=== PATIENT | female | born 1955 | race Native Hawaiian/Other Pacific Islander ===

== ENCOUNTER 2017-05-25 11:39 | Inpatient (IN) | payer MEDICARE, OTHER ==
[2017-05-25 11:40] VITALS: BMI 22.1
--- NOTE | 2017-05-25 12:25 | C.PDOC ---
History Of Present Illness 61 yr old female brought in by , presents to the ER with complaints of generalized weakness. states, patient has been living in the [facility] for the last 1.5 years and just came back 2 days ago. States the patient seemed to have general weakness, unable to walk, has been incontinence and confused at times. states he is unsure for how long the patient has has these symptoms. Patient reports weakness in the left leg for the past 1 week but seemed to be worse for the past 2 days. Otherwise, denies fever, chest pain, SOB, nausea, vomiting, abdominal pain, diarrhea, headache or dizziness. Time Seen by Provider: 05/25/17 12:02 Chief Complaint (Nursing): Weakness/Neurological Deficit History Per: Patient History/Exam Limitations: no limitations Onset/Duration Of Symptoms: Unknown Past Medical History Reviewed: Historical Data, Nursing Documentation, Vital Signs Vital Signs: Last Vital Signs Temp 98.2 F 05/26/17 16:00 Pulse 75 05/26/17 16:00 Resp 20 05/26/17 16:00 BP 156/77 H 05/26/17 16:00 Pulse Ox 98 05/26/17 19:18 - Medical History PMH: Asthma, COPD, Gall Bladder Disease, HTN Surgical History: Coronary Stent (2012) - [facility] Procedures CORONAR ARTERIOGR-2 CATH (09/16/13) INJECT ANTICOAGULANT (09/28/13) INSERTION OF ONE VASCULAR STENT (09/28/13) INSRT OF DRUG-ELUTING CORON ARTERY STENTS(S) (09/28/13) LEFT HEART CARDIAC CATH (09/16/13) LT HEART ANGIOCARDIOGRAM (09/16/13) PERCUTANEOUS TRANSLUMINAL CORONARY ANGIOPLASTY [PTCA] (09/28/13) PROCEDURE ON SINGLE VESSEL (09/28/13) THORACENTESIS (07/23/15) Family History: States: Unknown Family Hx - Social History Hx Alcohol Use: No Hx Substance Use: No - Immunization History Hx Tetanus Toxoid Vaccination: No Hx Influenza Vaccination: No Hx Pneumococcal Vaccination: No Review Of Systems Except As Marked, All Systems Reviewed And Found Negative. Constitutional: Positive for: Weakness, Other ((+) Confused at times). Negative for: Fever Cardiovascular: Negative for: Chest Pain Respiratory: Negative for: Shortness of Breath Gastrointestinal: Negative for: Nausea, Vomiting, Abdominal Pain, Diarrhea Genitourinary: Positive for: Incontinence Musculoskeletal: Positive for: Other ((+) Left leg weakness.) Neurological: Negative for: Headache, Dizziness Physical Exam - Physical Exam Appears: Non-toxic, No Acute Distress Skin: Warm, Dry Head: Atraumatic, Normacephalic Chest: Symmetrical, No Tenderness Cardiovascular: Rhythm Regular, No Murmur Respiratory: Normal Breath Sounds, No Rales, No Wheezing Extremity: Normal ROM, No Swelling Neurological/Psych: Oriented x3, Normal Speech, Normal Motor ED Course And Treatment - Laboratory Results Result Diagrams: 05/25/17 13:40 05/25/17 13:40 ECG: Interpreted By Me, Viewed By Me ECG Rhythm: Sinus Rhythm ECG Interpretation: Normal Interpretation Of ECG: Normal axis. Normal intervals. Rate From EC (BPM) O2 Sat by Pulse Oximetry: 98 (RA ) Pulse Ox Interpretation: Normal - Other Rad CXR X-Ray: Viewed By Me, Read By Radiologist Interpretation: HISTORY: weak. COMPARISON: 07/24/2015. FINDINGS: LUNGS: There is improving right lower lobe pneumonia. The left lung is clear. PLEURA : Small right pleural effusion. No significant left pleural effusion identified , no pneumothorax apparent. CARDIOVASCULAR: Normal. OSSEOUS STRUCTURES: No significant abnormalities. VISUALIZED UPPER ABDOMEN: Normal. OTHER FINDINGS: None. IMPRESSION: Improving right lower lobe pneumonia. Small right pleural effusion. - CT Scan/US CT - Head Other Rad Studies (CT/US): Read By Radiologist, Radiology Report Reviewed CT/US Interpretation: PROCEDURE: CT HEAD WITHOUT CONTRAST. HISTORY: weak. COMPARISON: None available. TECHNIQUE: Axial computed tomography images were obtained through the head/brain without intravenous contrast. Radiation dose: Total exam DLP = 892.91 mGy-cm. This CT exam was performed using one or more of the following dose reduction techniques: Automated exposure control, adjustment of the mA and/or kV according to patient size, and/or use of iterative reconstruction technique. FINDINGS: HEMORRHAGE: No intracranial hemorrhage. BRAIN: No mass effect or edema. Minimal atrophy. Mild periventricular white matter lucency consistent with age-related microvascular ischemic change. Small old bilateral thalamic lacunar infarcts. Old small bilateral basal ganglia lacunar infarcts. Small old right pontine lacunar infarct. No evidence of acute infarct. VENTRICLES: Unremarkable. No hydrocephalus. CALVARIUM: Unremarkable. PARANASAL SINUSES: Minimal chronic ethmoid sinusitis. MASTOID AIR CELLS: Unremarkable as visualized. No inflammatory changes. OTHER FINDINGS: None. IMPRESSION: No intracranial mass , hemorrhage or evidence of acute infarct. Old bilateral thalamic and basal ganglia lacunar infarcts. Old right pontine lacune. NIHSS Stroke Scale - Date/Time Evaluation Performed Date Performed: 05/25/17 Time Performed: 12:35 - How Severe is the Stoke Level of Consciousness: 0=Alert LOC to Questions: 0=Both comments correct LOC to commands: 0=Obeys both correctly Best Gaze: 0=Normal Visual: 0=No visual loss Facial: 0=Normal Motor Arm - Left: 0=No drift Motor Arm - Right: 0=No drift Motor Leg - Left: 1=Drift before 5 sec (3 seconds) Motor Leg - Right: 0=No drift Limb Ataxia: 0=Absent Sensory: 0=Normal Best Language: 0=No aphasia Dysarthia: 0=Normal articulation Extinction & Inattention (Neglect): 0=Normal, no object Score: 1 Severity Of Stroke: 1-4= Minor Stroke rTPA Inclusion/Exclusion - Refusal of Treatment Patient Refused Treatment: No - Inclusion Criteria for Altepase Patient is 18 years or Older: Yes The Clinical Diagnosis of Ischemic Stroke That is Causing a Potentially Disabling Neurological Deficit: No Time of Onset is Well Established to be Less Than 270 Minute Before Treatment Would Begin: No Risk/Benefit Discussed With Patient/Family Member Present: No Medical Decision Making Medical Decision Making: PLAN: * CT - Head * CXR * EKG * VBG * Troponin * CBC * CMP * Urinalysis * Sodium Chloride IV Disposition - Disposition Disposition: HOSPITALIZED Disposition Time: 15:16 Condition: STABLE - Clinical Impression Clinical Impression: UTI (urinary tract infection), Generalized weakness - Scribe Statement The provider has reviewed the documentation as recorded by the Trungibe Silvana Oquendo Provider Attestation: All medical record entries made by the Dajuan were at my direction and personally dictated by me. I have reviewed the chart and agree that the record accurately reflects my personal performance of the history, physical exam, medical decision making, and the department course for this patient. I have also personally directed, reviewed, and agree with the discharge instructions and disposition.
[2017-05-25] MEDS ORDERED: Sodium Chloride 0.9% 1,000 ML IV ONE (12:40)
[2017-05-25] MEDS ORDERED: Sodium Chloride 0.9% 1,000 ML ONE ×2 (13:04→15:26)
[2017-05-25 13:10] LABS: VENOUS BLOOD GAS BASE EXCESS 3.5 mmol/L (0.0-2.0); VENOUS BLOOD GAS PCO2 47 mmHg (40-60); VENOUS BLOOD GAS PO2 26 mm/Hg (30-55)
--- NOTE | 2017-05-25 13:31 | CT ---
PROCEDURE: CT HEAD WITHOUT CONTRAST. HISTORY: weak COMPARISON: None available. TECHNIQUE: Axial computed tomography images were obtained through the head/brain without intravenous contrast. Radiation dose: Total exam DLP = 892.91 mGy-cm. This CT exam was performed using one or more of the following dose reduction techniques: Automated exposure control, adjustment of the mA and/or kV according to patient size, and/or use of iterative reconstruction technique. FINDINGS: HEMORRHAGE: No intracranial hemorrhage. BRAIN: No mass effect or edema. Minimal atrophy. Mild periventricular white matter lucency consistent with age-related microvascular ischemic change. Small old bilateral thalamic lacunar infarcts. Old small bilateral basal ganglia lacunar infarcts. Small old right pontine lacunar infarct. No evidence of acute infarct. VENTRICLES: Unremarkable. No hydrocephalus. CALVARIUM: Unremarkable. PARANASAL SINUSES: Minimal chronic ethmoid sinusitis. MASTOID AIR CELLS: Unremarkable as visualized. No inflammatory changes. OTHER FINDINGS: None. IMPRESSION: No intracranial mass, hemorrhage or evidence of acute infarct. Old bilateral thalamic and basal ganglia lacunar infarcts. Old right pontine lacune.
--- NOTE | 2017-05-25 13:51 | RAD ---
HISTORY: weak COMPARISON: 07/24/2015 FINDINGS: LUNGS: There is improving right lower lobe pneumonia. The left lung is clear. PLEURA: Small right pleural effusion. No significant left pleural effusion identified, no pneumothorax apparent. CARDIOVASCULAR: Normal. OSSEOUS STRUCTURES: No significant abnormalities. VISUALIZED UPPER ABDOMEN: Normal. OTHER FINDINGS: None. IMPRESSION: Improving right lower lobe pneumonia. Small right pleural effusion.
[2017-05-25 13:55] LABS: BASO # 0.1 K/uL (0.0-0.2); BASO % 0.8 % (0.0-2.0); EOS # 0.2 K/uL (0.0-0.7); EOS % 2.7 % (0.0-4.0); LYMPH # 1.5 K/uL (1.0-4.3); MEAN CELL VOLUME 85.5 fL (81.0-99.0); MEAN CORPUSCULAR HEMOGLOBIN 28.9 pg (27.0-31.0); MEAN CORPUSCULAR HGB CONC 33.8 g/dL (33.0-37.0); MEAN PLATELET VOLUME 7.8 fL (7.2-11.7); MONO # 0.5 K/uL (0.0-0.8); MONO % 5.9 % (0.0-10.0); NEUT # 6.5 K/uL (1.8-7.0); NEUT % 73.6 % (50.0-75.0); RBC 4.85 Mil/uL (3.80-5.20); RED CELL DISTRIBUTION WIDTH 14.9 % (11.5-14.5); WHITE BLOOD COUNT 8.8 K/uL (4.8-10.8)
[2017-05-25 14:03] LABS: ALBUMIN 2.8 g/dL (3.5-5.0)
[2017-05-25 14:05] LABS: GFR AFRICAN-AMERICAN 50; GFR NON-AFRICAN AMERICAN 42
[2017-05-25 14:06] LABS: ALB/GLOB RATIO 0.8 (1.0-2.1); ALT/SGPT 20 U/L (9-52); AST/SGOT 18 U/L (14-36); BLOOD UREA NITROGEN 15 mg/dL (7-17); CALCIUM 8.6 mg/dl (8.6-10.4)
[2017-05-25 15:09] LABS: SQUAMOUS EPITHIAL 1 /hpf (0-5); URINE BACTERIA FEW (<OCC); URINE BILIRUBIN NEGATIVE (NEGATIVE); URINE BLOOD 1+ (NEGATIVE); URINE CLARITY Hazy (Clear); URINE COLOR Yellow (YELLOW); URINE GLUCOSE (UA) 3+ mg/dL (Normal); URINE LEUKOCYTE ESTERASE 3+ Leu/uL (Negative); URINE NITRATE NEGATIVE (NEGATIVE); URINE PROTEIN 3+ mg/dL (NEGATIVE); URINE UROBILINOGEN NORMAL mg/dL (0.2-1.0); WBC CLUMPS FEW /hpf
[2017-05-25] MEDS ORDERED: cefTRIAXone IV 1 gm in Dextros 50 ML IVPB ONE (15:26)
[2017-05-25] MEDS: Sodium Chloride 0.9% 1,000 ML IV SCH (15:30)
[2017-05-25] MEDS ORDERED: (Novolin R) Insulin Human Regular 100 units/ml vial ONE (16:35)
[2017-05-25] MEDS: (Novolog) Insulin Aspart, Recombinant 100 u/ml 10 ml vial SC SCH ×2 (16:35→22:54)
[2017-05-25] MEDS ORDERED: Potassium Chloride 20 mEq ER Tab PO SCH (18:45)
[2017-05-25] MEDS ORDERED: Potassium Chloride 20 mEq ER Tab PO ONE ×2 (18:45→18:55)
[2017-05-26] MEDS: Sodium Chloride 0.9% 1,000 ML IV SCH ×2 (01:54→13:17)
[2017-05-26] MEDS: (Novolog) Insulin Aspart, Recombinant 100 u/ml 10 ml vial SC SCH ×4 (08:43→23:28)
[2017-05-26] MEDS ORDERED: Insulin Detemir 100 units/ml Vial (Levemir) SC SCH (10:00)
[2017-05-26] MEDS ORDERED: Potassium Chloride 20 mEq ER Tab PO SCH (10:00)
--- NOTE | 2017-05-26 11:38 | CP.PCM.HP ---
History of Present Illness - History of Present Illness History of Present Illness: CC: Weakness HPI : 61 year old female brought by in ER c/o weakness, unsteady gait and confusion. Recently arrived from the [facility]. Stayed in the [facility] for 1 year. Unable to obtain additional history. Confuse. Moves all extremities. Present on Admission - Present on Admission Any Indicators Present on Admission: Yes History of DVT/PE: No History of Uncontrolled Diabetes: Yes Urinary Catheter: No Decubitus Ulcer Present: No Review of Systems - Review of Systems Systems not reviewed;Unavailable: Altered Mental Status - Constitutional Constitutional: Weakness - EENT Ears: Dizziness Past Patient History - Past Medical History & Family History Past Medical History?: Yes - Past Social History Smoking Status: Never Smoked - CARDIAC Hx Cardiac Disorders: Yes Hx Hypertension: Yes - PULMONARY Hx Respiratory Disorders: Yes Hx Asthma: Yes Hx Chronic Obstructive Pulmonary Disease (COPD): Yes - NEUROLOGICAL Hx Neurological Disorder: No Hx Paralysis: No - HEENT Hx HEENT Problems: No - RENAL Hx Chronic Kidney Disease: No - ENDOCRINE/METABOLIC Hx Endocrine Disorders: Yes Hx Diabetes Mellitus Type 2: Yes - HEMATOLOGICAL/ONCOLOGICAL Hx Blood Disorders: No Hx Blood Transfusions: No Hx Blood Transfusion Reaction: No - INTEGUMENTARY Hx Dermatological Problems: No - MUSCULOSKELETAL/RHEUMATOLOGICAL Hx Musculoskeletal Disorders: Yes Hx Falls: No Hx Unsteady Gait: Yes - GASTROINTESTINAL Hx Gastrointestinal Disorders: Yes Hx Gall Bladder Disease: Yes - GENITOURINARY/GYNECOLOGICAL Hx Genitourinary Disorders: No - PSYCHIATRIC Hx Psychophysiologic Disorder: No Hx Substance Use: No - SURGICAL HISTORY Hx Surgeries: Yes Hx Coronary Stent: Yes (2012) - ANESTHESIA Hx Anesthesia: Yes Hx Anesthesia Reactions: No Hx Malignant Hyperthermia: No Has any member of the family had a problem w/ anesthesia?: No Meds Allergies/Adverse Reactions: Allergies Allergy/AdvReac Type Severity Reaction Status Date / Time iodine Allergy Verified 05/25/17 12:27 Latex, Natural Rubber Allergy Verified 05/25/17 12:27 pentazocine [From Talwin] Allergy Verified 05/25/17 12:27 Physical Exam - Constitutional Appears: Chronically Ill - Head Exam Head Exam: NORMAL INSPECTION - Eye Exam Eye Exam: Normal appearance - ENT Exam ENT Exam: Normal Exam - Neck Exam Neck exam: Positive for: Normal Inspection - Respiratory Exam Respiratory Exam: NORMAL BREATHING PATTERN - Cardiovascular Exam Cardiovascular Exam: REGULAR RHYTHM - GI/Abdominal Exam GI & Abdominal Exam: Soft. absent: Tenderness - Rectal Exam Rectal Exam: Deferred - Extremities Exam Extremities exam: Negative for: pedal edema - Neurological Exam Neurological exam: Altered Results - Vital Signs Recent Vital Signs: Last Vital Signs Temp 98.1 F 05/26/17 07:41 Pulse 68 05/26/17 07:41 Resp 20 05/26/17 07:41 BP 167/79 H 05/26/17 07:41 Pulse Ox 100 05/26/17 07:41 - Labs Result Diagrams: 05/25/17 13:40 05/25/17 13:40 Labs: Laboratory Results - last 24 hr 05/25/17 05/25/17 05/26/17 16:31 22:49 08:36 POC Glucose (mg/dL) 224 H 162 H 234 H Assessment & Plan (1) Confusion state Status: Acute (2) Uncontrolled diabetes mellitus Status: Acute (3) Weakness Status: Acute (4) CAD (coronary artery disease) Status: Chronic (5) Old cerebrovascular accident without late effect Status: Chronic - Assessment and Plan (Free Text) Assessment: PLans: Continue medications. Neurology consult. - Date & Time Date: 05/26/17 Time: 11:46
--- NOTE | 2017-05-26 13:05 | CP.PCM.CON ---
History of Present Illness - History of Present Illness History of Present Illness: Consult wriite Rec: MRI brain Ammonia level HIV testing urine c/c Consider IV antibiotucs Physical therapy Past Patient History - Past Medical History & Family History Past Medical History?: Yes - Past Social History Smoking Status: Never Smoked - CARDIAC Hx Cardiac Disorders: Yes Hx Hypertension: Yes - PULMONARY Hx Respiratory Disorders: Yes Hx Asthma: Yes Hx Chronic Obstructive Pulmonary Disease (COPD): Yes - NEUROLOGICAL Hx Neurological Disorder: No Hx Paralysis: No - HEENT Hx HEENT Problems: No - RENAL Hx Chronic Kidney Disease: No - ENDOCRINE/METABOLIC Hx Endocrine Disorders: Yes Hx Diabetes Mellitus Type 2: Yes - HEMATOLOGICAL/ONCOLOGICAL Hx Blood Disorders: No Hx Blood Transfusions: No Hx Blood Transfusion Reaction: No - INTEGUMENTARY Hx Dermatological Problems: No - MUSCULOSKELETAL/RHEUMATOLOGICAL Hx Musculoskeletal Disorders: Yes Hx Falls: No Hx Unsteady Gait: Yes - GASTROINTESTINAL Hx Gastrointestinal Disorders: Yes Hx Gall Bladder Disease: Yes - GENITOURINARY/GYNECOLOGICAL Hx Genitourinary Disorders: No - PSYCHIATRIC Hx Psychophysiologic Disorder: No Hx Substance Use: No - SURGICAL HISTORY Hx Surgeries: Yes Hx Coronary Stent: Yes (2012) - ANESTHESIA Hx Anesthesia: Yes Hx Anesthesia Reactions: No Hx Malignant Hyperthermia: No Has any member of the family had a problem w/ anesthesia?: No Meds Allergies/Adverse Reactions: Allergies Allergy/AdvReac Type Severity Reaction Status Date / Time iodine Allergy Verified 05/25/17 12:27 Latex, Natural Rubber Allergy Verified 05/25/17 12:27 pentazocine [From Talwin] Allergy Verified 05/25/17 12:27 - Medications Medications: Current Medications Heparin Sodium (Porcine) (Heparin) 5,000 units SC Q8 [facility] Sodium Chloride (Sodium Chloride 0.9%) 1,000 mls @ 100 mls/hr IV .Q10H [facility] Last Admin: 05/26/17 01:54 Dose: 100 mls/hr Insulin Aspart (Novolog) 0 unit SC ACHS [facility] PRN Reason: Protocol Last Admin: 05/26/17 08:43 Dose: 4 unit Insulin Detemir (Levemir) 16 unit SC DAILY [facility] Stop: 05/31/17 23:59 Last Admin: 05/26/17 10:50 Dose: 16 unit Losartan Potassium (Cozaar) 50 mg PO DAILY [facility] Last Admin: 05/26/17 10:50 Dose: 50 mg Results - Vital Signs Recent Vital Signs: Last Vital Signs Temp 98.1 F 05/26/17 07:41 Pulse 68 05/26/17 07:41 Resp 20 05/26/17 07:41 BP 167/79 H 05/26/17 07:41 Pulse Ox 100 05/26/17 07:41 - Labs Result Diagrams: 05/25/17 13:40 05/25/17 13:40 Labs: Laboratory Results - last 24 hr 05/25/17 05/25/17 05/26/17 16:31 22:49 08:36 POC Glucose (mg/dL) 224 H 162 H 234 H 05/26/17 12:54 POC Glucose (mg/dL) 275 H
[2017-05-27] MEDS: (Novolog) Insulin Aspart, Recombinant 100 u/ml 10 ml vial SC SCH ×4 (08:17→22:13)
--- NOTE | 2017-05-27 08:55 | CP.PCM.PN ---
Subjective - Date & Time of Evaluation Date of Evaluation: 05/27/17 Time of Evaluation: 08:15 - Subjective Subjective: Patient confuse; (+) weakness on left leg and seems got worse at the plane States unable to go to bathroom c/o weak on left leg NO CP, no SOB, no edema, no cough, no dysuria Objective - Vital Signs/Intake and Output Vital Signs (last 24 hours): Temp Pulse Resp BP Pulse Ox 97 F L 87 20 126/89 98 05/27/17 00:03 05/27/17 00:03 05/27/17 00:03 05/27/17 00:03 05/27/17 00:03 Intake and Output: 05/27/17 05/27/17 06:59 18:59 Intake Total 660 Balance 660 - Medications Medications: Current Medications Heparin Sodium (Porcine) (Heparin) 5,000 units SC Q8 [facility] Last Admin: 05/27/17 05:38 Dose: 5,000 units Ceftriaxone Sodium 1 gm/ (Sodium Chloride) 100 mls @ 100 mls/hr IVPB DAILY [facility] Last Admin: 05/26/17 17:45 Dose: 100 mls/hr Insulin Aspart (Novolog) 0 unit SC ACHS [facility] PRN Reason: Protocol Last Admin: 05/27/17 08:17 Dose: Not Given Insulin Aspart (Novolog Mix 70/30 (70/30 Units/Ml)) 14 units SC BIDAC [facility] Losartan Potassium (Cozaar) 50 mg PO DAILY [facility] Last Admin: 05/26/17 10:50 Dose: 50 mg Potassium Chloride (K-Dur 20 Meq Er Tab) 20 meq PO BID [facility] Stop: 05/28/17 23:59 - Labs Labs: APTT 34 SECONDS (21-34) 05/26/17 14:00 - Constitutional Appears: No Acute Distress - Eye Exam Eye Exam: Normal appearance - ENT Exam ENT Exam: Mucous Membranes Moist - Neck Exam Neck Exam: Full ROM. absent: Lymphadenopathy, Normal Inspection - Respiratory Exam Respiratory Exam: Decreased Breath Sounds. absent: Rales, Rhonchi, Wheezes - Cardiovascular Exam Cardiovascular Exam: REGULAR RHYTHM, +S1, +S2. absent: Gallop, JVD, Murmur - GI/Abdominal Exam GI & Abdominal Exam: Soft. absent: Tenderness, Mass - Extremities Exam Extremities Exam: Full ROM, Normal Capillary Refill. absent: Calf Tenderness, Joint Swelling, Pedal Edema Assessment and Plan - Assessment and Plan (Free Text) Assessment: UTI; Left leg weakness ? s/o CVA HTN, NIDDM, Hyperlipidemia Cont IV antibiotic/ await ID of infection Neuro work up on going For Phy therapy
[2017-05-27] MEDS: Potassium Chloride 20 mEq ER Tab PO SCH ×2 (09:39→18:15)
[2017-05-27] MEDS: (Novolog Mix 70/30) Insulin Aspart/Insulin Aspar 100 units/ml SC SCH ×2 (09:40→18:17)
[2017-05-27] MEDS ORDERED: Insulin Detemir 100 units/ml Vial (Levemir) SC SCH (10:00)
--- NOTE | 2017-05-27 15:50 | MRI ---
PROCEDURE: MRI BRAIN WITHOUT CONTRAST HISTORY: altered mental status COMPARISON: Comparison made with CT scan of the brain dated 05/25/2017. TECHNIQUE: Multiplanar, multisequence MR images of the brain were obtained without intravenous contrast enhancement. FINDINGS: HEMORRHAGE: No acute parenchymal, subarachnoid nor extra-axial hemorrhage. No evidence of hemosiderin deposition seen on gradient echo weighted sequence. DWI: There are a few very tiny focal areas of restricted diffusion seen in the right posterior villeda radiata, right posterior temporal parietal watershed zone and right frontal periventricular white matter consistent with tiny acute/ subacute infarcts. BRAIN PARENCHYMA: Mild chronic periventricular white matter ischemic changes. In addition, there are multiple chronic appearing lacunar type infarcts scattered about deep and subcortical white matter as well as both basal nuclei and brainstem. No obvious parenchymal nor extra-axial mass or collection seen on noncontrast study. There is enlargement of the ventricles slightly more so than sulci consistent with a central volume loss VENTRICLES: No evidence of obstructive hydrocephalus. CRANIUM: No acute calvarial abnormalities. ORBITS: Orbits and contents grossly unremarkable. PARANASAL SINUSES/MASTOIDS: Clear the visualized paranasal sinuses are well-developed. Minor mucosal thickening seen within several right-sided ethmoid air cells. VASCULAR SYSTEM: Skull base flow voids intact. OTHER FINDINGS: None. IMPRESSION: There are a few tiny acute infarcts scattered about the right cerebral hemisphere which have been detailed above. Note that these findings were discussed with 3 tower Nurse Alfred at approximately 3:40 p.m. with written down and read back verification. White matter and basal nuclei ischemic changes. Ischemic changes No acute intracranial hemorrhage. Moderate central volume loss.
--- NOTE | 2017-05-27 16:17 | PCM.RRTMUL ---
<ThomasDeandra L. - Last Filed: 05/27/17 16:30> QUALITY SYSTEMS MANAGER Nurses Assessment - Situation QUALITY SYSTEMS MANAGER Responder Arrival Time:: 15:45 Location:: 3T Room Number:: 368B QUALITY SYSTEMS MANAGER Reason for Call: Possible Stroke QUALITY SYSTEMS MANAGER Called By: RN - IV IV Inserted during QUALITY SYSTEMS MANAGER?: No - Respiratory Oxygen Delivery Method:: Nasal Cannula CPR started during QUALITY SYSTEMS MANAGER?: No - Vital Signs Blood Pressure:: 159/81 Pulse Rate:: 85 Respiratory Rate:: 20 Temperature:: 98 F - [place] Coma Scale Coma Scale Eye Opening:: Spontaneous Coma Scale Motor:: Obeys Commands Movement Coma Scale Verbal:: Oriented Coma Scale Total:: 15 - A) Initial Vital Signs: Blood Pressure: 152/76 Pulse Rate: 77 Respiratory Rate: 20 Temperature: 98 F O2 Sat by Pulse Oximetry: 98 - B) Neurological Status (Select all that apply): Responsive, Lethargic Plan - A. End of QUALITY SYSTEMS MANAGER Vital Signs: Blood Pressure: 159/81 Pulse Rate: 85 O2 Sat by Pulse Oximetry: 100 - B. Assessment of Findings&Treatment Plan Rapid Response called on patient at 1545 for acute ischemic stroke seen on Brain MRI. Patient returned to room from MRI and radiologist contacted RN with acute results. RN called code stroke on patient. Patient responsive and alert but states that she feels tired. Patient's medical history reviewed- pt has history of CVA in 2014 which resulted in L sided weakness. Patient was initially admitted on 05/25/17 for worsening weakness and confusion and treated for UTI. Neurologist Dr Queta Patel was consulted due to worsening left sided weakness on 05/26. CT head done on 05/25/17 was reviewed which showed no acute findings. Dr Patel ordered MRI brain today to further evaluated symptoms. Full neuro exam was performed (documented in NIHSS note). Dr. Patel was called at 16: 40 results were discussed and he recommends no TPA intervention as patient has been having weakness for several days. Patient to be started on aspiring and crestor and monitored on tele. NIHSS Stroke Scale - Date/Time Evaluation Performed Date Performed: 05/27/17 Time Performed: 16:10 - How Severe is the Stoke Level of Consciousness: 1=Drowsy LOC to Questions: 0=Both comments correct LOC to commands: 0=Obeys both correctly Best Gaze: 0=Normal Visual: 0=No visual loss Facial: 1=Minor asymmetry Motor Arm - Left: 0=No drift Motor Arm - Right: 0=No drift Motor Leg - Left: 0=No drift Motor Leg - Right: 0=No drift Limb Ataxia: 0=Absent Sensory: 0=Normal Best Language: 0=No aphasia Dysarthia: 0=Normal articulation Extinction & Inattention (Neglect): 0=Normal, no object Score: 2 Severity Of Stroke: 1-4= Minor Stroke rTPA Inclusion/Exclusion - Refusal of Treatment Patient Refused Treatment: No - Inclusion Criteria for Altepase Patient is 18 years or Older: Yes The Clinical Diagnosis of Ischemic Stroke That is Causing a Potentially Disabling Neurological Deficit: Yes Time of Onset is Well Established to be Less Than 270 Minute Before Treatment Would Begin: No Risk/Benefit Discussed With Patient/Family Member Present: No - Exclusion Criteria for Altepase Uncontrolled Hypertension at Time of Treatment (Systolic BP above 185 or Diastolic BP above 110 mmHg): No <Marychuy Loera V - Last Filed: 06/04/17 23:19> rTPA Inclusion/Exclusion - Inclusion Criteria for Altepase Time of Onset is Well Established to be Less Than 270 Minute Before Treatment Would Begin: No - Exclusion Criteria for Altepase Less Than 3 Months Had a Recent: Stroke (patient admitted [facility] 05/25/17 for weakness; prior CVA 2 years; unclear time of onset; QUALITY SYSTEMS MANAGER called on 05/27/17) Active Internal Bleeding: No Known Bleeding Diathesis Including but Not Limited to: Platelets Below 100,000/ mm,PTT Above 40 sec After Heparin Use, Current Use of Oral Anitcoagulant With INR Greater Than 1.7 or PT Greater Than 15 secs: No Evidence of an Intracranial Hemorrhage: No Evidence of Major Acute Infarct With Signs Greater Than 1/3 MCA Territory: No Suspicion of Subarachnoid Hemorrhage on Pretreatment Evaluation Even if CT Head Negative For Hemorrhage: No Attending/Attestation - Attestation I have personally seen and examined this patient.: Yes I have fully participated in the care of the patient.: Yes I have reviewed all pertinent clinical information, including history, physical exam and plan: Yes Notes (Text): Responded to QUALITY SYSTEMS MANAGER; nurse reports radiologist recommended QUALITY SYSTEMS MANAGER, for MRI finding noting acute stroke. Patient admitted since 05/25/17 for weakness. ICU Nurse, Gretta providing translation for patient whose primary language is in [place]. Neurology informed (Dr Patel) already on the case. Patient not a candidate for TPA given out of time range since onset of symptoms. Code stroke cancelled. Patient transferred to 6th floor to be monitored on telemetry. Patient ordered for lipid panel, a1c, for stroke measures.
[2017-05-27] MEDS ORDERED: Bisacodyl 5mg EC Tab PO ONE (18:57)
[2017-05-28 06:35] LABS: BASO # 0.1 K/uL (0.0-0.2); BASO % 1.1 % (0.0-2.0); EOS # 0.3 K/uL (0.0-0.7); HEMOGLOBIN 13.1 g/dL (11.0-16.0); LYMPH # 2.3 K/uL (1.0-4.3); LYMPH % 26.2 % (20.0-40.0); MEAN CELL VOLUME 85.1 fL (81.0-99.0); MEAN CORPUSCULAR HEMOGLOBIN 28.2 pg (27.0-31.0); MEAN CORPUSCULAR HGB CONC 33.1 g/dL (33.0-37.0); MEAN PLATELET VOLUME 7.5 fL (7.2-11.7); MONO # 0.5 K/uL (0.0-0.8); MONO % 5.9 % (0.0-10.0); NEUT # 5.5 K/uL (1.8-7.0); NEUT % 63.8 % (50.0-75.0); NRBC % 0.1 % (0.0-2.0); RBC 4.65 Mil/uL (3.80-5.20); RED CELL DISTRIBUTION WIDTH 14.7 % (11.5-14.5); WHITE BLOOD COUNT 8.7 K/uL (4.8-10.8)
[2017-05-28 07:16] LABS: ALBUMIN 2.4 g/dL (3.5-5.0)
[2017-05-28 07:20] LABS: CALCIUM 8.1 mg/dl (8.6-10.4); MAGNESIUM 1.9 mg/dL (1.6-2.3)
[2017-05-28 07:43] LABS: ALB/GLOB RATIO 0.8 (1.0-2.1)
[2017-05-28] MEDS: (Novolog) Insulin Aspart, Recombinant 100 u/ml 10 ml vial SC SCH ×4 (08:17→22:10)
[2017-05-28] MEDS: (Novolog Mix 70/30) Insulin Aspart/Insulin Aspar 100 units/ml SC SCH ×2 (08:29→17:20)
--- NOTE | 2017-05-28 08:54 | CP.PCM.PN ---
Subjective - Date & Time of Evaluation Date of Evaluation: 05/28/17 Time of Evaluation: 08:25 - Subjective Subjective: Pt eyes more blurry; No CP, no SOB, no edema Urine C/S R to Ampicillin but (+) Ceftriaxone Objective - Vital Signs/Intake and Output Vital Signs (last 24 hours): Temp Pulse Resp BP Pulse Ox 98.3 F 79 20 170/91 H 97 05/28/17 08:23 05/28/17 08:23 05/28/17 08:23 05/28/17 08:23 05/28/17 08:23 Intake and Output: 05/28/17 05/28/17 06:59 18:59 Intake Total 125 Balance 125 - Medications Medications: Current Medications Amlodipine Besylate (Norvasc) 5 mg PO DAILY [facility] Last Admin: 05/27/17 09:39 Dose: 5 mg Clopidogrel Bisulfate (Plavix) 75 mg PO DAILY [facility] Last Admin: 05/27/17 09:39 Dose: 75 mg Heparin Sodium (Porcine) (Heparin) 5,000 units SC Q8 [facility] Last Admin: 05/28/17 06:03 Dose: 5,000 units Ceftriaxone Sodium 1 gm/ (Sodium Chloride) 100 mls @ 100 mls/hr IVPB DAILY [facility] Last Admin: 05/27/17 09:41 Dose: 100 mls/hr Insulin Aspart (Novolog) 0 unit SC ACHS [facility] PRN Reason: Protocol Last Admin: 05/28/17 08:17 Dose: Not Given Insulin Aspart (Novolog Mix 70/30 (70/30 Units/Ml)) 14 units SC BIDAC [facility] Last Admin: 05/28/17 08:29 Dose: 14 units Losartan Potassium (Cozaar) 100 mg PO DAILY [facility] Potassium Chloride (K-Dur 20 Meq Er Tab) 20 meq PO BID [facility] Stop: 05/28/17 23:59 Last Admin: 05/27/17 18:15 Dose: 20 meq Rosuvastatin Calcium (Crestor) 40 mg PO HS [facility] Last Admin: 05/27/17 22:33 Dose: 40 mg - Labs Labs: 05/28/17 06:14 05/28/17 06:14 APTT 34 SECONDS (21-34) 05/26/17 14:00 - Constitutional Appears: No Acute Distress - Eye Exam Eye Exam: Normal appearance - ENT Exam ENT Exam: Mucous Membranes Moist - Respiratory Exam Respiratory Exam: Clear to Ausculation Bilateral. absent: Rales, Rhonchi, Wheezes - Cardiovascular Exam Cardiovascular Exam: +S1, +S2. absent: Gallop, REGULAR RHYTHM, JVD, Murmur - GI/Abdominal Exam GI & Abdominal Exam: Soft. absent: Tenderness, Mass - Extremities Exam Extremities Exam: Calf Tenderness, Normal Capillary Refill. absent: Full ROM, Joint Swelling, Pedal Edema Assessment and Plan - Assessment and Plan (Free Text) Assessment: Recent CVA w/ left leg weakness; NIDDM HTN Inc Losartan; On Plavix On Crestor ID & ophtha eval^
[2017-05-28] MEDS: Potassium Chloride 20 mEq ER Tab PO SCH ×2 (09:26→17:19)
--- NOTE | 2017-05-28 15:24 | CP.PCM.CON ---
History of Present Illness - History of Present Illness History of Present Illness: 61 yo F admitted with altered mental status and UTI complaining of blurry vision OS>OD. Pt extremely poor historian on exam. Endorses previous eye surgery ?retinal detachment in past but unable to state when or level of vision previous to admission. Past Patient History - Past Medical History & Family History Past Medical History?: Yes - Past Social History Smoking Status: Never Smoked - CARDIAC Hx Cardiac Disorders: Yes Hx Hypertension: Yes - PULMONARY Hx Respiratory Disorders: Yes Hx Asthma: Yes Hx Chronic Obstructive Pulmonary Disease (COPD): Yes - NEUROLOGICAL Hx Neurological Disorder: No Hx Paralysis: No - HEENT Hx HEENT Problems: No - RENAL Hx Chronic Kidney Disease: No - ENDOCRINE/METABOLIC Hx Endocrine Disorders: Yes Hx Diabetes Mellitus Type 2: Yes - HEMATOLOGICAL/ONCOLOGICAL Hx Blood Disorders: No Hx Blood Transfusions: No Hx Blood Transfusion Reaction: No - INTEGUMENTARY Hx Dermatological Problems: No - MUSCULOSKELETAL/RHEUMATOLOGICAL Hx Musculoskeletal Disorders: Yes Hx Falls: No Hx Unsteady Gait: Yes - GASTROINTESTINAL Hx Gastrointestinal Disorders: Yes Hx Gall Bladder Disease: Yes - GENITOURINARY/GYNECOLOGICAL Hx Genitourinary Disorders: No - PSYCHIATRIC Hx Psychophysiologic Disorder: No Hx Substance Use: No - SURGICAL HISTORY Hx Surgeries: Yes Hx Coronary Stent: Yes (2012) - ANESTHESIA Hx Anesthesia: Yes Hx Anesthesia Reactions: No Hx Malignant Hyperthermia: No Has any member of the family had a problem w/ anesthesia?: No Meds Allergies/Adverse Reactions: Allergies Allergy/AdvReac Type Severity Reaction Status Date / Time iodine Allergy Verified 05/25/17 12:27 Latex, Natural Rubber Allergy Verified 05/25/17 12:27 pentazocine [From Talwin] Allergy Verified 05/25/17 12:27 - Medications Medications: Current Medications Amlodipine Besylate (Norvasc) 5 mg PO DAILY [facility] Last Admin: 05/28/17 09:26 Dose: 5 mg Clopidogrel Bisulfate (Plavix) 75 mg PO DAILY [facility] Last Admin: 05/28/17 09:26 Dose: 75 mg Heparin Sodium (Porcine) (Heparin) 5,000 units SC Q8 [facility] Last Admin: 05/28/17 14:17 Dose: 5,000 units Ceftriaxone Sodium 1 gm/ (Sodium Chloride) 100 mls @ 100 mls/hr IVPB DAILY [facility] Last Admin: 05/28/17 09:27 Dose: 100 mls/hr Insulin Aspart (Novolog) 0 unit SC ACHS [facility] PRN Reason: Protocol Last Admin: 05/28/17 12:30 Dose: 4 unit Insulin Aspart (Novolog Mix 70/30 (70/30 Units/Ml)) 14 units SC BIDAC [facility] Last Admin: 05/28/17 08:29 Dose: 14 units Losartan Potassium (Cozaar) 100 mg PO DAILY [facility] Last Admin: 05/28/17 09:26 Dose: 100 mg Potassium Chloride (K-Dur 20 Meq Er Tab) 20 meq PO BID [facility] Stop: 05/28/17 23:59 Last Admin: 05/28/17 09:26 Dose: 20 meq Rosuvastatin Calcium (Crestor) 40 mg PO HS [facility] Last Admin: 05/27/17 22:33 Dose: 40 mg Physical Exam - Eye Exam Eye Exam: EOMI Pupil Exam: PERRL Additional comments: Va unreliable OU, able to fix and follow OU No APD OU Soft to palpation OU Cornea clear OU anterior chamber deep and formed OU 2+ nuclear sclerotic cataracts OU Poor dilation OU Non-proliferative diabetic retinopathy OU Nerves pink and sharp OU OS with chronic vitreoretinal traction overlying macula/disc Results - Vital Signs Recent Vital Signs: Last Vital Signs Temp 98.3 F 05/28/17 13:09 Pulse 89 05/28/17 13:09 Resp 18 05/28/17 13:09 BP 137/80 05/28/17 13:09 Pulse Ox 97 05/28/17 13:09 - Labs Result Diagrams: 05/28/17 06:14 05/28/17 06:14 Labs: Laboratory Results - last 24 hr 05/27/17 05/27/17 05/27/17 16:39 21:43 22:23 WBC RBC Hgb Hct MCV MCH MCHC RDW Plt Count MPV Neut % (Auto) Lymph % (Auto) [place] % (Auto) Eos % (Auto) Baso % (Auto) Neut # Lymph # [place] # Eos # Baso # Sodium Potassium Chloride Carbon Dioxide Anion Gap BUN Creatinine Est GFR ( Amer) Est GFR (Non-Af Amer) POC Glucose (mg/dL) 274 H 71 106 Random Glucose Hemoglobin A1c Calcium Phosphorus Magnesium Total Bilirubin AST ALT Alkaline Phosphatase Total Protein Albumin Globulin Albumin/Globulin Ratio Triglycerides Cholesterol LDL Cholesterol Direct HDL Cholesterol 05/28/17 05/28/17 05/28/17 06:09 06:14 06:14 WBC 8.7 RBC 4.65 Hgb 13.1 Hct 39.6 MCV 85.1 MCH 28.2 MCHC 33.1 RDW 14.7 H Plt Count 446 H MPV 7.5 Neut % (Auto) 63.8 Lymph % (Auto) 26.2 [place] % (Auto) 5.9 Eos % (Auto) 3.0 Baso % (Auto) 1.1 Neut # 5.5 Lymph # 2.3 Titus # 0.5 Eos # 0.3 Baso # 0.1 Sodium 131 L Potassium 3.4 L Chloride 105 Carbon Dioxide 25 Anion Gap 4 L BUN 14 Creatinine 1.2 Est GFR ( Amer) 55 Est GFR (Non-Af Amer) 46 POC Glucose (mg/dL) 102 Random Glucose 107 H Hemoglobin A1c Calcium 8.1 L Phosphorus 3.7 Magnesium 1.9 Total Bilirubin 0.3 AST 16 ALT 19 Alkaline Phosphatase 51 Total Protein 5.6 L Albumin 2.4 L Globulin 3.2 Albumin/Globulin Ratio 0.8 L Triglycerides 274 H Cholesterol 199 LDL Cholesterol Direct 104 HDL Cholesterol 38 05/28/17 05/28/17 06:14 11:35 WBC RBC Hgb Hct MCV MCH MCHC RDW Plt Count MPV Neut % (Auto) Lymph % (Auto) [place] % (Auto) Eos % (Auto) Baso % (Auto) Neut # Lymph # [place] # Eos # Baso # Sodium Potassium Chloride Carbon Dioxide Anion Gap BUN Creatinine Est GFR ( Amer) Est GFR (Non-Af Amer) POC Glucose (mg/dL) 231 H Random Glucose Hemoglobin A1c 7.9 H Calcium Phosphorus Magnesium Total Bilirubin AST ALT Alkaline Phosphatase Total Protein Albumin Globulin Albumin/Globulin Ratio Triglycerides Cholesterol LDL Cholesterol Direct HDL Cholesterol Assessment & Plan (1) 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 No indication for acute surgical management. Arrange for outpatient follow-up/management when medically stable with Dr. Aminah Khanna, [facility] (2) Diabetic retinopathy associated with controlled type 2 diabetes mellitus Status: Chronic Comment: Management as above (3) Cataracts, bilateral Status: Chronic Comment: Not visually significant, monitor as outpatient
--- NOTE | 2017-05-28 18:19 | CP.PCM.CON ---
History of Present Illness - History of Present Illness History of Present Illness: 61 yr old female brought in by , presents to the ER with complaints of generalized weakness. states, patient has been living in the [facility] for the last 1.5 years and just came back 2 days ago. States the patient seemed to have general weakness, unable to walk, has been incontinence and confused at times. states he is unsure for how long the patient has has these symptoms. Patient reports weakness in the left leg for the past 1 week but seemed to be worse for the past 2 days. MRI + for small acute infarcts Urine C/S + E Coli Blood c/s pendng May need COLTON + RLL Infiltrates - Medical History PMH: Asthma, COPD, Gall Bladder Disease, HTN Surgical History: Coronary Stent (2012) - [facility] Procedures CORONAR ARTERIOGR-2 CATH (09/16/13) INJECT ANTICOAGULANT (09/28/13) INSERTION OF ONE VASCULAR STENT (09/28/13) INSRT OF DRUG-ELUTING CORON ARTERY STENTS(S) (09/28/13) LEFT HEART CARDIAC CATH (09/16/13) LT HEART ANGIOCARDIOGRAM (09/16/13) PERCUTANEOUS TRANSLUMINAL CORONARY ANGIOPLASTY [PTCA] (09/28/13) PROCEDURE ON SINGLE VESSEL (09/28/13) THORACENTESIS (07/23/15) Review of Systems - Review of Systems Systems not reviewed;Unavailable: Altered Mental Status - Constitutional Constitutional: As Per HPI - EENT Eyes: absent: As Per HPI, Blind Spots, Blurred Vision, Change in Vision, Decreased Night Vision, Diplopia, Discharge, Dry Eye, Exophthalmos, Floaters, Irritation, Itchy Eyes, Loss of Peripheral Vision, Pain, Photophobia, Requires Corrective Lenses, Sees Flashes, Spots in Vision, Tunnel Vision, Other Visual Disturbances, Loss of Vision, Other Ears: absent: As Per HPI, Decreased Hearing, Ear Discharge, Ear Pain, Tinnitus, Abnormal Hearing, Disequilibrium, Dizziness, Other Nose/Mouth/Throat: absent: As Per HPI, Epistaxis, Nasal Congestion, Nasal Discharge, Nasal Obstruction, Nasal Trauma, Nose Pain, Post Nasal Drip, Sinus Pain, Sinus Pressure, Bleeding Gums, Change in Voice, Dental Pain, Dry Mouth, Dysphagia, Halitosis, Hoarsness, Lip Swelling, Mouth Lesions, Mouth Pain, Odynophagia, Sore Throat, Throat Swelling, Tongue Swelling, Facial Pain, Neck Pain, Neck Mass, Other - Breasts Breasts: absent: As Per HPI, Change in Shape, Mass, Pain, Nipple Discharge, Nipple Inversion, Skin Changes, Swelling, Other - Cardiovascular Cardiovascular: absent: As Per HPI, Acrocyanosis, Chest Pain, Chest Pain at Rest , Chest Pain with Activity, Claudication, Diaphoresis, Dyspnea, Dyspnea on Exertion, Edema, Irregular Heart Rhythm, Pain Radiating to Arm/Neck/Jaw, Leg Edema, Leg Ulcers, Lightheadedness, Orthopnea, Palpitations, Paroxysmal Nocturnal Dyspnea, Pedal Edema, Radiating Pain, Rapid Heart Rate, Slow Heart Rate, Syncope, Other - Respiratory Respiratory: absent: As Per HPI, Cough, Dyspnea, Hemoptysis, Dyspnea on Exertion , Wheezing, Snoring, Stridor, Pain on Inspiration, Chest Congestion, Excessive Mucous Production, Change in Mucous Color, Pain with Coughing, Other - Gastrointestinal Gastrointestinal: absent: As Per HPI, Abdominal Pain, Belching, Bloating, Change in Bowel Habits, Change in Stool Character, Coffee Ground Emesis, Constipation, Cramping, Diarrhea, Dyspepsia, Dysphagia, Early Satiety, Excessive Flatus, Fecal Incontinence, Heartburn, Hematemesis, Hematochezia, Loose Stools, Melena, Nausea, Odynophagia, Temesmus, Vomiting, Other - Genitourinary Genitourinary: absent: As Per HPI, Change in Urinary Stream, Difficulty Urinating, Dysuria, Flank Pain, Hematuria, Pyuria, Nocturia, Urinary Incontinence, Urinary Frequency, Urinary Hesitance, Urinary Urgency, Voiding Freq/Small Amts, Freq UTI, Hx Renal/Bladder Calculi, Hx /Renal Surgery, Bladder Distension, Other - Reproductive: Female Reproductive:Female: absent: As Per HPI, Amenorrhea, Amenorrhea/ Control, Currently Menstual, Cycle <21 Days, Cycle >35 Days, Cycle Variable, Menses 1-7 Days, Menses >/= 8 Days, Menses Variable, Cycle > 4 Weeks Between, No Menses for 6 Months, Heavy Menses, Light Menses, Normal Menses, Spotting Between Cycles , S/P Hysterectomy, Menopausal, Post Menopausal, Premenarche, Abnormal Vaginal Bleeding, Dysmenorrhea, Dyspareunia, Genital Lesions, Genital Pruritis, Pelvic Pain, Prolapse Symptoms, Sexual Dysfunction, Vaginal Discharge, Vaginal Dryness , Vaginal Odor, Vaginal Pruritis, Other - Menstruation Menstruation: absent: As Per HPI, Amenorrhea, Amenorrhea/ Control, Currently Menstual, Cycle <21 Days, Cycle >35 Days, Cycle Variable, Menses 1-7 Days, Menses >/= 8 Days, Menses Variable, Cycle > 4 Weeks Between, No Menses for 6 Months, Heavy Menses, Light Menses, Normal Menses, Spotting Between Cycles , S/P Hysterectomy, Menopausal, Post Menopausal, Premenarche, Abnormal Vaginal Bleeding, Dysmenorrhea, Other - Musculoskeletal Musculoskeletal: absent: As Per HPI, Abnormal Gait, Arthralgias, Atrophy, Back Pain, Deformity, Joint Swelling, Limited Range of Motion, Loss of Height, Muscle Cramps, Muscle Weakness, Myalgias, Neck Pain, Numbness, Radiating Pain into Limb, Stiffness, Tingling, Other - Integumentary Integumentary: absent: As Per HPI, Acne, Alopecia, Bleeding Lesions, Change in Hair, Change in Nails, Change in Pigmentation, Changing Lesions, Dry Skin, Erythema, Furuncle, Hirsutism, Lesions, New Lesions, Non-Healing Lesions, Photosensitivity, Pruritus, Rash, Skin Pain, Skin Ulcer, Sores, Striae, Swelling , Unusual Bruising, Wounds, Jaundice, Other - Neurological Neurological: As Per HPI - Psychiatric Psychiatric: absent: As Per HPI, Abnormal Sleep Pattern, Anhedonia, Anxiety, Auditory Hallucinations, Behavioral Changes, Change in Appetite, Change in Libido, Confusion, Depression, Difficulty Concentrating, Hallucinations, Homicidal Ideation, Hopelessness, Irritability, Memory Loss, Mood Swings, Panic Attacks, Paranoia, Suicidal Ideation, Visual Hallucinations, Tactile Hallucinations, Other - Endocrine Endocrine: absent: As Per HPI, Change in Body Appearance, Change in Libido, Cold Intolorance, Deepening of Voice, Excessive Sweating, Fatigue, Flushing, Heat Intolorance, Increase in Ring/Shoe/Hat Size, Palpitations, Polydipsia, Polyphagia, Polyuria, Other - Hematologic/Lymphatic Hematologic: absent: As Per HPI, Easy Bleeding, Easy Bruising, Lymphadenopathy, Other Past Patient History - Past Medical History & Family History Past Medical History?: Yes - Past Social History Smoking Status: Never Smoked - CARDIAC Hx Cardiac Disorders: Yes Hx Hypertension: Yes - PULMONARY Hx Respiratory Disorders: Yes Hx Asthma: Yes Hx Chronic Obstructive Pulmonary Disease (COPD): Yes - NEUROLOGICAL Hx Neurological Disorder: No Hx Paralysis: No - HEENT Hx HEENT Problems: No - RENAL Hx Chronic Kidney Disease: No - ENDOCRINE/METABOLIC Hx Endocrine Disorders: Yes Hx Diabetes Mellitus Type 2: Yes - HEMATOLOGICAL/ONCOLOGICAL Hx Blood Disorders: No Hx Blood Transfusions: No Hx Blood Transfusion Reaction: No - INTEGUMENTARY Hx Dermatological Problems: No - MUSCULOSKELETAL/RHEUMATOLOGICAL Hx Musculoskeletal Disorders: Yes Hx Falls: No Hx Unsteady Gait: Yes - GASTROINTESTINAL Hx Gastrointestinal Disorders: Yes Hx Gall Bladder Disease: Yes - GENITOURINARY/GYNECOLOGICAL Hx Genitourinary Disorders: No - PSYCHIATRIC Hx Psychophysiologic Disorder: No Hx Substance Use: No - SURGICAL HISTORY Hx Surgeries: Yes Hx Coronary Stent: Yes (2012) - ANESTHESIA Hx Anesthesia: Yes Hx Anesthesia Reactions: No Hx Malignant Hyperthermia: No Has any member of the family had a problem w/ anesthesia?: No Meds Allergies/Adverse Reactions: Allergies Allergy/AdvReac Type Severity Reaction Status Date / Time iodine Allergy Verified 05/25/17 12:27 Latex, Natural Rubber Allergy Verified 05/25/17 12:27 pentazocine [From Talwin] Allergy Verified 05/25/17 12:27 - Medications Medications: Current Medications Amlodipine Besylate (Norvasc) 5 mg PO DAILY [facility] Last Admin: 05/28/17 09:26 Dose: 5 mg Clopidogrel Bisulfate (Plavix) 75 mg PO DAILY [facility] Last Admin: 05/28/17 09:26 Dose: 75 mg Heparin Sodium (Porcine) (Heparin) 5,000 units SC Q8 [facility] Last Admin: 05/28/17 14:17 Dose: 5,000 units Ceftriaxone Sodium 1 gm/ (Sodium Chloride) 100 mls @ 100 mls/hr IVPB DAILY [facility] Last Admin: 05/28/17 09:27 Dose: 100 mls/hr Insulin Aspart (Novolog) 0 unit SC ACHS [facility] PRN Reason: Protocol Last Admin: 05/28/17 17:21 Dose: 6 unit Insulin Aspart (Novolog Mix 70/30 (70/30 Units/Ml)) 14 units SC BIDAC [facility] Last Admin: 05/28/17 17:20 Dose: 14 units Losartan Potassium (Cozaar) 100 mg PO DAILY [facility] Last Admin: 05/28/17 09:26 Dose: 100 mg Potassium Chloride (K-Dur 20 Meq Er Tab) 20 meq PO BID [facility] Stop: 05/28/17 23:59 Last Admin: 05/28/17 17:19 Dose: 20 meq Rosuvastatin Calcium (Crestor) 40 mg PO HS [facility] Last Admin: 05/27/17 22:33 Dose: 40 mg Physical Exam - Constitutional Appears: Confused, Chronically Ill - Head Exam Head Exam: ATRAUMATIC, NORMAL INSPECTION, NORMOCEPHALIC - Eye Exam Eye Exam: EOMI, PERRL. absent: Scleral icterus - ENT Exam ENT Exam: Mucous Membranes Dry, Normal External Ear Exam - Neck Exam Neck exam: Negative for: Lymphadenopathy, Thyromegaly - Respiratory Exam Respiratory Exam: Decreased Breath Sounds, Clear to Auscultation Bilateral - Cardiovascular Exam Cardiovascular Exam: REGULAR RHYTHM, +S1, +S2 - GI/Abdominal Exam GI & Abdominal Exam: Diminished Bowel Sounds, Soft. absent: Tenderness - Rectal Exam Rectal Exam: Deferred - Exam Exam: NORMAL INSPECTION - Extremities Exam Extremities exam: Negative for: calf tenderness, pedal edema - Back Exam Back exam: absent: CVA tenderness (L), CVA tenderness (R) - Neurological Exam Neurological exam: Alert, Altered, CN II-XII Intact - Psychiatric Exam Psychiatric exam: Depressed - Skin Skin Exam: Dry Results - Vital Signs Recent Vital Signs: Last Vital Signs Temp 98.2 F 05/28/17 15:09 Pulse 74 05/28/17 15:09 Resp 20 05/28/17 15:09 BP 133/75 05/28/17 15:09 Pulse Ox 97 05/28/17 15:09 - Labs Result Diagrams: 05/28/17 06:14 05/28/17 06:14 Labs: Laboratory Results - last 24 hr 05/27/17 05/27/17 05/28/17 21:43 22:23 06:09 WBC RBC Hgb Hct MCV MCH MCHC RDW Plt Count MPV Neut % (Auto) Lymph % (Auto) [place] % (Auto) Eos % (Auto) Baso % (Auto) Neut # Lymph # [place] # Eos # Baso # Sodium Potassium Chloride Carbon Dioxide Anion Gap BUN Creatinine Est GFR ( Amer) Est GFR (Non-Af Amer) POC Glucose (mg/dL) 71 106 102 Random Glucose Hemoglobin A1c Calcium Phosphorus Magnesium Total Bilirubin AST ALT Alkaline Phosphatase Total Protein Albumin Globulin Albumin/Globulin Ratio Triglycerides Cholesterol LDL Cholesterol Direct HDL Cholesterol 05/28/17 05/28/17 05/28/17 06:14 06:14 06:14 WBC 8.7 RBC 4.65 Hgb 13.1 Hct 39.6 MCV 85.1 MCH 28.2 MCHC 33.1 RDW 14.7 H Plt Count 446 H MPV 7.5 Neut % (Auto) 63.8 Lymph % (Auto) 26.2 [place] % (Auto) 5.9 Eos % (Auto) 3.0 Baso % (Auto) 1.1 Neut # 5.5 Lymph # 2.3 [place] # 0.5 Eos # 0.3 Baso # 0.1 Sodium 131 L Potassium 3.4 L Chloride 105 Carbon Dioxide 25 Anion Gap 4 L BUN 14 Creatinine 1.2 Est GFR ( Amer) 55 Est GFR (Non-Af Amer) 46 POC Glucose (mg/dL) Random Glucose 107 H Hemoglobin A1c 7.9 H Calcium 8.1 L Phosphorus 3.7 Magnesium 1.9 Total Bilirubin 0.3 AST 16 ALT 19 Alkaline Phosphatase 51 Total Protein 5.6 L Albumin 2.4 L Globulin 3.2 Albumin/Globulin Ratio 0.8 L Triglycerides 274 H Cholesterol 199 LDL Cholesterol Direct 104 HDL Cholesterol 38 05/28/17 05/28/17 11:35 16:38 WBC RBC Hgb Hct MCV MCH MCHC RDW Plt Count MPV Neut % (Auto) Lymph % (Auto) [place] % (Auto) Eos % (Auto) Baso % (Auto) Neut # Lymph # [place] # Eos # Baso # Sodium Potassium Chloride Carbon Dioxide Anion Gap BUN Creatinine Est GFR ( Amer) Est GFR (Non-Af Amer) POC Glucose (mg/dL) 231 H 287 H Random Glucose Hemoglobin A1c Calcium Phosphorus Magnesium Total Bilirubin AST ALT Alkaline Phosphatase Total Protein Albumin Globulin Albumin/Globulin Ratio Triglycerides Cholesterol LDL Cholesterol Direct HDL Cholesterol Assessment & Plan (1) Confusion state Status: Acute (2) Generalized weakness Status: Acute (3) UTI (urinary tract infection) Status: Acute (4) Uncontrolled diabetes mellitus Status: Acute (5) Weakness Status: Acute (6) CAD (coronary artery disease) Status: Chronic (7) Cataracts, bilateral Status: Chronic (8) Diabetic retinopathy associated with controlled type 2 diabetes mellitus Status: Chronic (9) Old cerebrovascular accident without late effect Status: Chronic (10) 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
[2017-05-28] MEDS: cefTRIAXone 2 GM IN NS 2 GM/100 ML BAG IVPB SCH (22:01)
[2017-05-29] MEDS ORDERED: (Novolog Mix 70/30) Insulin Aspart/Insulin Aspar 100 units/ml SC SCH (08:18)
--- NOTE | 2017-05-29 08:36 | CP.PCM.PN ---
Subjective - Date & Time of Evaluation Date of Evaluation: 05/29/17 Time of Evaluation: 08:20 - Subjective Subjective: Pt had hypoglycemia at 50 last night; No CP, no SOB Poor recall of what happen mbut states she did not get food?? Objective - Vital Signs/Intake and Output Vital Signs (last 24 hours): Temp Pulse Resp BP Pulse Ox 98 F 90 18 159/81 H 96 05/29/17 07:20 05/29/17 07:20 05/29/17 07:20 05/29/17 07:20 05/29/17 07:20 Intake and Output: 05/29/17 05/29/17 06:59 18:59 Intake Total 340 Balance 340 - Medications Medications: Current Medications Amlodipine Besylate (Norvasc) 5 mg PO DAILY [facility] Last Admin: 05/28/17 09:26 Dose: 5 mg Clopidogrel Bisulfate (Plavix) 75 mg PO DAILY [facility] Last Admin: 05/28/17 09:26 Dose: 75 mg Diphenhydramine HCl (Benadryl) 25 mg PO HS [facility] Heparin Sodium (Porcine) (Heparin) 5,000 units SC Q8 [facility] Last Admin: 05/29/17 05:40 Dose: 5,000 units Ceftriaxone Sodium (Rocephin 2 Gm Ivpb) 2 gm in 100 mls @ 100 mls/hr IVPB Q24H [facility] Last Admin: 05/28/17 22:01 Dose: 100 mls/hr Insulin Aspart (Novolog) 0 unit SC ACHS [facility] PRN Reason: Protocol Last Admin: 05/28/17 22:10 Dose: Not Given Insulin Aspart (Novolog Mix 70/30 (70/30 Units/Ml)) 8 units SC BIDAC [facility] Losartan Potassium (Cozaar) 100 mg PO DAILY [facility] Last Admin: 05/28/17 09:26 Dose: 100 mg Rosuvastatin Calcium (Crestor) 40 mg PO HS [facility] Last Admin: 05/28/17 22:02 Dose: 40 mg - Labs Labs: 05/28/17 06:14 05/28/17 06:14 APTT 34 SECONDS (21-34) 05/26/17 14:00 - Constitutional Appears: No Acute Distress - Eye Exam Eye Exam: Normal appearance - ENT Exam ENT Exam: Mucous Membranes Moist - Neck Exam Neck Exam: Full ROM. absent: Normal Inspection - Respiratory Exam Respiratory Exam: Clear to Ausculation Bilateral. absent: Rales, Rhonchi, NORMAL BREATHING PATTERN - Cardiovascular Exam Cardiovascular Exam: REGULAR RHYTHM, +S1, +S2. absent: Gallop, JVD, Murmur - GI/Abdominal Exam GI & Abdominal Exam: Soft. absent: Tenderness, Mass - Extremities Exam Extremities Exam: Full ROM, Normal Capillary Refill. absent: Calf Tenderness, Joint Swelling Assessment and Plan - Assessment and Plan (Free Text) Assessment: Acute CVA; Hypoglycemia HTN, UTI, NIDDM; Blurred vision Cont meds For rehab Decrease Insulin
[2017-05-29] MEDS: (Novolog) Insulin Aspart, Recombinant 100 u/ml 10 ml vial SC SCH ×4 (09:01→22:11)
[2017-05-29] MEDS: (Novolog Mix 70/30) Insulin Aspart/Insulin Aspar 100 units/ml SC SCH ×2 (09:02→18:01)
--- NOTE | 2017-05-29 15:28 | CP.PCM.PN ---
Subjective - Date & Time of Evaluation Date of Evaluation: 05/29/17 Time of Evaluation: 08:00 - Subjective Subjective: weak lethargic confused poor historian blood sugar low eating poorly IV antibiotics in progress may need LP Objective - Vital Signs/Intake and Output Vital Signs (last 24 hours): Temp Pulse Resp BP Pulse Ox 97.9 F 97 H 18 147/74 99 05/29/17 13:49 05/29/17 13:49 05/29/17 13:49 05/29/17 13:49 05/29/17 13:49 Intake and Output: 05/29/17 05/29/17 06:59 18:59 Intake Total 340 Balance 340 - Medications Medications: Current Medications Amlodipine Besylate (Norvasc) 5 mg PO DAILY [facility] Last Admin: 05/29/17 10:44 Dose: 5 mg Clopidogrel Bisulfate (Plavix) 75 mg PO DAILY [facility] Last Admin: 05/29/17 10:44 Dose: 75 mg Diphenhydramine HCl (Benadryl) 25 mg PO [facility] Ceftriaxone Sodium (Rocephin 2 Gm Ivpb) 2 gm in 100 mls @ 100 mls/hr IVPB Q24H [facility] Last Admin: 05/28/17 22:01 Dose: 100 mls/hr Insulin Aspart (Novolog) 0 unit SC ACHS [facility] PRN Reason: Protocol Last Admin: 05/29/17 13:38 Dose: Not Given Insulin Aspart (Novolog Mix 70/30 (70/30 Units/Ml)) 8 units SC BIDAC [facility] Last Admin: 05/29/17 09:02 Dose: 8 units Losartan Potassium (Cozaar) 100 mg PO DAILY [facility] Last Admin: 05/29/17 10:44 Dose: 100 mg Rosuvastatin Calcium (Crestor) 40 mg PO HS [facility] Last Admin: 05/28/17 22:02 Dose: 40 mg - Labs Labs: 05/28/17 06:14 05/28/17 06:14 APTT 34 SECONDS (21-34) 05/26/17 14:00 - Constitutional Appears: Non-toxic, Confused, Cachectic, Chronically Ill - Head Exam Head Exam: NORMOCEPHALIC - Eye Exam Eye Exam: PERRL. absent: Scleral icterus - ENT Exam ENT Exam: Mucous Membranes Dry - Neck Exam Neck Exam: absent: Lymphadenopathy - Respiratory Exam Respiratory Exam: Decreased Breath Sounds - Cardiovascular Exam Cardiovascular Exam: REGULAR RHYTHM - GI/Abdominal Exam GI & Abdominal Exam: Distended, Soft - Exam Exam: NORMAL INSPECTION - Extremities Exam Extremities Exam: absent: Pedal Edema - Back Exam Back Exam: absent: CVA tenderness (L), CVA tenderness (R) - Neurological Exam Neurological Exam: Altered - Psychiatric Exam Psychiatric exam: Depressed - Skin Skin Exam: Dry Assessment and Plan (1) Confusion state Status: Acute (2) Generalized weakness Status: Acute (3) UTI (urinary tract infection) Status: Acute (4) Uncontrolled diabetes mellitus Status: Acute (5) Weakness Status: Acute (6) CAD (coronary artery disease) Status: Chronic (7) Cataracts, bilateral Status: Chronic (8) Diabetic retinopathy associated with controlled type 2 diabetes mellitus Status: Chronic (9) Old cerebrovascular accident without late effect Status: Chronic (10) 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
--- NOTE | 2017-05-29 16:10 | CARD ---
APPROVED REPORT EXAM: Two-dimensional and M-mode echocardiogram with Doppler and color Doppler. Other Information Quality : GoodRhythm : NSR INDICATION CVA/TIA Pleural Effusion CAD Surgery/Intervention STENT RISK FACTORS Diabetes M-Mode DIMENSIONS Left Atrium (MM)2.37 (2.5-4.0cm)IVSd1.25 (0.7-1.1cm) Aortic Root2.97 (2.2-3.7cm)LVDd4.50 (4.0-5.6cm) Aortic Cusp Exc.1.74 (1.5-2.0cm)PWd1.20 (0.7-1.1cm) FS (%) 43 %LVDs2.55 (2.0-3.8cm) LVEF (%)75 (>50%) Mitral Valve MV E Iqbrumxv66.8cm/sMV A Mzpstrmm59.0cm/sE/A ratio0.7 TDI E/Lateral E'0.0E/Medial E'0.0 LEFT VENTRICLE The left ventricle is normal size. There is moderate concentric left ventricular hypertrophy. The left ventricular function is normal. The left ventricular ejection fraction is within the normal range. There is normal LV segmental wall motion. Transmitral Doppler flow pattern is Grade I-abnormal relaxation pattern. RIGHT VENTRICLE The right ventricle is normal size. There is normal right ventricular wall thickness. The right ventricular systolic function is normal. ATRIA The left atrium size is normal. The right atrium size is normal. AORTIC VALVE The aortic valve is not well visualized. No aortic regurgitation is present. MITRAL VALVE The mitral valve is mildly thickened. There is no mitral valve stenosis. TRICUSPID VALVE The tricuspid valve is normal in structure. There is no tricuspid valve regurgitation noted. GREAT VESSELS The aortic root is normal in size. The IVC is normal in size and collapses >50% with inspiration. PERICARDIAL EFFUSION There is a trace loculated anterior pericardial effusion. <Conclusion> The left ventricle is normal size. There is moderate concentric left ventricular hypertrophy. The left ventricular function is normal. The left ventricular ejection fraction is within the normal range. There is normal LV segmental wall motion. Transmitral Doppler flow pattern is Grade I-abnormal relaxation pattern.
[2017-05-29 20:01] LABS: RAPID PLASMA REAGIN NONREACTIVE (NONREACTIVE)
[2017-05-29] MEDS: cefTRIAXone 2 GM IN NS 2 GM/100 ML BAG IVPB SCH (20:27)
--- NOTE | 2017-05-30 07:46 | CP.PCM.PN ---
Subjective - Date & Time of Evaluation Date of Evaluation: 05/30/17 Time of Evaluation: 07:35 - Subjective Subjective: Patient no complain exc cold room. No CP, no SOB, no edema; (+) constipated x 6 days as per pt Objective - Vital Signs/Intake and Output Vital Signs (last 24 hours): Temp Pulse Resp BP Pulse Ox 97.9 F 80 18 162/83 H 99 05/30/17 06:00 05/30/17 06:00 05/30/17 06:00 05/30/17 06:00 05/30/17 06:00 Intake and Output: 05/30/17 05/30/17 06:59 18:59 Intake Total 420 Balance 420 - Medications Medications: Current Medications Amlodipine Besylate (Norvasc) 5 mg PO DAILY [facility] Last Admin: 05/29/17 10:44 Dose: 5 mg Clopidogrel Bisulfate (Plavix) 75 mg PO DAILY [facility] Last Admin: 05/29/17 10:44 Dose: 75 mg Diphenhydramine HCl (Benadryl) 25 mg PO HS [facility] Last Admin: 05/29/17 22:11 Dose: 25 mg Ceftriaxone Sodium (Rocephin 2 Gm Ivpb) 2 gm in 100 mls @ 100 mls/hr IVPB Q24H [facility] Last Admin: 05/29/17 20:27 Dose: 100 mls/hr Insulin Aspart (Novolog) 0 unit SC ACHS [facility] PRN Reason: Protocol Last Admin: 05/29/17 22:11 Dose: Not Given Insulin Aspart (Novolog Mix 70/30 (70/30 Units/Ml)) 8 units SC BIDAC [facility] Last Admin: 05/29/17 18:01 Dose: 8 units Losartan Potassium (Cozaar) 100 mg PO DAILY [facility] Last Admin: 05/29/17 10:44 Dose: 100 mg Rosuvastatin Calcium (Crestor) 40 mg PO HS [facility] Last Admin: 05/29/17 22:11 Dose: 40 mg - Labs Labs: 05/28/17 06:14 05/28/17 06:14 APTT 34 SECONDS (21-34) 05/26/17 14:00 - Constitutional Appears: No Acute Distress - Eye Exam Eye Exam: Normal appearance - ENT Exam ENT Exam: Mucous Membranes Moist - Neck Exam Neck Exam: Full ROM. absent: Lymphadenopathy, Thyromegaly - Respiratory Exam Respiratory Exam: Clear to Ausculation Bilateral. absent: Decreased Breath Sounds, Rales, Rhonchi, Wheezes - Cardiovascular Exam Cardiovascular Exam: REGULAR RHYTHM, +S1, +S2, Murmur. absent: Gallop, JVD - GI/Abdominal Exam GI & Abdominal Exam: Soft. absent: Tenderness, Mass - Extremities Exam Extremities Exam: Full ROM, Normal Capillary Refill. absent: Calf Tenderness, Joint Swelling, Pedal Edema Assessment and Plan - Assessment and Plan (Free Text) Plan: Recent CVA w/ Gait disorder HTN, NIDDM, hypokalemia Endocrine eval Add coreg w/ BP meds cont meds/ for subsacute
[2017-05-30] MEDS: (Novolog) Insulin Aspart, Recombinant 100 u/ml 10 ml vial SC SCH ×4 (08:26→22:19)
[2017-05-30] MEDS: POLYETHYLENE GLYCOL 3350 17 GM/Dose PACKET PO SCH (10:31)
[2017-05-30 10:46] LABS: ANTI SREPTOLYSIN O NEGATIVE (NEGATIVE)
--- NOTE | 2017-05-30 19:24 | CARD ---
APPROVED REPORT EKG Measurement Heart [id number] <Conclusion> Normal sinus rhythm Incomplete right bundle branch block Borderline ECG
[2017-05-30] MEDS: cefTRIAXone 2 GM IN NS 2 GM/100 ML BAG IVPB SCH (20:51)
[2017-05-31] MEDS ORDERED: Bisacodyl 5mg EC Tab PO ONE (01:08)
[2017-05-31 08:30] LABS: ALBUMIN 2.9 g/dL (3.5-5.0)
[2017-05-31 08:34] LABS: ALB/GLOB RATIO 0.9 (1.0-2.1)
[2017-05-31 08:35] LABS: CALCIUM 8.7 mg/dl (8.6-10.4)
[2017-05-31] MEDS: (Novolog) Insulin Aspart, Recombinant 100 u/ml 10 ml vial SC SCH ×4 (09:01→22:27)
--- NOTE | 2017-05-31 09:56 | CP.PCM.PN ---
Subjective - Date & Time of Evaluation Date of Evaluation: 05/31/17 Time of Evaluation: 09:54 - Subjective Subjective: Nurse called that patient retaining urine. Patient has not been able to urinate since yesterday. Bladder scan showed over 1000ml or urine. Straight cath stat ordered. Objective - Vital Signs/Intake and Output Vital Signs (last 24 hours): Temp Pulse Resp BP Pulse Ox 98.2 F 94 H 20 159/73 H 96 05/31/17 08:53 05/31/17 08:53 05/31/17 08:53 05/31/17 08:53 05/31/17 08:53 - Medications Medications: Current Medications Amlodipine Besylate (Norvasc) 5 mg PO DAILY [facility] Last Admin: 05/30/17 10:11 Dose: 5 mg Carvedilol (Coreg) 12.5 mg PO BID [facility] Last Admin: 05/30/17 18:20 Dose: 12.5 mg Clopidogrel Bisulfate (Plavix) 75 mg PO DAILY [facility] Last Admin: 05/30/17 10:11 Dose: 75 mg Diphenhydramine HCl (Benadryl) 25 mg PO HS [facility] Last Admin: 05/30/17 21:50 Dose: 25 mg Glimepiride (Amaryl) 4 mg PO ACBD [facility] Last Admin: 05/31/17 09:01 Dose: Not Given Heparin Sodium (Porcine) (Heparin) 5,000 units SC Q8 [facility] Last Admin: 05/31/17 06:17 Dose: 5,000 units Ceftriaxone Sodium (Rocephin 2 Gm Ivpb) 2 gm in 100 mls @ 100 mls/hr IVPB Q24H [facility] Last Admin: 05/30/17 20:51 Dose: 100 mls/hr Insulin Aspart (Novolog) 0 unit SC ACHS [facility] PRN Reason: Protocol Last Admin: 05/31/17 09:01 Dose: Not Given Losartan Potassium (Cozaar) 100 mg PO DAILY [facility] Last Admin: 05/30/17 10:11 Dose: 100 mg Polyethylene Glycol (Miralax) 17 gm PO DAILY [facility] Last Admin: 05/30/17 10:31 Dose: 17 gm Rosuvastatin Calcium (Crestor) 40 mg PO HS [facility] Last Admin: 05/30/17 21:50 Dose: 40 mg - Labs Labs: 05/28/17 06:14 05/31/17 07:56 APTT 34 SECONDS (21-34) 05/26/17 14:00
[2017-05-31] MEDS: POLYETHYLENE GLYCOL 3350 17 GM/Dose PACKET PO SCH (13:48)
--- NOTE | 2017-05-31 16:07 | CP.PCM.PN ---
Subjective - Date & Time of Evaluation Date of Evaluation: 05/31/17 Time of Evaluation: 09:00 - Subjective Subjective: lethargic] linares placed due to residual- likely neurogenic Objective - Vital Signs/Intake and Output Vital Signs (last 24 hours): Temp Pulse Resp BP Pulse Ox 98.2 F 94 H 20 159/73 H 96 05/31/17 08:53 05/31/17 08:53 05/31/17 08:53 05/31/17 08:53 05/31/17 08:53 - Medications Medications: Current Medications Amlodipine Besylate (Norvasc) 5 mg PO DAILY [facility] Last Admin: 05/31/17 13:48 Dose: Not Given Carvedilol (Coreg) 12.5 mg PO BID [facility] Last Admin: 05/31/17 13:48 Dose: Not Given Clopidogrel Bisulfate (Plavix) 75 mg PO DAILY [facility] Last Admin: 05/31/17 13:48 Dose: Not Given Diphenhydramine HCl (Benadryl) 25 mg PO HS [facility] Last Admin: 05/30/17 21:50 Dose: 25 mg Glimepiride (Amaryl) 4 mg PO ACBD [facility] Last Admin: 05/31/17 09:01 Dose: Not Given Heparin Sodium (Porcine) (Heparin) 5,000 units SC Q8 [facility] Last Admin: 05/31/17 14:33 Dose: Not Given Ceftriaxone Sodium (Rocephin 2 Gm Ivpb) 2 gm in 100 mls @ 100 mls/hr IVPB Q24H [facility] Last Admin: 05/30/17 20:51 Dose: 100 mls/hr Dextrose/Sodium Chloride (Dextrose 5%/0.45% Ns 1000 Ml) 1,000 mls @ 100 mls/hr IV .Q10H [facility] Insulin Aspart (Novolog) 0 unit SC ACHS [facility] PRN Reason: Protocol Last Admin: 05/31/17 13:48 Dose: Not Given Losartan Potassium (Cozaar) 100 mg PO DAILY [facility] Last Admin: 05/31/17 13:48 Dose: Not Given Polyethylene Glycol (Miralax) 17 gm PO DAILY [facility] Last Admin: 05/31/17 13:48 Dose: Not Given Rosuvastatin Calcium (Crestor) 40 mg PO HS [facility] Last Admin: 05/30/17 21:50 Dose: 40 mg - Labs Labs: 05/28/17 06:14 05/31/17 07:56 APTT 34 SECONDS (21-34) 05/26/17 14:00 - Constitutional Appears: Non-toxic, Cachectic, Chronically Ill - Head Exam Head Exam: NORMOCEPHALIC - Eye Exam Eye Exam: PERRL. absent: Scleral icterus - ENT Exam ENT Exam: Mucous Membranes Dry, Normal External Ear Exam - Respiratory Exam Respiratory Exam: Decreased Breath Sounds, Clear to Ausculation Bilateral - Cardiovascular Exam Cardiovascular Exam: REGULAR RHYTHM - GI/Abdominal Exam GI & Abdominal Exam: Distended, Soft - Rectal Exam Rectal Exam: Deferred - Exam Exam: NORMAL INSPECTION - Extremities Exam Extremities Exam: absent: Pedal Edema - Back Exam Back Exam: absent: CVA tenderness (L), CVA tenderness (R) - Neurological Exam Neurological Exam: Alert, Awake, Oriented x3 Assessment and Plan (1) Confusion state Status: Acute (2) Generalized weakness Status: Acute (3) UTI (urinary tract infection) Status: Acute (4) Uncontrolled diabetes mellitus Status: Acute (5) Weakness Status: Acute (6) CAD (coronary artery disease) Status: Chronic (7) Cataracts, bilateral Status: Chronic (8) Diabetic retinopathy associated with controlled type 2 diabetes mellitus Status: Chronic (9) Old cerebrovascular accident without late effect Status: Chronic (10) 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
[2017-05-31] MEDS: Dextrose 5%/0.45% NS 1,000 ML IV SCH (16:35)
--- NOTE | 2017-05-31 17:13 | RAD ---
Abdomen single frontal view History: Abdominal pain. Comparison: None available. Findings: Surgical clips in the right upper abdomen. Severe fecal retention in the colon. Relative paucity of small bowel gas. Degenerative changes in the spine. Rounded nodular densities the lung bases may represent nipple shadows. Patchy consolidative changes at the right base. Impression: Nonspecific bowel gas pattern with severe fecal retention in the colon. Relative paucity of small bowel gas.
[2017-05-31] MEDS: cefTRIAXone 2 GM IN NS 2 GM/100 ML BAG IVPB SCH (20:24)
[2017-05-31 23:09] LABS: SQUAMOUS EPITHIAL < 1 /hpf (0-5); URINE BACTERIA RARE (<OCC); URINE BILIRUBIN NEGATIVE (NEGATIVE); URINE BLOOD NEGATIVE (NEGATIVE); URINE CLARITY Hazy (Clear); URINE COLOR Yellow (YELLOW); URINE GLUCOSE (UA) 3+ mg/dL (Normal); URINE LEUKOCYTE ESTERASE TRACE Leu/uL (Negative); URINE NITRATE NEGATIVE (NEGATIVE); URINE PROTEIN 3+ mg/dL (NEGATIVE); URINE UROBILINOGEN NORMAL mg/dL (0.2-1.0)
[2017-06-01] MEDS: Dextrose 5%/0.45% NS 1,000 ML IV SCH ×3 (01:30→22:37)
[2017-06-01 06:34] LABS: HEMOGLOBIN 12.8 g/dL (11.0-16.0)
[2017-06-01 07:14] LABS: ALBUMIN 2.5 g/dL (3.5-5.0)
[2017-06-01 07:17] LABS: ALB/GLOB RATIO 0.8 (1.0-2.1); AST/SGOT 34 U/L (14-36); BLOOD UREA NITROGEN 19 mg/dL (7-17); GFR AFRICAN-AMERICAN > 60; GFR NON-AFRICAN AMERICAN 50
[2017-06-01 07:18] LABS: ALT/SGPT 22 U/L (9-52)
[2017-06-01 07:43] LABS: BASO # 0.1 K/uL (0.0-0.2); BASO % 0.5 % (0.0-2.0); EOS # 0.3 K/uL (0.0-0.7); EOS % 2.5 % (0.0-4.0); LYMPH # 2.4 K/uL (1.0-4.3); LYMPH % 17.5 % (20.0-40.0); MEAN CELL VOLUME 85.2 fL (81.0-99.0); MEAN CORPUSCULAR HEMOGLOBIN 27.9 pg (27.0-31.0); MEAN CORPUSCULAR HGB CONC 32.7 g/dL (33.0-37.0); MEAN PLATELET VOLUME 7.6 fL (7.2-11.7); MONO # 0.6 K/uL (0.0-0.8); MONO % 4.3 % (0.0-10.0); NEUT # 10.2 K/uL (1.8-7.0); NEUT % 75.2 % (50.0-75.0); NRBC % 0.1 % (0.0-2.0); RBC 4.6 Mil/uL (3.80-5.20); RED CELL DISTRIBUTION WIDTH 14.6 % (11.5-14.5)
[2017-06-01 07:51] LABS: WHITE BLOOD COUNT 13.6 K/uL (4.8-10.8)
--- NOTE | 2017-06-01 08:31 | CP.PCM.PN ---
Subjective - Date & Time of Evaluation Date of Evaluation: 05/30/17 Time of Evaluation: 08:10 - Subjective Subjective: Patient had urinary retention and constipated. States did not have any bowel movement with Enema. (+) abd pain, nauseous but no vomiting No CP, no SOB, no edema Objective - Vital Signs/Intake and Output Vital Signs (last 24 hours): Temp Pulse Resp BP Pulse Ox 98.8 F 82 18 164/84 H 97 06/01/17 05:00 06/01/17 05:00 06/01/17 05:00 06/01/17 05:00 06/01/17 05:00 Intake and Output: 06/01/17 06/01/17 06:59 18:59 Intake Total 920 Output Total 500 Balance -500 920 - Medications Medications: Current Medications Amlodipine Besylate (Norvasc) 5 mg PO DAILY [facility] Last Admin: 05/31/17 13:48 Dose: Not Given Carvedilol (Coreg) 12.5 mg PO BID [facility] Last Admin: 05/31/17 17:40 Dose: 12.5 mg Clopidogrel Bisulfate (Plavix) 75 mg PO DAILY [facility] Last Admin: 05/31/17 13:48 Dose: Not Given Diphenhydramine HCl (Benadryl) 25 mg PO HS [facility] Last Admin: 05/31/17 21:38 Dose: 25 mg Glimepiride (Amaryl) 2 mg PO ACBD [facility] Heparin Sodium (Porcine) (Heparin) 5,000 units SC Q8 [facility] Last Admin: 06/01/17 05:42 Dose: 5,000 units Ceftriaxone Sodium (Rocephin 2 Gm Ivpb) 2 gm in 100 mls @ 100 mls/hr IVPB Q24H [facility] Last Admin: 05/31/17 20:24 Dose: 100 mls/hr Dextrose/Sodium Chloride (Dextrose 5%/0.45% Ns 1000 Ml) 1,000 mls @ 100 mls/hr IV .Q10H [facility] Last Admin: 06/01/17 05:44 Dose: 100 mls/hr Insulin Aspart (Novolog) 0 unit SC ACHS [facility] PRN Reason: Protocol Last Admin: 05/31/17 22:27 Dose: Not Given Losartan Potassium (Cozaar) 100 mg PO DAILY [facility] Last Admin: 05/31/17 13:48 Dose: Not Given Polyethylene Glycol (Miralax) 17 gm PO DAILY [facility] Last Admin: 05/31/17 13:48 Dose: Not Given Rosuvastatin Calcium (Crestor) 40 mg PO HS [facility] Last Admin: 05/31/17 21:38 Dose: 40 mg - Labs Labs: 06/01/17 06:14 06/01/17 06:14 APTT 34 SECONDS (21-34) 05/26/17 14:00 - Constitutional Appears: No Acute Distress - Eye Exam Eye Exam: Normal appearance - ENT Exam ENT Exam: Mucous Membranes Moist - Neck Exam Neck Exam: Full ROM - Respiratory Exam Respiratory Exam: Clear to Ausculation Bilateral. absent: Rhonchi, Wheezes - Cardiovascular Exam Cardiovascular Exam: REGULAR RHYTHM, +S1, +S2, Murmur. absent: Gallop - GI/Abdominal Exam GI & Abdominal Exam: Soft. absent: Normal Bowel Sounds - Extremities Exam Extremities Exam: Normal Capillary Refill. absent: Calf Tenderness, Full ROM, Joint Swelling, Pedal Edema Assessment and Plan - Assessment and Plan (Free Text) Assessment: Constipation despite Enema, Miralax; Urinary retention recent CVA; NIDDM, UTI Cont supportive care Cont meds Will get GI & eval
[2017-06-01] MEDS: POLYETHYLENE GLYCOL 3350 17 GM/Dose PACKET PO SCH (10:31)
--- NOTE | 2017-06-01 12:35 | CP.PCM.CON ---
History of Present Illness - History of Present Illness History of Present Illness: PLEASE SEE DICTATED REPORT THANK YOU YS Past Patient History - Past Medical History & Family History Past Medical History?: Yes - Past Social History Smoking Status: Never Smoked - CARDIAC Hx Hypertension: Yes - PULMONARY Hx Chronic Obstructive Pulmonary Disease (COPD): Yes - NEUROLOGICAL Hx Neurological Disorder: No Hx Paralysis: No - HEENT Hx HEENT Problems: No - RENAL Hx Chronic Kidney Disease: No - ENDOCRINE/METABOLIC Hx Endocrine Disorders: Yes Hx Diabetes Mellitus Type 2: Yes - HEMATOLOGICAL/ONCOLOGICAL Hx Blood Disorders: No Hx Blood Transfusions: No Hx Blood Transfusion Reaction: No - INTEGUMENTARY Hx Dermatological Problems: No - MUSCULOSKELETAL/RHEUMATOLOGICAL Hx Musculoskeletal Disorders: Yes Hx Falls: No Hx Unsteady Gait: Yes - GASTROINTESTINAL Hx Gastrointestinal Disorders: Yes Hx Gall Bladder Disease: Yes - GENITOURINARY/GYNECOLOGICAL Hx Genitourinary Disorders: No - PSYCHIATRIC Hx Psychophysiologic Disorder: No Hx Substance Use: No - SURGICAL HISTORY Hx Surgeries: Yes Hx Coronary Stent: Yes (2012) - ANESTHESIA Hx Anesthesia: Yes Hx Anesthesia Reactions: No Hx Malignant Hyperthermia: No Has any member of the family had a problem w/ anesthesia?: No Meds Allergies/Adverse Reactions: Allergies Allergy/AdvReac Type Severity Reaction Status Date / Time iodine Allergy Verified 05/25/17 12:27 Latex, Natural Rubber Allergy Verified 05/25/17 12:27 pentazocine [From [place]] Allergy Verified 05/25/17 12:27 - Medications Medications: Current Medications Amlodipine Besylate (Norvasc) 5 mg PO DAILY [facility] Last Admin: 06/01/17 10:31 Dose: 5 mg Carvedilol (Coreg) 12.5 mg PO BID [facility] Last Admin: 06/01/17 10:31 Dose: 12.5 mg Clopidogrel Bisulfate (Plavix) 75 mg PO DAILY [facility] Last Admin: 06/01/17 10:31 Dose: 75 mg Glimepiride (Amaryl) 2 mg PO ACBD [facility] Last Admin: 06/01/17 08:45 Dose: 2 mg Heparin Sodium (Porcine) (Heparin) 5,000 units SC Q8 [facility] Last Admin: 06/01/17 05:42 Dose: 5,000 units Ceftriaxone Sodium (Rocephin 2 Gm Ivpb) 2 gm in 100 mls @ 100 mls/hr IVPB Q24H [facility] Last Admin: 05/31/17 20:24 Dose: 100 mls/hr Dextrose/Sodium Chloride (Dextrose 5%/0.45% Ns 1000 Ml) 1,000 mls @ 100 mls/hr IV .Q10H [facility] Last Admin: 06/01/17 05:44 Dose: 100 mls/hr Insulin Aspart (Novolog) 0 unit SC ACHS [facility] PRN Reason: Protocol Last Admin: 05/31/17 22:27 Dose: Not Given Losartan Potassium (Cozaar) 100 mg PO DAILY [facility] Last Admin: 06/01/17 10:31 Dose: 100 mg Polyethylene Glycol (Miralax) 17 gm PO DAILY [facility] Last Admin: 06/01/17 10:31 Dose: 17 gm Rosuvastatin Calcium (Crestor) 40 mg PO HS [facility] Last Admin: 05/31/17 21:38 Dose: 40 mg Results - Vital Signs Recent Vital Signs: Last Vital Signs Temp 98.1 F 06/01/17 08:44 Pulse 82 06/01/17 11:26 Resp 18 06/01/17 08:44 BP 171/81 H 06/01/17 10:31 Pulse Ox 97 06/01/17 11:26 - Labs Result Diagrams: 06/01/17 06:14 06/01/17 06:14 Labs: Laboratory Results - last 24 hr 05/31/17 05/31/17 05/31/17 17:17 21:55 23:02 WBC RBC Hgb Hct MCV MCH MCHC RDW Plt Count MPV Neut % (Auto) Lymph % (Auto) [place] % (Auto) Eos % (Auto) Baso % (Auto) Neut # Lymph # [place] # Eos # Baso # Sodium Potassium Chloride Carbon Dioxide Anion Gap BUN Creatinine Est GFR ( Amer) Est GFR (Non-Af Amer) POC Glucose (mg/dL) 188 H 263 H Random Glucose Calcium Total Bilirubin AST ALT Alkaline Phosphatase Total Protein Albumin Globulin Albumin/Globulin Ratio Urine Color Yellow Urine Clarity Hazy Urine pH 6.0 Ur Specific [place] 1.022 Urine Protein 3+ H Urine Glucose (UA) 3+ H Urine Ketones Negative Urine Blood Negative Urine Nitrate Negative Urine Bilirubin Negative Urine Urobilinogen Normal Ur Leukocyte Esterase Trace Urine WBC (Auto) 63 H Urine RBC (Auto) 8 H Ur Squamous Epith Cells < 1 Urine Bacteria Rare Hyaline Casts 6-10 H 06/01/17 06/01/17 06/01/17 06:14 06:14 06:35 WBC 13.6 H D RBC 4.60 Hgb 12.8 Hct 39.2 MCV 85.2 MCH 27.9 MCHC 32.7 L RDW 14.6 H Plt Count 506 H MPV 7.6 Neut % (Auto) 75.2 H Lymph % (Auto) 17.5 L [place] % (Auto) 4.3 Eos % (Auto) 2.5 Baso % (Auto) 0.5 Neut # 10.2 H Lymph # 2.4 [place] # 0.6 Eos # 0.3 Baso # 0.1 Sodium 132 Potassium 3.7 Chloride 100 Carbon Dioxide 27 Anion Gap 8 L BUN 19 H Creatinine 1.1 Est GFR ( Amer) > 60 Est GFR (Non-Af Amer) 50 POC Glucose (mg/dL) 215 H Random Glucose 250 H Calcium 8.0 L Total Bilirubin 0.3 AST 34 ALT 22 Alkaline Phosphatase 53 Total Protein 5.6 L Albumin 2.5 L Globulin 3.1 Albumin/Globulin Ratio 0.8 L Urine Color Urine Clarity Urine pH Ur Specific [place] Urine Protein Urine Glucose (UA) Urine Ketones Urine Blood Urine Nitrate Urine Bilirubin Urine Urobilinogen Ur Leukocyte Esterase Urine WBC (Auto) Urine RBC (Auto) Ur Squamous Epith Cells Urine Bacteria Hyaline Casts 06/01/17 11:11 WBC RBC Hgb Hct MCV MCH MCHC RDW Plt Count MPV Neut % (Auto) Lymph % (Auto) [place] % (Auto) Eos % (Auto) Baso % (Auto) Neut # Lymph # [place] # Eos # Baso # Sodium Potassium Chloride Carbon Dioxide Anion Gap BUN Creatinine Est GFR ( Amer) Est GFR (Non-Af Amer) POC Glucose (mg/dL) 257 H Random Glucose Calcium Total Bilirubin AST ALT Alkaline Phosphatase Total Protein Albumin Globulin Albumin/Globulin Ratio Urine Color Urine Clarity Urine pH Ur Specific [place] Urine Protein Urine Glucose (UA) Urine Ketones Urine Blood Urine Nitrate Urine Bilirubin Urine Urobilinogen Ur Leukocyte Esterase Urine WBC (Auto) Urine RBC (Auto) Ur Squamous Epith Cells Urine Bacteria Hyaline Casts Assessment & Plan - Assessment and Plan (Free Text) Assessment: IMP: URINARY RETENTION WEAKNESS CAD OBSTIPATION CAD DIABETES - Date & Time Date: 06/01/17 Time: 12:05
[2017-06-01] MEDS: (Novolog) Insulin Aspart, Recombinant 100 u/ml 10 ml vial SC SCH ×4 (12:53→21:21)
--- NOTE | 2017-06-01 14:49 | CP.PCM.CON ---
History of Present Illness - History of Present Illness History of Present Illness: CC: Constipation HPI: 61 year old woman, admitted with weakness and CVA, developed fecal impaction and urinary retention. Xray shows severe colonic fecal retention. Abdominal discomfort present. Chronic constipation. Miralax ordered 2 days ago. RN says she had 2 BMs since last night. Review of Systems - Constitutional Constitutional: absent: Chills, Fever - EENT Eyes: absent: Change in Vision Ears: absent: Ear Discharge Nose/Mouth/Throat: absent: Epistaxis - Cardiovascular Cardiovascular: absent: Chest Pain - Respiratory Respiratory: absent: Dyspnea - Gastrointestinal Gastrointestinal: Constipation. absent: Abdominal Pain - Genitourinary Genitourinary: Difficulty Urinating - Musculoskeletal Musculoskeletal: Abnormal Gait - Integumentary Integumentary: absent: Unusual Bruising - Neurological Neurological: Abnormal Gait, Memory Loss, Weakness - Psychiatric Psychiatric: absent: Irritability - Hematologic/Lymphatic Hematologic: absent: Easy Bleeding Past Patient History - Past Medical History & Family History Past Medical History?: Yes - Past Social History Smoking Status: Never Smoked - CARDIAC Hx Hypertension: Yes - PULMONARY Hx Chronic Obstructive Pulmonary Disease (COPD): Yes - NEUROLOGICAL Hx Neurological Disorder: No Hx Paralysis: No - HEENT Hx HEENT Problems: No - RENAL Hx Chronic Kidney Disease: No - ENDOCRINE/METABOLIC Hx Endocrine Disorders: Yes Hx Diabetes Mellitus Type 2: Yes - HEMATOLOGICAL/ONCOLOGICAL Hx Blood Disorders: No Hx Blood Transfusions: No Hx Blood Transfusion Reaction: No - INTEGUMENTARY Hx Dermatological Problems: No - MUSCULOSKELETAL/RHEUMATOLOGICAL Hx Musculoskeletal Disorders: Yes Hx Falls: No Hx Unsteady Gait: Yes - GASTROINTESTINAL Hx Gastrointestinal Disorders: Yes Hx Gall Bladder Disease: Yes - GENITOURINARY/GYNECOLOGICAL Hx Genitourinary Disorders: No - PSYCHIATRIC Hx Psychophysiologic Disorder: No Hx Substance Use: No - SURGICAL HISTORY Hx Surgeries: Yes Hx Coronary Stent: Yes (2012) - ANESTHESIA Hx Anesthesia: Yes Hx Anesthesia Reactions: No Hx Malignant Hyperthermia: No Has any member of the family had a problem w/ anesthesia?: No Meds Allergies/Adverse Reactions: Allergies Allergy/AdvReac Type Severity Reaction Status Date / Time iodine Allergy Verified 05/25/17 12:27 Latex, Natural Rubber Allergy Verified 05/25/17 12:27 pentazocine [From [facility]win] Allergy Verified 05/25/17 12:27 - Medications Medications: Current Medications Amlodipine Besylate (Norvasc) 5 mg PO DAILY [facility] Last Admin: 06/01/17 10:31 Dose: 5 mg Bisacodyl (Dulcolax) 10 mg AL ONCE ONE Stop: 06/01/17 14:47 Carvedilol (Coreg) 12.5 mg PO BID [facility] Last Admin: 06/01/17 10:31 Dose: 12.5 mg Clopidogrel Bisulfate (Plavix) 75 mg PO DAILY [facility] Last Admin: 06/01/17 10:31 Dose: 75 mg Glimepiride (Amaryl) 2 mg PO ACBD [facility] Last Admin: 06/01/17 08:45 Dose: 2 mg Heparin Sodium (Porcine) (Heparin) 5,000 units SC Q8 [facility] Last Admin: 06/01/17 14:31 Dose: 5,000 units Ceftriaxone Sodium (Rocephin 2 Gm Ivpb) 2 gm in 100 mls @ 100 mls/hr IVPB Q24H [facility] Last Admin: 05/31/17 20:24 Dose: 100 mls/hr Dextrose/Sodium Chloride (Dextrose 5%/0.45% Ns 1000 Ml) 1,000 mls @ 100 mls/hr IV .Q10H [facility] Last Admin: 06/01/17 05:44 Dose: 100 mls/hr Insulin Aspart (Novolog) 0 unit SC ACHS [facility] PRN Reason: Protocol Last Admin: 06/01/17 12:53 Dose: 2 unit Losartan Potassium (Cozaar) 100 mg PO DAILY [facility] Last Admin: 06/01/17 10:31 Dose: 100 mg Polyethylene Glycol (Miralax) 17 gm PO DAILY [facility] Last Admin: 06/01/17 10:31 Dose: 17 gm Rosuvastatin Calcium (Crestor) 40 mg PO HS [facility] Last Admin: 05/31/17 21:38 Dose: 40 mg Physical Exam - Constitutional Appears: Chronically Ill - Head Exam Head Exam: NORMOCEPHALIC - Eye Exam Eye Exam: absent: Scleral icterus - ENT Exam ENT Exam: Normal Exam - Neck Exam Neck exam: Positive for: Normal Inspection - Respiratory Exam Respiratory Exam: Clear to Auscultation Bilateral - Cardiovascular Exam Cardiovascular Exam: REGULAR RHYTHM - GI/Abdominal Exam GI & Abdominal Exam: Soft. absent: Distended, Guarding, Mass, Tenderness - Rectal Exam Additional comments: BOBBY Roland escorted. Large amount of stool manually disempacted at bedside. - Exam Exam: NORMAL INSPECTION - Extremities Exam Extremities exam: Positive for: normal inspection - Back Exam Back exam: NORMAL INSPECTION - Neurological Exam Neurological exam: Alert, Oriented x3 - Psychiatric Exam Psychiatric exam: Normal Mood - Skin Skin Exam: Normal Color Results - Vital Signs Recent Vital Signs: Last Vital Signs Temp 98.1 F 06/01/17 08:44 Pulse 82 06/01/17 11:26 Resp 18 06/01/17 08:44 BP 171/81 H 06/01/17 10:31 Pulse Ox 97 06/01/17 11:26 - Labs Result Diagrams: 06/01/17 06:14 06/01/17 06:14 Labs: Laboratory Results - last 24 hr 05/29/17 05/31/17 05/31/17 16:58 17:17 21:55 WBC RBC Hgb Hct MCV MCH MCHC RDW Plt Count MPV Neut % (Auto) Lymph % (Auto) [place] % (Auto) Eos % (Auto) Baso % (Auto) Neut # Lymph # [place] # Eos # Baso # Sodium Potassium Chloride Carbon Dioxide Anion Gap BUN Creatinine Est GFR ( Amer) Est GFR (Non-Af Amer) POC Glucose (mg/dL) 188 H 263 H Random Glucose Calcium Total Bilirubin AST ALT Alkaline Phosphatase Total Protein Albumin Globulin Albumin/Globulin Ratio Urine Color Urine Clarity Urine pH Ur Specific Lindsey Urine Protein Urine Glucose (UA) Urine Ketones Urine Blood Urine Nitrate Urine Bilirubin Urine Urobilinogen Ur Leukocyte Esterase Urine WBC (Auto) Urine RBC (Auto) Ur Squamous Epith Cells Urine Bacteria Hyaline Casts BLANK 6 Profile Negative 05/31/17 06/01/17 06/01/17 23:02 06:14 06:14 WBC 13.6 H D RBC 4.60 Hgb 12.8 Hct 39.2 MCV 85.2 MCH 27.9 MCHC 32.7 L RDW 14.6 H Plt Count 506 H MPV 7.6 Neut % (Auto) 75.2 H Lymph % (Auto) 17.5 L [place] % (Auto) 4.3 Eos % (Auto) 2.5 Baso % (Auto) 0.5 Neut # 10.2 H Lymph # 2.4 [place] # 0.6 Eos # 0.3 Baso # 0.1 Sodium 132 Potassium 3.7 Chloride 100 Carbon Dioxide 27 Anion Gap 8 L BUN 19 H Creatinine 1.1 Est GFR ( Amer) > 60 Est GFR (Non-Af Amer) 50 POC Glucose (mg/dL) Random Glucose 250 H Calcium 8.0 L Total Bilirubin 0.3 AST 34 ALT 22 Alkaline Phosphatase 53 Total Protein 5.6 L Albumin 2.5 L Globulin 3.1 Albumin/Globulin Ratio 0.8 L Urine Color Yellow Urine Clarity Hazy Urine pH 6.0 Ur Specific Lindsey 1.022 Urine Protein 3+ H Urine Glucose (UA) 3+ H Urine Ketones Negative Urine Blood Negative Urine Nitrate Negative Urine Bilirubin Negative Urine Urobilinogen Normal Ur Leukocyte Esterase Trace Urine WBC (Auto) 63 H Urine RBC (Auto) 8 H Ur Squamous Epith Cells < 1 Urine Bacteria Rare Hyaline Casts 6-10 H BLANK 6 Profile 06/01/17 06/01/17 06:35 11:11 WBC RBC Hgb Hct MCV MCH MCHC RDW Plt Count MPV Neut % (Auto) Lymph % (Auto) [place] % (Auto) Eos % (Auto) Baso % (Auto) Neut # Lymph # [place] # Eos # Baso # Sodium Potassium Chloride Carbon Dioxide Anion Gap BUN Creatinine Est GFR ( Amer) Est GFR (Non-Af Amer) POC Glucose (mg/dL) 215 H 257 H Random Glucose Calcium Total Bilirubin AST ALT Alkaline Phosphatase Total Protein Albumin Globulin Albumin/Globulin Ratio Urine Color Urine Clarity Urine pH Ur Specific Lindsey Urine Protein Urine Glucose (UA) Urine Ketones Urine Blood Urine Nitrate Urine Bilirubin Urine Urobilinogen Ur Leukocyte Esterase Urine WBC (Auto) Urine RBC (Auto) Ur Squamous Epith Cells Urine Bacteria Hyaline Casts BLANK 6 Profile Assessment & Plan (1) Constipation by delayed colonic transit Assessment and Plan: Fecal impaction. Manually disempacted at bedside. Continue laxative regimen Status: Acute (2) Generalized weakness Assessment and Plan: CVA Followed by Neurology Status: Acute - Date & Time Date: 06/01/17 Time: 14:53
[2017-06-01] MEDS: cefTRIAXone 2 GM IN NS 2 GM/100 ML BAG IVPB SCH (19:25)
[2017-06-02] MEDS: Dextrose 5%/0.45% NS 1,000 ML IV SCH (00:39)
--- NOTE | 2017-06-02 08:19 | CP.PCM.PN ---
Subjective - Date & Time of Evaluation Date of Evaluation: 06/02/17 Time of Evaluation: 08:12 - Subjective Subjective: Pt states abd pain; still constipated - denied by staff. No CP, no ?SOB, no edema, no cough Objective - Vital Signs/Intake and Output Vital Signs (last 24 hours): Temp Pulse Resp BP Pulse Ox 98.2 F 85 20 155/81 H 98 06/02/17 04:00 06/02/17 04:00 06/02/17 04:00 06/02/17 04:00 06/02/17 04:00 Intake and Output: 06/02/17 06/02/17 06:59 18:59 Intake Total 920 Output Total 450 Balance 470 - Medications Medications: Current Medications Acetaminophen (Tylenol 325mg Tab) 650 mg PO Q4 PRN PRN Reason: Pain Last Admin: 06/01/17 21:14 Dose: 650 mg Amlodipine Besylate (Norvasc) 5 mg PO DAILY [facility] Last Admin: 06/01/17 10:31 Dose: 5 mg Carvedilol (Coreg) 12.5 mg PO BID [facility] Last Admin: 06/01/17 17:15 Dose: 12.5 mg Clopidogrel Bisulfate (Plavix) 75 mg PO DAILY [facility] Last Admin: 06/01/17 10:31 Dose: 75 mg Glimepiride (Amaryl) 2 mg PO ACBD [facility] Last Admin: 06/01/17 17:15 Dose: 2 mg Heparin Sodium (Porcine) (Heparin) 5,000 units SC Q8 [facility] Last Admin: 06/02/17 05:37 Dose: 5,000 units Ceftriaxone Sodium (Rocephin 2 Gm Ivpb) 2 gm in 100 mls @ 100 mls/hr IVPB Q24H [facility] Last Admin: 06/01/17 19:25 Dose: 100 mls/hr Insulin Aspart (Novolog) 0 unit SC ACHS [facility] PRN Reason: Protocol Last Admin: 06/01/17 21:21 Dose: Not Given Losartan Potassium (Cozaar) 100 mg PO DAILY [facility] Last Admin: 06/01/17 10:31 Dose: 100 mg Polyethylene Glycol (Miralax) 17 gm PO DAILY [facility] Last Admin: 06/01/17 10:31 Dose: 17 gm Rosuvastatin Calcium (Crestor) 40 mg PO HS [facility] Last Admin: 06/01/17 21:14 Dose: 40 mg - Labs Labs: 06/01/17 06:14 06/01/17 06:14 APTT 34 SECONDS (21-34) 05/26/17 14:00 - Constitutional Appears: No Acute Distress - Eye Exam Eye Exam: Normal appearance - ENT Exam ENT Exam: Mucous Membranes Moist - Neck Exam Neck Exam: Full ROM. absent: Lymphadenopathy - Respiratory Exam Respiratory Exam: Decreased Breath Sounds. absent: Rales, Rhonchi, Wheezes - Cardiovascular Exam Cardiovascular Exam: REGULAR RHYTHM, +S1, +S2, Murmur. absent: Gallop, JVD - GI/Abdominal Exam GI & Abdominal Exam: Soft. absent: Tenderness, Normal Bowel Sounds - Extremities Exam Extremities Exam: Calf Tenderness. absent: Full ROM, Joint Swelling, Pedal Edema Assessment and Plan - Assessment and Plan (Free Text) Assessment: Recent CVA; Urinary retension; UTI Unsteady Gait; NIDDM Cont meds/ Plan of subacute
[2017-06-02] MEDS: POLYETHYLENE GLYCOL 3350 17 GM/Dose PACKET PO SCH (10:37)
--- NOTE | 2017-06-02 11:40 | VASCLAB ---
PROCEDURE: HISTORY: Acute CVA COMPARISON: None available. TECHNIQUE: Grayscale and duplex Doppler evaluation of the cervical carotid and vertebral arteries were performed. The common carotid, carotid bifurcations and cervical Internal Carotid Artery (ICA) and proximal External Carotid Artery (ECA) were evaluated. The vertebral arteries were evaluated for gross patency and flow direction. Report prepared by Dave Parmar, BS, RVT FINDINGS: RIGHT CAROTID ARTERIES: 1. Common Carotid Artery: No significant focal plaque formation of the right common carotid artery. Maximum Peak Systolic velocity: 71 cm/sec: End-diastolic velocity 7 cm/sec. 2. Carotid Bifurcation: Calcific plaque formation. Maximum Peak Systolic velocity: 64 cm/sec: End-diastolic velocity 9 cm/sec. 3. Internal Carotid Artery: Minimal plaque formation of the right proximal ICA which does not result in hemodynamically significant stenosis. Plaque description: 3.1. Proximal Segment: Peak systolic velocity 104 cm/sec: End-diastolic velocity 13 cm/sec - % stenosis 0-15% 3.2. Middle Segment: Peak systolic velocity 66 cm/sec: End-diastolic velocity 14 cm/sec - % stenosis 0-15% 3.3. Distal Segment: Peak systolic velocity 68 cm/sec: End-diastolic velocity 11 cm/sec - % stenosis 0-15% 4. External Carotid Artery: No significant focal plaque formation. Peak systolic velocity 173 cm/sec 5. ICA/CCA Ratio: 1.5 LEFT CAROTID ARTERIES: 1. Common Carotid Artery: No significant focal plaque formation of the left common carotid artery. Maximum Peak Systolic velocity: 76 cm/sec: End-diastolic velocity 0 cm/sec. 2. Carotid Bifurcation: plaque formation. Maximum Peak Systolic velocity: 56 cm/sec: End-diastolic velocity 8 cm/sec. 3. Internal Carotid Artery: Plaque description: 3.1. Proximal Segment: Peak systolic velocity 72 cm/sec: End-diastolic velocity 12 cm/sec - % stenosis 0-15% 3.2. Middle Segment: Peak systolic velocity 114 cm/sec: End-diastolic velocity 20 cm/sec - % stenosis 0-15% 3.3. Distal Segment: Peak systolic velocity 103 cm/sec: End-diastolic velocity 17 cm/sec - % stenosis 0-15% 4. External Carotid Artery: No significant focal plaque formation. Peak systolic velocity 114 cm/sec 5. ICA/CCA Ratio: 113 VERTEBRAL ARTERIES: 1. Right Vertebral Artery: The right vertebral artery flow direction is antegrade. 2. Left Vertebral Artery: The left vertebral artery flow direction is antegrade. OTHER FINDINGS: 1. Right Brachial Blood pressure: 136 mmHg. 2. Left Brachial Blood pressure: 132 mmHg. IMPRESSION: RIGHT: Duplex scan does not suggest hemodynamically significant stenosis of the right extracranial carotid arteries. LEFT: Duplex scan does not suggest hemodynamically significant stenosis of the left extracranial carotid arteries.
[2017-06-02] MEDS: (Novolog) Insulin Aspart, Recombinant 100 u/ml 10 ml vial SC SCH ×4 (11:57→22:02)
[2017-06-02 14:29] LABS: C-PEPTIDE 4.82 ng/mL (0.80-3.85)
--- NOTE | 2017-06-02 17:49 | CP.PCM.PN ---
Subjective - Date & Time of Evaluation Date of Evaluation: 06/02/17 Time of Evaluation: 17:46 - Subjective Subjective: F/U constipation. Pt reports less abdom pain. Less abdom distention. Multiple BMs since yesterday. Removed linares- has urinaty retention. Discussed with BOBBY Larry. Denies RB, melena, fever, chills ,SZ, RB, melena, QU[place]ILLA, cough Objective - Vital Signs/Intake and Output Vital Signs (last 24 hours): Temp Pulse Resp BP Pulse Ox 97.9 F 77 18 133/72 99 06/02/17 15:11 06/02/17 16:00 06/02/17 15:11 06/02/17 15:11 06/02/17 15:11 Intake and Output: 06/02/17 06/02/17 06:59 18:59 Intake Total 920 Output Total 450 Balance 470 - Medications Medications: Current Medications Acetaminophen (Tylenol 325mg Tab) 650 mg PO Q4 PRN PRN Reason: Pain Last Admin: 06/01/17 21:14 Dose: 650 mg Amlodipine Besylate (Norvasc) 5 mg PO DAILY [facility] Last Admin: 06/02/17 09:51 Dose: 5 mg Carvedilol (Coreg) 12.5 mg PO BID [facility] Last Admin: 06/02/17 09:50 Dose: 12.5 mg Clopidogrel Bisulfate (Plavix) 75 mg PO DAILY [facility] Last Admin: 06/02/17 09:50 Dose: 75 mg Glimepiride (Amaryl) 4 mg PO ACBD [facility] Ceftriaxone Sodium (Rocephin 2 Gm Ivpb) 2 gm in 100 mls @ 100 mls/hr IVPB Q24H [facility] Last Admin: 06/01/17 19:25 Dose: 100 mls/hr Insulin Aspart (Novolog) 0 unit SC ACHS [facility] PRN Reason: Protocol Last Admin: 06/02/17 17:11 Dose: Not Given Losartan Potassium (Cozaar) 100 mg PO DAILY [facility] Last Admin: 06/02/17 09:51 Dose: 100 mg Polyethylene Glycol (Miralax) 17 gm PO DAILY [facility] Last Admin: 06/02/17 10:37 Dose: Not Given Rosuvastatin Calcium (Crestor) 40 mg PO HS [facility] Last Admin: 06/01/17 21:14 Dose: 40 mg - Labs Labs: 06/01/17 06:14 06/01/17 06:14 APTT 34 SECONDS (21-34) 05/26/17 14:00 - Constitutional Appears: Well - Respiratory Exam Respiratory Exam: Clear to Ausculation Bilateral - Cardiovascular Exam Cardiovascular Exam: RRR - GI/Abdominal Exam GI & Abdominal Exam: Soft, Normal Bowel Sounds. absent: Guarding, Rigid, Tenderness, Mass, Rebound - Extremities Exam Extremities Exam: absent: Pedal Edema - Neurological Exam Neurological Exam: Alert, Awake, Oriented x3 Assessment and Plan (1) Abdominal pain Assessment & Plan: Due to constipation. Pain is better. Status: Acute (2) Urinary retention Status: Acute (3) Constipation Assessment & Plan: Dis-empacted. Meds: Miralax. colace. Consider criss, amitiza. Status: Acute (4) Uncontrolled diabetes mellitus Status: Acute (5) CAD (coronary artery disease) Status: Chronic (6) Leucocytosis Status: Acute
[2017-06-02] MEDS: cefTRIAXone 2 GM IN NS 2 GM/100 ML BAG IVPB SCH (19:03)
[2017-06-03 06:42] LABS: ALBUMIN 2.5 g/dL (3.5-5.0)
[2017-06-03 06:45] LABS: GFR AFRICAN-AMERICAN > 60; GFR NON-AFRICAN AMERICAN 50
[2017-06-03 06:46] LABS: ALB/GLOB RATIO 0.8 (1.0-2.1); ALT/SGPT 30 U/L (9-52); AST/SGOT 23 U/L (14-36); BLOOD UREA NITROGEN 13 mg/dL (7-17); CALCIUM 8.1 mg/dl (8.6-10.4)
--- NOTE | 2017-06-03 09:13 | CP.PCM.PN ---
Subjective - Date & Time of Evaluation Date of Evaluation: 06/03/17 Time of Evaluation: 09:00 - Subjective Subjective: Pt complain exc constipated/ lower abd pain. Bladder is again distended w/ >500 ml on bladder scan despite 4 bowel movement yesterday No CP, no SON, no edema, no cough Objective - Vital Signs/Intake and Output Vital Signs (last 24 hours): Temp Pulse Resp BP Pulse Ox 98 F 80 20 136/77 96 06/03/17 08:27 06/03/17 08:27 06/03/17 08:27 06/03/17 08:27 06/03/17 08:27 Intake and Output: 06/03/17 06/03/17 06:59 18:59 Intake Total 120 Output Total 300 Balance -180 - Medications Medications: Current Medications Acetaminophen (Tylenol 325mg Tab) 650 mg PO Q4 PRN PRN Reason: Pain Last Admin: 06/01/17 21:14 Dose: 650 mg Amlodipine Besylate (Norvasc) 5 mg PO DAILY [facility] Last Admin: 06/02/17 09:51 Dose: 5 mg Carvedilol (Coreg) 12.5 mg PO BID [facility] Last Admin: 06/02/17 17:49 Dose: 12.5 mg Clopidogrel Bisulfate (Plavix) 75 mg PO DAILY [facility] Last Admin: 06/02/17 09:50 Dose: 75 mg Docusate Sodium (Colace) 100 mg PO BID [facility] Last Admin: 06/02/17 18:07 Dose: 100 mg Glimepiride (Amaryl) 4 mg PO ACBD [facility] Last Admin: 06/03/17 08:50 Dose: 4 mg Ceftriaxone Sodium (Rocephin 2 Gm Ivpb) 2 gm in 100 mls @ 100 mls/hr IVPB Q24H [facility] Last Admin: 06/02/17 19:03 Dose: 100 mls/hr Insulin Aspart (Novolog) 0 unit SC ACHS [facility] PRN Reason: Protocol Last Admin: 06/02/17 22:02 Dose: Not Given Losartan Potassium (Cozaar) 100 mg PO DAILY [facility] Last Admin: 06/02/17 09:51 Dose: 100 mg Polyethylene Glycol (Miralax) 17 gm PO DAILY [facility] Last Admin: 06/02/17 10:37 Dose: Not Given Rosuvastatin Calcium (Crestor) 40 mg PO HS [facility] Last Admin: 06/02/17 21:33 Dose: 40 mg - Labs Labs: 06/01/17 06:14 06/03/17 06:06 APTT 34 SECONDS (21-34) 05/26/17 14:00 - Constitutional Appears: No Acute Distress - Eye Exam Eye Exam: Normal appearance - ENT Exam ENT Exam: Mucous Membranes Moist - Neck Exam Neck Exam: absent: Lymphadenopathy, Thyromegaly - Respiratory Exam Respiratory Exam: Clear to Ausculation Bilateral. absent: Chest Wall Tenderness , Rales, Rhonchi, Wheezes - GI/Abdominal Exam GI & Abdominal Exam: Soft. absent: Tenderness, Mass - Extremities Exam Extremities Exam: Calf Tenderness, Normal Capillary Refill. absent: Full ROM, Pedal Edema Assessment and Plan - Assessment and Plan (Free Text) Assessment: HTN, NIDDM, recent small CVA/ Unsteady gait Neurogenic bladder; Constipation For cath again; Cont meds ? inc Miralax and Neurology f/uo
[2017-06-03] MEDS: POLYETHYLENE GLYCOL 3350 17 GM/Dose PACKET PO SCH (10:09)
[2017-06-03] MEDS: (Novolog) Insulin Aspart, Recombinant 100 u/ml 10 ml vial SC SCH ×3 (11:58→22:32)
[2017-06-03 15:03] LABS: ANCA SCREEN NEGATIVE (NEGATIVE)
--- NOTE | 2017-06-03 15:05 | CP.PCM.PN ---
Subjective - Date & Time of Evaluation Date of Evaluation: 06/03/17 Time of Evaluation: 15:02 - Subjective Subjective: CC: Follow up constipation Had BMs yesterday, not today. Issues with retention, being worked up. No Miralax given today Notes lower abdominal discomfort. Examined with RN present Objective - Vital Signs/Intake and Output Vital Signs (last 24 hours): Temp Pulse Resp BP Pulse Ox 98 F 80 20 140/75 96 06/03/17 08:27 06/03/17 08:27 06/03/17 08:27 06/03/17 10:03 06/03/17 08:27 Intake and Output: 06/03/17 06/03/17 06:59 18:59 Intake Total 120 Output Total 300 Balance -180 - Medications Medications: Current Medications Acetaminophen (Tylenol 325mg Tab) 650 mg PO Q4 PRN PRN Reason: Pain Last Admin: 06/01/17 21:14 Dose: 650 mg Amlodipine Besylate (Norvasc) 5 mg PO DAILY [facility] Last Admin: 06/03/17 10:04 Dose: 5 mg Carvedilol (Coreg) 12.5 mg PO BID [facility] Last Admin: 06/03/17 10:03 Dose: 12.5 mg Clopidogrel Bisulfate (Plavix) 75 mg PO DAILY [facility] Last Admin: 06/03/17 10:03 Dose: 75 mg Docusate Sodium (Colace) 100 mg PO BID [facility] Last Admin: 06/03/17 10:04 Dose: 100 mg Glimepiride (Amaryl) 4 mg PO ACBD [facility] Last Admin: 06/03/17 08:50 Dose: 4 mg Ceftriaxone Sodium (Rocephin 2 Gm Ivpb) 2 gm in 100 mls @ 100 mls/hr IVPB Q24H [facility] Last Admin: 06/02/17 19:03 Dose: 100 mls/hr Insulin Aspart (Novolog) 0 unit SC ACHS [facility] PRN Reason: Protocol Last Admin: 06/03/17 11:58 Dose: Not Given Losartan Potassium (Cozaar) 100 mg PO DAILY [facility] Last Admin: 06/03/17 10:04 Dose: 100 mg Polyethylene Glycol (Miralax) 17 gm PO DAILY [facility] Last Admin: 06/03/17 10:09 Dose: Not Given Rosuvastatin Calcium (Crestor) 40 mg PO HS [facility] Last Admin: 06/02/17 21:33 Dose: 40 mg - Labs Labs: 06/01/17 06:14 06/03/17 06:06 APTT 34 SECONDS (21-34) 05/26/17 14:00 - Constitutional Appears: Chronically Ill - Respiratory Exam Respiratory Exam: NORMAL BREATHING PATTERN - Cardiovascular Exam Cardiovascular Exam: REGULAR RHYTHM - GI/Abdominal Exam GI & Abdominal Exam: Soft. absent: Distended, Tenderness, Mass Assessment and Plan (1) Constipation by delayed colonic transit Assessment & Plan: Clinically improved Continue Miralax and Colace Status: Acute (2) Generalized weakness Status: Acute
--- NOTE | 2017-06-03 15:28 | CP.PCM.PN ---
Subjective - Date & Time of Evaluation Date of Evaluation: 06/03/17 Time of Evaluation: 09:00 - Subjective Subjective: weak, lethargic nad iv rx reordered Objective - Vital Signs/Intake and Output Vital Signs (last 24 hours): Temp Pulse Resp BP Pulse Ox 98 F 80 20 140/75 96 06/03/17 08:27 06/03/17 08:27 06/03/17 08:27 06/03/17 10:03 06/03/17 08:27 Intake and Output: 06/03/17 06/03/17 06:59 18:59 Intake Total 120 Output Total 300 Balance -180 - Medications Medications: Current Medications Acetaminophen (Tylenol 325mg Tab) 650 mg PO Q4 PRN PRN Reason: Pain Last Admin: 06/01/17 21:14 Dose: 650 mg Amlodipine Besylate (Norvasc) 5 mg PO DAILY [facility] Last Admin: 06/03/17 10:04 Dose: 5 mg Carvedilol (Coreg) 12.5 mg PO BID [facility] Last Admin: 06/03/17 10:03 Dose: 12.5 mg Clopidogrel Bisulfate (Plavix) 75 mg PO DAILY [facility] Last Admin: 06/03/17 10:03 Dose: 75 mg Docusate Sodium (Colace) 100 mg PO BID [facility] Last Admin: 06/03/17 10:04 Dose: 100 mg Glimepiride (Amaryl) 4 mg PO ACBD [facility] Last Admin: 06/03/17 08:50 Dose: 4 mg Ceftriaxone Sodium (Rocephin 2 Gm Ivpb) 2 gm in 100 mls @ 100 mls/hr IVPB Q24H [facility] Last Admin: 06/02/17 19:03 Dose: 100 mls/hr Insulin Aspart (Novolog) 0 unit SC ACHS [facility] PRN Reason: Protocol Last Admin: 06/03/17 11:58 Dose: Not Given Losartan Potassium (Cozaar) 100 mg PO DAILY [facility] Last Admin: 06/03/17 10:04 Dose: 100 mg Polyethylene Glycol (Miralax) 17 gm PO DAILY [facility] Last Admin: 06/03/17 10:09 Dose: Not Given Rosuvastatin Calcium (Crestor) 40 mg PO HS [facility] Last Admin: 06/02/17 21:33 Dose: 40 mg - Labs Labs: 06/01/17 06:14 06/03/17 06:06 APTT 34 SECONDS (21-34) 05/26/17 14:00 - Constitutional Appears: Non-toxic, Chronically Ill - Head Exam Head Exam: NORMOCEPHALIC - Eye Exam Eye Exam: PERRL. absent: Scleral icterus - ENT Exam ENT Exam: Mucous Membranes Dry - Neck Exam Neck Exam: absent: Lymphadenopathy - Respiratory Exam Respiratory Exam: Decreased Breath Sounds - Cardiovascular Exam Cardiovascular Exam: REGULAR RHYTHM - GI/Abdominal Exam GI & Abdominal Exam: Distended, Soft. absent: Tenderness - Rectal Exam Rectal Exam: Deferred - Exam Exam: NORMAL INSPECTION - Extremities Exam Extremities Exam: absent: Pedal Edema Assessment and Plan (1) Confusion state Status: Acute (2) Generalized weakness Status: Acute (3) UTI (urinary tract infection) Status: Acute (4) Uncontrolled diabetes mellitus Status: Acute (5) Weakness Status: Acute (6) CAD (coronary artery disease) Status: Chronic (7) Cataracts, bilateral Status: Chronic (8) Diabetic retinopathy associated with controlled type 2 diabetes mellitus Status: Chronic (9) Old cerebrovascular accident without late effect Status: Chronic (10) 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
[2017-06-03] MEDS ORDERED: Iohexol 240 200 ML IJ ONE (16:46)
--- NOTE | 2017-06-03 18:01 | PCM.URO ---
Urology Progress Note - General General: Tolerating Diet (feels weak) - Subjective Abdominal Pain: No Flank Pain: No Nausea: No Vomiting: No Voiding Well: No (pt is uncertain re her voiding sx) Dysuria: No (catheter has been removed ) Hematuria: No Dsypnea: No Chest Pain: No Fever & Chills: No Other: had bm - Objective Lab Results Last 24 Hours: Laboratory Results - last 24 hr 05/29/17 06/02/17 06/03/17 16:58 21:11 06:06 Sodium 134 Potassium 3.1 L Chloride 102 Carbon Dioxide 25 Anion Gap 10 BUN 13 Creatinine 1.1 Est GFR ( Amer) > 60 Est GFR (Non-Af Amer) 50 POC Glucose (mg/dL) 186 H Random Glucose 123 H Calcium 8.1 L Total Bilirubin 0.4 AST 23 ALT 30 Alkaline Phosphatase 69 Total Protein 5.6 L Albumin 2.5 L Globulin 3.1 Albumin/Globulin Ratio 0.8 L ANCA Screen Negative c-ANCA Titer TNP Proteinase 3 (PR3) <1.0 p-ANCA Titer TNP Atypical p-ANCA Titer TNP Myeloperoxidase Ab <1.0 06/03/17 06/03/17 06:08 11:07 Sodium Potassium Chloride Carbon Dioxide Anion Gap BUN Creatinine Est GFR ( Amer) Est GFR (Non-Af Amer) POC Glucose (mg/dL) 122 H 159 H Random Glucose Calcium Total Bilirubin AST ALT Alkaline Phosphatase Total Protein Albumin Globulin Albumin/Globulin Ratio ANCA Screen c-ANCA Titer Proteinase 3 (PR3) p-ANCA Titer Atypical p-ANCA Titer Myeloperoxidase Ab Intake & Output: Intake & Output 06/02/17 06/03/17 06/03/17 18:59 06:59 18:59 Intake Total 120 Output Total 300 Balance -180 Intake: Oral 120 Output: Urine 300 Urine, Voided 300 Other: # Bowel Movements 1 Vital Signs: Vital Signs - 24 hr 06/02/17 06/02/17 06/03/17 23:10 23:30 03:18 Temperature 98.6 F Pulse Rate 73 75 76 Respiratory 20 Rate Blood Pressure 156/77 H O2 Sat by Pulse 96 Oximetry 06/03/17 06/03/17 06/03/17 04:21 08:27 10:03 Temperature 98.2 F 98 F Pulse Rate 74 80 Respiratory 20 20 Rate Blood Pressure 154/72 H 136/77 140/75 O2 Sat by Pulse 96 Oximetry 06/03/17 16:00 Temperature 98.2 F Pulse Rate 70 Respiratory 20 Rate Blood Pressure 136/61 O2 Sat by Pulse Oximetry - Physical Exam Abdominal Exam: Soft, Non-Tender, Non-Distended Bowel Sounds: Normal Back: No CVA Tenderness - Plan Intake & Output: Yes See Orders: Yes Additional Information: for cystometrogram, cystogram - Date & Time of Note Date: 06/03/17 Time: 04:30
--- NOTE | 2017-06-03 18:03 | PCM.SURG1 ---
Surgeon's Initial Post Op Note - Surgeon's Notes Surgeon: ciera arce Corporate Representative: none Type of Anesthesia: None Pre-Operative Diagnosis: urinary retention Operative Findings: improved bladder emptying. resolved urinary retention. residual = 200cc. good detrusor contraction on cmg Post-Operative Diagnosis: same Operation Performed: cystometrogram, cystogram Specimen/Specimens Removed: none Estimated Blood Loss: EBL {In ML}: 0 Blood Products Given: N/A Drains Used: No Drains Post-Op Condition: Good Date of Surgery/Procedure: 06/03/17 Time of Surgery/Procedure: 05:30
[2017-06-03] MEDS: cefTRIAXone 2 GM IN NS 2 GM/100 ML BAG IVPB SCH (20:38)
[2017-06-03] MEDS ORDERED: Potassium Chloride 20 mEq/15 ml LIQ UD PO ONE (21:59)
--- NOTE | 2017-06-04 07:25 | PCM.URO ---
Urology Progress Note - Objective Lab Results Last 24 Hours: Laboratory Results - last 24 hr 05/29/17 06/03/17 06/03/17 16:58 11:07 17:34 POC Glucose (mg/dL) 159 H 159 H ANCA Screen Negative c-ANCA Titer TNP Proteinase 3 (PR3) <1.0 p-ANCA Titer TNP Atypical p-ANCA Titer TNP Myeloperoxidase Ab <1.0 06/03/17 06/04/17 21:46 06:02 POC Glucose (mg/dL) 206 H 200 H ANCA Screen c-ANCA Titer Proteinase 3 (PR3) p-ANCA Titer Atypical p-ANCA Titer Myeloperoxidase Ab Intake & Output: Intake & Output 06/03/17 06/04/17 06/04/17 18:59 06:59 18:59 Intake Total 120 Output Total 300 Balance -180 Intake: Oral 120 Output: Urine 300 Urine, Voided 300 Other: # Bowel Movements 1 Vital Signs: Vital Signs - 24 hr 06/03/17 06/03/17 06/03/17 08:27 10:03 16:00 Temperature 98 F 98.2 F Pulse Rate 80 70 Respiratory 20 20 Rate Blood Pressure 136/77 140/75 136/61 O2 Sat by Pulse 96 Oximetry 06/03/17 06/03/17 06/04/17 23:15 23:30 03:30 Temperature 97.9 F Pulse Rate 75 75 74 Respiratory 20 Rate Blood Pressure 139/77 O2 Sat by Pulse 97 Oximetry 06/04/17 04:05 Temperature 96 F L Pulse Rate 73 Respiratory 20 Rate Blood Pressure 150/78 O2 Sat by Pulse 97 Oximetry - Date & Time of Note Date: 06/04/17 Time: 07:25
[2017-06-04] MEDS: (Novolog) Insulin Aspart, Recombinant 100 u/ml 10 ml vial SC SCH ×2 (08:32→12:15)
--- NOTE | 2017-06-04 08:37 | CP.PCM.PN ---
Subjective - Date & Time of Evaluation Date of Evaluation: 06/04/17 Time of Evaluation: 08:10 - Subjective Subjective: Pt no complain exc constipated; Had 4 Bowel movement 2 days ago. No CO, No SOB, no edema, no cough Objective - Vital Signs/Intake and Output Vital Signs (last 24 hours): Temp Pulse Resp BP Pulse Ox 98.0 F 766 H 20 155/78 H 96 06/04/17 08:12 06/04/17 08:12 06/04/17 08:12 06/04/17 08:12 06/04/17 08:12 - Medications Medications: Current Medications Acetaminophen (Tylenol 325mg Tab) 650 mg PO Q4 PRN PRN Reason: Pain Last Admin: 06/01/17 21:14 Dose: 650 mg Amlodipine Besylate (Norvasc) 5 mg PO DAILY [facility] Last Admin: 06/03/17 10:04 Dose: 5 mg Carvedilol (Coreg) 12.5 mg PO BID [facility] Last Admin: 06/03/17 19:08 Dose: Not Given Clopidogrel Bisulfate (Plavix) 75 mg PO DAILY [facility] Last Admin: 06/03/17 10:03 Dose: 75 mg Docusate Sodium (Colace) 100 mg PO BID [facility] Last Admin: 06/03/17 19:09 Dose: Not Given Glimepiride (Amaryl) 4 mg PO ACBD [facility] Last Admin: 06/03/17 18:19 Dose: Not Given Ceftriaxone Sodium (Rocephin 2 Gm Ivpb) 2 gm in 100 mls @ 100 mls/hr IVPB Q24H [facility] Last Admin: 06/03/17 20:38 Dose: 100 mls/hr Insulin Aspart (Novolog) 0 unit SC ACHS [facility] PRN Reason: Protocol Last Admin: 06/04/17 08:32 Dose: Not Given Losartan Potassium (Cozaar) 100 mg PO DAILY [facility] Last Admin: 06/03/17 10:04 Dose: 100 mg Polyethylene Glycol (Miralax) 17 gm PO DAILY [facility] Last Admin: 06/03/17 10:09 Dose: Not Given Potassium Chloride (Klor-Con 10) 40 meq PO BRK ONE Stop: 06/05/17 09:27 Rosuvastatin Calcium (Crestor) 40 mg PO HS [facility] Last Admin: 06/03/17 22:21 Dose: 40 mg - Labs Labs: 06/01/17 06:14 06/03/17 06:06 APTT 34 SECONDS (21-34) 05/26/17 14:00 - Constitutional Appears: No Acute Distress - Eye Exam Eye Exam: Normal appearance - ENT Exam ENT Exam: Mucous Membranes Moist - Neck Exam Neck Exam: Full ROM. absent: Lymphadenopathy, Tenderness - Respiratory Exam Respiratory Exam: Clear to Ausculation Bilateral. absent: Rales, Rhonchi, Wheezes - Cardiovascular Exam Cardiovascular Exam: REGULAR RHYTHM, +S1, +S2. absent: Gallop, JVD - GI/Abdominal Exam GI & Abdominal Exam: Soft. absent: Tenderness, Mass - Extremities Exam Extremities Exam: Full ROM, Normal Capillary Refill. absent: Calf Tenderness, Joint Swelling, Pedal Edema Assessment and Plan - Assessment and Plan (Free Text) Assessment: Recent CVA with unsteady Gait UTI w/ urinary retention NIDDM; HTN; Hypokalemia For discharge on subacute cont meds
--- NOTE | 2017-06-04 09:20 | RAD ---
PROCEDURE: HISTORY: Fluoroscopy -for cystogram ; urinary retention history COMPARISON: None TECHNIQUE: Total fluoroscopic time utilized during the procedure: 3.35 seconds seconds. Total dose 56187.5 mGy cm squared FINDINGS: Submitted images from the current procedure: For Please refer to the physician's notes performing the procedure. Catheter in bladder with infused contrast opacifying a mildly trabeculated bladder. No gross intraluminal filling defects. Last image- complete contrast clearance IMPRESSION: Less than 1 hour fluoroscopic time utilized during performance of the procedure
[2017-06-04] MEDS ORDERED: Potassium Chloride 20 mEq ER Tab PO ONE (10:00)
--- NOTE | 2017-06-04 10:10 | RAD ---
HISTORY: URINARY RETENTION COMPARISON: 05/31/2017 FINDINGS: BOWEL: Rectosigmoid right colonic stool retention. No obstruction. BONES: Bilateral sacroiliac sclerotic arthrosis iliac sided predominantly OTHER FINDINGS: Cholecystectomy clips. Central pelvic probable mildly distended bladder. Atherosclerotic vascular calcifications IMPRESSION: Pelvic rounded density consistent with moderately distended bladder/urinary retention. Stool retention. No bowel obstruction
[2017-06-04] MEDS: POLYETHYLENE GLYCOL 3350 17 GM/Dose PACKET PO SCH (10:17)
[2017-06-04 16:42] VITALS: BP 147/76; PULSE 73; RESP 18; TEMP 97.5; O2SAT 98
--- NOTE | 2017-06-05 09:21 | PN ---
DATE: ROOM: 652. SUBJECTIVE: This is a 61-year-old female with recent uncontrolled type 2 diabetes with extremes of glycemic fluctuations ranging from hypoglycemia to hyperglycemic accelerations and has since then improved clinically and metabolically as noted thereof. Her oral intake, however, remains quite variable and suboptimal at this time as noted. She is also undergoing neurological workup for generalized body weakness, preferentially in the lower extremities as noted. She also has ongoing IV antibiotics for UTI and bacteremia with a recent urologic workup for a possible neurogenic bladder. Her latest glucose values have ranged from 159 to 206 mg/dL. LABORATORY DATA: Her latest chemistries include a BUN of 13, sodium 134, potassium 3.1, chloride 102, CO2 of 25, glucose 123, and creatinine 1.1. ASSESSMENT AND PLAN: So at this time, we will continue the modified dual oral hypoglycemic drug therapy as given and we will actually add Januvia given as 50 mg once daily in the morning as ordered. We will also continue the Amaryl given as 4 mg p.o. b.i.d. before meals as ordered. We will titrate *------* as indicated to optimize metabolic control. We will obtain serial chemistries and supplement accordingly as needed. We will follow. Lisa Daley MD
[2017-06-05] MEDS ORDERED: Potassium Chloride 20 mEq ER Tab PO ONE (09:26)
--- NOTE | 2017-06-06 05:53 | OP ---
PROCEDURE DATE: 06/03/2017 PREOPERATIVE DIAGNOSIS: Urinary retention. POSTOPERATIVE DIAGNOSIS: Urinary retention. PROCEDURES: 1. Cystometrogram. 2. Cystogram. SURGEON: Anais Oliver MD DESCRIPTION OF PROCEDURE: The patient was in the supine position. A Recio catheter was inserted per urethra after the genitalia were prepped in a sterile fashion. The residuals in bladder was 200 mL. The cystometrogram was performed. [id number] gas was filled into the bladder at a filling rate of 120 mL/minute. Cystometrogram curve would yield the following findings. The patient had a mild urge to void of approximately 200 mL. The patient was asked to cough. There was good increase in intravesical pressure during the cough. Patient developed detrusor contraction at a volume threshold of approximately 330 mL. There was a brisk detrusor contraction. Maximum pressure reach was 100 cm of water at a volume of 340 mL. Patient voided the [id number] gas around the catheter. IMPRESSION: Normal cystometrogram curve. Patient's bladder was then drained. Patient then had a cystogram performed. Iodine contrast was instilled into the bladder. Fluoroscopic views of the abdomen were obtained in both PA and oblique views. Post drain film was obtained as well. Cystogram demonstrated a normal bladder contour. There was no intrinsic or extrinsic filling defect within the bladder. There was no vesicoureteral reflux noted. There was mild speculation. Post drain film confirmed the above findings. The catheter was removed. The patient tolerated the procedure without complications. Anais Oliver MD cc: Anais Oliver MD
== END 2017-06-04 16:50 | disposition home or self-care (01) | DRG 690 ==
LOC: C.ER 11:39 → C.9E 15:16 → C.3T 20:18 → C.6T 05-27 17:33
PROVIDERS: ADMIT Internal Medicine; ATTEND Internal Medicine
PROC: 4A0D7BZ Measurement of Urinary Pressure, Via Natural or Artificial Opening (ICD-10-PCS; principal; 2017-06-04)
PROC: BT101ZZ Fluoroscopy of Bladder using Low Osmolar Contrast (ICD-10-PCS; 2017-06-04)
DX: N39.0 Urinary tract infection, site not specified (principal); E11.649 Type 2 diabetes mellitus with hypoglycemia without coma; E11.65 Type 2 diabetes mellitus with hyperglycemia; R41.0 Disorientation, unspecified; I25.10 Atherosclerotic heart disease of native coronary artery without angina pectoris; H26.9 Unspecified cataract; E11.319 Type 2 diabetes mellitus with unspecified diabetic retinopathy without macular edema; R33.9 Retention of urine, unspecified; K59.01 Slow transit constipation; K56.41 Fecal impaction; I69.344 Monoplegia of lower limb following cerebral infarction affecting left non-dominant side; H43.822 Vitreomacular adhesion, left eye; J44.9 Chronic obstructive pulmonary disease, unspecified

== ENCOUNTER 2017-12-28 11:20 | Inpatient (IN) | payer MEDICARE, OTHER ==
[2017-12-28 11:20] VITALS: BMI 22.1
[2017-12-28 11:48] LABS: SQUAMOUS EPITHIAL 4 /hpf (0-5); URINE BACTERIA RARE (<OCC); URINE BILIRUBIN NEGATIVE (NEGATIVE); URINE BLOOD NEGATIVE (NEGATIVE); URINE CLARITY Hazy (Clear); URINE COLOR Yellow (YELLOW); URINE GLUCOSE (UA) 3+ mg/dL (Normal); URINE HYALINE CAST 0-2 /lpf (0-2); URINE LEUKOCYTE ESTERASE NEG Leu/uL (Negative); URINE NITRATE NEGATIVE (NEGATIVE); URINE PROTEIN 3+ mg/dL (NEGATIVE); URINE UROBILINOGEN NORMAL mg/dL (0.2-1.0)
[2017-12-28] MEDS ORDERED: Sodium Chloride 0.9% 1,000 ML IV ONE ×2 (12:36→14:41)
[2017-12-28 12:57] LABS: BASO % 0.4 % (0.0-2.0); EOS % 0.2 % (0.0-4.0); HEMOGLOBIN 13.1 g/dL (11.0-16.0); LYMPH # 1.4 K/uL (1.0-4.3); LYMPH % 15.3 % (20.0-40.0); MEAN CELL VOLUME 84.8 fL (81.0-99.0); MEAN CORPUSCULAR HEMOGLOBIN 28.8 pg (27.0-31.0); MEAN PLATELET VOLUME 7.9 fL (7.2-11.7); MONO # 0.7 K/uL (0.0-0.8); MONO % 7.6 % (0.0-10.0); NEUT # 6.9 K/uL (1.8-7.0); NEUT % 76.5 % (50.0-75.0); RBC 4.55 Mil/uL (3.80-5.20); RED CELL DISTRIBUTION WIDTH 13.1 % (11.5-14.5)
--- NOTE | 2017-12-28 13:07 | RAD ---
PROCEDURE: CHEST RADIOGRAPH, 1 VIEW HISTORY: abd pain COMPARISON: None available. FINDINGS: LUNGS: There is opacity at the right lung base which may reflect pneumonia. Followup advised. No other abnormal opacity is seen elsewhere. PLEURA: There is a small right pleural effusion. There is no left pleural effusion. There is no pneumothorax. CARDIOVASCULAR: Normal. OSSEOUS STRUCTURES: No significant abnormalities. VISUALIZED UPPER ABDOMEN: Normal. OTHER FINDINGS: None. IMPRESSION: Small right pleural effusion and opacity at right lung base which may reflect early pneumonia. Followup advised.
[2017-12-28 13:08] LABS: ALB/GLOB RATIO 0.8 (1.0-2.1); ALBUMIN 3.5 g/dL (3.5-5.0); CALCIUM 8.6 mg/dl (8.6-10.4)
--- NOTE | 2017-12-28 13:12 | C.PDOC ---
History Of Present Illness 62 year old female is brought to the ED by her for evaluation of decreased appetite for the past couple of days. As per , patient today stated she was not feeling well, developed a fever and started vomiting, and coughing. Patient denies nausea, abdominal pain, diarrhea, recent travel, sick contacts, dysuria, hematuria. Time Seen by Provider: 12/28/17 12:18 Chief Complaint (Nursing): Fever History Per: Patient, Family History/Exam Limitations: no limitations Onset/Duration Of Symptoms: Days Current Symptoms Are (Timing): Still Present Location Of Pain: Diffuse Myalgias Sick Contacts (Context): None Associated Symptoms: Fever, Cough, Vomiting Ear Symptoms: Bilateral: None Recent travel outside of the [place]: No Additional History Per: Patient, Family Past Medical History Reviewed: Historical Data, Nursing Documentation, Vital Signs Vital Signs: Last Vital Signs Temp 98.7 F 12/28/17 16:21 Pulse 62 12/28/17 16:21 Resp 20 12/28/17 16:21 BP 109/66 12/28/17 16:21 Pulse Ox 97 12/28/17 16:21 - Medical History PMH: Asthma, COPD, Gall Bladder Disease, HTN Denies: Chronic Kidney Disease Surgical History: Coronary Stent (2012) Denies: Pacemaker - [facility] Procedures CORONAR ARTERIOGR-2 CATH (09/16/13) FLUOROSCOPY OF BLADDER USING LOW OSMOLAR CONTRAST (05/25/17) INJECT ANTICOAGULANT (09/28/13) INSERTION OF ONE VASCULAR STENT (09/28/13) INSRT OF DRUG-ELUTING CORON ARTERY STENTS(S) (09/28/13) LEFT HEART CARDIAC CATH (09/16/13) LT HEART ANGIOCARDIOGRAM (09/16/13) MEASUREMENT OF URINARY PRESSURE, VIA OPENING (05/25/17) PERCUTANEOUS TRANSLUMINAL CORONARY ANGIOPLASTY [PTCA] (09/28/13) PROCEDURE ON SINGLE VESSEL (09/28/13) THORACENTESIS (07/23/15) Family History: States: Unknown Family Hx - Social History Hx Alcohol Use: No Hx Substance Use: No - Immunization History Hx Tetanus Toxoid Vaccination: No Hx Influenza Vaccination: No Hx Pneumococcal Vaccination: No Review Of Systems Constitutional: Positive for: Fever, Malaise. Negative for: Chills Cardiovascular: Negative for: Chest Pain, Palpitations Respiratory: Negative for: Cough, Shortness of Breath Gastrointestinal: Positive for: Vomiting. Negative for: Nausea, Abdominal Pain , Diarrhea Skin: Negative for: Rash Neurological: Negative for: Weakness, Numbness, Headache Physical Exam - Physical Exam Appears: Non-toxic, Chronically Ill Skin: Normal Color, Warm, Dry Head: Atraumatic, Normacephalic Eye(s): bilateral: Normal Inspection Nose: No Discharge Oral Mucosa: Dry Lips: Other (chapped) Neck: Normal ROM, Supple Chest: Symmetrical Cardiovascular: Rhythm Regular, No Murmur Respiratory: Normal Breath Sounds, No Rhonchi, No Wheezing, Other (Porr examination, patient was not able to sit up) Gastrointestinal/Abdominal: Soft, No Tenderness, No Guarding, No Rebound Extremity: Normal ROM, No Deformity, No Swelling Neurological/Psych: Oriented x3, Normal Speech, Normal Cognition ED Course And Treatment - Laboratory Results Result Diagrams: 12/28/17 12:53 12/28/17 12:53 ECG: Interpreted By Me, Viewed By Me ECG Rhythm: Sinus Rhythm Interpretation Of ECG: Abnormal QRS-T angle, prolonged QT Rate From EC O2 Sat by Pulse Oximetry: 97 (On RA) Pulse Ox Interpretation: Normal - Radiology CXR: Viewed By Me, Read By Radiologist CXR Interpretation: Yes: Other (Small right pleural effusion and opacity at right lung base which may reflect early pneumonia. Followup advised.) Medical Decision Making Medical Decision Making: Impression: malaise, decreased appetite Plan: * Labs * CXR * IV fluids * Tylenol 975 mg PO * Zofran 4 mg PO * Urine culture * Influenza A B * UA pt found to have pna on cxr; neg for flu. discussed with Dr Arambula, will admit to his service, bc and antibiotics ordered. routine consults ordered for Tammy Bautista and Elan. Disposition Discussed With : Herman Arambula Doctor Will See Patient In The: Hospital - Disposition Disposition: HOSPITALIZED Disposition Time: 14:28 Condition: SERIOUS - Clinical Impression Clinical Impression: Pneumonia, Hypokalemia - PA / [employer] / Resident Statement MD/DO has reviewed & agrees with the documentation as recorded. - Scribe Statement The provider has reviewed the documentation as recorded by the Scribe Major Wilde All medical record entries made by the Scribe were at my direction and personally dictated by me. I have reviewed the chart and agree that the record accurately reflects my personal performance of the history, physical exam, medical decision making, and the department course for this patient. I have also personally directed, reviewed, and agree with the discharge instructions and disposition.
[2017-12-28] MEDS ORDERED: Azithromycin 500 MG in Sodium Chloride 0.9% 250 ML IVPB STA (13:20)
[2017-12-28] MEDS ORDERED: cefTRIAXone IV 1 gm in Dextros 50 ML IVPB ONE (13:35)
[2017-12-28] MEDS ORDERED: Influenza Vaccine 60 mcg/0.5 mL SYR (4YR UP) IM ONE (20:06)
[2017-12-28] MEDS ORDERED: Pneumococcal 23-Valent Vaccine IM ONE (20:06)
[2017-12-28] MEDS: (Novolin R) Insulin Human Regular 100 units/ml vial SC SCH (21:57)
[2017-12-28] MEDS: Dextrose 5%/0.45% NS 1,000 ML IV SCH (21:59)
[2017-12-28] MEDS: Insulin Detemir 100 units/ml Vial (Levemir) SC SCH (22:05)
[2017-12-28] MEDS ORDERED: Azithromycin 500mg/250ML NS 500 MG/250 ML BAG IVPB SCH (23:45)
[2017-12-29] MEDS: (Novolin R) Insulin Human Regular 100 units/ml vial SC SCH ×4 (07:30→21:46)
[2017-12-29] MEDS ORDERED: Alum-Mag Hydrox-Simethicone Susp (30 mL) PO ONE (08:42)
--- NOTE | 2017-12-29 08:56 | CP.PCM.HP ---
History of Present Illness - History of Present Illness History of Present Illness: CC: Weak 62 y/o with COPD, NODDM, CAD s/p stent and COPD. Patient w/ dec appetitie x 2-3 days. This is associated with dysuria and (+) freq. She felt weak and had episode of vomiting. Yesterday b felt much weaker and had fever of 102. CXR w/ (+) infiltrate. Present on Admission - Present on Admission Any Indicators Present on Admission: Yes History of DVT/PE: No History of Uncontrolled Diabetes: Yes Urinary Catheter: No Decubitus Ulcer Present: No Review of Systems - Review of Systems Systems not reviewed;Unavailable: Acuity of Condition - Constitutional Constitutional: Lethargy, Malaise, Weakness. absent: Night Sweats, Weight Loss - EENT Eyes: absent: Requires Corrective Lenses, Spots in Vision Ears: Disequilibrium. absent: Ear Discharge, Dizziness Nose/Mouth/Throat: absent: Nasal Congestion, Nasal Discharge, Sinus Pressure, Bleeding Gums - Cardiovascular Cardiovascular: Chest Pain. absent: Diaphoresis, Dyspnea, Edema, Paroxysmal Nocturnal Dyspnea, Pedal Edema, Radiating Pain, Syncope - Respiratory Respiratory: Cough, Pain with Coughing. absent: Dyspnea on Exertion, Pain on Inspiration, Excessive Mucous Production - Gastrointestinal Gastrointestinal: Heartburn, Nausea, Vomiting. absent: Bloating, Diarrhea, Dysphagia - Genitourinary Genitourinary: Nocturia, Urinary Urgency. absent: Flank Pain, Hematuria - Musculoskeletal Musculoskeletal: Muscle Weakness. absent: Abnormal Gait, Back Pain, Numbness, Stiffness - Integumentary Integumentary: absent: Furuncle, Rash, Wounds Past Patient History - Infectious Disease Hx of Infectious Diseases: None - Past Medical History & Family History Past Medical History?: Yes - Past Social History Smoking Status: Never Smoked - CARDIAC Hx Hypertension: Yes Hx Pacemaker: No - PULMONARY Hx Asthma: Yes Hx Chronic Obstructive Pulmonary Disease (COPD): Yes - NEUROLOGICAL Hx Neurological Disorder: No Hx Paralysis: No - HEENT Hx HEENT Problems: No - RENAL Hx Chronic Kidney Disease: No - ENDOCRINE/METABOLIC Hx Endocrine Disorders: Yes Hx Diabetes Mellitus Type 2: Yes - HEMATOLOGICAL/ONCOLOGICAL Hx Blood Disorders: No Hx Blood Transfusions: No Hx Blood Transfusion Reaction: No - INTEGUMENTARY Hx Dermatological Problems: No - MUSCULOSKELETAL/RHEUMATOLOGICAL Hx Falls: No - GASTROINTESTINAL Hx Gall Bladder Disease: Yes - GENITOURINARY/GYNECOLOGICAL Hx Genitourinary Disorders: No - PSYCHIATRIC Hx Substance Use: No - SURGICAL HISTORY Hx Coronary Stent: Yes (2012) - ANESTHESIA Hx Anesthesia: Yes Hx Anesthesia Reactions: No Hx Malignant Hyperthermia: No Meds Allergies/Adverse Reactions: Allergies Allergy/AdvReac Type Severity Reaction Status Date / Time iodine Allergy Verified 12/28/17 11:24 Latex, Natural Rubber Allergy Verified 12/28/17 11:24 pentazocine [From Talwin] Allergy Verified 12/28/17 11:24 Physical Exam - Constitutional Appears: No Acute Distress - Eye Exam Eye Exam: Normal appearance - ENT Exam ENT Exam: Mucous Membranes Moist - Neck Exam Neck exam: Positive for: Full Rom. Negative for: Thyromegaly - Respiratory Exam Respiratory Exam: Clear to Auscultation Bilateral. absent: Rales, Rhonchi, Wheezes - Cardiovascular Exam Cardiovascular Exam: REGULAR RHYTHM, +S1, +S2. absent: Gallop, Systolic Murmur - GI/Abdominal Exam GI & Abdominal Exam: Soft. absent: Mass, Pulsatile Mass, Tenderness - Extremities Exam Extremities exam: Positive for: full ROM, normal capillary refill. Negative for : calf tenderness, joint swelling, pedal edema Results - Vital Signs Recent Vital Signs: Last Vital Signs Temp 98.2 F 12/29/17 00:00 Pulse 65 12/29/17 00:00 Resp 20 12/29/17 00:00 BP 125/68 12/29/17 00:00 Pulse Ox 98 12/29/17 00:00 - Labs Result Diagrams: 12/28/17 12:53 12/28/17 12:53 Labs: Laboratory Results - last 24 hr 12/28/17 12/28/17 12/28/17 11:37 12:36 12:53 WBC 9.0 RBC 4.55 Hgb 13.1 Hct 38.6 MCV 84.8 MCH 28.8 MCHC 34.0 RDW 13.1 Plt Count 281 D MPV 7.9 Neut % (Auto) 76.5 H Lymph % (Auto) 15.3 L [place] % (Auto) 7.6 Eos % (Auto) 0.2 Baso % (Auto) 0.4 Neut # (Auto) 6.9 Lymph # (Auto) 1.4 [place] # (Auto) 0.7 Eos # (Auto) 0.0 Baso # (Auto) 0.0 Sodium Potassium Chloride Carbon Dioxide Anion Gap BUN Creatinine Est GFR ( Amer) Est GFR (Non-Af Amer) POC Glucose (mg/dL) Random Glucose Calcium Total Bilirubin AST ALT Alkaline Phosphatase Total Protein Albumin Globulin Albumin/Globulin Ratio Urine Color Yellow Urine Clarity Hazy Urine pH 6.0 Ur Specific [place] 1.016 Urine Protein 3+ H Urine Glucose (UA) 3+ H Urine Ketones Negative Urine Blood Negative Urine Nitrate Negative Urine Bilirubin Negative Urine Urobilinogen Normal Ur Leukocyte Esterase Neg Urine WBC (Auto) 14 H Urine RBC (Auto) 5 H Ur Squamous Epith Cells 4 Urine Bacteria Rare Hyaline Casts 0-2 Influenza Typ A,B (EIA) Negative for flu a/b 12/28/17 12/28/17 12/29/17 12:53 21:06 07:01 WBC RBC Hgb Hct MCV MCH MCHC RDW Plt Count MPV Neut % (Auto) Lymph % (Auto) [place] % (Auto) Eos % (Auto) Baso % (Auto) Neut # (Auto) Lymph # (Auto) [place] # (Auto) Eos # (Auto) Baso # (Auto) Sodium 132 Potassium 3.0 L Chloride 92 L Carbon Dioxide 30 Anion Gap 13 BUN 21 H Creatinine 1.5 H Est GFR ( Amer) 43 Est GFR (Non-Af Amer) 35 POC Glucose (mg/dL) 157 H 147 H Random Glucose 159 H Calcium 8.6 Total Bilirubin 0.5 AST 215 H ALT 244 H D Alkaline Phosphatase 143 H Total Protein 7.6 Albumin 3.5 D Globulin 4.1 H Albumin/Globulin Ratio 0.8 L Urine Color Urine Clarity Urine pH Ur Specific [place] Urine Protein Urine Glucose (UA) Urine Ketones Urine Blood Urine Nitrate Urine Bilirubin Urine Urobilinogen Ur Leukocyte Esterase Urine WBC (Auto) Urine RBC (Auto) Ur Squamous Epith Cells Urine Bacteria Hyaline Casts Influenza Typ A,B (EIA) - EKG Data EKG Interpreted by: Myself Rate: Normal Assessment & Plan - Assessment and Plan (Free Text) Assessment: Fever ? UTI w/ aspiration Atyp CP - (+) tender on L chest NIDDM, HTN, CAD s/p CVA Cont meds/ ID on board Cardio eval
[2017-12-29] MEDS ORDERED: Influenza Vaccine 60 mcg/0.5 mL SYR (4YR UP) IM ONE (10:00)
[2017-12-29 11:40] LABS: BASO % 0.8 % (0.0-2.0); EOS # 0.1 K/uL (0.0-0.7); EOS % 2.5 % (0.0-4.0); LYMPH % 25.7 % (20.0-40.0); MEAN CELL VOLUME 84.7 fL (81.0-99.0); MEAN CORPUSCULAR HEMOGLOBIN 28.7 pg (27.0-31.0); MEAN CORPUSCULAR HGB CONC 33.9 g/dL (33.0-37.0); MEAN PLATELET VOLUME 7.9 fL (7.2-11.7); MONO # 0.3 K/uL (0.0-0.8); MONO % 7.5 % (0.0-10.0); NEUT # 2.5 K/uL (1.8-7.0); NEUT % 63.5 % (50.0-75.0); RBC 3.68 Mil/uL (3.80-5.20); RED CELL DISTRIBUTION WIDTH 13.2 % (11.5-14.5)
[2017-12-29 11:43] LABS: CALCIUM 7.1 mg/dl (8.6-10.4)
[2017-12-29 11:45] LABS: HEMOGLOBIN 10.6 g/dL (11.0-16.0)
--- NOTE | 2017-12-29 11:54 | CP.PCM.CON ---
History of Present Illness - History of Present Illness History of Present Illness: 62 y/o with COPD, NODDM, CAD s/p stent and COPD admiyttted with pneumonia r/o sepsis cultures sent IV rx in progress Review of Systems - Review of Systems All systems: reviewed and no additional remarkable complaints except - Constitutional Constitutional: As Per HPI, Chills, Fatigue - EENT Eyes: absent: As Per HPI, Blind Spots, Blurred Vision, Change in Vision, Decreased Night Vision, Diplopia, Discharge, Dry Eye, Exophthalmos, Floaters, Irritation, Itchy Eyes, Loss of Peripheral Vision, Pain, Photophobia, Requires Corrective Lenses, Sees Flashes, Spots in Vision, Tunnel Vision, Other Visual Disturbances, Loss of Vision, Other Ears: absent: As Per HPI, Decreased Hearing, Ear Discharge, Ear Pain, Tinnitus, Abnormal Hearing, Disequilibrium, Dizziness, Other Nose/Mouth/Throat: absent: As Per HPI, Epistaxis, Nasal Congestion, Nasal Discharge, Nasal Obstruction, Nasal Trauma, Nose Pain, Post Nasal Drip, Sinus Pain, Sinus Pressure, Bleeding Gums, Change in Voice, Dental Pain, Dry Mouth, Dysphagia, Halitosis, Hoarsness, Lip Swelling, Mouth Lesions, Mouth Pain, Odynophagia, Sore Throat, Throat Swelling, Tongue Swelling, Facial Pain, Neck Pain, Neck Mass, Other - Breasts Breasts: absent: As Per HPI, Change in Shape, Mass, Pain, Nipple Discharge, Nipple Inversion, Skin Changes, Swelling, Other - Cardiovascular Cardiovascular: absent: As Per HPI, Acrocyanosis, Chest Pain, Chest Pain at Rest , Chest Pain with Activity, Claudication, Diaphoresis, Dyspnea, Dyspnea on Exertion, Edema, Irregular Heart Rhythm, Pain Radiating to Arm/Neck/Jaw, Leg Edema, Leg Ulcers, Lightheadedness, Orthopnea, Palpitations, Paroxysmal Nocturnal Dyspnea, Pedal Edema, Radiating Pain, Rapid Heart Rate, Slow Heart Rate, Syncope, Other - Respiratory Respiratory: As Per HPI, Cough - Gastrointestinal Gastrointestinal: As Per HPI - Genitourinary Genitourinary: absent: As Per HPI, Change in Urinary Stream, Difficulty Urinating, Dysuria, Flank Pain, Hematuria, Pyuria, Nocturia, Urinary Incontinence, Urinary Frequency, Urinary Hesitance, Urinary Urgency, Voiding Freq/Small Amts, Freq UTI, Hx Renal/Bladder Calculi, Hx /Renal Surgery, Bladder Distension, Other - Reproductive: Female Reproductive:Female: absent: As Per HPI, Amenorrhea, Amenorrhea/ Control, Currently Menstual, Cycle <21 Days, Cycle >35 Days, Cycle Variable, Menses 1-7 Days, Menses >/= 8 Days, Menses Variable, Cycle > 4 Weeks Between, No Menses for 6 Months, Heavy Menses, Light Menses, Normal Menses, Spotting Between Cycles , S/P Hysterectomy, Menopausal, Post Menopausal, Premenarche, Abnormal Vaginal Bleeding, Dysmenorrhea, Dyspareunia, Genital Lesions, Genital Pruritis, Pelvic Pain, Prolapse Symptoms, Sexual Dysfunction, Vaginal Discharge, Vaginal Dryness , Vaginal Odor, Vaginal Pruritis, Other - Menstruation Menstruation: absent: As Per HPI, Amenorrhea, Amenorrhea/ Control, Currently Menstual, Cycle <21 Days, Cycle >35 Days, Cycle Variable, Menses 1-7 Days, Menses >/= 8 Days, Menses Variable, Cycle > 4 Weeks Between, No Menses for 6 Months, Heavy Menses, Light Menses, Normal Menses, Spotting Between Cycles , S/P Hysterectomy, Menopausal, Post Menopausal, Premenarche, Abnormal Vaginal Bleeding, Dysmenorrhea, Other - Musculoskeletal Musculoskeletal: absent: As Per HPI, Abnormal Gait, Arthralgias, Atrophy, Back Pain, Deformity, Joint Swelling, Limited Range of Motion, Loss of Height, Muscle Cramps, Muscle Weakness, Myalgias, Neck Pain, Numbness, Radiating Pain into Limb, Stiffness, Tingling, Other - Integumentary Integumentary: absent: As Per HPI, Acne, Alopecia, Bleeding Lesions, Change in Hair, Change in Nails, Change in Pigmentation, Changing Lesions, Dry Skin, Erythema, Furuncle, Hirsutism, Lesions, New Lesions, Non-Healing Lesions, Photosensitivity, Pruritus, Rash, Skin Pain, Skin Ulcer, Sores, Striae, Swelling , Unusual Bruising, Wounds, Jaundice, Other - Neurological Neurological: absent: As Per HPI, Abnormal Gait, Abnormal Hearing, Abnormal Movements, Abnormal Speech, Behavioral Changes, Burning Sensations, Confusion, Convulsions, Disequilibrium, Dizziness, Numbness, Focal Weakness, Frequent Falls , Headaches, Lack of Coordination, Loss of Vision, Memory Loss, Paresthesias, Radicular Pain, Restless Legs, Sensory Deficit, Syncope, Tingling, Tremor, Vertigo, Weakness, Other Visual Disturbances, Other Past Patient History - Infectious Disease Hx of Infectious Diseases: None - Past Medical History & Family History Past Medical History?: Yes - Past Social History Smoking Status: Never Smoked - CARDIAC Hx Hypertension: Yes Hx Pacemaker: No - PULMONARY Hx Asthma: Yes Hx Chronic Obstructive Pulmonary Disease (COPD): Yes - NEUROLOGICAL Hx Neurological Disorder: No Hx Paralysis: No - HEENT Hx HEENT Problems: No - RENAL Hx Chronic Kidney Disease: No - ENDOCRINE/METABOLIC Hx Endocrine Disorders: Yes Hx Diabetes Mellitus Type 2: Yes - HEMATOLOGICAL/ONCOLOGICAL Hx Blood Disorders: No Hx Blood Transfusions: No Hx Blood Transfusion Reaction: No - INTEGUMENTARY Hx Dermatological Problems: No - MUSCULOSKELETAL/RHEUMATOLOGICAL Hx Falls: No - GASTROINTESTINAL Hx Gall Bladder Disease: Yes - GENITOURINARY/GYNECOLOGICAL Hx Genitourinary Disorders: No - PSYCHIATRIC Hx Substance Use: No - SURGICAL HISTORY Hx Coronary Stent: Yes (2012) - ANESTHESIA Hx Anesthesia: Yes Hx Anesthesia Reactions: No Hx Malignant Hyperthermia: No Meds Allergies/Adverse Reactions: Allergies Allergy/AdvReac Type Severity Reaction Status Date / Time iodine Allergy Verified 12/28/17 11:24 Latex, Natural Rubber Allergy Verified 12/28/17 11:24 pentazocine [From Talwin] Allergy Verified 12/28/17 11:24 - Medications Medications: Current Medications Acetaminophen (Tylenol 325mg Tab) 325 mg PO Q6 PRN PRN Reason: Fever >100.4 F Stop: 01/01/18 09:28 Amlodipine Besylate (Norvasc) 5 mg PO DAILY [facility] Last Admin: 12/29/17 09:20 Dose: 5 mg Clopidogrel Bisulfate (Plavix) 75 mg PO DAILY [facility] Last Admin: 12/29/17 09:20 Dose: 75 mg Docusate Sodium (Colace) 100 mg PO DAILY [facility] Last Admin: 12/29/17 09:20 Dose: 100 mg Heparin Sodium (Porcine) (Heparin) 5,000 units SC Q12 [facility] Last Admin: 12/29/17 09:20 Dose: 5,000 units Ceftriaxone Sodium 1 gm/ (Sodium Chloride) 100 mls @ 100 mls/hr IVPB Q24H [facility] Dextrose/Sodium Chloride (Dextrose 5%/0.45% Ns 1000 Ml) 1,000 mls @ 70 mls/hr IV .[id number] [facility] Last Admin: 12/28/17 21:59 Dose: 70 mls/hr Azithromycin (Zithromax 500mg In Ns Addvantage) 500 mg in 250 mls @ 167 mls/hr IVPB Q24H [facility] Last Admin: 12/28/17 23:55 Dose: 167 mls/hr Insulin Detemir (Levemir) 30 unit SC [facility] Last Admin: 12/28/17 22:05 Dose: 30 unit Insulin Human Regular (Novolin R) 0 unit SC ACHS [facility] PRN Reason: Protocol Last Admin: 12/29/17 07:30 Dose: Not Given Rosuvastatin Calcium (Crestor) 40 mg PO [facility] Last Admin: 12/28/17 22:04 Dose: 40 mg Physical Exam - Constitutional Appears: Non-toxic, Cachectic, Chronically Ill - Head Exam Head Exam: ATRAUMATIC, NORMAL INSPECTION, NORMOCEPHALIC - Eye Exam Eye Exam: PERRL. absent: Scleral icterus - ENT Exam ENT Exam: Mucous Membranes Dry - Neck Exam Neck exam: Negative for: Lymphadenopathy - Respiratory Exam Respiratory Exam: Decreased Breath Sounds, Rhonchi - Cardiovascular Exam Cardiovascular Exam: REGULAR RHYTHM, +S1, +S2 - GI/Abdominal Exam GI & Abdominal Exam: Diminished Bowel Sounds, Soft. absent: Tenderness - Rectal Exam Rectal Exam: Deferred - Exam Exam: NORMAL INSPECTION - Extremities Exam Extremities exam: Negative for: pedal edema - Back Exam Back exam: absent: CVA tenderness (L), CVA tenderness (R) - Neurological Exam Neurological exam: Alert, CN II-XII Intact, Oriented x3, Reflexes Normal - Psychiatric Exam Psychiatric exam: Normal Mood - Skin Skin Exam: Dry Results - Vital Signs Recent Vital Signs: Last Vital Signs Temp 99.2 F 12/29/17 08:54 Pulse 73 12/29/17 08:54 Resp 20 12/29/17 08:54 BP 152/73 H 12/29/17 08:54 Pulse Ox 98 12/29/17 08:54 - Labs Result Diagrams: 12/29/17 11:15 12/29/17 11:15 Labs: Laboratory Results - last 24 hr 12/28/17 12/28/17 12/28/17 11:37 12:36 12:53 WBC 9.0 RBC 4.55 Hgb 13.1 Hct 38.6 MCV 84.8 MCH 28.8 MCHC 34.0 RDW 13.1 Plt Count 281 D MPV 7.9 Neut % (Auto) 76.5 H Lymph % (Auto) 15.3 L [place] % (Auto) 7.6 Eos % (Auto) 0.2 Baso % (Auto) 0.4 Neut # (Auto) 6.9 Lymph # (Auto) 1.4 [place] # (Auto) 0.7 Eos # (Auto) 0.0 Baso # (Auto) 0.0 Sodium Potassium Chloride Carbon Dioxide Anion Gap BUN Creatinine Est GFR ( Amer) Est GFR (Non-Af Amer) POC Glucose (mg/dL) Random Glucose Calcium Total Bilirubin AST ALT Alkaline Phosphatase Total Protein Albumin Globulin Albumin/Globulin Ratio Urine Color Yellow Urine Clarity Hazy Urine pH 6.0 Ur Specific [place] 1.016 Urine Protein 3+ H Urine Glucose (UA) 3+ H Urine Ketones Negative Urine Blood Negative Urine Nitrate Negative Urine Bilirubin Negative Urine Urobilinogen Normal Ur Leukocyte Esterase Neg Urine WBC (Auto) 14 H Urine RBC (Auto) 5 H Ur Squamous Epith Cells 4 Urine Bacteria Rare Hyaline Casts 0-2 Influenza Typ A,B (EIA) Negative for flu a/b 12/28/17 12/28/17 12/29/17 12:53 21:06 07:01 WBC RBC Hgb Hct MCV MCH MCHC RDW Plt Count MPV Neut % (Auto) Lymph % (Auto) [place] % (Auto) Eos % (Auto) Baso % (Auto) Neut # (Auto) Lymph # (Auto) [place] # (Auto) Eos # (Auto) Baso # (Auto) Sodium 132 Potassium 3.0 L Chloride 92 L Carbon Dioxide 30 Anion Gap 13 BUN 21 H Creatinine 1.5 H Est GFR ( Amer) 43 Est GFR (Non-Af Amer) 35 POC Glucose (mg/dL) 157 H 147 H Random Glucose 159 H Calcium 8.6 Total Bilirubin 0.5 AST 215 H ALT 244 H D Alkaline Phosphatase 143 H Total Protein 7.6 Albumin 3.5 D Globulin 4.1 H Albumin/Globulin Ratio 0.8 L Urine Color Urine Clarity Urine pH Ur Specific [place] Urine Protein Urine Glucose (UA) Urine Ketones Urine Blood Urine Nitrate Urine Bilirubin Urine Urobilinogen Ur Leukocyte Esterase Urine WBC (Auto) Urine RBC (Auto) Ur Squamous Epith Cells Urine Bacteria Hyaline Casts Influenza Typ A,B (EIA) 12/29/17 12/29/17 12/29/17 11:15 11:15 11:23 WBC 4.0 L D RBC 3.68 L Hgb 10.6 L D Hct 31.2 L MCV 84.7 MCH 28.7 MCHC 33.9 RDW 13.2 Plt Count 220 MPV 7.9 Neut % (Auto) 63.5 Lymph % (Auto) 25.7 [place] % (Auto) 7.5 Eos % (Auto) 2.5 Baso % (Auto) 0.8 Neut # (Auto) 2.5 Lymph # (Auto) 1.0 [place] # (Auto) 0.3 Eos # (Auto) 0.1 Baso # (Auto) 0.0 Sodium 130 L Potassium 2.9 L Chloride 99 Carbon Dioxide 26 Anion Gap 8 L BUN 19 H Creatinine 1.3 H Est GFR ( Amer) 50 Est GFR (Non-Af Amer) 42 POC Glucose (mg/dL) 273 H Random Glucose 313 H Calcium 7.1 L Total Bilirubin AST ALT Alkaline Phosphatase Total Protein Albumin Globulin Albumin/Globulin Ratio Urine Color Urine Clarity Urine pH Ur Specific [place] Urine Protein Urine Glucose (UA) Urine Ketones Urine Blood Urine Nitrate Urine Bilirubin Urine Urobilinogen Ur Leukocyte Esterase Urine WBC (Auto) Urine RBC (Auto) Ur Squamous Epith Cells Urine Bacteria Hyaline Casts Influenza Typ A,B (EIA) Assessment & Plan (1) Pneumonia Status: Acute (2) Chr obstructive pulmonary disease w/ acute lower respiratory infxn Status: Acute - Assessment and Plan (Free Text) Assessment: cherck cultures recc CT chest/ pulm eval IV antibiotics
--- NOTE | 2017-12-29 12:00 | CARD ---
APPROVED REPORT EKG Measurement Heart [id number] VT [id number] [id number] <Conclusion> Normal sinus rhythm Abnormal QRS-T angle, consider primary T wave abnormality Prolonged QT Abnormal ECG
[2017-12-29] MEDS: Dextrose 5%/0.45% NS 1,000 ML IV SCH (14:06)
[2017-12-29] MEDS ORDERED: Potassium Chloride 20 mEq ER Tab PO SCH (19:00)
--- NOTE | 2017-12-29 21:43 | CP.PCM.CON ---
History of Present Illness - History of Present Illness History of Present Illness: Reason for consultation: CAD prolonged QT HPI: 62 y/o with COPD, T2dm, CAD s/p stent a few years ago admitted w/ c/o generalized weakness associated w/ dysuria and urinary frequency. Pt also c/o fever of 102 and episodes of vomitting. CXR revealed (+) infiltrate in right lung base.. EKG nsr w/ prolonged QT K+ 2.9 Hgb 10.6 Review of Systems - Constitutional Constitutional: Anorexia - Cardiovascular Cardiovascular: Dyspnea - Respiratory Respiratory: Chest Congestion - Gastrointestinal Gastrointestinal: absent: Abdominal Pain, Diarrhea - Genitourinary Genitourinary: Urinary Frequency - Musculoskeletal Musculoskeletal: absent: Joint Swelling Past Patient History - Infectious Disease Hx of Infectious Diseases: None - Past Medical History & Family History Past Medical History?: Yes - Past Social History Smoking Status: Never Smoked - CARDIAC Hx Hypertension: Yes Hx Pacemaker: No - PULMONARY Hx Asthma: Yes Hx Chronic Obstructive Pulmonary Disease (COPD): Yes - NEUROLOGICAL Hx Neurological Disorder: No Hx Paralysis: No - HEENT Hx HEENT Problems: No - RENAL Hx Chronic Kidney Disease: No - ENDOCRINE/METABOLIC Hx Endocrine Disorders: Yes Hx Diabetes Mellitus Type 2: Yes - HEMATOLOGICAL/ONCOLOGICAL Hx Blood Disorders: No Hx Blood Transfusions: No Hx Blood Transfusion Reaction: No - INTEGUMENTARY Hx Dermatological Problems: No - MUSCULOSKELETAL/RHEUMATOLOGICAL Hx Falls: No - GASTROINTESTINAL Hx Gall Bladder Disease: Yes - GENITOURINARY/GYNECOLOGICAL Hx Genitourinary Disorders: No - PSYCHIATRIC Hx Substance Use: No - SURGICAL HISTORY Hx Coronary Stent: Yes (2012) - ANESTHESIA Hx Anesthesia: Yes Hx Anesthesia Reactions: No Hx Malignant Hyperthermia: No Meds Allergies/Adverse Reactions: Allergies Allergy/AdvReac Type Severity Reaction Status Date / Time iodine Allergy Verified 12/28/17 11:24 Latex, Natural Rubber Allergy Verified 12/28/17 11:24 pentazocine [From Talwin] Allergy Verified 12/28/17 11:24 - Medications Medications: Current Medications Acetaminophen (Tylenol 325mg Tab) 325 mg PO Q6 PRN PRN Reason: Fever >100.4 F Stop: 01/01/18 09:28 Amlodipine Besylate (Norvasc) 5 mg PO DAILY [facility] Last Admin: 12/29/17 09:20 Dose: 5 mg Clopidogrel Bisulfate (Plavix) 75 mg PO DAILY [facility] Last Admin: 12/29/17 09:20 Dose: 75 mg Docusate Sodium (Colace) 100 mg PO DAILY [facility] Last Admin: 12/29/17 09:20 Dose: 100 mg Heparin Sodium (Porcine) (Heparin) 5,000 units SC Q12 [facility] Last Admin: 12/29/17 09:20 Dose: 5,000 units Ceftriaxone Sodium 1 gm/ (Sodium Chloride) 100 mls @ 100 mls/hr IVPB Q24H [facility] Last Admin: 12/29/17 13:00 Dose: 100 mls/hr Dextrose/Sodium Chloride (Dextrose 5%/0.45% Ns 1000 Ml) 1,000 mls @ 70 mls/hr IV .[id number] [facility] Last Admin: 12/29/17 14:06 Dose: Not Given Azithromycin (Zithromax 500mg In Ns Addvantage) 500 mg in 250 mls @ 167 mls/hr IVPB Q24H [facility] Last Admin: 12/28/17 23:55 Dose: 167 mls/hr Insulin Detemir (Levemir) 30 unit SC [facility] Last Admin: 12/28/17 22:05 Dose: 30 unit Insulin Human Regular (Novolin R) 0 unit SC ACHS [facility] PRN Reason: Protocol Last Admin: 12/29/17 17:20 Dose: 5 unit Potassium Chloride (K-Dur 20 Meq Er Tab) 40 meq PO BID [facility] Last Admin: 12/29/17 18:59 Dose: 40 meq Rosuvastatin Calcium (Crestor) 40 mg PO [facility] Last Admin: 12/28/17 22:04 Dose: 40 mg Physical Exam - Constitutional Appears: Non-toxic - Head Exam Head Exam: NORMAL INSPECTION - Eye Exam Eye Exam: absent: Scleral icterus - ENT Exam ENT Exam: Mucous Membranes Moist - Neck Exam Neck exam: Positive for: Full Rom - Respiratory Exam Respiratory Exam: Decreased Breath Sounds, Rales - Cardiovascular Exam Cardiovascular Exam: REGULAR RHYTHM - GI/Abdominal Exam GI & Abdominal Exam: Soft. absent: Tenderness - Extremities Exam Extremities exam: Positive for: tenderness. Negative for: calf tenderness, pedal edema - Neurological Exam Neurological exam: Alert, Oriented x3 Results - Vital Signs Recent Vital Signs: Last Vital Signs Temp 99.3 F 12/29/17 15:00 Pulse 73 12/29/17 15:00 Resp 20 12/29/17 15:00 BP 116/71 12/29/17 15:00 Pulse Ox 97 12/29/17 15:00 - Labs Result Diagrams: 12/29/17 11:15 12/29/17 11:15 Labs: Laboratory Results - last 24 hr 12/28/17 12/29/17 12/29/17 21:06 07:01 11:15 WBC RBC Hgb Hct MCV MCH MCHC RDW Plt Count MPV Neut % (Auto) Lymph % (Auto) [place] % (Auto) Eos % (Auto) Baso % (Auto) Neut # (Auto) Lymph # (Auto) [place] # (Auto) Eos # (Auto) Baso # (Auto) Sodium 130 L Potassium 2.9 L Chloride 99 Carbon Dioxide 26 Anion Gap 8 L BUN 19 H Creatinine 1.3 H Est GFR ( Amer) 50 Est GFR (Non-Af Amer) 42 POC Glucose (mg/dL) 157 H 147 H Random Glucose 313 H Calcium 7.1 L 12/29/17 12/29/17 12/29/17 11:15 11:23 16:04 WBC 4.0 L D RBC 3.68 L Hgb 10.6 L D Hct 31.2 L MCV 84.7 MCH 28.7 MCHC 33.9 RDW 13.2 Plt Count 220 MPV 7.9 Neut % (Auto) 63.5 Lymph % (Auto) 25.7 [place] % (Auto) 7.5 Eos % (Auto) 2.5 Baso % (Auto) 0.8 Neut # (Auto) 2.5 Lymph # (Auto) 1.0 [place] # (Auto) 0.3 Eos # (Auto) 0.1 Baso # (Auto) 0.0 Sodium Potassium Chloride Carbon Dioxide Anion Gap BUN Creatinine Est GFR ( Amer) Est GFR (Non-Af Amer) POC Glucose (mg/dL) 273 H 361 H Random Glucose Calcium 12/29/17 21:02 WBC RBC Hgb Hct MCV MCH MCHC RDW Plt Count MPV Neut % (Auto) Lymph % (Auto) [place] % (Auto) Eos % (Auto) Baso % (Auto) Neut # (Auto) Lymph # (Auto) [place] # (Auto) Eos # (Auto) Baso # (Auto) Sodium Potassium Chloride Carbon Dioxide Anion Gap BUN Creatinine Est GFR ( Amer) Est GFR (Non-Af Amer) POC Glucose (mg/dL) 239 H Random Glucose Calcium Assessment & Plan - Assessment and Plan (Free Text) Assessment: CAD, stable Prolonged QT prob 2ndary to lytes imbalance Pneumonia T2dm UTI Anemia Plan: Pt may be switched from Plavix to low dose Ecotrin 81mg po od. Cont Abtx. Correct lytes. Echo
[2017-12-29] MEDS: Insulin Detemir 100 units/ml Vial (Levemir) SC SCH (21:45)
[2017-12-29] MEDS: Azithromycin 500 MG in Sodium Chloride 0.9% 250 ML IVPB SCH (23:30)
[2017-12-30] MEDS: Dextrose 5%/0.45% NS 1,000 ML IV SCH ×2 (01:51→05:58)
[2017-12-30] MEDS: (Novolin R) Insulin Human Regular 100 units/ml vial SC SCH ×4 (07:33→22:07)
[2017-12-30 07:44] LABS: EOS # 0.1 K/uL (0.0-0.7); EOS % 3.7 % (0.0-4.0); HEMOGLOBIN 11.3 g/dL (11.0-16.0); LYMPH # 1.5 K/uL (1.0-4.3); LYMPH % 38.5 % (20.0-40.0); MEAN CELL VOLUME 84.5 fL (81.0-99.0); MEAN CORPUSCULAR HGB CONC 34.4 g/dL (33.0-37.0); MEAN PLATELET VOLUME 8.1 fL (7.2-11.7); MONO # 0.4 K/uL (0.0-0.8); MONO % 10.8 % (0.0-10.0); NEUT # 1.8 K/uL (1.8-7.0); NRBC % 0.1 % (0.0-2.0); RBC 3.9 Mil/uL (3.80-5.20); RED CELL DISTRIBUTION WIDTH 13.2 % (11.5-14.5); WHITE BLOOD COUNT 3.9 K/uL (4.8-10.8)
[2017-12-30 08:13] LABS: CALCIUM 7.6 mg/dl (8.6-10.4); MAGNESIUM 1.9 mg/dL (1.6-2.3)
--- NOTE | 2017-12-30 08:33 | CP.PCM.PN ---
Subjective - Date & Time of Evaluation Date of Evaluation: 12/30/17 Time of Evaluation: 08:25 - Subjective Subjective: Patient feels much stronger, (+) cough w/ mucus No more CP, no SOB, no edema, no diarrhea, no n/v no dysuria, n (+) Freq/ nocturia Objective - Vital Signs/Intake and Output Vital Signs (last 24 hours): Temp Pulse Resp BP Pulse Ox 98.8 F 84 20 134/73 98 12/30/17 00:00 12/30/17 00:00 12/30/17 00:00 12/30/17 00:00 12/30/17 00:00 Intake and Output: 12/30/17 12/30/17 06:59 18:59 Intake Total 1770 Balance 1770 - Medications Medications: Current Medications Acetaminophen (Tylenol 325mg Tab) 325 mg PO Q6 PRN PRN Reason: Fever >100.4 F Stop: 01/01/18 09:28 Amlodipine Besylate (Norvasc) 5 mg PO DAILY [facility] Last Admin: 12/29/17 09:20 Dose: 5 mg Clopidogrel Bisulfate (Plavix) 75 mg PO DAILY [facility] Last Admin: 12/29/17 09:20 Dose: 75 mg Docusate Sodium (Colace) 100 mg PO DAILY [facility] Last Admin: 12/29/17 09:20 Dose: 100 mg Heparin Sodium (Porcine) (Heparin) 5,000 units SC Q12 [facility] Last Admin: 12/29/17 21:44 Dose: 5,000 units Ceftriaxone Sodium 1 gm/ (Sodium Chloride) 100 mls @ 100 mls/hr IVPB Q24H [facility] Last Admin: 12/29/17 13:00 Dose: 100 mls/hr Dextrose/Sodium Chloride (Dextrose 5%/0.45% Ns 1000 Ml) 1,000 mls @ 70 mls/hr IV .[id number] [facility] Last Admin: 12/30/17 05:58 Dose: 70 mls/hr Azithromycin 500 mg/ Sodium (Chloride) 250 mls @ 167 mls/hr IVPB Q24H [facility] Last Admin: 12/29/17 23:30 Dose: 167 mls/hr Insulin Detemir (Levemir) 30 unit SC HS [facility] Last Admin: 12/29/17 21:45 Dose: 30 unit Insulin Human Regular (Novolin R) 0 unit SC ACHS [facility] PRN Reason: Protocol Last Admin: 12/30/17 07:33 Dose: Not Given Potassium Chloride (K-Dur 20 Meq Er Tab) 40 meq PO BID [facility] Last Admin: 12/29/17 18:59 Dose: 40 meq Rosuvastatin Calcium (Crestor) 40 mg PO HS [facility] Last Admin: 12/29/17 21:43 Dose: 40 mg - Labs Labs: 12/30/17 07:22 12/30/17 07:15 - Constitutional Appears: No Acute Distress - Head Exam Head Exam: NORMAL INSPECTION - Eye Exam Eye Exam: Normal appearance - ENT Exam ENT Exam: Mucous Membranes Moist - Neck Exam Neck Exam: Full ROM. absent: Lymphadenopathy, Thyromegaly - Respiratory Exam Respiratory Exam: Decreased Breath Sounds. absent: Rales, Rhonchi, Wheezes - Cardiovascular Exam Cardiovascular Exam: REGULAR RHYTHM, +S1, +S2, Murmur. absent: Gallop, JVD - GI/Abdominal Exam GI & Abdominal Exam: Soft. absent: Tenderness, Mass - Extremities Exam Extremities Exam: Full ROM, Normal Capillary Refill. absent: Calf Tenderness, Joint Swelling Assessment and Plan - Assessment and Plan (Free Text) Assessment: Pneumonia ; Hypokalemia i improving NIDDM, HTN, CAD, s/p CVA Cont meds/ supportive care Stop IV fluid
[2017-12-30] MEDS ORDERED: Influenza Vaccine 60 mcg/0.5 mL SYR (4YR UP) IM ONE (10:00)
--- NOTE | 2017-12-30 18:39 | CP.PCM.PN ---
Subjective - Date & Time of Evaluation Date of Evaluation: 12/30/17 Time of Evaluation: 09:00 - Subjective Subjective: less cough no chest pain + sob dr tamir baldwin Objective - Vital Signs/Intake and Output Vital Signs (last 24 hours): Temp Pulse Resp BP Pulse Ox 98.5 F 77 20 116/68 97 12/30/17 08:00 12/30/17 11:55 12/30/17 08:00 12/30/17 08:00 12/30/17 11:55 Intake and Output: 12/30/17 12/30/17 06:59 18:59 Intake Total 1770 800 Balance 1770 800 - Medications Medications: Current Medications Acetaminophen (Tylenol 325mg Tab) 325 mg PO Q6 PRN PRN Reason: Fever >100.4 F Stop: 01/01/18 09:28 Amlodipine Besylate (Norvasc) 5 mg PO DAILY [facility] Last Admin: 12/30/17 10:11 Dose: 5 mg Bisacodyl (Dulcolax) 10 mg PO HS PRN PRN Reason: Constipation Clopidogrel Bisulfate (Plavix) 75 mg PO DAILY [facility] Last Admin: 12/30/17 10:12 Dose: 75 mg Docusate Sodium (Colace) 100 mg PO DAILY [facility] Last Admin: 12/30/17 10:11 Dose: 100 mg Heparin Sodium (Porcine) (Heparin) 5,000 units SC Q12 [facility] Last Admin: 12/30/17 10:11 Dose: 5,000 units Ceftriaxone Sodium 1 gm/ (Sodium Chloride) 100 mls @ 100 mls/hr IVPB Q24H [facility] Last Admin: 12/30/17 12:13 Dose: Not Given Azithromycin 500 mg/ Sodium (Chloride) 250 mls @ 167 mls/hr IVPB Q24H [facility] Last Admin: 12/29/17 23:30 Dose: 167 mls/hr Insulin Detemir (Levemir) 30 unit SC HS [facility] Last Admin: 12/29/17 21:45 Dose: 30 unit Insulin Human Regular (Novolin R) 0 unit SC ACHS [facility] PRN Reason: Protocol Last Admin: 12/30/17 17:56 Dose: 2 unit Rosuvastatin Calcium (Crestor) 40 mg PO HS [facility] Last Admin: 12/29/17 21:43 Dose: 40 mg - Labs Labs: 12/30/17 07:22 12/30/17 07:15 - Constitutional Appears: Non-toxic, Chronically Ill - Head Exam Head Exam: NORMOCEPHALIC - Eye Exam Eye Exam: PERRL - ENT Exam ENT Exam: Mucous Membranes Dry - Neck Exam Neck Exam: absent: Lymphadenopathy - Respiratory Exam Respiratory Exam: Decreased Breath Sounds - Cardiovascular Exam Cardiovascular Exam: REGULAR RHYTHM - GI/Abdominal Exam GI & Abdominal Exam: Distended, Soft - Rectal Exam Rectal Exam: Deferred Assessment and Plan (1) Pneumonia Status: Acute (2) Chr obstructive pulmonary disease w/ acute lower respiratory infxn Status: Acute - Assessment and Plan (Free Text) Assessment: cont iv rx and bronchodilators
[2017-12-30] MEDS ORDERED: Bisacodyl 5mg EC Tab PO PRN (22:00)
[2017-12-30] MEDS: Insulin Detemir 100 units/ml Vial (Levemir) SC SCH (22:05)
[2017-12-30] MEDS: Azithromycin 500 MG in Sodium Chloride 0.9% 250 ML IVPB SCH (22:30)
[2017-12-31] MEDS ORDERED: Dextrose 50% SYRINGE Inj (50 ml) IV STA ×2 (07:24)
[2017-12-31] MEDS: (Novolin R) Insulin Human Regular 100 units/ml vial SC SCH ×4 (07:36→22:11)
[2017-12-31 08:05] LABS: ALB/GLOB RATIO 0.8 (1.0-2.1); ALBUMIN 2.7 g/dL (3.5-5.0); CALCIUM 7.8 mg/dl (8.6-10.4)
--- NOTE | 2017-12-31 08:16 | CP.PCM.PN ---
Subjective - Date & Time of Evaluation Date of Evaluation: 12/30/17 - Subjective Subjective: sob much improved no chest pain Objective - Vital Signs/Intake and Output Vital Signs (last 24 hours): Temp Pulse Resp BP Pulse Ox 98.6 F 70 20 109/70 96 12/31/17 00:00 12/31/17 00:00 12/31/17 00:00 12/31/17 00:00 12/31/17 00:00 Intake and Output: 12/31/17 12/31/17 06:59 18:59 Intake Total 400 Balance 400 - Medications Medications: Current Medications Acetaminophen (Tylenol 325mg Tab) 325 mg PO Q6 PRN PRN Reason: Fever >100.4 F Stop: 01/01/18 09:28 Amlodipine Besylate (Norvasc) 5 mg PO DAILY [facility] Last Admin: 12/30/17 10:11 Dose: 5 mg Bisacodyl (Dulcolax) 10 mg PO HS PRN PRN Reason: Constipation Clopidogrel Bisulfate (Plavix) 75 mg PO DAILY [facility] Last Admin: 12/30/17 10:12 Dose: 75 mg Docusate Sodium (Colace) 100 mg PO DAILY [facility] Last Admin: 12/30/17 10:11 Dose: 100 mg Heparin Sodium (Porcine) (Heparin) 5,000 units SC Q12 [facility] Last Admin: 12/30/17 22:22 Dose: 5,000 units Ceftriaxone Sodium 1 gm/ (Sodium Chloride) 100 mls @ 100 mls/hr IVPB Q24H [facility] Last Admin: 12/30/17 12:13 Dose: Not Given Azithromycin 500 mg/ Sodium (Chloride) 250 mls @ 167 mls/hr IVPB Q24H [facility] Last Admin: 12/30/17 22:30 Dose: 167 mls/hr Insulin Detemir (Levemir) 30 unit SC HS [facility] Last Admin: 12/30/17 22:05 Dose: 30 unit Insulin Human Regular (Novolin R) 0 unit SC ACHS [facility] PRN Reason: Protocol Last Admin: 12/31/17 07:36 Dose: Not Given Rosuvastatin Calcium (Crestor) 40 mg PO HS [facility] Last Admin: 12/29/17 21:43 Dose: 40 mg - Labs Labs: 12/30/17 07:22 12/31/17 07:15 - Constitutional Appears: Non-toxic - Head Exam Head Exam: NORMAL INSPECTION - Eye Exam Eye Exam: absent: Scleral icterus - ENT Exam ENT Exam: Mucous Membranes Moist - Neck Exam Neck Exam: Full ROM - Respiratory Exam Respiratory Exam: Decreased Breath Sounds - Cardiovascular Exam Cardiovascular Exam: REGULAR RHYTHM - GI/Abdominal Exam GI & Abdominal Exam: Soft. absent: Organomegaly - Extremities Exam Extremities Exam: Pedal Edema - Neurological Exam Neurological Exam: Alert, Oriented x3 Assessment and Plan - Assessment and Plan (Free Text) Assessment: Pneumonia CAD T2dm Plan: COnt abtx
[2017-12-31] MEDS ORDERED: Potassium Chloride 20 mEq/15 ml LIQ UD PO ONE (12:00)
--- NOTE | 2017-12-31 17:37 | CP.PCM.PN ---
Subjective - Date & Time of Evaluation Date of Evaluation: 12/31/17 Time of Evaluation: 17:35 - Subjective Subjective: S: feels better. No fever. Objective - Vital Signs/Intake and Output Vital Signs (last 24 hours): Temp Pulse Resp BP Pulse Ox 98.1 F 73 20 117/70 96 12/31/17 15:15 12/31/17 15:15 12/31/17 15:15 12/31/17 15:15 12/31/17 15:15 Intake and Output: 12/31/17 12/31/17 06:59 18:59 Intake Total 400 Balance 400 - Medications Medications: Current Medications Acetaminophen (Tylenol 325mg Tab) 325 mg PO Q6 PRN PRN Reason: Fever >100.4 F Stop: 01/01/18 09:28 Amlodipine Besylate (Norvasc) 5 mg PO DAILY [facility] Last Admin: 12/31/17 10:24 Dose: 5 mg Bisacodyl (Dulcolax) 10 mg PO HS PRN PRN Reason: Constipation Clopidogrel Bisulfate (Plavix) 75 mg PO DAILY [facility] Last Admin: 12/31/17 10:24 Dose: 75 mg Docusate Sodium (Colace) 100 mg PO DAILY [facility] Last Admin: 12/31/17 10:25 Dose: 100 mg Heparin Sodium (Porcine) (Heparin) 5,000 units SC Q12 [facility] Last Admin: 12/31/17 10:24 Dose: 5,000 units Ceftriaxone Sodium 1 gm/ (Sodium Chloride) 100 mls @ 100 mls/hr IVPB Q24H [facility] Last Admin: 12/31/17 13:25 Dose: 100 mls/hr Azithromycin 500 mg/ Sodium (Chloride) 250 mls @ 167 mls/hr IVPB Q24H [facility] Last Admin: 12/30/17 22:30 Dose: 167 mls/hr Insulin Detemir (Levemir) 30 unit SC HS [facility] Last Admin: 12/30/17 22:05 Dose: 30 unit Insulin Human Regular (Novolin R) 0 unit SC ACHS [facility] PRN Reason: Protocol Last Admin: 12/31/17 17:12 Dose: 2 unit Rosuvastatin Calcium (Crestor) 40 mg PO HS [facility] Last Admin: 12/29/17 21:43 Dose: 40 mg - Labs Labs: 12/30/17 07:22 12/31/17 07:15 - Constitutional Appears: Chronically Ill - Head Exam Head Exam: NORMAL INSPECTION - Eye Exam Eye Exam: Normal appearance - ENT Exam ENT Exam: Mucous Membranes Dry - Neck Exam Neck Exam: Normal Inspection - Respiratory Exam Respiratory Exam: Decreased Breath Sounds. absent: NORMAL BREATHING PATTERN - Cardiovascular Exam Cardiovascular Exam: REGULAR RHYTHM - GI/Abdominal Exam GI & Abdominal Exam: Soft - Rectal Exam Rectal Exam: Deferred - Extremities Exam Extremities Exam: absent: Pedal Edema - Neurological Exam Neurological Exam: Awake Assessment and Plan (1) Pneumonia Status: Acute (2) Diabetes Status: Chronic (3) CAD (coronary artery disease) Status: Chronic - Assessment and Plan (Free Text) Assessment: A/P: Continue medications. Appreciate Dr. Bautista and Dr. Ansari notes.
--- NOTE | 2017-12-31 22:22 | CP.PCM.PN ---
Subjective - Date & Time of Evaluation Date of Evaluation: 12/31/17 Time of Evaluation: 09:00 - Subjective Subjective: improving less sob no chest pain Objective - Vital Signs/Intake and Output Vital Signs (last 24 hours): Temp Pulse Resp BP Pulse Ox 98.1 F 73 20 117/70 96 12/31/17 15:15 12/31/17 15:15 12/31/17 15:15 12/31/17 15:15 12/31/17 15:15 - Medications Medications: Current Medications Acetaminophen (Tylenol 325mg Tab) 325 mg PO Q6 PRN PRN Reason: Fever >100.4 F Stop: 01/01/18 09:28 Amlodipine Besylate (Norvasc) 5 mg PO DAILY [facility] Last Admin: 12/31/17 10:24 Dose: 5 mg Bisacodyl (Dulcolax) 10 mg PO HS PRN PRN Reason: Constipation Last Admin: 12/31/17 22:11 Dose: 10 mg Clopidogrel Bisulfate (Plavix) 75 mg PO DAILY [facility] Last Admin: 12/31/17 10:24 Dose: 75 mg Docusate Sodium (Colace) 100 mg PO DAILY [facility] Last Admin: 12/31/17 10:25 Dose: 100 mg Heparin Sodium (Porcine) (Heparin) 5,000 units SC Q12 [facility] Last Admin: 12/31/17 22:11 Dose: 5,000 units Ceftriaxone Sodium 1 gm/ (Sodium Chloride) 100 mls @ 100 mls/hr IVPB Q24H [facility] Last Admin: 12/31/17 13:25 Dose: 100 mls/hr Azithromycin 500 mg/ Sodium (Chloride) 250 mls @ 167 mls/hr IVPB Q24H [facility] Last Admin: 12/30/17 22:30 Dose: 167 mls/hr Insulin Human Regular (Novolin R) 0 unit SC ACHS [facility] PRN Reason: Protocol Last Admin: 12/31/17 22:11 Dose: Not Given Rosuvastatin Calcium (Crestor) 40 mg PO HS [facility] Last Admin: 12/29/17 21:43 Dose: 40 mg - Labs Labs: 12/30/17 07:22 12/31/17 07:15 - Constitutional Appears: Non-toxic - Eye Exam Eye Exam: absent: Scleral icterus - Neck Exam Neck Exam: Full ROM - Respiratory Exam Respiratory Exam: Decreased Breath Sounds - Cardiovascular Exam Cardiovascular Exam: REGULAR RHYTHM - GI/Abdominal Exam GI & Abdominal Exam: Soft. absent: Tenderness - Extremities Exam Extremities Exam: absent: Calf Tenderness, Pedal Edema Assessment and Plan - Assessment and Plan (Free Text) Assessment: Pneumonia CAD HTN T2dm Plan: Cont Abtx Cont meds
[2017-12-31] MEDS: Azithromycin 500 MG in Sodium Chloride 0.9% 250 ML IVPB SCH (22:36)
[2018-01-01] MEDS: (Novolin R) Insulin Human Regular 100 units/ml vial SC SCH ×4 (08:05→22:11)
[2018-01-01 08:12] LABS: CALCIUM 7.8 mg/dl (8.6-10.4)
--- NOTE | 2018-01-01 08:14 | CP.PCM.PN ---
Subjective - Date & Time of Evaluation Date of Evaluation: 01/01/18 Time of Evaluation: 07:45 - Subjective Subjective: Pt feels well but unable to stand by herself. (+) cough but no mucus, no P, no SOB, no edema, no n/v, no diarrhea Objective - Vital Signs/Intake and Output Vital Signs (last 24 hours): Temp Pulse Resp BP Pulse Ox 98 F 82 20 110/62 95 01/01/18 00:00 01/01/18 00:00 01/01/18 00:00 01/01/18 00:00 01/01/18 00:00 Intake and Output: 01/01/18 01/01/18 06:59 18:59 Intake Total 950 Balance 950 - Medications Medications: Current Medications Acetaminophen (Tylenol 325mg Tab) 325 mg PO Q6 PRN PRN Reason: Fever >100.4 F Stop: 01/01/18 09:28 Amlodipine Besylate (Norvasc) 5 mg PO DAILY [facility] Last Admin: 12/31/17 10:24 Dose: 5 mg Bisacodyl (Dulcolax) 10 mg PO HS PRN PRN Reason: Constipation Last Admin: 12/31/17 22:11 Dose: 10 mg Clopidogrel Bisulfate (Plavix) 75 mg PO DAILY [facility] Last Admin: 12/31/17 10:24 Dose: 75 mg Docusate Sodium (Colace) 100 mg PO DAILY [facility] Last Admin: 12/31/17 10:25 Dose: 100 mg Heparin Sodium (Porcine) (Heparin) 5,000 units SC Q12 [facility] Last Admin: 12/31/17 22:11 Dose: 5,000 units Ceftriaxone Sodium 1 gm/ (Sodium Chloride) 100 mls @ 100 mls/hr IVPB Q24H [facility] Last Admin: 12/31/17 13:25 Dose: 100 mls/hr Azithromycin 500 mg/ Sodium (Chloride) 250 mls @ 167 mls/hr IVPB Q24H [facility] Last Admin: 12/31/17 22:36 Dose: 167 mls/hr Insulin Human Regular (Novolin R) 0 unit SC ACHS [facility] PRN Reason: Protocol Last Admin: 01/01/18 08:05 Dose: Not Given Rosuvastatin Calcium (Crestor) 40 mg PO HS [facility] Last Admin: 12/29/17 21:43 Dose: 40 mg - Labs Labs: 12/30/17 07:22 12/31/17 07:15 - Constitutional Appears: No Acute Distress - Eye Exam Eye Exam: Normal appearance - ENT Exam ENT Exam: Mucous Membranes Moist - Neck Exam Neck Exam: Full ROM. absent: Lymphadenopathy, Thyromegaly - Respiratory Exam Respiratory Exam: Decreased Breath Sounds. absent: Rales, Rhonchi, Wheezes - Cardiovascular Exam Cardiovascular Exam: REGULAR RHYTHM, +S1, +S2. absent: Gallop, JVD - GI/Abdominal Exam GI & Abdominal Exam: Soft. absent: Tenderness, Mass - Extremities Exam Extremities Exam: Full ROM, Normal Capillary Refill. absent: Calf Tenderness, Joint Swelling, Pedal Edema Assessment and Plan - Assessment and Plan (Free Text) Assessment: Pneumonia, Hypokalemia CAD, NIDDM, HTN s/p CVA Gen debility For Subacute Cont meds
[2018-01-02] MEDS: Azithromycin 500 MG in Sodium Chloride 0.9% 250 ML IVPB SCH ×2 (00:30→23:50)
[2018-01-02] MEDS: (Novolin R) Insulin Human Regular 100 units/ml vial SC SCH ×4 (08:03→21:59)
--- NOTE | 2018-01-02 08:31 | CP.PCM.PN ---
Subjective - Date & Time of Evaluation Date of Evaluation: 01/02/18 Time of Evaluation: 08:15 - Subjective Subjective: pt no complain except being weak. No CP, no SOB, (+) dry cough but johnny decrease from admission. No diarrhea, no dysuria, no n/v Objective - Vital Signs/Intake and Output Vital Signs (last 24 hours): Temp Pulse Resp BP Pulse Ox 97.7 F 76 20 127/74 96 01/02/18 08:00 01/02/18 08:00 01/02/18 08:00 01/02/18 08:00 01/02/18 08:00 Intake and Output: 01/02/18 01/02/18 06:59 18:59 Intake Total 240 490 Balance 240 490 - Medications Medications: Current Medications Amlodipine Besylate (Norvasc) 5 mg PO DAILY [facility] Last Admin: 01/01/18 10:21 Dose: 5 mg Bisacodyl (Dulcolax) 10 mg PO HS PRN PRN Reason: Constipation Last Admin: 12/31/17 22:11 Dose: 10 mg Clopidogrel Bisulfate (Plavix) 75 mg PO DAILY [facility] Last Admin: 01/01/18 10:22 Dose: 75 mg Docusate Sodium (Colace) 100 mg PO DAILY [facility] Last Admin: 01/01/18 10:22 Dose: 100 mg Ceftriaxone Sodium 1 gm/ (Sodium Chloride) 100 mls @ 100 mls/hr IVPB Q24H [facility] Last Admin: 01/01/18 12:44 Dose: 100 mls/hr Azithromycin 500 mg/ Sodium (Chloride) 250 mls @ 167 mls/hr IVPB Q24H [facility] Last Admin: 01/02/18 00:30 Dose: 167 mls/hr Insulin Human Regular (Novolin R) 0 unit SC ACHS [facility] PRN Reason: Protocol Last Admin: 01/02/18 08:03 Dose: Not Given Rosuvastatin Calcium (Crestor) 40 mg PO HS [facility] Last Admin: 12/29/17 21:43 Dose: 40 mg - Labs Labs: 12/30/17 07:22 01/01/18 07:13 - Constitutional Appears: No Acute Distress - Eye Exam Eye Exam: Normal appearance - ENT Exam ENT Exam: Mucous Membranes Moist - Neck Exam Neck Exam: Full ROM. absent: Lymphadenopathy - Respiratory Exam Respiratory Exam: absent: Decreased Breath Sounds, Rales, Rhonchi, Wheezes - Cardiovascular Exam Cardiovascular Exam: +S1, +S2, Murmur. absent: Gallop, JVD - GI/Abdominal Exam GI & Abdominal Exam: Soft. absent: Tenderness, Mass - Extremities Exam Extremities Exam: Full ROM, Normal Capillary Refill. absent: Joint Swelling, Pedal Edema Assessment and Plan - Assessment and Plan (Free Text) Assessment: Deconditioning HTN, NIDDM, cAD s/p CVA Cont meds/ for subacute eval
[2018-01-03] MEDS: (Novolin R) Insulin Human Regular 100 units/ml vial SC SCH ×4 (08:45→22:33)
--- NOTE | 2018-01-03 15:15 | CP.PCM.PN ---
Subjective - Date & Time of Evaluation Date of Evaluation: 01/03/18 Time of Evaluation: 10:00 - Subjective Subjective: cultures neg thus far weak and bedridden may need STEVEN folllow up CXR Objective - Vital Signs/Intake and Output Vital Signs (last 24 hours): Temp Pulse Resp BP Pulse Ox 98.4 F 75 20 115/71 96 01/03/18 00:00 01/03/18 00:00 01/03/18 00:00 01/03/18 00:00 01/03/18 00:00 Intake and Output: 01/03/18 01/03/18 06:59 18:59 Intake Total 570 Balance 570 - Medications Medications: Current Medications Amlodipine Besylate (Norvasc) 5 mg PO DAILY [facility] Last Admin: 01/03/18 10:16 Dose: 5 mg Bisacodyl (Dulcolax) 10 mg PO HS PRN PRN Reason: Constipation Last Admin: 12/31/17 22:11 Dose: 10 mg Clopidogrel Bisulfate (Plavix) 75 mg PO DAILY [facility] Last Admin: 01/03/18 10:16 Dose: 75 mg Docusate Sodium (Colace) 100 mg PO DAILY [facility] Last Admin: 01/03/18 10:16 Dose: 100 mg Azithromycin 500 mg/ Sodium (Chloride) 250 mls @ 167 mls/hr IVPB Q24H [facility] Last Admin: 01/02/18 23:50 Dose: 167 mls/hr Insulin Human Regular (Novolin R) 0 unit SC ACHS [facility] PRN Reason: Protocol Last Admin: 01/03/18 13:36 Dose: 1 unit Rosuvastatin Calcium (Crestor) 40 mg PO [facility] Last Admin: 12/29/17 21:43 Dose: 40 mg - Labs Labs: 12/30/17 07:22 01/01/18 07:13 - Constitutional Appears: Non-toxic - Head Exam Head Exam: ATRAUMATIC - Eye Exam Eye Exam: PERRL - ENT Exam ENT Exam: Mucous Membranes Dry - Neck Exam Neck Exam: absent: Lymphadenopathy - Respiratory Exam Respiratory Exam: Decreased Breath Sounds - Cardiovascular Exam Cardiovascular Exam: REGULAR RHYTHM - GI/Abdominal Exam GI & Abdominal Exam: Distended - Rectal Exam Rectal Exam: Deferred - Exam Exam: NORMAL INSPECTION - Extremities Exam Extremities Exam: absent: Pedal Edema - Back Exam Back Exam: absent: CVA tenderness (L), CVA tenderness (R) Assessment and Plan (1) Pneumonia Status: Acute (2) Chr obstructive pulmonary disease w/ acute lower respiratory infxn Status: Acute
[2018-01-03] MEDS: Azithromycin 500 MG in Sodium Chloride 0.9% 250 ML IVPB SCH (23:47)
[2018-01-04 01:22] VITALS: RESP 20
[2018-01-04] MEDS: (Novolin R) Insulin Human Regular 100 units/ml vial SC SCH ×4 (08:30→21:26)
--- NOTE | 2018-01-04 09:01 | CP.PCM.PN ---
Subjective - Date & Time of Evaluation Date of Evaluation: 01/04/18 Time of Evaluation: 08:50 - Subjective Subjective: Pt has 2 soft stool/d on weekend. No CP, no SOB, no fatigue, no n/v no abd cramps, no n/v, no dysuria. (+) walk around the bed holding on something Objective - Vital Signs/Intake and Output Vital Signs (last 24 hours): Temp Pulse Resp BP Pulse Ox 99.2 F 73 20 130/76 97 01/04/18 08:30 01/04/18 08:30 01/04/18 08:30 01/04/18 08:30 01/04/18 08:30 Intake and Output: 01/04/18 01/04/18 06:59 18:59 Intake Total 740 Balance 740 - Medications Medications: Current Medications Amlodipine Besylate (Norvasc) 5 mg PO DAILY [facility] Last Admin: 01/03/18 10:16 Dose: 5 mg Clopidogrel Bisulfate (Plavix) 75 mg PO DAILY [facility] Last Admin: 01/03/18 10:16 Dose: 75 mg Azithromycin 500 mg/ Sodium (Chloride) 250 mls @ 167 mls/hr IVPB Q24H [facility] Last Admin: 01/03/18 23:47 Dose: 167 mls/hr Insulin Human Regular (Novolin R) 0 unit SC ACHS [facility] PRN Reason: Protocol Last Admin: 01/04/18 08:30 Dose: Not Given Rosuvastatin Calcium (Crestor) 40 mg PO HS [facility] Last Admin: 12/29/17 21:43 Dose: 40 mg - Labs Labs: 12/30/17 07:22 01/01/18 07:13 - Constitutional Appears: No Acute Distress - Eye Exam Eye Exam: Normal appearance - ENT Exam ENT Exam: Mucous Membranes Moist - Neck Exam Neck Exam: Full ROM. absent: Lymphadenopathy, Thyromegaly - Respiratory Exam Respiratory Exam: Decreased Breath Sounds. absent: Rales, Rhonchi, Wheezes - Cardiovascular Exam Cardiovascular Exam: REGULAR RHYTHM, +S1, +S2, Murmur. absent: Gallop - GI/Abdominal Exam GI & Abdominal Exam: Soft. absent: Tenderness, Mass - Extremities Exam Extremities Exam: Full ROM, Normal Capillary Refill. absent: Joint Swelling, Pedal Edema Assessment and Plan - Assessment and Plan (Free Text) Assessment: Pneumonia; ? diarrhea HTN, CAD, s/p CVA, Unsteady gait For subacute Stop stool softener cont other meds
--- NOTE | 2018-01-04 10:00 | RAD ---
PROCEDURE: CHEST RADIOGRAPH, 1 VIEW HISTORY: f/up CXR COMPARISON: 12/28/2017 FINDINGS: LUNGS: Linear scar/ atelectasis at both lung bases, right greater than left. Opacity at right base likely due to pleural effusion. PLEURA: Small right pleural effusion. No left pleural effusion. No pneumothorax. CARDIOVASCULAR: Normal. OSSEOUS STRUCTURES: No significant abnormalities. VISUALIZED UPPER ABDOMEN: Normal. OTHER FINDINGS: None. IMPRESSION: Small right pleural effusion. No acute infiltrate.
--- NOTE | 2018-01-04 11:39 | CP.PCM.PN ---
Subjective - Date & Time of Evaluation Date of Evaluation: 01/04/18 Time of Evaluation: 06:00 - Subjective Subjective: afebrile alert weak nad Objective - Vital Signs/Intake and Output Vital Signs (last 24 hours): Temp Pulse Resp BP Pulse Ox 99.2 F 73 20 130/76 97 01/04/18 08:30 01/04/18 08:30 01/04/18 08:30 01/04/18 08:30 01/04/18 08:30 Intake and Output: 01/04/18 01/04/18 06:59 18:59 Intake Total 740 530 Balance 740 530 - Medications Medications: Current Medications Amlodipine Besylate (Norvasc) 5 mg PO DAILY [facility] Last Admin: 01/04/18 09:32 Dose: 5 mg Clopidogrel Bisulfate (Plavix) 75 mg PO DAILY [facility] Last Admin: 01/04/18 09:32 Dose: 75 mg Azithromycin 500 mg/ Sodium (Chloride) 250 mls @ 167 mls/hr IVPB Q24H [facility] Last Admin: 01/03/18 23:47 Dose: 167 mls/hr Insulin Human Regular (Novolin R) 0 unit SC ACHS [facility] PRN Reason: Protocol Last Admin: 01/04/18 08:30 Dose: Not Given Rosuvastatin Calcium (Crestor) 40 mg PO HS [facility] Last Admin: 12/29/17 21:43 Dose: 40 mg - Labs Labs: 12/30/17 07:22 01/01/18 07:13 - Constitutional Appears: Non-toxic, Chronically Ill - Head Exam Head Exam: NORMOCEPHALIC - Eye Exam Eye Exam: PERRL. absent: Scleral icterus - ENT Exam ENT Exam: Mucous Membranes Dry - Neck Exam Neck Exam: absent: Lymphadenopathy - Respiratory Exam Respiratory Exam: Decreased Breath Sounds, Rhonchi - Cardiovascular Exam Cardiovascular Exam: REGULAR RHYTHM, +S1, +S2 - GI/Abdominal Exam GI & Abdominal Exam: Distended, Soft - Rectal Exam Rectal Exam: Deferred - Exam Exam: NORMAL INSPECTION - Extremities Exam Extremities Exam: Full ROM. absent: Calf Tenderness, Pedal Edema, Tenderness - Back Exam Back Exam: absent: CVA tenderness (L), CVA tenderness (R) - Neurological Exam Neurological Exam: Alert, Awake, Oriented x3 Neuro motor strength exam: Left Upper Extremity: 5, Right Upper Extremity: 5, Left Lower Extremity: 5, Right Lower Extremity: 5 - Psychiatric Exam Psychiatric exam: Normal Mood - Skin Skin Exam: Dry Assessment and Plan (1) Pneumonia Status: Acute (2) Chr obstructive pulmonary disease w/ acute lower respiratory infxn Status: Acute - Assessment and Plan (Free Text) Assessment: will repeat CXR CONSIDER NEURO EVAL
[2018-01-04 12:01] LABS: BASO # 0.1 K/uL (0.0-0.2); BASO % 0.7 % (0.0-2.0); EOS # 0.2 K/uL (0.0-0.7); EOS % 2.5 % (0.0-4.0); HEMOGLOBIN 10.7 g/dL (11.0-16.0); LYMPH # 1.7 K/uL (1.0-4.3); LYMPH % 21.4 % (20.0-40.0); MEAN CELL VOLUME 85.3 fL (81.0-99.0); MEAN CORPUSCULAR HEMOGLOBIN 28.6 pg (27.0-31.0); MEAN CORPUSCULAR HGB CONC 33.5 g/dL (33.0-37.0); MEAN PLATELET VOLUME 8.4 fL (7.2-11.7); MONO # 0.7 K/uL (0.0-0.8); MONO % 8.5 % (0.0-10.0); NEUT # 5.4 K/uL (1.8-7.0); NEUT % 66.9 % (50.0-75.0); RBC 3.76 Mil/uL (3.80-5.20); RED CELL DISTRIBUTION WIDTH 12.8 % (11.5-14.5); WHITE BLOOD COUNT 8.1 K/uL (4.8-10.8)
[2018-01-04 12:28] LABS: ALB/GLOB RATIO 0.9 (1.0-2.1); ALBUMIN 2.8 g/dL (3.5-5.0); ALT/SGPT 369 U/L (9-52); AST/SGOT 302 U/L (14-36); BLOOD UREA NITROGEN 20 mg/dL (7-17); CALCIUM 8.7 mg/dl (8.6-10.4); GFR AFRICAN-AMERICAN > 60; GFR NON-AFRICAN AMERICAN 56
[2018-01-05] MEDS: (Novolin R) Insulin Human Regular 100 units/ml vial SC SCH ×4 (08:18→22:07)
--- NOTE | 2018-01-05 09:19 | CP.PCM.PN ---
Subjective - Date & Time of Evaluation Date of Evaluation: 01/05/18 Time of Evaluation: 08:50 - Subjective Subjective: Pt no complain. Diarrhea is better. (+) Still w/ brassy cough, Walk w/ holding on something. No CP, no SOB, no edema, no palpitation Objective - Vital Signs/Intake and Output Vital Signs (last 24 hours): Temp Pulse Resp BP Pulse Ox 98.1 F 68 20 117/72 99 01/05/18 07:31 01/05/18 07:31 01/05/18 07:31 01/05/18 07:31 01/05/18 07:31 Intake and Output: 01/05/18 01/05/18 06:59 18:59 Intake Total 250 Balance 250 - Medications Medications: Current Medications Amlodipine Besylate (Norvasc) 5 mg PO DAILY [facility] Last Admin: 01/05/18 08:46 Dose: 5 mg Azithromycin (Zithromax) 500 mg PO Q24H [facility] Last Admin: 01/04/18 21:46 Dose: 500 mg Clopidogrel Bisulfate (Plavix) 75 mg PO DAILY [facility] Last Admin: 01/05/18 08:47 Dose: 75 mg Insulin Human Regular (Novolin R) 0 unit SC ACHS [facility] PRN Reason: Protocol Last Admin: 01/05/18 08:18 Dose: Not Given Rosuvastatin Calcium (Crestor) 40 mg PO HS [facility] Last Admin: 12/29/17 21:43 Dose: 40 mg - Labs Labs: 01/04/18 11:46 01/04/18 11:46 - Constitutional Appears: No Acute Distress - Eye Exam Eye Exam: Normal appearance - ENT Exam ENT Exam: Mucous Membranes Moist - Neck Exam Neck Exam: Full ROM. absent: Lymphadenopathy - Respiratory Exam Respiratory Exam: Decreased Breath Sounds. absent: Rhonchi, Wheezes - Cardiovascular Exam Cardiovascular Exam: REGULAR RHYTHM, +S1, +S2, Murmur. absent: Gallop, JVD - GI/Abdominal Exam GI & Abdominal Exam: Soft. absent: Tenderness, Mass - Extremities Exam Extremities Exam: Full ROM, Normal Capillary Refill. 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
--- NOTE | 2018-01-06 08:55 | CP.PCM.PN ---
Subjective - Date & Time of Evaluation Date of Evaluation: 01/06/18 Time of Evaluation: 08:15 - Subjective Subjective: Pt no complain exc weak; Was walk yesterday w/ Phy therapy No CP, no SOB, no edema, almost no cough. No n/v. no diarrhea Objective - Vital Signs/Intake and Output Vital Signs (last 24 hours): Temp Pulse Resp BP Pulse Ox 98.5 F 69 20 124/66 96 01/06/18 08:01 01/06/18 08:01 01/06/18 08:01 01/06/18 08:01 01/06/18 08:01 Intake and Output: 01/06/18 01/06/18 06:59 18:59 Intake Total 250 Balance 250 - Medications Medications: Current Medications Amlodipine Besylate (Norvasc) 5 mg PO DAILY [facility] Last Admin: 01/05/18 11:57 Dose: Not Given Azithromycin (Zithromax) 500 mg PO Q24H [facility] Last Admin: 01/05/18 21:02 Dose: 500 mg Clopidogrel Bisulfate (Plavix) 75 mg PO DAILY [facility] Last Admin: 01/05/18 11:58 Dose: Not Given Insulin Human Regular (Novolin R) 0 unit SC ACHS [facility] PRN Reason: Protocol Last Admin: 01/05/18 22:07 Dose: Not Given Rosuvastatin Calcium (Crestor) 40 mg PO HS [facility] Last Admin: 12/29/17 21:43 Dose: 40 mg - Labs Labs: 01/04/18 11:46 01/04/18 11:46 - Constitutional Appears: No Acute Distress - Eye Exam Eye Exam: Normal appearance - ENT Exam ENT Exam: Mucous Membranes Moist - Neck Exam Neck Exam: Full ROM. absent: Lymphadenopathy, Thyromegaly - Respiratory Exam Respiratory Exam: Decreased Breath Sounds. absent: Clear to Ausculation Bilateral, Rales, Rhonchi, Wheezes - GI/Abdominal Exam GI & Abdominal Exam: Soft. absent: Tenderness, Mass - Extremities Exam Extremities Exam: Full ROM, Normal Capillary Refill. absent: Calf Tenderness, Joint Swelling, Pedal Edema Assessment and Plan - Assessment and Plan (Free Text) Assessment: Pneumonia - improve Gen Debility/ Deconditioning NIDDM, HTN, CAD s/p CVA Cont meds/ for subacute Supportive care
[2018-01-06] MEDS: (Novolin R) Insulin Human Regular 100 units/ml vial SC SCH ×4 (09:09→21:36)
--- NOTE | 2018-01-06 10:19 | CP.PCM.PN ---
Subjective - Date & Time of Evaluation Date of Evaluation: 01/06/18 Time of Evaluation: 10:17 - Subjective Subjective: weak NAD minimal cough no chest pain Objective - Vital Signs/Intake and Output Vital Signs (last 24 hours): Temp Pulse Resp BP Pulse Ox 98.5 F 69 20 124/66 96 01/06/18 08:01 01/06/18 08:01 01/06/18 08:01 01/06/18 08:01 01/06/18 08:01 Intake and Output: 01/06/18 01/06/18 06:59 18:59 Intake Total 250 Balance 250 - Medications Medications: Current Medications Amlodipine Besylate (Norvasc) 5 mg PO DAILY [facility] Last Admin: 01/06/18 09:08 Dose: 5 mg Azithromycin (Zithromax) 500 mg PO Q24H [facility] Last Admin: 01/05/18 21:02 Dose: 500 mg Clopidogrel Bisulfate (Plavix) 75 mg PO DAILY [facility] Last Admin: 01/06/18 09:08 Dose: 75 mg Insulin Human Regular (Novolin R) 0 unit SC ACHS [facility] PRN Reason: Protocol Last Admin: 01/06/18 09:09 Dose: 1 unit Rosuvastatin Calcium (Crestor) 40 mg PO HS [facility] Last Admin: 12/29/17 21:43 Dose: 40 mg - Labs Labs: 01/04/18 11:46 01/04/18 11:46 - Constitutional Appears: Non-toxic - Eye Exam Eye Exam: absent: Scleral icterus - ENT Exam ENT Exam: Mucous Membranes Moist - Neck Exam Neck Exam: Full ROM - Respiratory Exam Respiratory Exam: Decreased Breath Sounds - Cardiovascular Exam Cardiovascular Exam: REGULAR RHYTHM - GI/Abdominal Exam GI & Abdominal Exam: Soft. absent: Tenderness - Extremities Exam Extremities Exam: absent: Pedal Edema Assessment and Plan - Assessment and Plan (Free Text) Assessment: Pneumonia CAD T2dm HTN Plan: COnt meds Phys Tx
[2018-01-07] MEDS: (Novolin R) Insulin Human Regular 100 units/ml vial SC SCH ×3 (07:52→17:19)
--- NOTE | 2018-01-07 17:29 | CP.PCM.PN ---
Subjective - Date & Time of Evaluation Date of Evaluation: 01/07/18 Time of Evaluation: 11:00 - Subjective Subjective: Alert, awake, no distress, remains weak. Objective - Vital Signs/Intake and Output Vital Signs (last 24 hours): Temp Pulse Resp BP Pulse Ox 97.5 F L 70 20 118/70 96 01/07/18 09:12 01/07/18 09:12 01/07/18 09:12 01/07/18 09:12 01/07/18 09:12 Intake and Output: 01/07/18 01/07/18 06:59 18:59 Intake Total 250 500 Balance 250 500 - Medications Medications: Current Medications Amlodipine Besylate (Norvasc) 5 mg PO DAILY [facility] Last Admin: 01/07/18 12:10 Dose: Not Given Azithromycin (Zithromax) 500 mg PO Q24H [facility] Last Admin: 01/06/18 21:35 Dose: 500 mg Clopidogrel Bisulfate (Plavix) 75 mg PO DAILY [facility] Last Admin: 01/07/18 12:11 Dose: Not Given Insulin Human Regular (Novolin R) 0 unit SC ACHS [facility] PRN Reason: Protocol Last Admin: 01/07/18 17:19 Dose: 2 unit Rosuvastatin Calcium (Crestor) 40 mg PO HS [facility] Last Admin: 12/29/17 21:43 Dose: 40 mg - Labs Labs: 01/04/18 11:46 01/04/18 11:46 Assessment and Plan - Assessment and Plan (Free Text) Assessment: Patient is seen and examined, alert, responsive, remains weak. Has authorization to go to [facility] for rehab. Discussed with DR Arambula, plan to discharge today. Patient is agreable. No distress.
--- NOTE | 2018-01-07 18:14 | CP.PCM.PN ---
Subjective - Date & Time of Evaluation Date of Evaluation: 01/07/18 Time of Evaluation: 18:12 - Subjective Subjective: S: Feels the same. Bedridden. Objective - Vital Signs/Intake and Output Vital Signs (last 24 hours): Temp Pulse Resp BP Pulse Ox 97.5 F L 70 20 118/70 96 01/07/18 09:12 01/07/18 09:12 01/07/18 09:12 01/07/18 09:12 01/07/18 09:12 Intake and Output: 01/07/18 01/07/18 06:59 18:59 Intake Total 250 500 Balance 250 500 - Medications Medications: Current Medications Amlodipine Besylate (Norvasc) 5 mg PO DAILY [facility] Last Admin: 01/07/18 12:10 Dose: Not Given Azithromycin (Zithromax) 500 mg PO Q24H [facility] Last Admin: 01/06/18 21:35 Dose: 500 mg Clopidogrel Bisulfate (Plavix) 75 mg PO DAILY [facility] Last Admin: 01/07/18 12:11 Dose: Not Given Insulin Human Regular (Novolin R) 0 unit SC ACHS [facility] PRN Reason: Protocol Last Admin: 01/07/18 17:19 Dose: 2 unit Rosuvastatin Calcium (Crestor) 40 mg PO HS [facility] Last Admin: 12/29/17 21:43 Dose: 40 mg - Labs Labs: 01/04/18 11:46 01/04/18 11:46 - Constitutional Appears: Chronically Ill - Head Exam Head Exam: NORMAL INSPECTION - ENT Exam ENT Exam: Mucous Membranes Dry - Neck Exam Neck Exam: Normal Inspection - Respiratory Exam Respiratory Exam: Decreased Breath Sounds - Cardiovascular Exam Cardiovascular Exam: REGULAR RHYTHM - GI/Abdominal Exam GI & Abdominal Exam: Soft - Rectal Exam Rectal Exam: Deferred - Extremities Exam Extremities Exam: absent: Pedal Edema Assessment and Plan (1) Pneumonia Status: Acute (2) Diabetes Status: Chronic (3) CAD (coronary artery disease) Status: Chronic (4) Debility Status: Acute - Assessment and Plan (Free Text) Assessment: A/p: Continue medications. For subacute
[2018-01-07 21:51] VITALS: BP 115/73; PULSE 73; TEMP 98.5; O2SAT 98
== END 2018-01-07 22:50 | DRG 190 ==
LOC: C.ER 11:20 → C.9E 14:26 → C.3T 16:25 → UNDODISIN 01-07 21:36
PROVIDERS: ADMIT Internal Medicine; ATTEND Internal Medicine
DX: J44.0 Chronic obstructive pulmonary disease with (acute) lower respiratory infection (principal); J18.9 Pneumonia, unspecified organism; E87.6 Hypokalemia; D64.9 Anemia, unspecified; E11.9 Type 2 diabetes mellitus without complications; I10 Essential (primary) hypertension; N39.0 Urinary tract infection, site not specified; I25.10 Atherosclerotic heart disease of native coronary artery without angina pectoris; Z79.84 Long term (current) use of oral hypoglycemic drugs; Z86.73 Personal history of transient ischemic attack (TIA), and cerebral infarction without residual deficits; Z95.5 Presence of coronary angioplasty implant and graft

== ENCOUNTER 2018-01-13 02:13 | Emergency (ER) | payer MEDICARE, OTHER ==
[2018-01-13 02:13] VITALS: BMI 22.1
--- NOTE | 2018-01-13 02:51 | C.PDOC ---
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 Patient was recently admitted to rehab to regain strength in her left lower extremity after CVA, and noted her symptoms began while she was in physical therapy. Patient describes a pressure-like pain that has been intermittent throughout the day. She notes the pain lasts a few seconds and then self-resolves. Patient notes pain is worse with certain movements and cough/ She admits to recent history of pneumonia. Patient states she had a total of 3 strokes. She denies fever, chills, shortness of breath, extremity numbness/weakness. Chief Complaint (Nursing): Chest Pain History Per: Patient History/Exam Limitations: no limitations Onset/Duration Of Symptoms: Hrs Current Symptoms Are (Timing): Still Present Quality: "Pain" Exacerbating Factors: Movement, Other (cough) Additional History Per: Patient Past Medical History Reviewed: Historical Data, Nursing Documentation, Vital Signs Vital Signs: Last Vital Signs Temp 98.9 F 01/13/18 04:40 Pulse 86 01/13/18 04:40 Resp 18 01/13/18 04:40 BP 160/89 H 01/13/18 04:40 Pulse Ox 98 01/13/18 04:40 - Medical History PMH: Asthma, COPD, Gall Bladder Disease, HTN Denies: Chronic Kidney Disease Surgical History: Coronary Stent (2012) Denies: Pacemaker - [facility] Procedures CORONAR ARTERIOGR-2 CATH (09/16/13) FLUOROSCOPY OF BLADDER USING LOW OSMOLAR CONTRAST (05/25/17) INJECT ANTICOAGULANT (09/28/13) INSERTION OF ONE VASCULAR STENT (09/28/13) INSRT OF DRUG-ELUTING CORON ARTERY STENTS(S) (09/28/13) LEFT HEART CARDIAC CATH (09/16/13) LT HEART ANGIOCARDIOGRAM (09/16/13) MEASUREMENT OF URINARY PRESSURE, VIA OPENING (05/25/17) PERCUTANEOUS TRANSLUMINAL CORONARY ANGIOPLASTY [PTCA] (09/28/13) PROCEDURE ON SINGLE VESSEL (09/28/13) THORACENTESIS (07/23/15) Family History: States: Unknown Family Hx - Social History Hx Alcohol Use: No Hx Substance Use: No - Immunization History Hx Tetanus Toxoid Vaccination: No Hx Influenza Vaccination: No Hx Pneumococcal Vaccination: No Review Of Systems Constitutional: Negative for: Fever, Chills Cardiovascular: Positive for: Chest Pain Respiratory: Negative for: Shortness of Breath Neurological: Negative for: Weakness, Numbness Physical Exam - Physical Exam Appears: Non-toxic, No Acute Distress, Other (anxious ) Skin: Normal Color, Warm, Dry Head: Atraumatic, Normacephalic Eye(s): bilateral: Normal Inspection Oral Mucosa: Moist Neck: Supple Chest: Symmetrical, No Deformity, No Tenderness Cardiovascular: Rhythm Regular, No Murmur Respiratory: Normal Breath Sounds, No Rales, No Rhonchi, No Wheezing Gastrointestinal/Abdominal: Bowel Sounds (active), Soft, No Tenderness, No Guarding, No Rebound Extremity: Normal ROM, Capillary Refill (less than 2 seconds ) Neurological/Psych: Oriented x3, Normal Cognition, Normal Cranial Nerves, Other (fluid speech ) Other Neurological Findings: Other (mild left hemiparesis affecting lower extremity more than upper extremity) ED Course And Treatment - Laboratory Results Result Diagrams: 01/13/18 03:10 01/13/18 03:10 ECG: Interpreted By Me, Viewed By Me ECG Rhythm: Sinus Rhythm Interpretation Of ECG: nosmal sinus rhythm at rate 86bpm. intraventricular conduction delay in right bundle branch pattern. ST segments all within normal limits. no ectopy. Rate From EC O2 Sat by Pulse Oximetry: 100 (on RA) Pulse Ox Interpretation: Normal Medical Decision Making Medical Decision Making: Impression: atypical chest pain, likely musculoskeletal Plan: will send routine labs. will discharge patient if labwork is negative Progress: Bloodwork and CXR ordered. CXR results show no acute infiltrates. cardiac silhouette is within normal limits. Will recommend return to rehab for intermittent chest pain. Disposition - Disposition Referrals: [facility] [Outside] Disposition: HOME/ ROUTINE Disposition Time: 06:30 Condition: GOOD Instructions: Costochondritis Forms: [facility] (Trinidadian) - Clinical Impression Clinical Impression: Chest wall pain - Scribe Statement The provider has reviewed the documentation as recorded by the Scribe (Alyssa Sharp) Provider Attestation: All medical record entries made by the Scribe were at my direction and personally dictated by me. I have reviewed the chart and agree that the record accurately reflects my personal performance of the history, physical exam, medical decision making, and the department course for this patient. I have also personally directed, reviewed, and agree with the discharge instructions and disposition.
[2018-01-13 03:17] LABS: BASO # 0.1 K/uL (0.0-0.2); BASO % 1.5 % (0.0-2.0); EOS # 0.2 K/uL (0.0-0.7); EOS % 2.2 % (0.0-4.0); HEMOGLOBIN 11.4 g/dL (11.0-16.0); LYMPH # 1.7 K/uL (1.0-4.3); LYMPH % 17.7 % (20.0-40.0); MEAN CELL VOLUME 85.1 fL (81.0-99.0); MEAN CORPUSCULAR HEMOGLOBIN 29.3 pg (27.0-31.0); MEAN CORPUSCULAR HGB CONC 34.4 g/dL (33.0-37.0); MEAN PLATELET VOLUME 7.1 fL (7.2-11.7); MONO # 0.7 K/uL (0.0-0.8); MONO % 6.9 % (0.0-10.0); NEUT # 6.9 K/uL (1.8-7.0); NEUT % 71.7 % (50.0-75.0); RBC 3.87 Mil/uL (3.80-5.20); RED CELL DISTRIBUTION WIDTH 13.3 % (11.5-14.5); WHITE BLOOD COUNT 9.6 K/uL (4.8-10.8)
[2018-01-13 03:32] LABS: ALB/GLOB RATIO 0.9 (1.0-2.1); ALBUMIN 3.3 g/dL (3.5-5.0); ALT/SGPT 241 U/L (9-52); AST/SGOT 171 U/L (14-36); BLOOD UREA NITROGEN 23 mg/dL (7-17); CALCIUM 9.1 mg/dl (8.6-10.4); GFR AFRICAN-AMERICAN > 60; GFR NON-AFRICAN AMERICAN 50
[2018-01-13 04:40] VITALS: BP 160/89; PULSE 86; RESP 18; TEMP 98.9
[2018-01-13 06:31] VITALS: O2SAT 100
--- NOTE | 2018-01-13 08:55 | RAD ---
Chest x-ray single frontal view History: Chest pain. Comparison: 12/28/2017 Findings: Mild venous congestion. Small right pleural effusion. Patchy consolidative changes at the right lung base. Cardiomegaly. Degenerative changes in the spine and shoulders. Impression: Mild venous congestion. Small right pleural effusion. Patchy consolidative changes at the right lung base. Cardiomegaly. Tubing projects over the left neck of uncertain clinical etiology. Clinical correlation.
--- NOTE | 2018-01-15 12:50 | CARD ---
APPROVED REPORT EKG Measurement Heart [id number] <Conclusion> Normal sinus rhythm Incomplete right bundle branch block Borderline ECG
== END 2018-01-13 05:35 | disposition home or self-care (01) ==
LOC: C.ER 02:13
DX: R07.89 Other chest pain (principal)

== ENCOUNTER 2018-12-05 00:33 | Inpatient (IN) | payer OTHER, MEDICARE ==
[2018-12-05 00:33] VITALS: BMI 22.1
--- NOTE | 2018-12-05 00:51 | C.PDOC ---
History Of Present Illness 63 year old female is brought to the ED by her family for evaluation of right hip pain. Patient reports that while ambulating to the bathroom yesterday at noon she fell and injured her right hip. Patient needed to be helped up by her . Patient having difficulty ambulating now. Patient remembers the events. Patient denies LOC, headache, visual changes, CP, SOB, dizziness, weakness, numbness. Time Seen by Provider: 12/05/18 00:50 Chief Complaint (Nursing): Hip Pain History Per: Patient, Family History/Exam Limitations: no limitations Onset/Duration Of Symptoms: Days Current Symptoms Are (Timing): Still Present Severity: Moderate Pain Scale Rating Of: 5 Recent travel outside of the [place]: No Additional History Per: Patient - Hip Description Of Injury: Fell, Tripped Currently Unable To: Bear Weight Past Medical History Reviewed: Historical Data, Nursing Documentation, Vital Signs Vital Signs: Last Vital Signs Temp Pulse 95 H 12/05/18 00:43 Resp 18 12/05/18 00:43 BP 166/84 H 12/05/18 00:43 Pulse Ox 99 12/05/18 00:43 - Medical History PMH: Asthma, COPD, Gall Bladder Disease, HTN Denies: Chronic Kidney Disease Surgical History: Coronary Stent (2012) Denies: Pacemaker - [facility] Procedures CORONAR ARTERIOGR-2 CATH (09/16/13) FLUOROSCOPY OF BLADDER USING LOW OSMOLAR CONTRAST (05/25/17) INJECT ANTICOAGULANT (09/28/13) INSERTION OF ONE VASCULAR STENT (09/28/13) INSRT OF DRUG-ELUTING CORON ARTERY STENTS(S) (09/28/13) LEFT HEART CARDIAC CATH (09/16/13) LT HEART ANGIOCARDIOGRAM (09/16/13) MEASUREMENT OF URINARY PRESSURE, VIA OPENING (05/25/17) PERCUTANEOUS TRANSLUMINAL CORONARY ANGIOPLASTY [PTCA] (09/28/13) PROCEDURE ON SINGLE VESSEL (09/28/13) THORACENTESIS (07/23/15) Family History: States: Unknown Family Hx - Social History Hx Alcohol Use: No Hx Substance Use: No - Immunization History Hx Tetanus Toxoid Vaccination: No Hx Influenza Vaccination: No Hx Pneumococcal Vaccination: No Review Of Systems Constitutional: Negative for: Fever, Chills Eyes: Negative for: Vision Change Cardiovascular: Negative for: Chest Pain, Palpitations Respiratory: Negative for: Shortness of Breath Gastrointestinal: Negative for: Nausea, Vomiting, Abdominal Pain Musculoskeletal: Positive for: Other (Hip pain) Skin: Negative for: Rash Neurological: Negative for: Weakness, Numbness, Headache, Dizziness Psych: Negative for: Anxiety Physical Exam - Physical Exam Appears: Non-toxic, No Acute Distress Skin: Warm, Dry Head: Normacephalic Eye(s): bilateral: Normal Inspection Oral Mucosa: Moist Neck: Supple Chest: Symmetrical Cardiovascular: Rhythm Regular Respiratory: No Rales, No Rhonchi, No Wheezing Gastrointestinal/Abdominal: Soft, No Tenderness, No Guarding, No Rebound Back: No Vertebral Tenderness, Decreased ROM (r leg) Extremity: Tenderness (right hip to palpation), No Pedal Edema, Capillary Refill (< 2 seconds) Extremity: Left: Normal ROM, Right: Unable To Bear Weight, Other (right hip decreased ROM due to pain), Bilateral: Normal Color And Temperature Pulses: Left Dorsalis Pedis: Normal, Right Dorsalis Pedis: Normal Neurological/Psych: Oriented x3, Normal Speech, Normal Cognition Gait: Unable To Assess ED Course And Treatment - Laboratory Results Result Diagrams: 12/05/18 01:13 12/05/18 01:13 O2 Sat by Pulse Oximetry: 99 (ON RA) Pulse Ox Interpretation: Normal - CT Scan/US CT pelvis Other Rad Studies (CT/US): Read By Radiologist, Radiology Report Reviewed CT/US Interpretation: CT scan of the pelvis without contrast. Indication: Pain. Attention right hip. Technique: Axial CT scan images without contrast. Reformatted coronal and sagittal images. Findings: Mild osteopenia of the bones. Acute oblique mildly displaced fracture of the right inferior pubic ramus. There are changes of degenerative joint disease. No dislocation is seen. No aggressive bone lesion is noted. Impression: Acute displaced fracture of the right inferior pubic ramus. . Electronically signed on Dec 05, 2018 1: 52:40 AM EST by: Tasneem Hooper M.D., Certified by MAKENZIE, MSK, Neuroradiology Progress Note: Plan: - Labs. - EKG. - CT pelvis. - Motrin 600 mg PO. - UA Disposition Discussed With : Herman Arambula Comment: accepted the pt on his service and took over the care at 2:47 AM Doctor Will See Patient In The: Hospital Counseled Patient/Family Regarding: Studies Performed, Diagnosis - Disposition Disposition: HOSPITALIZED Disposition Time: 00:50 Condition: FAIR Forms: [facility] (Icelandic) - POA Present On Arrival: Falls Or Trauma - Clinical Impression Clinical Impression: Hip pain, Fracture of right inferior pubic ramus - Scribe Statement The provider has reviewed the documentation as recorded by the Scribe Major Wilde All medical record entries made by the Scribe were at my direction and personally dictated by me. I have reviewed the chart and agree that the record accurately reflects my personal performance of the history, physical exam, medical decision making, and the department course for this patient. I have also personally directed, reviewed, and agree with the discharge instructions and disposition. Decision To Admit - Pt Status Changed To: Hospital Disposition Of: Inpatient - Admit Certification Admit to Inpatient:: After my assessment, the patient will require hospitaliza tion for at least two midnights. This is because of the severity of symptoms shown, intensity of services needed, and/or the medical risk in this patient being treated as an outpatient. - InPatient: Physician Admission Certification: I certify that this patient requires 2 or more midnights of care for the following reason:: After my assessment, the patient will require hospitalization for at least two midnights. This is because of the severity of symptoms shown, intensity of services needed, and/or the medical risk in this patient being treated as an outpatient. - . Bed Request Type: Regular Admitting Physician: Herman Arambula Patient Diagnosis: Hip pain, Fracture of right inferior pubic ramus
[2018-12-05 01:22] LABS: BASO # 0.1 K/uL (0.0-0.2); BASO % 1.2 % (0.0-2.0); EOS # 0.3 K/uL (0.0-0.7); EOS % 2.8 % (0.0-4.0); HEMOGLOBIN 11.7 g/dL (11.0-16.0); LYMPH # 1.4 K/uL (1.0-4.3); LYMPH % 14.7 % (20.0-40.0); MEAN CELL VOLUME 87.6 fL (81.0-99.0); MEAN CORPUSCULAR HEMOGLOBIN 29.9 pg (27.0-31.0); MEAN CORPUSCULAR HGB CONC 34.2 g/dL (33.0-37.0); MEAN PLATELET VOLUME 7.1 fL (7.2-11.7); MONO # 0.5 K/uL (0.0-0.8); MONO % 4.9 % (0.0-10.0); NEUT # 7.4 K/uL (1.8-7.0); NEUT % 76.4 % (50.0-75.0); NRBC % 0.1 % (0.0-2.0); RBC 3.92 Mil/uL (3.80-5.20); RED CELL DISTRIBUTION WIDTH 13.2 % (11.5-14.5); WHITE BLOOD COUNT 9.7 K/uL (4.8-10.8)
[2018-12-05 01:26] LABS: PROTHROMBIN TIME 11.2 SECONDS (9.7-12.2)
[2018-12-05 01:33] LABS: ALB/GLOB RATIO 0.9 (1.0-2.1); ALBUMIN 3.6 g/dL (3.5-5.0); CALCIUM 8.8 mg/dl (8.6-10.4)
[2018-12-05] MEDS ORDERED: Oxycodone/Acetaminophen 5/325 mg Tab PO PRN (02:49)
[2018-12-05] MEDS: (Novolog) Insulin Aspart, Recombinant 100 u/ml 10 ml vial SC SCH ×4 (07:58→22:00)
--- NOTE | 2018-12-05 08:57 | CT ---
Date of service: 12/05/2018 PROCEDURE: CT scan of the right hip joint without intravenous contrast > PROCEDURE: INDICATION: Evaluate right hip TECHNIQUE: Multiple axial images were obtained with slice thickness of 2.5 mm. Coronal and sagittal reformatted images were obtained. Iterative reconstruction was used. Radiation dose: Total exam DLP = 325.24 mGy-cm. PROCEDURE: This CT exam was performed using one or more of the following dose reduction techniques: Automated exposure control, adjustment of the mA and/or kV according to patient size, and/or use of iterative reconstruction technique. COMPARISON: None. FINDINGS: There is diffuse bone demineralization. There is an acute mildly displaced fracture in the right inferior pubic ramus with mild superior and lateral displacement of the fracture fragment. No evidence for fracture, bone destruction or focal bone lesion. The hip joints is preserved. The visualized muscles and soft tissues are normal. The pelvic organs are unremarkable. There are advanced atherosclerotic vascular calcifications. IMPRESSION: Acute mildly displaced fracture in the right inferior pubic ramus. A preliminary report was provided by [employer].
[2018-12-05] MEDS ORDERED: AMMONIUM LACTATE TP SCH (10:00)
[2018-12-05] MEDS ORDERED: ROSUVASTATIN CALCIUM 40 MG PO SCH (10:00)
[2018-12-05] MEDS ORDERED: Oxycodone/Acetaminophen 5/325 mg Tab ONE (10:38)
[2018-12-05] MEDS: POLYETHYLENE GLYCOL 3350 17 GM/Dose PACKET PO SCH (11:47)
[2018-12-05] MEDS ORDERED: (Novolin R) Insulin Human Regular 100 units/ml vial ONE (12:31)
[2018-12-05 13:00] LABS: SQUAMOUS EPITHIAL 2 /hpf (0-5); URINE BACTERIA OCC (<OCC); URINE BILIRUBIN NEGATIVE (NEGATIVE); URINE BLOOD 1+ (NEGATIVE); URINE CLARITY Hazy (Clear); URINE COLOR Yellow (YELLOW); URINE GLUCOSE (UA) 2+ mg/dL (Normal); URINE LEUKOCYTE ESTERASE 3+ Leu/uL (Negative); URINE PROTEIN 3+ mg/dL (NEGATIVE); URINE UROBILINOGEN NORMAL mg/dL (0.2-1.0)
[2018-12-05] MEDS ORDERED: (Novolog) Insulin Aspart, Recombinant 100 u/ml 10 ml vial ONE (18:03)
[2018-12-06] MEDS: (Novolog) Insulin Aspart, Recombinant 100 u/ml 10 ml vial SC SCH ×4 (07:45→21:47)
--- NOTE | 2018-12-06 08:28 | CP.PCM.HP ---
History of Present Illness - History of Present Illness History of Present Illness: CC: Hip pain 63 y/o female with NIDDM w/ CKD s/p CVA, HTN. Patient on 12/04/18 fell going to the bathroom. She felt some pain but was thought to be minor. Pt unable to walk the next day and was brought in ER. Pt in ER was told (+) Fracture Present on Admission - Present on Admission Any Indicators Present on Admission: Yes History of DVT/PE: No History of Uncontrolled Diabetes: No Urinary Catheter: No Decubitus Ulcer Present: No Review of Systems - Review of Systems Systems not reviewed;Unavailable: Acuity of Condition - Constitutional Constitutional: absent: Fatigue, Headache, Increased Appetite, Snoring - EENT Eyes: absent: Itchy Eyes, Pain, Sees Flashes, Loss of Vision Nose/Mouth/Throat: absent: Post Nasal Drip, Change in Voice, Dysphagia, Hoarsness - Breasts Breasts: absent: Pain, Skin Changes, Swelling - Cardiovascular Cardiovascular: absent: Dyspnea, Leg Edema, Orthopnea - Gastrointestinal Gastrointestinal: absent: Belching, Dyspepsia, Heartburn, Nausea - Genitourinary Genitourinary: absent: Dysuria - Musculoskeletal Musculoskeletal: absent: Abnormal Gait, Loss of Height, Muscle Weakness, Numbness - Integumentary Integumentary: absent: Changing Lesions, Photosensitivity, Rash, Sores, Wounds - Neurological Neurological: Abnormal Gait, Numbness. absent: Dizziness, Focal Weakness Past Patient History - Infectious Disease Hx of Infectious Diseases: None - Past Medical History & Family History Past Medical History?: Yes - Past Social History Smoking Status: Former Smoker - CARDIAC Hx Hypertension: Yes Hx Pacemaker: No - PULMONARY Hx Asthma: Yes Hx Chronic Obstructive Pulmonary Disease (COPD): Yes - NEUROLOGICAL Hx Neurological Disorder: No Hx Paralysis: No - HEENT Hx HEENT Problems: No - RENAL Hx Chronic Kidney Disease: No - ENDOCRINE/METABOLIC Hx Endocrine Disorders: Yes Hx Diabetes Mellitus Type 2: Yes - HEMATOLOGICAL/ONCOLOGICAL Hx Blood Disorders: No Hx Blood Transfusions: No Hx Blood Transfusion Reaction: No - INTEGUMENTARY Hx Dermatological Problems: No - MUSCULOSKELETAL/RHEUMATOLOGICAL Hx Falls: Yes - GASTROINTESTINAL Hx Gall Bladder Disease: Yes - GENITOURINARY/GYNECOLOGICAL Hx Incontinence: Yes - PSYCHIATRIC Hx Substance Use: No - SURGICAL HISTORY Hx Coronary Stent: Yes (2012) - ANESTHESIA Hx Anesthesia: Yes Hx Anesthesia Reactions: No Hx Malignant Hyperthermia: No Meds Allergies/Adverse Reactions: Allergies Allergy/AdvReac Type Severity Reaction Status Date / Time iodine Allergy Verified 12/05/18 00:47 Latex, Natural Rubber Allergy Verified 12/05/18 00:47 pentazocine [From [facility]] Allergy Verified 12/05/18 00:47 Physical Exam - Constitutional Appears: Well - Eye Exam Eye Exam: Normal appearance - ENT Exam ENT Exam: Mucous Membranes Moist - Neck Exam Neck exam: Positive for: Full Rom. Negative for: Lymphadenopathy, Thyromegaly - Respiratory Exam Respiratory Exam: Clear to Auscultation Bilateral. absent: Rales, Rhonchi, Wheezes - Cardiovascular Exam Cardiovascular Exam: REGULAR RHYTHM, +S1, +S2, Systolic Murmur. absent: Gallop, JVD - GI/Abdominal Exam GI & Abdominal Exam: Soft. absent: Guarding, Rebound, Tenderness - Extremities Exam Extremities exam: Positive for: normal capillary refill, pedal pulses present. Negative for: calf tenderness, full ROM, pedal edema Results - Vital Signs Recent Vital Signs: Last Vital Signs Temp 98.0 F 12/06/18 07:35 Pulse 95 H 12/06/18 07:35 Resp 20 12/06/18 07:35 BP 153/79 H 12/06/18 07:35 Pulse Ox 96 12/06/18 07:35 - Labs Result Diagrams: 12/05/18 01:13 12/05/18 01:13 Labs: Laboratory Results - last 24 hr 12/05/18 12/05/18 12/05/18 12:13 12:50 17:46 POC Glucose (mg/dL) 224 H 252 H Urine Color Yellow Urine Clarity Hazy Urine pH 6.0 Ur Specific [place] 1.008 Urine Protein 3+ H Urine Glucose (UA) 2+ H Urine Ketones Negative Urine Blood 1+ H Urine Nitrate Negative Urine Bilirubin Negative Urine Urobilinogen Normal Ur Leukocyte Esterase 3+ H Urine WBC (Auto) 115 H Urine RBC (Auto) 3 Ur Squamous Epith Cells 2 Urine Bacteria Occ H Urine Yeast (Budding) Few H 12/05/18 12/06/18 12/06/18 21:24 02:19 06:59 POC Glucose (mg/dL) 84 159 H 137 H Urine Color Urine Clarity Urine pH Ur Specific [place] Urine Protein Urine Glucose (UA) Urine Ketones Urine Blood Urine Nitrate Urine Bilirubin Urine Urobilinogen Ur Leukocyte Esterase Urine WBC (Auto) Urine RBC (Auto) Ur Squamous Epith Cells Urine Bacteria Urine Yeast (Budding) - EKG Data EKG Interpreted by: Myself EKG shows normal: Sinus rhythm Rate: Normal ((+) sinus arrhtymia) Assessment & Plan - Assessment and Plan (Free Text) Assessment: Right hip fracture NIDDM, HT, CKD/ CAD Await Ortho Call Cardio - for surgery clearance Cont meds/ supportive care
[2018-12-06] MEDS: POLYETHYLENE GLYCOL 3350 17 GM/Dose PACKET PO SCH (09:14)
[2018-12-06] MEDS: Ammonium Lactate 12% Lotion (225 g) TOP SCH (10:50)
[2018-12-06] MEDS: Calcium-Vit D 500 mg-200 Units Tab UD PO SCH ×2 (10:51→17:36)
[2018-12-06] MEDS: cefTRIAXone IV 1 gm in Dextros 50 ML IVPB SCH (10:51)
--- NOTE | 2018-12-06 15:05 | RAD ---
Date of service: 12/06/2018 PROCEDURE: Radiographs of the pelvis. HISTORY: right inf ramus fx COMPARISON: CT pelvis 12/05/2018 FINDINGS: BONES: Pelvic Bones: Nondisplaced fracture right inferior pubic ramus. Suspect nondisplaced fracture at junction of right superior pubic ramus with acetabulum. Hips: Grossly unremarkable. JOINTS: Sacroiliac Joints: Unremarkable. Pubic Symphysis: Unremarkable. OTHER FINDINGS: None. IMPRESSION: Fracture right inferior pubic ramus. Possible fracture junction of right superior pubic ramus with acetabulum.
--- NOTE | 2018-12-06 23:04 | CON ---
DATE: 12/06/2018 REASON FOR CONSULTATION: Right pelvic fracture. HISTORY OF PRESENT ILLNESS: This is a 63-year-old female, who sustained a mechanical fall approximately three days ago complains of right pelvic pain. According to the patient, the patient states that she was able to ambulate with pain after the fall. She denies any numbness or tingling in the lower extremity. She denies any weakness, really there is pain with range of motion. She denies any left-sided pain. PHYSICAL EXAMINATION: GENERAL: This is a female in no apparent distress. She is awake, alert, and oriented x3. NEUROLOGIC: Neurovascularly, she is grossly intact in bilateral lower extremities. EXTREMITIES: On inspection, it looks like she has multiple abrasions along the distal third of her right tibia. They did not appear to be infected. She has no obvious swelling or deformity in either extremity. She is tolerating passive internal and external rotation of the right hip without significant pain. She does have some pain in the pelvis with passive forward flexion. She is actively flexing and extending her knee without significant pain. Her thigh and calf are soft and nontender. On evaluation of the left lower extremity, she tolerates full active range of motion of the hip and knee without any pain. No swelling or deformity is appreciated. Her thigh and calf are soft and nontender. DIAGNOSTIC DATA: X-rays of the pelvis and CAT scan of the pelvis show non-displaced right superior and inferior rami fractures. No obvious hip fracture is appreciated. IMPRESSION: Right pelvic ring fracture. PLAN: At this point, recommend non-operative treatment of this with progressive mobilization, let her weight bear as tolerated. Recommend DVT prophylaxis. We will recommend repeat x-rays once the patient begins weightbearing. Bryn Blackman MD
[2018-12-07] MEDS: (Novolog) Insulin Aspart, Recombinant 100 u/ml 10 ml vial SC SCH ×4 (08:18→21:26)
--- NOTE | 2018-12-07 08:47 | CP.PCM.PN ---
Subjective - Date & Time of Evaluation Date of Evaluation: 12/07/18 Time of Evaluation: 08:25 - Subjective Subjective: Pt no complain exc pain; Ortho note reviewed and appreciated. Unable to weight bear and agree on Subacute. No CP, no SOB, no cough, no n/v, no diarrhea, (+) urinary incontinent; (+) fair appetite Objective - Vital Signs/Intake and Output Vital Signs (last 24 hours): Temp Pulse Resp BP Pulse Ox 98.3 F 78 20 137/80 96 12/07/18 07:25 12/07/18 07:25 12/07/18 07:25 12/07/18 07:25 12/07/18 07:25 Intake and Output: 12/07/18 12/07/18 06:59 18:59 Output Total 400 Balance -400 - Medications Medications: Current Medications Amlodipine Besylate (Norvasc) 5 mg PO DAILY [facility] Last Admin: 12/06/18 09:14 Dose: 5 mg Calcium/Vitamin D (Oyster Shell Calcium/Vitamin D 500 Mg-200 Iu) 1 tab PO BID [facility] Last Admin: 12/06/18 17:36 Dose: 1 tab Docusate Sodium (Colace) 100 mg PO DAILY [facility] Last Admin: 12/06/18 09:14 Dose: 100 mg Gabapentin (Neurontin) 100 mg PO BID [facility] Last Admin: 12/06/18 17:36 Dose: 100 mg Glimepiride (Amaryl) 4 mg PO BID [facility] Last Admin: 12/06/18 17:36 Dose: 4 mg Heparin Sodium (Porcine) (Heparin) 5,000 units SC Q8 [facility] Last Admin: 12/07/18 05:13 Dose: 5,000 units Ceftriaxone Sodium (Rocephin Iv 1 Gm Duplex) 50 mls @ 100 mls/hr IVPB Q24H [facility]; Protocol Last Admin: 12/06/18 10:51 Dose: 100 mls/hr Insulin Aspart (Novolog) 0 unit SC ACHS [facility]; Protocol Last Admin: 12/07/18 08:18 Dose: Not Given Lactic Acid (Lac-Hydrin 12% Lotion (225 G)) 1 gm TOP DAILY [facility] Last Admin: 12/06/18 10:50 Dose: 1 applic Oxycodone/Acetaminophen (Percocet 5/325 Mg Tab) 1 tab PO Q4 PRN PRN Reason: Pain, moderate (4-7) Stop: 12/08/18 02:50 Last Admin: 12/05/18 10:40 Dose: 1 tab Polyethylene Glycol (Miralax) 17 gm PO DAILY [facility] Last Admin: 12/06/18 09:14 Dose: 17 gm Rosuvastatin Calcium (Crestor) 40 mg PO HS [facility] Last Admin: 12/06/18 22:21 Dose: 40 mg - Labs Labs: 12/05/18 01:13 12/05/18 01:13 PT 11.2 SECONDS (9.7-12.2) 12/05/18 01:13 INR 1.0 12/05/18 01:13 APTT 37 SECONDS (21-34) H 12/05/18 01:13 - Constitutional Appears: No Acute Distress - Eye Exam Eye Exam: Normal appearance - ENT Exam ENT Exam: Mucous Membranes Moist - Neck Exam Neck Exam: Full ROM. absent: Lymphadenopathy - Respiratory Exam Respiratory Exam: Clear to Ausculation Bilateral. absent: Rales, Rhonchi, Wheezes - Cardiovascular Exam Cardiovascular Exam: REGULAR RHYTHM, +S1, +S2, Murmur. absent: Gallop, JVD - GI/Abdominal Exam GI & Abdominal Exam: Soft. absent: Guarding, Tenderness - Extremities Exam Extremities Exam: Normal Capillary Refill. absent: Calf Tenderness, Full ROM, Joint Swelling, Pedal Edema Assessment and Plan - Assessment and Plan (Free Text) Assessment: Pelvic Fx; NIDDM, HTN, Deconditioning For rehab/ [facility] Cont meds but add Plavix
[2018-12-07] MEDS: Calcium-Vit D 500 mg-200 Units Tab UD PO SCH ×2 (10:23→17:51)
[2018-12-07] MEDS: Ammonium Lactate 12% Lotion (225 g) TOP SCH (10:23)
[2018-12-07] MEDS: POLYETHYLENE GLYCOL 3350 17 GM/Dose PACKET PO SCH (10:23)
[2018-12-07] MEDS: cefTRIAXone IV 1 gm in Dextros 50 ML IVPB SCH (13:03)
[2018-12-08 01:05] VITALS: RESP 20
--- NOTE | 2018-12-08 08:07 | CP.PCM.PN ---
Subjective - Date & Time of Evaluation Date of Evaluation: 12/08/18 Time of Evaluation: 08:05 - Subjective Subjective: Pt no CP, no SOB, no edema, no cough, no diarrhea Did PT but unable to stand c/o severe pain Objective - Vital Signs/Intake and Output Vital Signs (last 24 hours): Temp Pulse Resp BP Pulse Ox 98.2 F 80 20 131/74 97 12/08/18 07:20 12/08/18 07:20 12/08/18 07:20 12/08/18 07:20 12/08/18 07:20 Intake and Output: 12/08/18 12/08/18 06:59 18:59 Intake Total 150 Output Total 450 Balance -300 - Medications Medications: Current Medications Amlodipine Besylate (Norvasc) 5 mg PO DAILY [facility] Last Admin: 12/07/18 10:23 Dose: 5 mg Calcium/Vitamin D (Oyster Shell Calcium/Vitamin D 500 Mg-200 Iu) 1 tab PO BID [facility] Last Admin: 12/07/18 17:51 Dose: 1 tab Clopidogrel Bisulfate (Plavix) 75 mg PO DAILY [facility] Last Admin: 12/07/18 10:23 Dose: 75 mg Docusate Sodium (Colace) 100 mg PO DAILY [facility] Last Admin: 12/07/18 10:23 Dose: 100 mg Gabapentin (Neurontin) 100 mg PO BID [facility] Last Admin: 12/07/18 17:52 Dose: 100 mg Glimepiride (Amaryl) 4 mg PO BID [facility] Last Admin: 12/07/18 17:51 Dose: 4 mg Heparin Sodium (Porcine) (Heparin) 5,000 units SC Q8 [facility] Last Admin: 12/08/18 05:23 Dose: 5,000 units Ceftriaxone Sodium (Rocephin Iv 1 Gm Duplex) 50 mls @ 100 mls/hr IVPB Q24H [facility]; Protocol Last Admin: 12/07/18 13:03 Dose: 100 mls/hr Insulin Aspart (Novolog) 0 unit SC ACHS [facility]; Protocol Last Admin: 12/07/18 21:26 Dose: Not Given Lactic Acid (Lac-Hydrin 12% Lotion (225 G)) 1 gm TOP DAILY [facility] Last Admin: 12/07/18 10:23 Dose: 1 applic Polyethylene Glycol (Miralax) 17 gm PO DAILY [facility] Last Admin: 12/07/18 10:23 Dose: 17 gm Rosuvastatin Calcium (Crestor) 10 mg PO HS [facility] Last Admin: 12/07/18 21:38 Dose: 10 mg - Labs Labs: 12/05/18 01:13 12/05/18 01:13 PT 11.2 SECONDS (9.7-12.2) 12/05/18 01:13 INR 1.0 12/05/18 01:13 APTT 37 SECONDS (21-34) H 12/05/18 01:13 - Constitutional Appears: No Acute Distress - Eye Exam Eye Exam: Normal appearance - ENT Exam ENT Exam: Mucous Membranes Moist - Neck Exam Neck Exam: Full ROM. absent: Lymphadenopathy, Thyromegaly - Respiratory Exam Respiratory Exam: Clear to Ausculation Bilateral. absent: Rales, Rhonchi, Wheezes - Cardiovascular Exam Cardiovascular Exam: REGULAR RHYTHM, +S1, +S2, Murmur. absent: Gallop, JVD - GI/Abdominal Exam GI & Abdominal Exam: Soft. absent: Tenderness, Normal Bowel Sounds - Extremities Exam Extremities Exam: Full ROM, Normal Capillary Refill. absent: Calf Tenderness, Joint Swelling Assessment and Plan - Assessment and Plan (Free Text) Assessment: Pelvic Fx; NIDDM, CKD, HTN, s/p CVA For [facility] Cont meds/ supportive care
[2018-12-08] MEDS: (Novolog) Insulin Aspart, Recombinant 100 u/ml 10 ml vial SC SCH ×4 (08:08→22:05)
[2018-12-08] MEDS: Calcium-Vit D 500 mg-200 Units Tab UD PO SCH ×2 (11:39→18:30)
[2018-12-08] MEDS: POLYETHYLENE GLYCOL 3350 17 GM/Dose PACKET PO SCH (11:40)
[2018-12-08] MEDS: cefTRIAXone IV 1 gm in Dextros 50 ML IVPB SCH (11:40)
[2018-12-08] MEDS: Ammonium Lactate 12% Lotion (225 g) TOP SCH (11:41)
--- NOTE | 2018-12-08 11:43 | RAD ---
Date of service: 12/08/2018 PROCEDURE: Radiographs of the pelvis. HISTORY: repeat x-ray pubic rami fxs COMPARISON: Pelvis radiographs 12/06/[address] without contrast 12/05/2018. FINDINGS: BONES: No apparent interval changes appreciate related to nondisplaced fractures of the lateral right horizontal pubic ramus and the lateral portion inferior pubic ramus as well. Pubic symphysis remains normal appearing. Diffuse osteopenia suggests osteoporosis. No new fractures appreciated outside of the right pubic bones. Degenerative sacroiliac and hip joint changes are reiterated. Vascular calcification identified bilateral pelvic soft tissues as well as bilateral inguinal and proximal thigh soft tissues. JOINTS: As above. OTHER FINDINGS: None. IMPRESSION: Stable right superior inferior pubic ramus fractures as discussed above. Degenerative sacroiliac and hip joint changes reiterated as per above as well.
[2018-12-08] MEDS: Oxycodone/Acetaminophen 5/325 mg Tab PO PRN ×2 (18:29→22:30)
[2018-12-09] MEDS: (Novolog) Insulin Aspart, Recombinant 100 u/ml 10 ml vial SC SCH ×3 (08:24→17:35)
--- NOTE | 2018-12-09 08:30 | CP.PCM.PN ---
Subjective - Date & Time of Evaluation Date of Evaluation: 12/09/18 Time of Evaluation: 08:31 - Subjective Subjective: X rays from 12/08 reviewed. No interval change in fx displacement. Recommend continued PT for gait training. Pt can WBAT. Continue DVT prophylaxis as per Medicine. Awaiting placement in [facility]. F/u in office in 2 weeks. Objective - Vital Signs/Intake and Output Vital Signs (last 24 hours): Temp Pulse Resp BP Pulse Ox 97.6 F 76 20 145/79 95 12/09/18 08:28 12/09/18 08:28 12/09/18 08:28 12/09/18 08:28 12/09/18 08:28 Intake and Output: 12/09/18 12/09/18 06:59 18:59 Output Total 500 Balance -500 - Medications Medications: Current Medications Amlodipine Besylate (Norvasc) 5 mg PO DAILY [facility] Last Admin: 12/08/18 11:40 Dose: 5 mg Calcium/Vitamin D (Oyster Shell Calcium/Vitamin D 500 Mg-200 Iu) 1 tab PO BID [facility] Last Admin: 12/08/18 18:30 Dose: 1 tab Clopidogrel Bisulfate (Plavix) 75 mg PO DAILY [facility] Last Admin: 12/08/18 11:39 Dose: 75 mg Docusate Sodium (Colace) 100 mg PO DAILY [facility] Last Admin: 12/08/18 11:39 Dose: 100 mg Gabapentin (Neurontin) 100 mg PO BID [facility] Last Admin: 12/08/18 18:29 Dose: 100 mg Glimepiride (Amaryl) 4 mg PO BID [facility] Last Admin: 12/08/18 18:29 Dose: 4 mg Heparin Sodium (Porcine) (Heparin) 5,000 units SC Q8 [facility] Last Admin: 12/09/18 05:38 Dose: 5,000 units Ceftriaxone Sodium (Rocephin Iv 1 Gm Duplex) 50 mls @ 100 mls/hr IVPB Q24H [facility]; Protocol Last Admin: 12/08/18 11:40 Dose: 100 mls/hr Insulin Aspart (Novolog) 0 unit SC ACHS [facility]; Protocol Last Admin: 12/09/18 08:24 Dose: Not Given Lactic Acid (Lac-Hydrin 12% Lotion (225 G)) 1 gm TOP DAILY [facility] Last Admin: 12/08/18 11:41 Dose: 1 applic Oxycodone/Acetaminophen (Percocet 5/325 Mg Tab) 1 tab PO Q4H PRN PRN Reason: Pain, moderate (4-7) Stop: 12/11/18 17:53 Last Admin: 12/08/18 22:30 Dose: 1 tab Polyethylene Glycol (Miralax) 17 gm PO DAILY [facility] Last Admin: 12/08/18 11:40 Dose: 17 gm Rosuvastatin Calcium (Crestor) 10 mg PO HS [facility] Last Admin: 12/08/18 22:04 Dose: 10 mg - Labs Labs: 12/05/18 01:13 12/05/18 01:13 PT 11.2 SECONDS (9.7-12.2) 12/05/18 01:13 INR 1.0 12/05/18 01:13 APTT 37 SECONDS (21-34) H 12/05/18 01:13
[2018-12-09] MEDS: Calcium-Vit D 500 mg-200 Units Tab UD PO SCH ×2 (09:23→17:34)
[2018-12-09] MEDS: Oxycodone/Acetaminophen 5/325 mg Tab PO PRN ×2 (09:24→17:34)
[2018-12-09] MEDS: POLYETHYLENE GLYCOL 3350 17 GM/Dose PACKET PO SCH (09:25)
[2018-12-09] MEDS: Ammonium Lactate 12% Lotion (225 g) TOP SCH (09:32)
[2018-12-09] MEDS: cefTRIAXone IV 1 gm in Dextros 50 ML IVPB SCH (11:52)
[2018-12-09 14:07] LABS: BASO # 0.1 K/uL (0.0-0.2); BASO % 0.9 % (0.0-2.0); EOS # 0.3 K/uL (0.0-0.7); HEMOGLOBIN 11.3 g/dL (11.0-16.0); LYMPH # 1.6 K/uL (1.0-4.3); LYMPH % 16.9 % (20.0-40.0); MEAN CELL VOLUME 88.5 fL (81.0-99.0); MEAN CORPUSCULAR HEMOGLOBIN 30.2 pg (27.0-31.0); MEAN CORPUSCULAR HGB CONC 34.1 g/dL (33.0-37.0); MEAN PLATELET VOLUME 7.7 fL (7.2-11.7); MONO # 0.5 K/uL (0.0-0.8); MONO % 5.3 % (0.0-10.0); NEUT # 7.2 K/uL (1.8-7.0); NEUT % 73.9 % (50.0-75.0); RBC 3.75 Mil/uL (3.80-5.20); RED CELL DISTRIBUTION WIDTH 13.1 % (11.5-14.5); WHITE BLOOD COUNT 9.7 K/uL (4.8-10.8)
[2018-12-09 14:35] LABS: CALCIUM 9.4 mg/dl (8.6-10.4)
[2018-12-09] MEDS ORDERED: Sod Polystyrene Sulf 15 gm/60 ml Susp PO ONE (16:07)
[2018-12-10 07:03] LABS: CALCIUM 9.2 mg/dl (8.6-10.4)
--- NOTE | 2018-12-10 08:10 | CP.PCM.PN ---
Subjective - Date & Time of Evaluation Date of Evaluation: 12/10/18 Time of Evaluation: 08:04 - Subjective Subjective: Pt no complain exc dry cough; No CP, no SOB, no edema, no n/v, no diarrhea Objective - Vital Signs/Intake and Output Vital Signs (last 24 hours): Temp Pulse Resp BP Pulse Ox 98.5 F 87 20 152/76 H 96 12/10/18 07:00 12/10/18 07:00 12/10/18 07:00 12/10/18 07:00 12/10/18 07:00 Intake and Output: 12/10/18 12/10/18 06:59 18:59 Intake Total 500 Output Total 400 300 Balance 100 -300 - Medications Medications: Current Medications Amlodipine Besylate (Norvasc) 5 mg PO DAILY [facility] Last Admin: 12/09/18 09:24 Dose: 5 mg Calcium/Vitamin D (Oyster Shell Calcium/Vitamin D 500 Mg-200 Iu) 1 tab PO BID [facility] Last Admin: 12/09/18 17:34 Dose: 1 tab Clopidogrel Bisulfate (Plavix) 75 mg PO DAILY [facility] Last Admin: 12/09/18 09:24 Dose: 75 mg Docusate Sodium (Colace) 100 mg PO DAILY [facility] Last Admin: 12/09/18 09:23 Dose: 100 mg Gabapentin (Neurontin) 100 mg PO BID [facility] Last Admin: 12/09/18 17:35 Dose: 100 mg Glimepiride (Amaryl) 4 mg PO BID [facility] Last Admin: 12/09/18 17:34 Dose: 4 mg Heparin Sodium (Porcine) (Heparin) 5,000 units SC Q8 [facility] Last Admin: 12/10/18 05:53 Dose: 5,000 units Ceftriaxone Sodium (Rocephin Iv 1 Gm Duplex) 50 mls @ 100 mls/hr IVPB Q24H [facility]; Protocol Last Admin: 12/09/18 11:52 Dose: 100 mls/hr Insulin Aspart (Novolog) 0 unit SC ACHS [facility]; Protocol Last Admin: 12/09/18 17:35 Dose: 3 unit Lactic Acid (Lac-Hydrin 12% Lotion (225 G)) 1 gm TOP DAILY [facility] Last Admin: 12/09/18 09:32 Dose: 1 applic Oxycodone/Acetaminophen (Percocet 5/325 Mg Tab) 1 tab PO Q4H PRN PRN Reason: Pain, moderate (4-7) Stop: 12/11/18 17:53 Last Admin: 12/09/18 17:34 Dose: 1 tab Polyethylene Glycol (Miralax) 17 gm PO DAILY [facility] Last Admin: 12/09/18 09:25 Dose: 17 gm Rosuvastatin Calcium (Crestor) 10 mg PO HS [facility] Last Admin: 12/09/18 22:00 Dose: 10 mg - Labs Labs: 12/09/18 13:57 12/10/18 06:30 PT 11.2 SECONDS (9.7-12.2) 12/05/18 01:13 INR 1.0 12/05/18 01:13 APTT 37 SECONDS (21-34) H 12/05/18 01:13 - Constitutional Appears: No Acute Distress - Eye Exam Eye Exam: Normal appearance - ENT Exam ENT Exam: Mucous Membranes Moist - Neck Exam Neck Exam: Full ROM. absent: Lymphadenopathy - Respiratory Exam Respiratory Exam: Rhonchi. absent: Decreased Breath Sounds, Rales, Wheezes - Cardiovascular Exam Cardiovascular Exam: +S1, +S2. absent: Gallop - GI/Abdominal Exam GI & Abdominal Exam: Soft. absent: Guarding - Extremities Exam Extremities Exam: Full ROM, Normal Capillary Refill. absent: Pedal Edema Assessment and Plan - Assessment and Plan (Free Text) Assessment: Pelvic fx; NIDDM, HTN s/p prev CVA For PT and subacute Cont meds
[2018-12-10] MEDS: Calcium-Vit D 500 mg-200 Units Tab UD PO SCH ×2 (11:06→17:35)
[2018-12-10] MEDS: POLYETHYLENE GLYCOL 3350 17 GM/Dose PACKET PO SCH (11:06)
[2018-12-10] MEDS: Ammonium Lactate 12% Lotion (225 g) TOP SCH (11:10)
[2018-12-10] MEDS: (Novolog) Insulin Aspart, Recombinant 100 u/ml 10 ml vial SC SCH ×4 (11:11→21:48)
[2018-12-10] MEDS: cefTRIAXone IV 1 gm in Dextros 50 ML IVPB SCH (11:15)
[2018-12-11] MEDS: (Novolog) Insulin Aspart, Recombinant 100 u/ml 10 ml vial SC SCH ×4 (07:10→21:28)
[2018-12-11] MEDS: Calcium-Vit D 500 mg-200 Units Tab UD PO SCH ×2 (10:10→17:40)
[2018-12-11] MEDS: POLYETHYLENE GLYCOL 3350 17 GM/Dose PACKET PO SCH (10:10)
[2018-12-11] MEDS: cefTRIAXone IV 1 gm in Dextros 50 ML IVPB SCH (10:14)
[2018-12-11] MEDS: Ammonium Lactate 12% Lotion (225 g) TOP SCH (12:33)
[2018-12-11] MEDS: Oxycodone/Acetaminophen 5/325 mg Tab PO PRN (13:53)
--- NOTE | 2018-12-11 15:57 | CP.PCM.PN ---
Subjective - Date & Time of Evaluation Date of Evaluation: 12/11/18 Time of Evaluation: 15:54 - Subjective Subjective: S: Feels better. No fever Objective - Vital Signs/Intake and Output Vital Signs (last 24 hours): Temp Pulse Resp BP Pulse Ox 97.9 F 78 20 151/76 H 99 12/11/18 07:00 12/11/18 07:00 12/11/18 07:00 12/11/18 07:00 12/11/18 07:00 Intake and Output: 12/11/18 12/11/18 06:59 18:59 Output Total 1200 Balance -1200 - Medications Medications: Current Medications Amlodipine Besylate (Norvasc) 5 mg PO DAILY [facility] Last Admin: 12/11/18 10:10 Dose: 5 mg Calcium/Vitamin D (Oyster Shell Calcium/Vitamin D 500 Mg-200 Iu) 1 tab PO BID [facility] Last Admin: 12/11/18 10:10 Dose: 1 tab Clopidogrel Bisulfate (Plavix) 75 mg PO DAILY [facility] Last Admin: 12/11/18 10:10 Dose: 75 mg Docusate Sodium (Colace) 100 mg PO DAILY [facility] Last Admin: 12/11/18 10:10 Dose: 100 mg Gabapentin (Neurontin) 100 mg PO BID [facility] Last Admin: 12/11/18 10:10 Dose: 100 mg Glimepiride (Amaryl) 4 mg PO BID [facility] Last Admin: 12/11/18 10:10 Dose: 4 mg Heparin Sodium (Porcine) (Heparin) 5,000 units SC Q8 [facility] Last Admin: 12/11/18 13:50 Dose: 5,000 units Insulin Aspart (Novolog) 0 unit SC [facility]; Protocol Last Admin: 12/11/18 12:32 Dose: 2 unit Lactic Acid (Lac-Hydrin 12% Lotion (225 G)) 1 gm TOP DAILY [facility] Last Admin: 12/11/18 12:33 Dose: 1 applic Oxycodone/Acetaminophen (Percocet 5/325 Mg Tab) 1 tab PO Q4H PRN PRN Reason: Pain, moderate (4-7) Stop: 12/11/18 17:53 Last Admin: 12/11/18 13:53 Dose: 1 tab Polyethylene Glycol (Miralax) 17 gm PO DAILY [facility] Last Admin: 12/11/18 10:10 Dose: 17 gm Rosuvastatin Calcium (Crestor) 10 mg PO HS [facility] Last Admin: 12/10/18 21:49 Dose: 10 mg - Labs Labs: 12/09/18 13:57 12/10/18 06:30 PT 11.2 SECONDS (9.7-12.2) 12/05/18 01:13 INR 1.0 12/05/18 01:13 APTT 37 SECONDS (21-34) H 12/05/18 01:13 - Constitutional Appears: Chronically Ill - Head Exam Head Exam: NORMAL INSPECTION - ENT Exam ENT Exam: Mucous Membranes Dry - Neck Exam Neck Exam: Normal Inspection - Respiratory Exam Respiratory Exam: NORMAL BREATHING PATTERN - Cardiovascular Exam Cardiovascular Exam: REGULAR RHYTHM - GI/Abdominal Exam GI & Abdominal Exam: Soft - Rectal Exam Rectal Exam: Deferred - Extremities Exam Extremities Exam: Tenderness - Neurological Exam Neurological Exam: Awake Assessment and Plan (1) Fracture of right inferior pubic ramus Status: Acute (2) Diabetes Status: Chronic (3) CAD (coronary artery disease) Status: Acute (4) CAD (coronary artery disease) Status: Chronic - Assessment and Plan (Free Text) Assessment: A/P: Continue medication. Subacute placement
[2018-12-12] MEDS: (Novolog) Insulin Aspart, Recombinant 100 u/ml 10 ml vial SC SCH ×4 (08:15→21:26)
[2018-12-12] MEDS: POLYETHYLENE GLYCOL 3350 17 GM/Dose PACKET PO SCH (10:32)
[2018-12-12] MEDS: Calcium-Vit D 500 mg-200 Units Tab UD PO SCH ×2 (10:32→18:04)
[2018-12-12] MEDS: Ammonium Lactate 12% Lotion (225 g) TOP SCH (10:34)
[2018-12-12] MEDS: Oxycodone/Acetaminophen 5/325 mg Tab PO PRN (18:03)
[2018-12-13] MEDS: (Novolog) Insulin Aspart, Recombinant 100 u/ml 10 ml vial SC SCH ×4 (07:52→21:38)
[2018-12-13] MEDS: Oxycodone/Acetaminophen 5/325 mg Tab PO PRN ×2 (08:13→12:23)
--- NOTE | 2018-12-13 08:19 | CP.PCM.PN ---
Subjective - Date & Time of Evaluation Date of Evaluation: 12/13/18 Time of Evaluation: 08:05 - Subjective Subjective: Pt no complian; no CP, no cough, no SOB, no edma, no n/v Stand with PT but w/ a lot of pain Objective - Vital Signs/Intake and Output Vital Signs (last 24 hours): Temp Pulse Resp BP Pulse Ox 97.5 F L 65 20 144/82 96 12/12/18 23:20 12/12/18 23:20 12/12/18 23:20 12/12/18 23:20 12/12/18 23:20 Intake and Output: 12/13/18 12/13/18 06:59 18:59 Output Total 400 Balance -400 - Medications Medications: Current Medications Amlodipine Besylate (Norvasc) 5 mg PO DAILY [facility] Last Admin: 12/12/18 10:34 Dose: 5 mg Calcium/Vitamin D (Oyster Shell Calcium/Vitamin D 500 Mg-200 Iu) 1 tab PO BID [facility] Last Admin: 12/12/18 18:04 Dose: 1 tab Clopidogrel Bisulfate (Plavix) 75 mg PO DAILY [facility] Last Admin: 12/12/18 10:33 Dose: 75 mg Docusate Sodium (Colace) 100 mg PO DAILY [facility] Last Admin: 12/12/18 10:34 Dose: 100 mg Gabapentin (Neurontin) 100 mg PO BID [facility] Last Admin: 12/12/18 18:04 Dose: 100 mg Glimepiride (Amaryl) 4 mg PO BID [facility] Last Admin: 12/12/18 18:03 Dose: 4 mg Insulin Aspart (Novolog) 0 unit SC [facility]; Protocol Last Admin: 12/13/18 07:52 Dose: Not Given Lactic Acid (Lac-Hydrin 12% Lotion (225 G)) 1 gm TOP DAILY [facility] Last Admin: 12/12/18 10:34 Dose: 1 applic Oxycodone/Acetaminophen (Percocet 5/325 Mg Tab) 1 tab PO Q4H PRN PRN Reason: Pain, moderate (4-7) Stop: 12/15/18 15:45 Last Admin: 12/13/18 08:13 Dose: 1 tab Polyethylene Glycol (Miralax) 17 gm PO DAILY [facility] Last Admin: 12/12/18 10:32 Dose: 17 gm Rosuvastatin Calcium (Crestor) 10 mg PO [facility] Last Admin: 12/12/18 21:35 Dose: 10 mg - Labs Labs: 12/09/18 13:57 12/10/18 06:30 PT 11.2 SECONDS (9.7-12.2) 12/05/18 01:13 INR 1.0 12/05/18 01:13 APTT 37 SECONDS (21-34) H 12/05/18 01:13 - Constitutional Appears: No Acute Distress - Eye Exam Eye Exam: Normal appearance - ENT Exam ENT Exam: Mucous Membranes Moist - Neck Exam Neck Exam: Full ROM. absent: Lymphadenopathy, Normal Inspection - Respiratory Exam Respiratory Exam: Clear to Ausculation Bilateral. absent: Rales, Rhonchi, Wheezes - Cardiovascular Exam Cardiovascular Exam: REGULAR RHYTHM, +S1, +S2. absent: Gallop, JVD - GI/Abdominal Exam GI & Abdominal Exam: Soft. absent: Tenderness - Extremities Exam Extremities Exam: Full ROM. absent: Calf Tenderness, Pedal Edema Assessment and Plan - Assessment and Plan (Free Text) Assessment: Pelvic Fracture; HTN, NIDDM, CKD For STEVEN/ Cont meds
[2018-12-13 08:36] VITALS: O2SAT 97
[2018-12-13] MEDS: POLYETHYLENE GLYCOL 3350 17 GM/Dose PACKET PO SCH (10:21)
[2018-12-13] MEDS: Calcium-Vit D 500 mg-200 Units Tab UD PO SCH ×2 (10:21→17:31)
[2018-12-13] MEDS: Ammonium Lactate 12% Lotion (225 g) TOP SCH (10:22)
[2018-12-14] MEDS: (Novolog) Insulin Aspart, Recombinant 100 u/ml 10 ml vial SC SCH ×3 (07:35→17:36)
--- NOTE | 2018-12-14 08:15 | CP.PCM.PN ---
Subjective - Date & Time of Evaluation Date of Evaluation: 12/14/18 Time of Evaluation: 08:05 - Subjective Subjective: Pt no CP, no cough, no SOB, no edema, no dysuria, no n/v, no diarrhea. Did PT yesterday and still unable to stand by herself Objective - Vital Signs/Intake and Output Vital Signs (last 24 hours): Temp Pulse Resp BP Pulse Ox 98 F 69 20 129/70 97 12/13/18 23:30 12/13/18 23:30 12/13/18 23:30 12/13/18 23:30 12/13/18 23:30 Intake and Output: 12/14/18 12/14/18 06:59 18:59 Intake Total 350 Output Total 300 Balance 50 - Medications Medications: Current Medications Amlodipine Besylate (Norvasc) 5 mg PO DAILY [facility] Last Admin: 12/13/18 10:21 Dose: 5 mg Calcium/Vitamin D (Oyster Shell Calcium/Vitamin D 500 Mg-200 Iu) 1 tab PO BID [facility] Last Admin: 12/13/18 17:31 Dose: 1 tab Clopidogrel Bisulfate (Plavix) 75 mg PO DAILY [facility] Last Admin: 12/13/18 10:21 Dose: 75 mg Docusate Sodium (Colace) 100 mg PO DAILY [facility] Last Admin: 12/13/18 10:21 Dose: 100 mg Gabapentin (Neurontin) 100 mg PO BID [facility] Last Admin: 12/13/18 17:31 Dose: 100 mg Glimepiride (Amaryl) 4 mg PO BID [facility] Last Admin: 12/13/18 17:31 Dose: 4 mg Heparin Sodium (Porcine) (Heparin) 5,000 units SC Q12 [facility] Last Admin: 12/13/18 22:13 Dose: 5,000 units Insulin Aspart (Novolog) 0 unit SC A[facility]S [facility]; Protocol Last Admin: 12/13/18 21:38 Dose: Not Given Lactic Acid (Lac-Hydrin 12% Lotion (225 G)) 1 gm TOP DAILY [facility] Last Admin: 12/13/18 10:22 Dose: 1 applic Oxycodone/Acetaminophen (Percocet 5/325 Mg Tab) 1 tab PO Q4H PRN PRN Reason: Pain, moderate (4-7) Stop: 12/15/18 15:45 Last Admin: 12/13/18 12:23 Dose: 1 tab Polyethylene Glycol (Miralax) 17 gm PO DAILY [facility] Last Admin: 12/13/18 10:21 Dose: 17 gm Rosuvastatin Calcium (Crestor) 10 mg PO HS [facility] Last Admin: 12/13/18 22:12 Dose: 10 mg - Labs Labs: 12/09/18 13:57 12/10/18 06:30 PT 11.2 SECONDS (9.7-12.2) 12/05/18 01:13 INR 1.0 12/05/18 01:13 APTT 37 SECONDS (21-34) H 12/05/18 01:13 - Constitutional Appears: No Acute Distress - Eye Exam Eye Exam: Normal appearance - ENT Exam ENT Exam: Mucous Membranes Moist - Neck Exam Neck Exam: Full ROM. absent: Lymphadenopathy, Normal Inspection - Respiratory Exam Respiratory Exam: Decreased Breath Sounds. absent: Rales, Rhonchi, Wheezes - Cardiovascular Exam Cardiovascular Exam: REGULAR RHYTHM, +S1, +S2. absent: Gallop, JVD, Murmur - GI/Abdominal Exam GI & Abdominal Exam: Soft. absent: Guarding, Tenderness - Extremities Exam Extremities Exam: Full ROM, Normal Capillary Refill. absent: Calf Tenderness, Joint Swelling, Pedal Edema Assessment and Plan - Assessment and Plan (Free Text) Assessment: Unsteady gait; Pelvic Fx NIDDM, HTN, CKD prev CVA Cont meds/ for Subacute
[2018-12-14] MEDS: Ammonium Lactate 12% Lotion (225 g) TOP SCH (10:29)
[2018-12-14] MEDS: POLYETHYLENE GLYCOL 3350 17 GM/Dose PACKET PO SCH (10:30)
[2018-12-14] MEDS: Oxycodone/Acetaminophen 5/325 mg Tab PO PRN (10:30)
[2018-12-14] MEDS: Calcium-Vit D 500 mg-200 Units Tab UD PO SCH ×2 (10:36→17:35)
[2018-12-14 16:27] VITALS: BP 123/71; PULSE 69; TEMP 98.3
== END 2018-12-14 20:45 | DRG 536 ==
LOC: C.ER 00:33 → C.9E 02:45 → C.6T 18:12
PROVIDERS: ADMIT Internal Medicine; ATTEND Internal Medicine
DX: S32.810A Multiple fractures of pelvis with stable disruption of pelvic ring, initial encounter for closed fracture (principal); E11.22 Type 2 diabetes mellitus with diabetic chronic kidney disease; I12.9 Hypertensive chronic kidney disease with stage 1 through stage 4 chronic kidney disease, or unspecified chronic kidney disease; N18.9 Chronic kidney disease, unspecified; I25.10 Atherosclerotic heart disease of native coronary artery without angina pectoris; J44.9 Chronic obstructive pulmonary disease, unspecified; W01.0XXA Fall on same level from slipping, tripping and stumbling without subsequent striking against object, initial encounter; Y92.009 Unspecified place in unspecified non-institutional (private) residence as the place of occurrence of the external cause; Z79.84 Long term (current) use of oral hypoglycemic drugs; Z86.73 Personal history of transient ischemic attack (TIA), and cerebral infarction without residual deficits; Z87.891 Personal history of nicotine dependence; Z95.5 Presence of coronary angioplasty implant and graft

== ENCOUNTER 2019-03-19 03:09 | Inpatient (IN) | payer OTHER, MEDICARE ==
[2019-03-19 03:09] VITALS: BMI 22.1
[2019-03-19] MEDS ORDERED: Sodium Chloride 0.9% 1,000 ML IV ONE (03:30)
--- NOTE | 2019-03-19 03:30 | C.PDOC ---
History Of Present Illness Patient presents with constipation with no bowel movement for the past 3 weeks. She has been taking colace with no relief. Denies fever, chills, nausea, or vomiting. Time Seen by Provider: 03/19/19 03:30 Chief Complaint (Nursing): GI Problem History Per: Patient History/Exam Limitations: no limitations Onset/Duration Of Symptoms: Days (3 weeks) Current Symptoms Are (Timing): Still Present Severity: Moderate Pain Scale Rating Of: 4 Quality Of Discomfort: Unable To Describe Associated Symptoms: Constipation. denies: Fever, Chills, Nausea, Vomiting Exacerbating Factors: None Alleviating Factors: None Last Bowel Movement: Days Ago Recent travel outside of the [place]: No Additional History Per: Patient Past Medical History Reviewed: Historical Data, Nursing Documentation, Vital Signs Vital Signs: Last Vital Signs Temp 98.3 F 03/19/19 03:21 Pulse 85 03/19/19 03:21 Resp 16 03/19/19 03:21 BP 150/81 03/19/19 03:21 Pulse Ox 99 03/19/19 03:21 - Medical History PMH: Asthma, COPD, Fractures, Gall Bladder Disease, HTN Denies: Chronic Kidney Disease Surgical History: Coronary Stent (2012) Denies: Pacemaker - [facility] CORONAR ARTERIOGR-2 CATH (09/16/13) FLUOROSCOPY OF BLADDER USING LOW OSMOLAR CONTRAST (05/25/17) INJECT ANTICOAGULANT (09/28/13) INSERTION OF ONE VASCULAR STENT (09/28/13) INSRT OF DRUG-ELUTING CORON ARTERY STENTS(S) (09/28/13) LEFT HEART CARDIAC CATH (09/16/13) LT HEART ANGIOCARDIOGRAM (09/16/13) MEASUREMENT OF URINARY PRESSURE, VIA OPENING (05/25/17) PERCUTANEOUS TRANSLUMINAL CORONARY ANGIOPLASTY [PTCA] (09/28/13) PROCEDURE ON SINGLE VESSEL (09/28/13) THORACENTESIS (07/23/15) Family History: States: No Known Family Hx - Social History Hx Alcohol Use: No Hx Substance Use: No - Immunization History Hx Tetanus Toxoid Vaccination: No Hx Influenza Vaccination: No Hx Pneumococcal Vaccination: No Review Of Systems Constitutional: Negative for: Fever, Chills Cardiovascular: Negative for: Chest Pain, Palpitations Respiratory: Positive for: Cough. Negative for: Shortness of Breath Gastrointestinal: Positive for: Constipation. Negative for: Nausea, Vomiting Genitourinary: Negative for: Dysuria Musculoskeletal: Negative for: Back Pain Skin: Negative for: Rash Neurological: Negative for: Weakness, Numbness Psych: Negative for: Anxiety Physical Exam - Physical Exam Appears: Non-toxic Skin: Warm, Dry Head: Normacephalic Oral Mucosa: Moist Neck: Supple Chest: Symmetrical, No Tenderness Cardiovascular: Rhythm Regular Respiratory: No Rales, Rhonchi (r base), No Wheezing Gastrointestinal/Abdominal: Soft, No Tenderness, Distention, Other (Tympanic to percussion) Back: No CVA Tenderness Extremity: No Tenderness Extremity: Bilateral: Atraumatic Neurological/Psych: Oriented x3, Normal Speech Gait: Unable To Assess ED Course And Treatment - Laboratory Results Result Diagrams: 03/19/19 04:02 03/19/19 04:02 O2 Sat by Pulse Oximetry: 99 (room air) Pulse Ox Interpretation: Normal Progress Note: Blood work and urinalysis ordered. IV fluids administered. Disposition Discussed With DrSheri: Herman Arambula Comment: accepted the pt on his service and took over the care at 6:35 AM Doctor Will See Patient In The: Hospital Counseled Patient/Family Regarding: Studies Performed, Diagnosis - Disposition Disposition: HOSPITALIZED Disposition Time: 03:30 Condition: FAIR Instructions: Weakness (ED) Forms: [facility] ([place]) - POA Present On Arrival: Poor Glycemic Control - Clinical Impression Clinical Impression: Abdominal pain, Generalized weakness, Pneumonia, Enteritis - Scribe Statement The provider has reviewed the documentation as recorded by the Scribakilah Daniels All medical record entries made by the Scribe were at my direction and personally dictated by me. I have reviewed the chart and agree that the record accurately reflects my personal performance of the history, physical exam, medical decision making, and the department course for this patient. I have also personally directed, reviewed, and agree with the discharge instructions and disposition. Decision To Admit - Pt Status Changed To: Hospital Disposition Of: Inpatient - Admit Certification Admit to Inpatient:: After my assessment, the patient will require ho spitalization for at least two midnights. This is because of the severity of symptoms shown, intensity of services needed, and/or the medical risk in this patient being treated as an outpatient. - InPatient: Physician Admission Certification:: After my assessment, the patient will require hospitalization for at least two midnights. This is because of the se verity of symptoms shown, intensity of services needed, and/or the medical risk in this patient being treated as an outpatient. - . Bed Request Type: Regular Admitting Physician: Herman Arambula Patient Diagnosis: Abdominal pain, Generalized weakness, Pneumonia, Enteritis
[2019-03-19 04:07] LABS: BASO # 0.1 K/uL (0.0-0.2); BASO % 1.3 % (0.0-2.0); EOS # 0.4 K/uL (0.0-0.7); EOS % 4.7 % (0.0-4.0); HEMOGLOBIN 12.7 g/dL (11.0-16.0); LYMPH # 1.9 K/uL (1.0-4.3); LYMPH % 22.4 % (20.0-40.0); MEAN CELL VOLUME 86.3 fL (81.0-99.0); MEAN CORPUSCULAR HEMOGLOBIN 28.6 pg (27.0-31.0); MEAN CORPUSCULAR HGB CONC 33.1 g/dL (33.0-37.0); MEAN PLATELET VOLUME 6.9 fL (7.2-11.7); MONO # 0.6 K/uL (0.0-0.8); MONO % 7.1 % (0.0-10.0); NEUT # 5.4 K/uL (1.8-7.0); NEUT % 64.5 % (50.0-75.0); RBC 4.44 Mil/uL (3.80-5.20); RED CELL DISTRIBUTION WIDTH 13.3 % (11.5-14.5); WHITE BLOOD COUNT 8.3 K/uL (4.8-10.8)
[2019-03-19 04:17] LABS: ALB/GLOB RATIO 1.3 (1.0-2.1); ALBUMIN 4.1 g/dL (3.5-5.0); AST/SGOT 16 U/L (14-36); BLOOD UREA NITROGEN 32 mg/dL (7-17); CALCIUM 8.8 mg/dl (8.6-10.4); GFR NON-AFRICAN AMERICAN 30; LIPASE 41 U/L (23-300)
[2019-03-19 04:25] LABS: ALT/SGPT < 6 U/L (9-52)
[2019-03-19 05:45] LABS: SQUAMOUS EPITHIAL 1 /hpf (0-5); URINE BILIRUBIN NEGATIVE (NEGATIVE); URINE BLOOD NEGATIVE (NEGATIVE); URINE CLARITY Hazy (Clear); URINE COLOR Yellow (YELLOW); URINE GLUCOSE (UA) NORMAL (Normal); URINE LEUKOCYTE ESTERASE NEG Leu/uL (Negative); URINE PROTEIN NEGATIVE (NEGATIVE); URINE UROBILINOGEN NORMAL mg/dL (0.2-1.0)
[2019-03-19] MEDS ORDERED: Piperacillin/Tazobact 3.375 gm 100 ML IVPB STA (06:31)
[2019-03-19] MEDS ORDERED: Piperacillin/Tazobact 3.375 gm 100 ML IVPB ONE (06:41)
[2019-03-19] MEDS: POLYETHYLENE GLYCOL 3350 17 GM/Dose PACKET PO SCH ×3 (10:16→21:46)
[2019-03-19] MEDS: Calcium-Vit D 500 mg-200 Units Tab UD PO SCH ×2 (10:16→17:57)
[2019-03-19] MEDS: (Novolin R) Insulin Human Regular 100 units/ml vial SC SCH ×3 (12:15→21:45)
[2019-03-19] MEDS ORDERED: Mineral Oil Enema 135 ml PR ONE (13:06)
--- NOTE | 2019-03-19 13:06 | CP.PCM.CON ---
History of Present Illness - History of Present Illness History of Present Illness: Asked by Dr. Arambula for a GI consultation on this patient. 63 year old female with history of DM, COPD, CAD s/p stent, dementia, chronic constipation who presents to hospital with complaint of progressive abdominal pain. She reports LUQ pain, 5/10 intensity for the past one week with difficulty having bowel movement. She typically takes colace and miralax at home though reports that this has not been helping her. She denies nausea, vomiting, fever/chills, weight loss, rectal bleeding, or change in bowel habits. She claims to have had an EGD/colonoscopy in the past but cannot recall details. Social history: former smoker, no ETOH use Family history: brother (unknown cancer) Review of Systems - Review of Systems Review of Systems: - All other comprehensive 12 point review of systems performed, negative - Cardiovascular Cardiovascular: absent: Acrocyanosis, Chest Pain, Chest Pain at Rest, Chest Pain with Activity, Claudication, Diaphoresis, Dyspnea, Dyspnea on Exertion, Edema, Irregular Heart Rhythm, Pain Radiating to Arm/Neck/Jaw, Leg Edema, Leg Ulcers, Lightheadedness, Orthopnea, Palpitations, Paroxysmal Nocturnal Dyspnea, Pedal Edema, Radiating Pain, Rapid Heart Rate, Slow Heart Rate, Syncope, Other - Respiratory Respiratory: absent: Cough, Dyspnea, Hemoptysis, Dyspnea on Exertion, Wheezing, Snoring, Stridor, Pain on Inspiration, Chest Congestion, Excessive Mucous Production, Change in Mucous Color, Pain with Coughing, Other - Gastrointestinal Gastrointestinal: Abdominal Pain, Constipation - Musculoskeletal Musculoskeletal: absent: Abnormal Gait, Arthralgias, Atrophy, Back Pain, Deformity, Joint Swelling, Limited Range of Motion, Loss of Height, Muscle Cramps, Muscle Weakness, Myalgias, Neck Pain, Numbness, Radiating Pain into Limb, Stiffness, Tingling, Other - Neurological Neurological: Memory Loss Past Patient History - Infectious Disease Hx of Infectious Diseases: None - Past Medical History & Family History Past Medical History?: Yes - Past Social History Smoking Status: Former Smoker - CARDIAC Hx Hypertension: Yes Hx Pacemaker: No - PULMONARY Hx Asthma: Yes Hx Chronic Obstructive Pulmonary Disease (COPD): Yes - NEUROLOGICAL Hx Neurological Disorder: No Hx Paralysis: No - HEENT Hx HEENT Problems: No - RENAL Hx Chronic Kidney Disease: No - ENDOCRINE/METABOLIC Hx Endocrine Disorders: Yes Hx Diabetes Mellitus Type 2: Yes - HEMATOLOGICAL/ONCOLOGICAL Hx Blood Disorders: No Hx Blood Transfusions: No Hx Blood Transfusion Reaction: No - INTEGUMENTARY Hx Dermatological Problems: No - MUSCULOSKELETAL/RHEUMATOLOGICAL Hx Fractures: Yes - GASTROINTESTINAL Hx Gall Bladder Disease: Yes - GENITOURINARY/GYNECOLOGICAL Hx Genitourinary Disorders: Yes Hx Incontinence: Yes - PSYCHIATRIC Hx Substance Use: No - SURGICAL HISTORY Hx Coronary Stent: Yes (2012) - ANESTHESIA Hx Anesthesia: Yes Hx Anesthesia Reactions: No Hx Malignant Hyperthermia: No Meds Allergies/Adverse Reactions: Allergies Allergy/AdvReac Type Severity Reaction Status Date / Time iodine Allergy Verified 12/05/18 00:47 Latex, Natural Rubber Allergy Verified 12/05/18 00:47 pentazocine [From [facility]] Allergy Verified 12/05/18 00:47 - Medications Medications: Current Medications Amlodipine Besylate (Norvasc) 5 mg PO DAILY [facility] Last Admin: 03/19/19 10:16 Dose: 5 mg Calcium/Vitamin D (Oyster Shell Calcium/Vitamin D 500 Mg-200 Iu) 1 tab PO BID [facility] Last Admin: 03/19/19 10:16 Dose: 1 tab Clopidogrel Bisulfate (Plavix) 75 mg PO DAILY [facility] Last Admin: 03/19/19 10:16 Dose: 75 mg Gabapentin (Neurontin) 100 mg PO BID [facility] Last Admin: 03/19/19 10:16 Dose: 100 mg Glimepiride (Amaryl) 2 mg PO DAILY [facility] Last Admin: 03/19/19 10:16 Dose: 2 mg Heparin Sodium (Porcine) (Heparin) 5,000 units SC Q12 [facility] Last Admin: 03/19/19 10:16 Dose: 5,000 units Piperacillin Sod/Tazobactam (Sod 3.375 gm/ Sodium Chloride) 100 mls @ 200 mls/hr IVPB Q8H [facility]; Protocol Insulin Human Regular (Novolin R) 0 unit SC ACHS [facility]; Protocol Last Admin: 03/19/19 12:15 Dose: 2 units Polyethylene Glycol (Miralax) 17 gm PO BID [facility] Last Admin: 03/19/19 10:16 Dose: 17 gm Rosuvastatin Calcium (Crestor) 10 mg PO HS [facility] Physical Exam - Constitutional Appears: Non-toxic, No Acute Distress - Head Exam Head Exam: NORMAL INSPECTION - Eye Exam Eye Exam: EOMI, Normal appearance - ENT Exam ENT Exam: Mucous Membranes Moist - Respiratory Exam Respiratory Exam: Clear to Auscultation Bilateral - Cardiovascular Exam Cardiovascular Exam: +S1, +S2 - GI/Abdominal Exam GI & Abdominal Exam: Normal Bowel Sounds, Soft, Tenderness Additional comments: LUQ tenderness to palpation, no rebound/guarding no palpable hepato/splenomegaly - Extremities Exam Extremities exam: Positive for: normal inspection - Neurological Exam Neurological exam: Alert, CN II-XII Intact, Oriented x3, Reflexes Normal - Psychiatric Exam Psychiatric exam: Normal Affect, Normal Mood - Skin Skin Exam: Dry, Intact, Normal Color, Warm Results - Vital Signs Recent Vital Signs: Last Vital Signs Temp 97.7 F 03/19/19 08:00 Pulse 84 03/19/19 08:00 Resp 20 03/19/19 08:00 BP 163/88 H 03/19/19 08:00 Pulse Ox 97 03/19/19 08:00 - Labs Result Diagrams: 03/19/19 04:02 03/19/19 04:02 Labs: Laboratory Results - last 24 hr 03/19/19 03/19/19 03/19/19 04:02 04:02 05:24 WBC 8.3 RBC 4.44 Hgb 12.7 Hct 38.4 MCV 86.3 D MCH 28.6 MCHC 33.1 RDW 13.3 Plt Count 424 H MPV 6.9 L Neut % (Auto) 64.5 Lymph % (Auto) 22.4 [place] % (Auto) 7.1 Eos % (Auto) 4.7 H Baso % (Auto) 1.3 Neut # (Auto) 5.4 Lymph # (Auto) 1.9 [place] # (Auto) 0.6 Eos # (Auto) 0.4 Baso # (Auto) 0.1 Sodium 134 Potassium 4.6 Chloride 106 Carbon Dioxide 22 Anion Gap 11 BUN 32 H Creatinine 1.7 H Est GFR ( Amer) 37 Est GFR (Non-Af Amer) 30 POC Glucose (mg/dL) Random Glucose 108 H D Calcium 8.8 Total Bilirubin 0.4 AST 16 ALT < 6 L D Alkaline Phosphatase 83 Total Protein 7.1 Albumin 4.1 Globulin 3.0 Albumin/Globulin Ratio 1.3 Lipase 41 Urine Color Yellow Urine Clarity Hazy Urine pH 5.0 Ur Specific [place] 1.019 Urine Protein Negative Urine Glucose (UA) Normal Urine Ketones Negative Urine Blood Negative Urine Nitrate Negative Urine Bilirubin Negative Urine Urobilinogen Normal Ur Leukocyte Esterase Neg Urine WBC (Auto) 2 Urine RBC (Auto) < 1 Ur Squamous Epith Cells 1 Hyaline Casts 3-5 H 03/19/19 11:17 WBC RBC Hgb Hct MCV MCH MCHC RDW Plt Count MPV Neut % (Auto) Lymph % (Auto) [place] % (Auto) Eos % (Auto) Baso % (Auto) Neut # (Auto) Lymph # (Auto) [place] # (Auto) Eos # (Auto) Baso # (Auto) Sodium Potassium Chloride Carbon Dioxide Anion Gap BUN Creatinine Est GFR ( Amer) Est GFR (Non-Af Amer) POC Glucose (mg/dL) 161 H Random Glucose Calcium Total Bilirubin AST ALT Alkaline Phosphatase Total Protein Albumin Globulin Albumin/Globulin Ratio Lipase Urine Color Urine Clarity Urine pH Ur Specific [place] Urine Protein Urine Glucose (UA) Urine Ketones Urine Blood Urine Nitrate Urine Bilirubin Urine Urobilinogen Ur Leukocyte Esterase Urine WBC (Auto) Urine RBC (Auto) Ur Squamous Epith Cells Hyaline Casts Assessment & Plan - Assessment and Plan (Free Text) Assessment: DM COPD Dementia Chronic constipation, abdominal pain CAD CT imaging reviewed by me showing fecal retention, particularly L side of colon, s/p cholecystectomy, enteritis with thick walled duodenum Plan: - Diet as tolerated - Continue with antibiotic therapy as per medical team, pneumonia seen on CT imaging - Continue with miralax, would administer tap water enema today for further relief of distal fecal retention - Will continue to monitor patient clinical course - Date & Time Date: 03/19/19 Time: 13:06
--- NOTE | 2019-03-19 14:21 | CT ---
Date of service: 03/19/2019 PROCEDURE: CT Abdomen and Pelvis without intravenous contrast HISTORY: abd pain, constipation COMPARISON: Not available TECHNIQUE: Without contrast.. Contrast dose: 0 Radiation dose: Total exam DLP = 308.61 mGy-cm. This CT exam was performed using one or more of the following dose reduction techniques: Automated exposure control, adjustment of the mA and/or kV according to patient size, and/or use of iterative reconstruction technique. FINDINGS: LOWER THORAX: There is some right lower lobe opacity. Rule out pneumonia. Minimal right pleural effusion. LIVER: Unremarkable. No gross lesion or ductal dilatation. GALLBLADDER AND BILE DUCTS: Status post cholecystectomy. PANCREAS: Unremarkable. No gross lesion or ductal dilatation. SPLEEN: Unremarkable. ADRENALS: Unremarkable. No mass. KIDNEYS AND URETERS: Bilateral renal vascular calcifications are noted. No hydronephrosis. There is trace right perinephric stranding of uncertain significance. This may be seen with pyelonephritis or urinary tract obstruction. There is no evidence of urinary tract obstruction. VASCULATURE: Unremarkable. No aortic aneurysm. There is atherosclerotic calcification of the abdominal aorta. BOWEL: Unremarkable. No obstruction. No gross mural thickening. APPENDIX: Unremarkable. Normal appendix. PERITONEUM: Unremarkable. No free fluid. No free air. LYMPH NODES: Unremarkable. No enlarged lymph nodes. BLADDER: Diffusely thick walled. Poorly distended. Suspicious for cystitis. Correlate with urinalysis. REPRODUCTIVE: Unremarkable postmenopausal uterus. BONES: No acute fracture. OTHER FINDINGS: None. IMPRESSION: Findings concerning for acute cystitis. Trace right perinephric stranding. Rule out pyelonephritis. Pyelonephritis diagnosis cannot be reliably made in the absence of intravenous contrast administration. Patchy right lower lobe opacity. Rule out pneumonia. Trace right pleural effusion. The preliminary findings for this examination were reported by [facility] at 6:28 a.m. on 03/19/2019. There is discordance of this report with the preliminary findings. There is no evidence of enteritis on the basis of this examination.
[2019-03-19] MEDS: Piperacillin/Tazobact 3.375 GM in Sodium Chloride 100 ML IVPB SCH ×2 (14:55→21:45)
--- NOTE | 2019-03-19 15:13 | CP.PCM.HP ---
History of Present Illness - History of Present Illness History of Present Illness: HPI: 63 y/o female H/o CAD, HTN, Diabetes c/o abdominal pain weeks. No SOB. No chest pain . No fever. Seen in ER . Non-compliant Present on Admission - Present on Admission Any Indicators Present on Admission: Yes History of DVT/PE: No History of Uncontrolled Diabetes: Yes Urinary Catheter: No Decubitus Ulcer Present: No Review of Systems - Review of Systems All systems: reviewed and no additional remarkable complaints except (no fever, constipation, skin rash legs , poor appetite) Past Patient History - Infectious Disease Hx of Infectious Diseases: None - Past Medical History & Family History Past Medical History?: Yes - Past Social History Smoking Status: Former Smoker - CARDIAC Hx Hypertension: Yes Hx Pacemaker: No - PULMONARY Hx Asthma: Yes Hx Chronic Obstructive Pulmonary Disease (COPD): Yes - NEUROLOGICAL Hx Neurological Disorder: No Hx Paralysis: No - HEENT Hx HEENT Problems: No - RENAL Hx Chronic Kidney Disease: No - ENDOCRINE/METABOLIC Hx Endocrine Disorders: Yes Hx Diabetes Mellitus Type 2: Yes - HEMATOLOGICAL/ONCOLOGICAL Hx Blood Disorders: No Hx Blood Transfusions: No Hx Blood Transfusion Reaction: No - INTEGUMENTARY Hx Dermatological Problems: No - MUSCULOSKELETAL/RHEUMATOLOGICAL Hx Falls: Yes Hx Fractures: Yes - GASTROINTESTINAL Hx Gall Bladder Disease: Yes - GENITOURINARY/GYNECOLOGICAL Hx Genitourinary Disorders: Yes Hx Incontinence: Yes - PSYCHIATRIC Hx Substance Use: No - SURGICAL HISTORY Hx Coronary Stent: Yes (2012) - ANESTHESIA Hx Anesthesia: Yes Hx Anesthesia Reactions: No Hx Malignant Hyperthermia: No Meds Allergies/Adverse Reactions: Allergies Allergy/AdvReac Type Severity Reaction Status Date / Time iodine Allergy Verified 12/05/18 00:47 Latex, Natural Rubber Allergy Verified 12/05/18 00:47 pentazocine [From Talwin] Allergy Verified 12/05/18 00:47 Physical Exam - Constitutional Appears: Chronically Ill - Head Exam Head Exam: NORMAL INSPECTION - Eye Exam Eye Exam: Normal appearance - ENT Exam ENT Exam: Normal Exam - Neck Exam Neck exam: Positive for: Normal Inspection - Respiratory Exam Respiratory Exam: NORMAL BREATHING PATTERN - Cardiovascular Exam Cardiovascular Exam: REGULAR RHYTHM - GI/Abdominal Exam GI & Abdominal Exam: Distended - Rectal Exam Rectal Exam: Deferred - Extremities Exam Extremities exam: Positive for: tenderness (skin rash, excoriations noted) - Neurological Exam Neurological exam: Alert Results - Vital Signs Recent Vital Signs: Last Vital Signs Temp 97.7 F 03/19/19 08:00 Pulse 84 03/19/19 08:00 Resp 20 03/19/19 08:00 BP 163/88 H 03/19/19 08:00 Pulse Ox 97 03/19/19 08:00 - Labs Result Diagrams: 03/19/19 04:02 03/19/19 04:02 Labs: Laboratory Results - last 24 hr 03/19/19 03/19/19 03/19/19 04:02 04:02 05:24 WBC 8.3 RBC 4.44 Hgb 12.7 Hct 38.4 MCV 86.3 D MCH 28.6 MCHC 33.1 RDW 13.3 Plt Count 424 H MPV 6.9 L Neut % (Auto) 64.5 Lymph % (Auto) 22.4 [place] % (Auto) 7.1 Eos % (Auto) 4.7 H Baso % (Auto) 1.3 Neut # (Auto) 5.4 Lymph # (Auto) 1.9 Deuel # (Auto) 0.6 Eos # (Auto) 0.4 Baso # (Auto) 0.1 Sodium 134 Potassium 4.6 Chloride 106 Carbon Dioxide 22 Anion Gap 11 BUN 32 H Creatinine 1.7 H Est GFR ( Amer) 37 Est GFR (Non-Af Amer) 30 POC Glucose (mg/dL) Random Glucose 108 H D Calcium 8.8 Total Bilirubin 0.4 AST 16 ALT < 6 L D Alkaline Phosphatase 83 Total Protein 7.1 Albumin 4.1 Globulin 3.0 Albumin/Globulin Ratio 1.3 Lipase 41 Urine Color Yellow Urine Clarity Hazy Urine pH 5.0 Ur Specific [place] 1.019 Urine Protein Negative Urine Glucose (UA) Normal Urine Ketones Negative Urine Blood Negative Urine Nitrate Negative Urine Bilirubin Negative Urine Urobilinogen Normal Ur Leukocyte Esterase Neg Urine WBC (Auto) 2 Urine RBC (Auto) < 1 Ur Squamous Epith Cells 1 Hyaline Casts 3-5 H 03/19/19 11:17 WBC RBC Hgb Hct MCV MCH MCHC RDW Plt Count MPV Neut % (Auto) Lymph % (Auto) Deuel % (Auto) Eos % (Auto) Baso % (Auto) Neut # (Auto) Lymph # (Auto) Deuel # (Auto) Eos # (Auto) Baso # (Auto) Sodium Potassium Chloride Carbon Dioxide Anion Gap BUN Creatinine Est GFR ( Amer) Est GFR (Non-Af Amer) POC Glucose (mg/dL) 161 H Random Glucose Calcium Total Bilirubin AST ALT Alkaline Phosphatase Total Protein Albumin Globulin Albumin/Globulin Ratio Lipase Urine Color Urine Clarity Urine pH Ur Specific [place] Urine Protein Urine Glucose (UA) Urine Ketones Urine Blood Urine Nitrate Urine Bilirubin Urine Urobilinogen Ur Leukocyte Esterase Urine WBC (Auto) Urine RBC (Auto) Ur Squamous Epith Cells Hyaline Casts Assessment & Plan (1) Abdominal pain Status: Acute (2) CAD (coronary artery disease) Status: Chronic (3) Diabetes Status: Chronic - Assessment and Plan (Free Text) Assessment: A/P: continue medicatiion - Date & Time Date: 03/19/19 Time: 15:17
[2019-03-19] MEDS ORDERED: Bisacodyl 5mg EC Tab PO ONE (17:00)
[2019-03-19] MEDS: Hydrocortisone 2.5% Oint (20 gm) TOP SCH (17:56)
[2019-03-20] MEDS: Piperacillin/Tazobact 3.375 GM in Sodium Chloride 100 ML IVPB SCH ×3 (05:46→22:04)
[2019-03-20] MEDS: (Novolin R) Insulin Human Regular 100 units/ml vial SC SCH ×4 (08:04→22:05)
--- NOTE | 2019-03-20 08:41 | CP.PCM.PN ---
Subjective - Date & Time of Evaluation Date of Evaluation: 03/20/19 Time of Evaluation: 08:37 - Subjective Subjective: Patient seen and examined, resting in bed comfortably. She reports ongoing LUQ abdominal pain though improved compared to prior. She denies nausea, vomiting, fever/chills. She completed her breakfast tray in entirety. Review of vitals from today are normal. 12 point review of systems performed, negative aside from mentioned above. Objective - Vital Signs/Intake and Output Vital Signs (last 24 hours): Temp Pulse Resp BP Pulse Ox 98.5 F 71 20 150/80 98 03/20/19 08:34 03/20/19 08:34 03/20/19 08:34 03/20/19 08:34 03/20/19 08:34 Intake and Output: 03/20/19 03/20/19 06:59 18:59 Intake Total 910 Balance 910 - Medications Medications: Current Medications Amlodipine Besylate (Norvasc) 5 mg PO DAILY [facility] Last Admin: 03/19/19 10:16 Dose: 5 mg Calcium/Vitamin D (Oyster Shell Calcium/Vitamin D 500 Mg-200 Iu) 1 tab PO BID [facility] Last Admin: 03/19/19 17:57 Dose: 1 tab Clopidogrel Bisulfate (Plavix) 75 mg PO DAILY [facility] Last Admin: 03/19/19 10:16 Dose: 75 mg Gabapentin (Neurontin) 100 mg PO BID [facility] Last Admin: 03/19/19 17:57 Dose: 100 mg Glimepiride (Amaryl) 2 mg PO DAILY [facility] Last Admin: 03/19/19 10:16 Dose: 2 mg Heparin Sodium (Porcine) (Heparin) 5,000 units SC Q12 [facility] Last Admin: 03/19/19 21:44 Dose: 5,000 units Hydrocortisone (Cortizone 2.5%) 0 gm TOP BID [facility] Last Admin: 03/19/19 17:56 Dose: 1 applic Piperacillin Sod/Tazobactam (Sod 3.375 gm/ Sodium Chloride) 100 mls @ 200 mls/hr IVPB Q8H [facility]; Protocol Last Admin: 03/20/19 05:46 Dose: 200 mls/hr Insulin Human Regular (Novolin R) 0 unit SC ACHS [facility]; Protocol Last Admin: 03/20/19 08:04 Dose: Not Given Pneumococcal Polyvalent Vaccine (Pneumovax 23 Vaccine) 0.5 ml IM .ONCE ONE Stop: 03/22/19 10:01 Polyethylene Glycol (Miralax) 17 gm PO BID [facility] Last Admin: 03/19/19 21:46 Dose: 17 gm Rosuvastatin Calcium (Crestor) 10 mg PO HS [facility] Last Admin: 03/19/19 21:44 Dose: 10 mg - Labs Labs: 03/19/19 04:02 03/19/19 04:02 - Constitutional Appears: Non-toxic, No Acute Distress - Head Exam Head Exam: NORMAL INSPECTION - Eye Exam Eye Exam: EOMI, Normal appearance - ENT Exam ENT Exam: Mucous Membranes Moist - Respiratory Exam Respiratory Exam: Clear to Ausculation Bilateral - Cardiovascular Exam Cardiovascular Exam: +S1, +S2 - GI/Abdominal Exam GI & Abdominal Exam: Soft, Normal Bowel Sounds Additional comments: mild LUQ tenderness to palpation, no rebound/guarding - Extremities Exam Extremities Exam: Normal Inspection - Skin Skin Exam: Dry, Intact, Normal Color, Warm Assessment and Plan - Assessment and Plan (Free Text) Assessment: DM/HTN COPD Dementia Abdominal pain, constipation CAD Plan: - Diet as tolerated - No significant bowel movement following mineral oil enema yesterday, will reattempt tap water enema today and observe clinical response - Maintain bowel regimen to prevent constipation - Will continue to monitor patient clinical course
[2019-03-20] MEDS: POLYETHYLENE GLYCOL 3350 17 GM/Dose PACKET PO SCH ×2 (10:23→17:24)
[2019-03-20] MEDS: Calcium-Vit D 500 mg-200 Units Tab UD PO SCH ×2 (10:24→17:25)
[2019-03-20] MEDS: Hydrocortisone 2.5% Oint (20 gm) TOP SCH ×2 (10:43→18:06)
--- NOTE | 2019-03-20 15:11 | CP.PCM.CON ---
History of Present Illness - History of Present Illness History of Present Illness: 63 year old female with history of DM, COPD, CAD s/p stent, dementia, chronic constipation who presents to hospital with complaint of progressive abdominal pain. She reports LUQ pain, 5/10 intensity for the past one week with difficult y having bowel movement. She also c/o coughand congestion Fever on and off but recorded temp here was normal Septic work up sent Social history: former smoker, no ETOH use Family history: brother (unknown cancer) awake and alert no new complaints interim events noted patient examined entries reviewed labs reviewed orders signed Review of Systems - Review of Systems All systems: reviewed and no additional remarkable complaints except - Constitutional Constitutional: As Per HPI - EENT Eyes: absent: As Per HPI, Blind Spots, Blurred Vision, Change in Vision, Decreased Night Vision, Diplopia, Discharge, Dry Eye, Exophthalmos, Floaters, Irritation, Itchy Eyes, Loss of Peripheral Vision, Pain, Photophobia, Requires Corrective Lenses, Sees Flashes, Spots in Vision, Tunnel Vision, Other Visual Disturbances, Loss of Vision, Other Ears: absent: As Per HPI, Decreased Hearing, Ear Discharge, Ear Pain, Tinnitus, Abnormal Hearing, Disequilibrium, Dizziness, Other Nose/Mouth/Throat: absent: As Per HPI, Epistaxis, Nasal Congestion, Nasal Discharge, Nasal Obstruction, Nasal Trauma, Nose Pain, Post Nasal Drip, Sinus Pain, Sinus Pressure, Bleeding Gums, Change in Voice, Dental Pain, Dry Mouth, Dysphagia, Halitosis, Hoarsness, Lip Swelling, Mouth Lesions, Mouth Pain, Odynophagia, Sore Throat, Throat Swelling, Tongue Swelling, Facial Pain, Neck Pain, Neck Mass, Other - Breasts Breasts: absent: As Per HPI, Change in Shape, Mass, Pain, Nipple Discharge, Nipple Inversion, Skin Changes, Swelling, Other - Cardiovascular Cardiovascular: As Per HPI - Respiratory Respiratory: As Per HPI, Cough, Dyspnea. absent: Hemoptysis - Gastrointestinal Gastrointestinal: As Per HPI, Abdominal Pain, Constipation, Cramping - Genitourinary Genitourinary: absent: As Per HPI, Change in Urinary Stream, Difficulty Urinating, Dysuria, Flank Pain, Hematuria, Pyuria, Nocturia, Urinary Incon tinence, Urinary Frequency, Urinary Hesitance, Urinary Urgency, Voiding Freq/Small Amts, Freq UTI, Hx Renal/Bladder Calculi, Hx /Renal Surgery, Bladder Distension, Other - Reproductive: Female Reproductive:Female: absent: As Per HPI, Amenorrhea, Amenorrhea/ Control, Currently Menstual, Cycle <21 Days, Cycle >35 Days, Cycle Variable, Menses 1-7 Days, Menses >/= 8 Days, Menses Variable, Cycle > 4 Weeks Between, No Menses for 6 Months, Heavy Menses, Light Menses, Normal Menses, Spotting Between Cycles, S/P Hysterectomy, Menopausal, Post Menopausal, Premenarche, Abnormal Vaginal Bleeding, Dysmenorrhea, Dyspareunia, Genital Lesions, Genital Pruritis, Pelvic Pain, Prolapse Symptoms, Sexual Dysfunction, Vaginal Discharge, Vaginal Dryness, Vaginal Odor, Vaginal Pruritis, Other - Menstruation Menstruation: absent: As Per HPI, Amenorrhea, Amenorrhea/ Control, Currently Menstual, Cycle <21 Days, Cycle >35 Days, Cycle Variable, Menses 1-7 Days, Menses >/= 8 Days, Menses Variable, Cycle > 4 Weeks Between, No Menses for 6 Months, Heavy Menses, Light Menses, Normal Menses, Spotting Between Cycles, S/P Hysterectomy, Menopausal, Post Menopausal, Premenarche, Abnormal Vaginal Bleeding, Dysmenorrhea, Other - Musculoskeletal Musculoskeletal: absent: As Per HPI, Abnormal Gait, Arthralgias, Atrophy, Back Pain, Deformity, Joint Swelling, Limited Range of Motion, Loss of Height, Muscle Cramps, Muscle Weakness, Myalgias, Neck Pain, Numbness, Radiating Pain into Limb, Stiffness, Tingling, Other - Integumentary Integumentary: As Per HPI, Pruritus, Rash - Neurological Neurological: absent: As Per HPI, Abnormal Gait, Abnormal Hearing, Abnormal Movements, Abnormal Speech, Behavioral Changes, Burning Sensations, Confusion, Convulsions, Disequilibrium, Dizziness, Numbness, Focal Weakness, Frequent Falls, Headaches, Lack of Coordination, Loss of Vision, Memory Loss, Paresthesias, Radicular Pain, Restless Legs, Sensory Deficit, Syncope, Tingling, Tremor, Vertigo, Weakness, Other Visual Disturbances, Other - Psychiatric Psychiatric: absent: As Per HPI, Abnormal Sleep Pattern, Anhedonia, Anxiety, Auditory Hallucinations, Behavioral Changes, Change in Appetite, Change in Libido, Confusion, Depression, Difficulty Concentrating, Hallucinations, Homicidal Ideation, Hopelessness, Irritability, Memory Loss, Mood Swings, Panic Attacks, Paranoia, Suicidal Ideation, Visual Hallucinations, Tactile Hallucinations, Other Past Patient History - Infectious Disease Hx of Infectious Diseases: None - Past Medical History & Family History Past Medical History?: Yes - Past Social History Smoking Status: Former Smoker - CARDIAC Hx Cardiac Disorders: Yes (CAD, Coronary Stent) Hx Hypertension: Yes - PULMONARY Hx Chronic Obstructive Pulmonary Disease (COPD): Yes - NEUROLOGICAL Hx Neurological Disorder: No Hx Paralysis: No - HEENT Hx HEENT Problems: No - RENAL Hx Chronic Kidney Disease: No - ENDOCRINE/METABOLIC Hx Diabetes Mellitus Type 2: Yes - HEMATOLOGICAL/ONCOLOGICAL Hx Blood Disorders: No Hx Blood Transfusions: No Hx Blood Transfusion Reaction: No - INTEGUMENTARY Hx Dermatological Problems: No - MUSCULOSKELETAL/RHEUMATOLOGICAL Hx Falls: Yes Hx Fractures: Yes - GASTROINTESTINAL Hx Gall Bladder Disease: Yes - GENITOURINARY/GYNECOLOGICAL Hx Genitourinary Disorders: Yes Hx Incontinence: Yes - PSYCHIATRIC Hx Substance Use: No - SURGICAL HISTORY Hx Coronary Stent: Yes (2012) - ANESTHESIA Hx Anesthesia: Yes Hx Anesthesia Reactions: No Hx Malignant Hyperthermia: No Meds Allergies/Adverse Reactions: Allergies Allergy/AdvReac Type Severity Reaction Status Date / Time iodine Allergy Verified 12/05/18 00:47 Latex, Natural Rubber Allergy Verified 12/05/18 00:47 pentazocine [From Talwin] Allergy Verified 12/05/18 00:47 - Medications Medications: Current Medications Amlodipine Besylate (Norvasc) 5 mg PO DAILY [facility] Last Admin: 03/20/19 10:24 Dose: 5 mg Calcium/Vitamin D (Oyster Shell Calcium/Vitamin D 500 Mg-200 Iu) 1 tab PO BID [facility] Last Admin: 03/20/19 10:24 Dose: 1 tab Clopidogrel Bisulfate (Plavix) 75 mg PO DAILY [facility] Last Admin: 03/20/19 10:24 Dose: 75 mg Gabapentin (Neurontin) 100 mg PO BID [facility] Last Admin: 03/20/19 10:24 Dose: 100 mg Glimepiride (Amaryl) 2 mg PO DAILY [facility] Last Admin: 03/20/19 10:24 Dose: 2 mg Heparin Sodium (Porcine) (Heparin) 5,000 units SC Q12 [facility] Last Admin: 03/20/19 10:24 Dose: 5,000 units Hydrocortisone (Cortizone 2.5%) 0 gm TOP BID [facility] Last Admin: 03/20/19 10:43 Dose: 1 applic Piperacillin Sod/Tazobactam (Sod 3.375 gm/ Sodium Chloride) 100 mls @ 200 mls/hr IVPB Q8H [facility]; Protocol Last Admin: 03/20/19 13:54 Dose: 200 mls/hr Insulin Human Regular (Novolin R) 0 unit SC ACHS [facility]; Protocol Last Admin: 03/20/19 12:31 Dose: 2 units Pneumococcal Polyvalent Vaccine (Pneumovax 23 Vaccine) 0.5 ml IM .ONCE ONE Stop: 03/22/19 10:01 Polyethylene Glycol (Miralax) 17 gm PO BID [facility] Last Admin: 03/20/19 10:23 Dose: 17 gm Rosuvastatin Calcium (Crestor) 10 mg PO HS [facility] Last Admin: 03/19/19 21:44 Dose: 10 mg Physical Exam - Constitutional Appears: Non-toxic, No Acute Distress, Cachectic, Chronically Ill - Head Exam Head Exam: ATRAUMATIC, NORMAL INSPECTION, NORMOCEPHALIC - Eye Exam Eye Exam: EOMI, Normal appearance. absent: Scleral icterus Pupil Exam: PERRL Additional comments: decreased visual acuity - ENT Exam ENT Exam: Mucous Membranes Moist, Normal Exam - Neck Exam Neck exam: Positive for: Normal Inspection. Negative for: Lymphadenopathy - Respiratory Exam Respiratory Exam: Decreased Breath Sounds, Prolonged Expiratory Phase, Rhonchi - Cardiovascular Exam Cardiovascular Exam: REGULAR RHYTHM - GI/Abdominal Exam GI & Abdominal Exam: Normal Bowel Sounds, Soft. absent: Tenderness - Rectal Exam Rectal Exam: Deferred - Exam Exam: NORMAL INSPECTION - Extremities Exam Extremities exam: Positive for: normal inspection - Back Exam Back exam: NORMAL INSPECTION - Neurological Exam Neurological exam: Alert, CN II-XII Intact, Normal Gait, Oriented x3, Reflexes Normal - Psychiatric Exam Psychiatric exam: Normal Affect, Normal Mood - Skin Skin Exam: Dry, Erythema, Normal Color, Rash, Urticaria, Warm Results - Vital Signs Recent Vital Signs: Last Vital Signs Temp 98.5 F 03/20/19 08:34 Pulse 71 03/20/19 08:34 Resp 20 03/20/19 08:34 BP 150/80 03/20/19 08:34 Pulse Ox 98 03/20/19 08:34 - Labs Result Diagrams: 03/19/19 04:02 03/19/19 04:02 Labs: Laboratory Results - last 24 hr 03/19/19 03/19/19 03/20/19 17:08 20:59 07:38 POC Glucose (mg/dL) 152 H 116 H 128 H 03/20/19 03/20/19 11:50 12:07 POC Glucose (mg/dL) 199 H 194 H Assessment & Plan (1) Abdominal pain Status: Acute (2) Generalized weakness Status: Acute (3) Chr obstructive pulmonary disease w/ acute lower respiratory infxn Status: Acute (4) Constipation by delayed colonic transit Status: Acute (5) CAD (coronary artery disease) Status: Chronic (6) Diabetes Status: Chronic (7) Diabetic retinopathy associated with controlled type 2 diabetes mellitus Status: Chronic (8) Old cerebrovascular accident without late effect Status: Chronic (9) Vitreomacular traction syndrome of left eye Status: Chronic (10) CKD (chronic kidney disease) Status: Acute - Assessment and Plan (Free Text) Assessment: pneumonia RLL constipation r/o occult malignancy failjure to thrive dehydration CKD ETHAN CAD T2DM await cultures cont IV antibiotics GI work up in progress
[2019-03-21] MEDS: Piperacillin/Tazobact 3.375 GM in Sodium Chloride 100 ML IVPB SCH ×2 (05:39→14:02)
[2019-03-21] MEDS: (Novolin R) Insulin Human Regular 100 units/ml vial SC SCH ×4 (07:48→21:36)
--- NOTE | 2019-03-21 08:09 | CP.PCM.PN ---
<Pat Tobias - Last Filed: 03/21/19 08:17> Subjective - Date & Time of Evaluation Date of Evaluation: 03/21/19 Time of Evaluation: 07:05 - Subjective Subjective: GI Fellow PGY5 Pt seen and examined at bedside, pt doing well this am with no complaints. Pt reports yesterday she had two normal sized brown BM after lunch and after ge tting her tap water enema. Pt denies any rectal bleeding or abdominal pain. ROS: A 12pt ROS was negative except as above. Objective - Vital Signs/Intake and Output Vital Signs (last 24 hours): Temp Pulse Resp BP Pulse Ox 97.6 F 77 20 156/80 H 97 03/21/19 07:00 03/21/19 07:00 03/21/19 07:00 03/21/19 07:00 03/21/19 07:00 Intake and Output: 03/21/19 03/21/19 06:59 18:59 Intake Total 300 Balance 300 - Medications Medications: Current Medications Amlodipine Besylate (Norvasc) 5 mg PO DAILY [facility] Last Admin: 03/20/19 10:24 Dose: 5 mg Calcium/Vitamin D (Oyster Shell Calcium/Vitamin D 500 Mg-200 Iu) 1 tab PO BID [facility] Last Admin: 03/20/19 17:25 Dose: 1 tab Clopidogrel Bisulfate (Plavix) 75 mg PO DAILY [facility] Last Admin: 03/20/19 10:24 Dose: 75 mg Gabapentin (Neurontin) 100 mg PO BID [facility] Last Admin: 03/20/19 17:25 Dose: 100 mg Glimepiride (Amaryl) 2 mg PO DAILY [facility] Last Admin: 03/20/19 10:24 Dose: 2 mg Heparin Sodium (Porcine) (Heparin) 5,000 units SC Q12 [facility] Last Admin: 03/20/19 21:22 Dose: 5,000 units Hydrocortisone (Cortizone 2.5%) 0 gm TOP BID [facility] Last Admin: 03/20/19 18:06 Dose: 1 applic Piperacillin Sod/Tazobactam (Sod 3.375 gm/ Sodium Chloride) 100 mls @ 200 mls/hr IVPB Q8H [facility]; Protocol Last Admin: 03/21/19 05:39 Dose: 200 mls/hr Insulin Human Regular (Novolin R) 0 unit SC ACHS [facility]; Protocol Last Admin: 03/21/19 07:48 Dose: Not Given Pneumococcal Polyvalent Vaccine (Pneumovax 23 Vaccine) 0.5 ml IM .ONCE ONE Stop: 03/22/19 10:01 Polyethylene Glycol (Miralax) 17 gm PO BID [facility] Last Admin: 03/20/19 17:24 Dose: 17 gm Rosuvastatin Calcium (Crestor) 10 mg PO HS [facility] Last Admin: 03/20/19 21:21 Dose: 10 mg - Labs Labs: 03/19/19 04:02 03/19/19 04:02 - Constitutional Appears: Non-toxic, No Acute Distress - Head Exam Head Exam: ATRAUMATIC, NORMAL INSPECTION, NORMOCEPHALIC - Eye Exam Eye Exam: EOMI, Normal appearance, PERRL - ENT Exam ENT Exam: Mucous Membranes Moist - Neck Exam Neck Exam: Full ROM - Respiratory Exam Respiratory Exam: Clear to Ausculation Bilateral, NORMAL BREATHING PATTERN - Cardiovascular Exam Cardiovascular Exam: REGULAR RHYTHM, +S1, +S2 - GI/Abdominal Exam GI & Abdominal Exam: Soft, Normal Bowel Sounds. absent: Distended, Firm, Guarding, Tenderness, Organomegaly - Rectal Exam Rectal Exam: Deferred - Extremities Exam Extremities Exam: Full ROM, Normal Inspection - Neurological Exam Neurological Exam: Alert, Awake, Oriented x3 - Psychiatric Exam Psychiatric exam: Normal Affect, Normal Mood - Skin Skin Exam: Dry, Intact, Normal Color, Warm Assessment and Plan - Assessment and Plan (Free Text) Assessment: 1.Abdominal pain, constipation 2. DM/HTN 3. COPD 4. Dementia 5. CAD Plan: - Pt with two BM yesterday - Continue bowel regimen with Miralax bid/tid titrate for BM daily to prevent constipation - Diet as tolerated - Pt will need to followup outpatient with GI - Please call with any questions or concerns <Bert Chase - Last Filed: 03/21/19 15:29> Objective - Vital Signs/Intake and Output Vital Signs (last 24 hours): Temp Pulse Resp BP Pulse Ox 97.6 F 77 20 156/80 H 97 03/21/19 07:00 03/21/19 07:00 03/21/19 07:00 03/21/19 07:00 03/21/19 07:00 Intake and Output: 03/21/19 03/21/19 06:59 18:59 Intake Total 300 500 Balance 300 500 - Medications Medications: Current Medications Amlodipine Besylate (Norvasc) 5 mg PO DAILY [facility] Last Admin: 03/21/19 10:22 Dose: 5 mg Calcium/Vitamin D (Oyster Shell Calcium/Vitamin D 500 Mg-200 Iu) 1 tab PO BID [facility] Last Admin: 03/21/19 10:21 Dose: 1 tab Clopidogrel Bisulfate (Plavix) 75 mg PO DAILY [facility] Last Admin: 03/21/19 10:21 Dose: 75 mg Gabapentin (Neurontin) 100 mg PO BID [facility] Last Admin: 03/21/19 10:22 Dose: 100 mg Glimepiride (Amaryl) 2 mg PO DAILY [facility] Last Admin: 03/21/19 10:21 Dose: 2 mg Heparin Sodium (Porcine) (Heparin) 5,000 units SC Q12 [facility] Last Admin: 03/21/19 10:22 Dose: 5,000 units Hydrocortisone (Cortizone 2.5%) 0 gm TOP BID [facility] Last Admin: 03/21/19 14:04 Dose: 1 applic Piperacillin Sod/Tazobactam (Sod 3.375 gm/ Sodium Chloride) 100 mls @ 200 mls/hr IVPB Q8H [facility]; Protocol Last Admin: 03/21/19 14:02 Dose: 200 mls/hr Insulin Human Regular (Novolin R) 0 unit SC ACHS [facility]; Protocol Last Admin: 03/21/19 12:18 Dose: 8 units Pneumococcal Polyvalent Vaccine (Pneumovax 23 Vaccine) 0.5 ml IM .ONCE ONE Stop: 03/22/19 10:01 Polyethylene Glycol (Miralax) 17 gm PO BID [facility] Last Admin: 03/21/19 10:22 Dose: 17 gm Rosuvastatin Calcium (Crestor) 10 mg PO HS [facility] Last Admin: 03/20/19 21:21 Dose: 10 mg - Labs Labs: 03/19/19 04:02 03/19/19 04:02 Attending/Attestation - Attestation I have personally seen and examined this patient.: Yes I have fully participated in the care of the patient.: Yes I have reviewed all pertinent clinical information, including history, physical exam and plan: Yes Notes (Text): 03/21/19 15:27 I have seen and examined patient with GI fellow. No acute events overnight, she is seen resting in bed comfortably. She reports resolution of abdominal pain and is now having multiple bowel movements following administration of enema yesterday. She denies nausea, vomiting, fever/chills. Tolerating PO diet without difficulty. Review of vitals from today shows elevated BP. DM/HTN COPD Dementia CAD - Diet as tolerated - Maintain bowel regimen to prevent recurrent constipation - Continue with antibiotic therapy as per ID - Patient would benefit from additional outpatient GI follow up after hospital discharge. No further planned intervention at this time, will sign off case. Please reconsult as necessary, thank you.
--- NOTE | 2019-03-21 08:13 | CP.PCM.PN ---
Subjective - Date & Time of Evaluation Date of Evaluation: 03/21/19 Time of Evaluation: 08:10 - Subjective Subjective: pt feels much better; cough johnny decrease. Still LUQ pain but able to eat more. (+) Very small bowel movement after enema. No CP, no SOB, no edema, no n/v, no dysuria, (+) Freq Objective - Vital Signs/Intake and Output Vital Signs (last 24 hours): Temp Pulse Resp BP Pulse Ox 97.6 F 77 20 156/80 H 97 03/21/19 07:00 03/21/19 07:00 03/21/19 07:00 03/21/19 07:00 03/21/19 07:00 Intake and Output: 03/21/19 03/21/19 06:59 18:59 Intake Total 300 Balance 300 - Medications Medications: Current Medications Amlodipine Besylate (Norvasc) 5 mg PO DAILY [facility] Last Admin: 03/20/19 10:24 Dose: 5 mg Calcium/Vitamin D (Oyster Shell Calcium/Vitamin D 500 Mg-200 Iu) 1 tab PO BID [facility] Last Admin: 03/20/19 17:25 Dose: 1 tab Clopidogrel Bisulfate (Plavix) 75 mg PO DAILY [facility] Last Admin: 03/20/19 10:24 Dose: 75 mg Gabapentin (Neurontin) 100 mg PO BID [facility] Last Admin: 03/20/19 17:25 Dose: 100 mg Glimepiride (Amaryl) 2 mg PO DAILY [facility] Last Admin: 03/20/19 10:24 Dose: 2 mg Heparin Sodium (Porcine) (Heparin) 5,000 units SC Q12 [facility] Last Admin: 03/20/19 21:22 Dose: 5,000 units Hydrocortisone (Cortizone 2.5%) 0 gm TOP BID [facility] Last Admin: 03/20/19 18:06 Dose: 1 applic Piperacillin Sod/Tazobactam (Sod 3.375 gm/ Sodium Chloride) 100 mls @ 200 mls/hr IVPB Q8H [facility]; Protocol Last Admin: 03/21/19 05:39 Dose: 200 mls/hr Insulin Human Regular (Novolin R) 0 unit SC ACHS [facility]; Protocol Last Admin: 03/21/19 07:48 Dose: Not Given Pneumococcal Polyvalent Vaccine (Pneumovax 23 Vaccine) 0.5 ml IM .ONCE ONE Stop: 03/22/19 10:01 Polyethylene Glycol (Miralax) 17 gm PO BID [facility] Last Admin: 03/20/19 17:24 Dose: 17 gm Rosuvastatin Calcium (Crestor) 10 mg PO HS [facility] Last Admin: 03/20/19 21:21 Dose: 10 mg - Labs Labs: 03/19/19 04:02 03/19/19 04:02 - Constitutional Appears: No Acute Distress - Eye Exam Eye Exam: Normal appearance - ENT Exam ENT Exam: Mucous Membranes Moist - Neck Exam Neck Exam: Full ROM. absent: Lymphadenopathy, Normal Inspection - Respiratory Exam Respiratory Exam: Decreased Breath Sounds. absent: Rales, Rhonchi, Wheezes - Cardiovascular Exam Cardiovascular Exam: REGULAR RHYTHM, +S1, +S2. absent: Gallop, JVD - GI/Abdominal Exam GI & Abdominal Exam: Soft. absent: Tenderness, Mass - Extremities Exam Extremities Exam: Full ROM, Normal Capillary Refill. absent: Calf Tenderness, Joint Swelling Assessment and Plan - Assessment and Plan (Free Text) Assessment: Abdominal pain/ Constipation Pneumonia; ? pyelonephritis NIDMM w/ CKD, HTN, COPD Recheck labs / Chest x-ray Contine meds increase Norvasc
[2019-03-21] MEDS: Calcium-Vit D 500 mg-200 Units Tab UD PO SCH ×2 (10:21→17:30)
[2019-03-21] MEDS: POLYETHYLENE GLYCOL 3350 17 GM/Dose PACKET PO SCH ×3 (10:22→17:33)
--- NOTE | 2019-03-21 10:53 | RAD ---
Chest x-ray two views HISTORY: Infiltrate. Comparison: 01/13/2018 FINDINGS: Prominent consolidative linear infiltrative opacities seen at the right lung base. New adjacent small loculated right pleural effusion. Biapical pleural thickening with upper lobe granulomatous changes. Scattered nodularity/nodular densities in the upper to mid lung zones. Tortuous aorta. Heart size within normal limits. Degenerative changes in the spine. Surgical clips in the right upper abdomen. Impression: Prominent consolidative linear infiltrative opacities seen at the right lung base. New adjacent small loculated right pleural effusion. Scattered nodularity/nodular densities in the upper to mid lung zones. Biapical pleural thickening with upper lobe granulomatous changes. Correlation with chest CT may be helpful if clinically indicated.
--- NOTE | 2019-03-21 12:39 | CP.PCM.PN ---
Subjective - Date & Time of Evaluation Date of Evaluation: 03/21/19 Time of Evaluation: 08:00 - Subjective Subjective: EVENTS NOTED CULTURES NEG SO FAR DR BURNS ON BOARD 'MAY NEED CARDIAC CATH IV RX RENEWED Objective - Vital Signs/Intake and Output Vital Signs (last 24 hours): Temp Pulse Resp BP Pulse Ox 97.6 F 77 20 156/80 H 97 03/21/19 07:00 03/21/19 07:00 03/21/19 07:00 03/21/19 07:00 03/21/19 07:00 Intake and Output: 03/21/19 03/21/19 06:59 18:59 Intake Total 300 Balance 300 - Medications Medications: Current Medications Amlodipine Besylate (Norvasc) 5 mg PO DAILY [facility] Last Admin: 03/21/19 10:22 Dose: 5 mg Calcium/Vitamin D (Oyster Shell Calcium/Vitamin D 500 Mg-200 Iu) 1 tab PO BID [facility] Last Admin: 03/21/19 10:21 Dose: 1 tab Clopidogrel Bisulfate (Plavix) 75 mg PO DAILY [facility] Last Admin: 03/21/19 10:21 Dose: 75 mg Gabapentin (Neurontin) 100 mg PO BID [facility] Last Admin: 03/21/19 10:22 Dose: 100 mg Glimepiride (Amaryl) 2 mg PO DAILY [facility] Last Admin: 03/21/19 10:21 Dose: 2 mg Heparin Sodium (Porcine) (Heparin) 5,000 units SC Q12 [facility] Last Admin: 03/21/19 10:22 Dose: 5,000 units Hydrocortisone (Cortizone 2.5%) 0 gm TOP BID [facility] Last Admin: 03/20/19 18:06 Dose: 1 applic Piperacillin Sod/Tazobactam (Sod 3.375 gm/ Sodium Chloride) 100 mls @ 200 m ls/hr IVPB Q8H [facility]; Protocol Last Admin: 03/21/19 05:39 Dose: 200 mls/hr Insulin Human Regular (Novolin R) 0 unit SC ACHS [facility]; Protocol Last Admin: 03/21/19 12:18 Dose: 8 units Pneumococcal Polyvalent Vaccine (Pneumovax 23 Vaccine) 0.5 ml IM .ONCE ONE Stop: 03/22/19 10:01 Polyethylene Glycol (Miralax) 17 gm PO BID [facility] Last Admin: 03/21/19 10:22 Dose: 17 gm Rosuvastatin Calcium (Crestor) 10 mg PO HS [facility] Last Admin: 03/20/19 21:21 Dose: 10 mg - Labs Labs: 03/19/19 04:02 03/19/19 04:02 - Constitutional Appears: Non-toxic, Cachectic - Head Exam Head Exam: ATRAUMATIC, NORMAL INSPECTION, NORMOCEPHALIC - Eye Exam Eye Exam: EOMI, Normal appearance, PERRL. absent: Scleral icterus Pupil Exam: NORMAL ACCOMODATION, PERRL - ENT Exam ENT Exam: Mucous Membranes Moist, Normal Exam - Neck Exam Neck Exam: Full ROM, Normal Inspection. absent: Lymphadenopathy - Respiratory Exam Respiratory Exam: Decreased Breath Sounds, Clear to Ausculation Bilateral, Rhonchi - Cardiovascular Exam Cardiovascular Exam: REGULAR RHYTHM, +S1, +S2. absent: Murmur - GI/Abdominal Exam GI & Abdominal Exam: Soft, Normal Bowel Sounds. absent: Tenderness - Rectal Exam Rectal Exam: Deferred - Exam Exam: NORMAL INSPECTION - Extremities Exam Extremities Exam: Full ROM, Normal Capillary Refill, Normal Inspection. absent: Joint Swelling, Pedal Edema - Back Exam Back Exam: NORMAL INSPECTION - Neurological Exam Neurological Exam: Alert, Awake, CN II-XII Intact, Oriented x3. absent: Normal Gait - Psychiatric Exam Psychiatric exam: Depressed - Skin Skin Exam: Abrasion, Dry, Intact, Normal Color, Warm Assessment and Plan (1) Abdominal pain Status: Acute (2) Generalized weakness Status: Acute (3) Chr obstructive pulmonary disease w/ acute lower respiratory infxn Status: Acute (4) Constipation by delayed colonic transit Status: Acute (5) CAD (coronary artery disease) Status: Chronic (6) Diabetes Status: Chronic (7) Diabetic retinopathy associated with controlled type 2 diabetes mellitus Status: Chronic (8) Old cerebrovascular accident without late effect Status: Chronic (9) Vitreomacular traction syndrome of left eye Status: Chronic (10) CKD (chronic kidney disease) Status: Acute - Assessment and Plan (Free Text) Assessment: CXR REPEATED- NOW SHOWS INFILTRATES AND GRANULOMATOUS CHANGES WILL CHECK CT CHEST IV ANTIBIOITCS RENEWED
[2019-03-21] MEDS: Hydrocortisone 2.5% Oint (20 gm) TOP SCH ×2 (14:04→17:30)
[2019-03-22 07:54] LABS: BASO # 0.1 K/uL (0.0-0.2); BASO % 1.3 % (0.0-2.0); EOS # 0.4 K/uL (0.0-0.7); EOS % 5.6 % (0.0-4.0); HEMOGLOBIN 11.7 g/dL (11.0-16.0); LYMPH # 1.9 K/uL (1.0-4.3); LYMPH % 29.4 % (20.0-40.0); MEAN CELL VOLUME 86.3 fL (81.0-99.0); MEAN CORPUSCULAR HEMOGLOBIN 29.3 pg (27.0-31.0); MONO # 0.5 K/uL (0.0-0.8); MONO % 6.8 % (0.0-10.0); NEUT # 3.8 K/uL (1.8-7.0); NEUT % 56.9 % (50.0-75.0); RED CELL DISTRIBUTION WIDTH 13.2 % (11.5-14.5); WHITE BLOOD COUNT 6.6 K/uL (4.8-10.8)
[2019-03-22] MEDS: (Novolin R) Insulin Human Regular 100 units/ml vial SC SCH ×5 (07:57→21:44)
[2019-03-22 08:24] LABS: ALBUMIN 3.5 g/dL (3.5-5.0); CALCIUM 9.3 mg/dl (8.6-10.4)
--- NOTE | 2019-03-22 08:31 | CP.PCM.PN ---
Subjective - Date & Time of Evaluation Date of Evaluation: 02/19/19 Time of Evaluation: 08:20 - Subjective Subjective: Pt no complain except had diarrhea 5X since yesterday. (+) no more cough nor mucus; CXR / event noted No CP, no SOB, no edema, no palpitation, no n/v, no dysuria, (+) freq Still very unsteady and always fall at home Objective - Vital Signs/Intake and Output Vital Signs (last 24 hours): Temp Pulse Resp BP Pulse Ox 98.6 F 68 20 131/79 96 03/22/19 00:00 03/22/19 00:00 03/22/19 00:00 03/22/19 00:00 03/22/19 00:00 Intake and Output: 03/22/19 03/22/19 06:59 18:59 Intake Total 720 Output Total 1 Balance 719 - Medications Medications: Current Medications Amlodipine Besylate (Norvasc) 5 mg PO DAILY [facility] Last Admin: 03/21/19 10:22 Dose: 5 mg Bismuth Subsalicylate (Pepto-Bismol) 262 mg PO TID [facility] Stop: 03/23/19 23:59 Calcium/Vitamin D (Oyster Shell Calcium/Vitamin D 500 Mg-200 Iu) 1 tab PO BID [facility] Last Admin: 03/21/19 17:30 Dose: 1 tab Clopidogrel Bisulfate (Plavix) 75 mg PO DAILY [facility] Last Admin: 03/21/19 10:21 Dose: 75 mg Gabapentin (Neurontin) 100 mg PO BID [facility] Last Admin: 03/21/19 17:30 Dose: 100 mg Glimepiride (Amaryl) 2 mg PO DAILY [facility] Last Admin: 03/21/19 10:21 Dose: 2 mg Heparin Sodium (Porcine) (Heparin) 5,000 units SC Q12 [facility] Last Admin: 03/21/19 21:15 Dose: 5,000 units Hydrocortisone (Cortizone 2.5%) 0 gm TOP BID [facility] Last Admin: 03/21/19 17:30 Dose: 1 applic Insulin Human Regular (Novolin R) 0 unit SC ACHS [facility]; Protocol Last Admin: 03/22/19 07:57 Dose: Not Given Metoprolol Succinate (Toprol Xl) 50 mg PO DAILY [facility] Pneumococcal Polyvalent Vaccine (Pneumovax 23 Vaccine) 0.5 ml IM .ONCE ONE Stop: 03/22/19 10:01 Rosuvastatin Calcium (Crestor) 10 mg PO HS [facility] Last Admin: 03/21/19 21:15 Dose: 10 mg - Labs Labs: 03/22/19 07:45 03/22/19 07:45 - Constitutional Appears: No Acute Distress - Eye Exam Eye Exam: Normal appearance - ENT Exam ENT Exam: Mucous Membranes Moist - Neck Exam Neck Exam: Full ROM. absent: Lymphadenopathy, Normal Inspection, Thyromegaly - Cardiovascular Exam Cardiovascular Exam: REGULAR RHYTHM, +S1, +S2. absent: Gallop, JVD, Murmur - GI/Abdominal Exam GI & Abdominal Exam: Soft. absent: Tenderness, Mass - Extremities Exam Extremities Exam: Full ROM, Normal Capillary Refill. absent: Calf Tenderness, Joint Swelling, Pedal Edema - Skin Skin Exam: Warm. absent: Pallor, Petechiae, Rash Assessment and Plan - Assessment and Plan (Free Text) Assessment: Diarrhea; Abn CXR ?? pneumonia HTN, NIDDM, CKD, s/p prev CVA Cont meds; add Toprol c/o tachycardic at times Check C diff; Agree w/ chest CT For subacate
[2019-03-22] MEDS: Hydrocortisone 2.5% Oint (20 gm) TOP SCH ×2 (09:26→17:42)
[2019-03-22] MEDS: Calcium-Vit D 500 mg-200 Units Tab UD PO SCH ×2 (09:26→17:43)
[2019-03-22] MEDS: Metoprolol Succinate 50 mg XL Tab PO SCH (09:26)
[2019-03-22] MEDS ORDERED: Bismuth Subsalicylate 262 mg/15 ml Sus (240 ml) PO SCH (10:00)
[2019-03-22] MEDS ORDERED: Pneumococcal 23-Valent Vaccine IM ONE (10:00)
--- NOTE | 2019-03-22 12:41 | CT ---
Date of service: 03/22/2019 CT chest without IV contrast Indication: 63 yo diabetic female with pneumonia Technique: Contiguous axial images were obtained through the chest without intravenous contrast enhancement. Sagittal and coronal reconstructions were generated and reviewed. This CT exam was performed using 1 or more of the following dose reduction techniques: Automated exposure control, adjustment of the MAA and/or kV according to patient size, and/or use of iterative reconstruction technique. Radiation dose (DLP): 382.12 MGy-cm. Comparison: Chest x-ray performed 03/21/19, chest CT without contrast performed 07/23/15 Findings: Visualized portions of the inferior thyroid gland appear unremarkable. The mediastinal and hilar vascular structures appear within normal limits. The heart appears within normal limits of size. Small pericardial effusion. Dense coronary artery calcifications. 2 cm right upper lobe nodule appears pleural based and cavitary. Additional numerous small scattered nodules throughout the right hemithorax measuring up to approximately 8 mm. Small heterogeneous/complex appearing right pleural effusion. No pneumothorax. Limited visualization of the noncontrast upper abdomen: Cholecystectomy clips. Small hiatal hernia/distal esophageal wall thickening. Degenerative changes. Impression: Small pericardial effusion. Dense coronary artery calcifications. 2 cm right upper lobe nodule appears pleural based and cavitary. Considerations include cavitary malignant neoplasm versus infection (such as tuberculosis or fungal infection). Additional numerous small scattered nodules throughout the right hemithorax measuring up to approximately [address] follow-up upon completion of therapy to demonstrate resolution of nodular pattern. Small heterogeneous/complex appearing right pleural effusion. Limited visualization of the noncontrast upper abdomen: Cholecystectomy clips. Small hiatal hernia/distal esophageal wall thickening.
[2019-03-22] MEDS: Piperacill/Tazo 3.375gm in Dex 3.375 GM/50 ML BAG IVPB SCH ×2 (13:48→21:44)
[2019-03-22] MEDS: Bismuth Subsalicylate 262 mg Chew Tab PO SCH ×2 (13:53→17:43)
[2019-03-22] MEDS: Nystatin 100,000 Units/gm Cream(15 gm) TOP SCH ×2 (14:40→17:43)
--- NOTE | 2019-03-22 22:13 | CP.PCM.PN ---
Subjective - Date & Time of Evaluation Date of Evaluation: 03/22/19 Time of Evaluation: 07:00 - Subjective Subjective: less cough however CT shows cavitary nodule upper lobe' need to r/o malignancy infection such as MAC TB Nocardia etc will place on isolation Objective - Vital Signs/Intake and Output Vital Signs (last 24 hours): Temp Pulse Resp BP Pulse Ox 98 F 67 20 156/85 H 97 03/22/19 15:57 03/22/19 15:57 03/22/19 15:57 03/22/19 15:57 03/22/19 15:57 Intake and Output: 03/22/19 03/23/19 18:59 06:59 Intake Total 530 Output Total 400 Balance 130 - Medications Medications: Current Medications Amlodipine Besylate (Norvasc) 5 mg PO DAILY [facility] Last Admin: 03/22/19 09:26 Dose: 5 mg Bismuth Subsalicylate (Pepto Bismol) 262 mg PO TID [facility] Stop: 03/23/19 23:59 Last Admin: 03/22/19 17:43 Dose: 262 mg Calcium/Vitamin D (Oyster Shell Calcium/Vitamin D 500 Mg-200 Iu) 1 tab PO BID [facility] Last Admin: 03/22/19 17:43 Dose: 1 tab Clopidogrel Bisulfate (Plavix) 75 mg PO DAILY [facility] Last Admin: 03/22/19 09:26 Dose: 75 mg Gabapentin (Neurontin) 100 mg PO BID [facility] Last Admin: 03/22/19 17:43 Dose: 100 mg Glimepiride (Amaryl) 2 mg PO DAILY [facility] Last Admin: 03/22/19 09:26 Dose: 2 mg Hydrocortisone (Cortizone 2.5%) 0 gm TOP BID [facility] Last Admin: 03/22/19 17:42 Dose: 1 applic Piperacillin Sod/Tazobactam Sod (Zosyn 3.375 Gm Iv Premix) 3.375 gm in 50 mls @ 100 mls/hr IVPB Q8H [facility]; Protocol Last Admin: 03/22/19 21:44 Dose: 100 mls/hr Insulin Human Regular (Novolin R) 0 unit SC ACHS [facility]; Protocol Last Admin: 03/22/19 21:44 Dose: Not Given Metoprolol Succinate (Toprol Xl) 50 mg PO DAILY [facility] Last Admin: 03/22/19 09:26 Dose: 50 mg Nystatin (Mycostatin Cream) 0 ea TOP TID [facility] Last Admin: 03/22/19 17:43 Dose: 1 applic Rosuvastatin Calcium (Crestor) 10 mg PO HS [facility] Last Admin: 03/22/19 21:44 Dose: 10 mg - Labs Labs: 03/22/19 07:45 03/22/19 07:45 - Constitutional Appears: Cachectic, Chronically Ill - Head Exam Head Exam: ATRAUMATIC, NORMAL INSPECTION, NORMOCEPHALIC - Eye Exam Eye Exam: EOMI, Normal appearance, PERRL Pupil Exam: NORMAL ACCOMODATION, PERRL - ENT Exam ENT Exam: Mucous Membranes Moist, Normal Exam - Neck Exam Neck Exam: Full ROM, Normal Inspection. absent: Lymphadenopathy - Respiratory Exam Respiratory Exam: Decreased Breath Sounds, Prolonged Expiratory Phase, Rhonchi - Cardiovascular Exam Cardiovascular Exam: REGULAR RHYTHM, +S1, +S2. absent: Murmur - GI/Abdominal Exam GI & Abdominal Exam: Soft, Normal Bowel Sounds. absent: Tenderness - Rectal Exam Rectal Exam: Deferred - Exam Exam: NORMAL INSPECTION - Extremities Exam Extremities Exam: Full ROM, Normal Capillary Refill, Normal Inspection. absent: Joint Swelling, Pedal Edema - Back Exam Back Exam: NORMAL INSPECTION - Neurological Exam Neurological Exam: Alert, Awake, CN II-XII Intact, Normal Gait, Oriented x3 - Psychiatric Exam Psychiatric exam: Depressed - Skin Skin Exam: Dry, Intact, Rash, Warm Assessment and Plan (1) Abdominal pain Status: Acute (2) Generalized weakness Status: Acute (3) Chr obstructive pulmonary disease w/ acute lower respiratory infxn Status: Acute (4) Constipation by delayed colonic transit Status: Acute (5) CAD (coronary artery disease) Status: Chronic (6) Diabetes Status: Chronic (7) Diabetic retinopathy associated with controlled type 2 diabetes mellitus Status: Chronic (8) Old cerebrovascular accident without late effect Status: Chronic (9) 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
[2019-03-23] MEDS: Piperacill/Tazo 3.375gm in Dex 3.375 GM/50 ML BAG IVPB SCH (05:14)
[2019-03-23] MEDS: (Novolin R) Insulin Human Regular 100 units/ml vial SC SCH ×4 (08:13→21:11)
--- NOTE | 2019-03-23 08:13 | CP.PCM.PN ---
Subjective - Date & Time of Evaluation Date of Evaluation: 03/23/19 Time of Evaluation: 08:10 - Subjective Subjective: Pt no complain; (+) states had episode of hemoptysis while at home last week x 3 State minimal cough, no SOB, no CP, no edema; Still feels weak. No more diarrhea, no n/v, no dysuria Objective - Vital Signs/Intake and Output Vital Signs (last 24 hours): Temp Pulse Resp BP Pulse Ox 98.2 F 72 20 145/86 99 03/23/19 07:48 03/23/19 07:48 03/23/19 07:48 03/23/19 07:48 03/23/19 07:48 Intake and Output: 03/23/19 03/23/19 06:59 18:59 Intake Total 290 Output Total 400 Balance -110 - Medications Medications: Current Medications Amlodipine Besylate (Norvasc) 5 mg PO DAILY [facility] Last Admin: 03/22/19 09:26 Dose: 5 mg Bismuth Subsalicylate (Pepto Bismol) 262 mg PO TID [facility] Stop: 03/23/19 23:59 Last Admin: 03/22/19 17:43 Dose: 262 mg Calcium/Vitamin D (Oyster Shell Calcium/Vitamin D 500 Mg-200 Iu) 1 tab PO BID [facility] Last Admin: 03/22/19 17:43 Dose: 1 tab Clopidogrel Bisulfate (Plavix) 75 mg PO DAILY [facility] Last Admin: 03/22/19 09:26 Dose: 75 mg Gabapentin (Neurontin) 100 mg PO BID [facility] Last Admin: 03/22/19 17:43 Dose: 100 mg Glimepiride (Amaryl) 2 mg PO DAILY [facility] Last Admin: 03/22/19 09:26 Dose: 2 mg Hydrocortisone (Cortizone 2.5%) 0 gm TOP BID [facility] Last Admin: 03/22/19 17:42 Dose: 1 applic Piperacillin Sod/Tazobactam Sod (Zosyn 3.375 Gm Iv Premix) 3.375 gm in 50 mls @ 100 mls/hr IVPB Q8H [facility]; Protocol Last Admin: 03/23/19 05:14 Dose: 100 mls/hr Insulin Human Regular (Novolin R) 0 unit SC ACHS [facility]; Protocol Last Admin: 03/22/19 21:44 Dose: Not Given Metoprolol Succinate (Toprol Xl) 50 mg PO DAILY [facility] Last Admin: 03/22/19 09:26 Dose: 50 mg Nystatin (Mycostatin Cream) 0 ea TOP TID [facility] Last Admin: 03/22/19 17:43 Dose: 1 applic Rosuvastatin Calcium (Crestor) 10 mg PO HS [facility] Last Admin: 03/22/19 21:44 Dose: 10 mg - Labs Labs: 03/22/19 07:45 03/22/19 07:45 - Constitutional Appears: No Acute Distress - Head Exam Head Exam: NORMAL INSPECTION - Eye Exam Eye Exam: Normal appearance - ENT Exam ENT Exam: Mucous Membranes Moist - Neck Exam Neck Exam: Full ROM. absent: Lymphadenopathy, Thyromegaly - Respiratory Exam Respiratory Exam: Decreased Breath Sounds. absent: Rales, Rhonchi, Wheezes - Cardiovascular Exam Cardiovascular Exam: REGULAR RHYTHM, +S1, +S2. absent: Gallop, Murmur - GI/Abdominal Exam GI & Abdominal Exam: Soft. absent: Tenderness, Organomegaly - Extremities Exam Extremities Exam: Full ROM, Normal Capillary Refill. absent: Calf Tenderness, Pedal Edema Assessment and Plan - Assessment and Plan (Free Text) Assessment: Pulm cavity; Pneumonia NIDDM, HTN, CKD, dementia s/p prev CVA Agree with isolation and AFB For Pulm consult. Quantiferon TB test cont meds/ supportive care
[2019-03-23] MEDS: Hydrocortisone 2.5% Oint (20 gm) TOP SCH ×2 (10:29→17:24)
[2019-03-23] MEDS: Nystatin 100,000 Units/gm Cream(15 gm) TOP SCH ×3 (10:31→17:23)
[2019-03-23] MEDS: Calcium-Vit D 500 mg-200 Units Tab UD PO SCH ×2 (10:33→17:24)
[2019-03-23] MEDS: Metoprolol Succinate 50 mg XL Tab PO SCH (10:33)
[2019-03-23] MEDS: Piperacill/Tazo 2.25gm in Dex 2.25 GM/50 ML BAG IVPB SCH ×2 (13:54→21:43)
--- NOTE | 2019-03-23 16:19 | CP.PCM.CON ---
History of Present Illness - History of Present Illness History of Present Illness: Reason for consultation: Abnormal CAT scan of chest 63-year-old female with history of diabetes, COPD, coronary artery disease status post stent placement, pleural effusion in 2014 was admitted with abdominal pain and constipation. Patient also complaining of cough mostly dry but sometimes productive of clear phlegm. Denies fever chills, denies night sweats. CAT scan of the chest consistent with pleural-based cavity in the right upper lobe. Patient with long history of smoking in the past. Patient was placed in isolation to rule out TB Review of Systems - Review of Systems All systems: reviewed and no additional remarkable complaints except (Abdominal pain and cough) Past Patient History - Infectious Disease Hx of Infectious Diseases: None - Past Medical History & Family History Past Medical History?: Yes - Past Social History Smoking Status: Former Smoker - CARDIAC Hx Cardiac Disorders: Yes (CAD,Corornary stent) Hx Hypertension: Yes - PULMONARY Hx Chronic Obstructive Pulmonary Disease (COPD): Yes - NEUROLOGICAL Hx Neurological Disorder: No Hx Paralysis: No - HEENT Hx HEENT Problems: No - RENAL Hx Chronic Kidney Disease: No - ENDOCRINE/METABOLIC Hx Diabetes Mellitus Type 2: Yes - HEMATOLOGICAL/ONCOLOGICAL Hx Blood Disorders: No Hx Blood Transfusions: No Hx Blood Transfusion Reaction: No - INTEGUMENTARY Hx Dermatological Problems: No - MUSCULOSKELETAL/RHEUMATOLOGICAL Hx Falls: Yes Hx Fractures: Yes - GASTROINTESTINAL Hx Gall Bladder Disease: Yes - GENITOURINARY/GYNECOLOGICAL Hx Genitourinary Disorders: Yes Hx Incontinence: Yes - PSYCHIATRIC Hx Substance Use: No - SURGICAL HISTORY Hx Coronary Stent: Yes (2012) - ANESTHESIA Hx Anesthesia: Yes Hx Anesthesia Reactions: No Hx Malignant Hyperthermia: No Meds Allergies/Adverse Reactions: Allergies Allergy/AdvReac Type Severity Reaction Status Date / Time iodine Allergy Verified 12/05/18 00:47 Latex, Natural Rubber Allergy Verified 12/05/18 00:47 pentazocine [From [facility]] Allergy Verified 12/05/18 00:47 - Medications Medications: Current Medications Amlodipine Besylate (Norvasc) 5 mg PO DAILY [facility] Last Admin: 03/23/19 10:33 Dose: 5 mg Calcium/Vitamin D (Oyster Shell Calcium/Vitamin D 500 Mg-200 Iu) 1 tab PO BID [facility] Last Admin: 03/23/19 10:33 Dose: 1 tab Clopidogrel Bisulfate (Plavix) 75 mg PO DAILY [facility] Last Admin: 03/23/19 10:34 Dose: 75 mg Gabapentin (Neurontin) 100 mg PO BID [facility] Last Admin: 03/23/19 10:33 Dose: 100 mg Glimepiride (Amaryl) 2 mg PO DAILY [facility] Last Admin: 03/23/19 10:33 Dose: 2 mg Hydrocortisone (Cortizone 2.5%) 0 gm TOP BID [facility] Last Admin: 03/23/19 10:29 Dose: 1 applic Piperacillin Sod/Tazobactam Sod (Zosyn 2.25 Gm Iv Premix) 2.25 gm in 50 mls @ 1 00 mls/hr IVPB Q8 [facility]; Protocol Last Admin: 03/23/19 13:54 Dose: 100 mls/hr Insulin Human Regular (Novolin R) 0 unit SC ACHS [facility]; Protocol Last Admin: 03/23/19 12:20 Dose: 3 units Metoprolol Succinate (Toprol Xl) 50 mg PO DAILY [facility] Last Admin: 03/23/19 10:33 Dose: 50 mg Nystatin (Mycostatin Cream) 0 ea TOP TID [facility] Last Admin: 03/23/19 13:54 Dose: 1 applic Rosuvastatin Calcium (Crestor) 10 mg PO HS [facility] Last Admin: 03/22/19 21:44 Dose: 10 mg Physical Exam - Head Exam Head Exam: ATRAUMATIC, NORMOCEPHALIC - ENT Exam ENT Exam: Mucous Membranes Moist - Neck Exam Neck exam: Positive for: Normal Inspection - Respiratory Exam Respiratory Exam: Decreased Breath Sounds - Cardiovascular Exam Cardiovascular Exam: REGULAR RHYTHM - GI/Abdominal Exam GI & Abdominal Exam: Normal Bowel Sounds, Soft Results - Vital Signs Recent Vital Signs: Last Vital Signs Temp 98.2 F 03/23/19 07:48 Pulse 72 03/23/19 07:48 Resp 20 03/23/19 07:48 BP 145/86 03/23/19 07:48 Pulse Ox 99 03/23/19 07:48 - Labs Result Diagrams: 03/22/19 07:45 03/22/19 07:45 Labs: Laboratory Results - last 24 hr 03/22/19 03/22/19 03/23/19 16:23 20:58 07:50 POC Glucose (mg/dL) 182 H 89 147 H 03/23/19 11:39 POC Glucose (mg/dL) 236 H Assessment & Plan (1) Pulmonary cavitary lesion Assessment and Plan: Right upper lobe Patient with long history of smoking malignancy needs to be ruled out Rule out TB and continue respiratory isolation As it is a pleural-based lesion, consider CT-guided biopsy Status: Acute (2) Abdominal pain Status: Acute (3) CKD (chronic kidney disease) Status: Acute
--- NOTE | 2019-03-23 18:04 | CP.PCM.PN ---
Subjective - Date & Time of Evaluation Date of Evaluation: 03/23/19 Time of Evaluation: 08:00 - Subjective Subjective: seen on rounds ROS completed events noted labs and xrays reviewed orders signed Objective - Vital Signs/Intake and Output Vital Signs (last 24 hours): Temp Pulse Resp BP Pulse Ox 98.2 F 66 20 157/78 H 97 03/23/19 16:00 03/23/19 16:00 03/23/19 16:00 03/23/19 16:00 03/23/19 16:00 Intake and Output: 03/23/19 03/23/19 06:59 18:59 Intake Total 290 530 Output Total 400 600 Balance -110 -70 - Medications Medications: Current Medications Amlodipine Besylate (Norvasc) 5 mg PO DAILY [facility] Last Admin: 03/23/19 10:33 Dose: 5 mg Calcium/Vitamin D (Oyster Shell Calcium/Vitamin D 500 Mg-200 Iu) 1 tab PO BID [facility] Last Admin: 03/23/19 17:24 Dose: 1 tab Clopidogrel Bisulfate (Plavix) 75 mg PO DAILY [facility] Last Admin: 03/23/19 10:34 Dose: 75 mg Gabapentin (Neurontin) 100 mg PO BID [facility] Last Admin: 03/23/19 17:24 Dose: 100 mg Glimepiride (Amaryl) 2 mg PO DAILY [facility] Last Admin: 03/23/19 10:33 Dose: 2 mg Hydrocortisone (Cortizone 2.5%) 0 gm TOP BID [facility] Last Admin: 03/23/19 17:24 Dose: 1 applic Piperacillin Sod/Tazobactam Sod (Zosyn 2.25 Gm Iv Premix) 2.25 gm in 50 mls @ 100 mls/hr IVPB Q8 [facility]; Protocol Last Admin: 03/23/19 13:54 Dose: 100 mls/hr Insulin Human Regular (Novolin R) 0 unit SC ACHS [facility]; Protocol Last Admin: 03/23/19 17:24 Dose: 3 units Metoprolol Succinate (Toprol Xl) 50 mg PO DAILY [facility] Last Admin: 03/23/19 10:33 Dose: 50 mg Nystatin (Mycostatin Cream) 0 ea TOP TID [facility] Last Admin: 03/23/19 17:23 Dose: 1 applic Rosuvastatin Calcium (Crestor) 10 mg PO HS [facility] Last Admin: 04/30/19 21:44 Dose: 10 mg - Labs Labs: 03/22/19 07:45 03/22/19 07:45 - Constitutional Appears: Non-toxic, Cachectic, Chronically Ill - Head Exam Head Exam: ATRAUMATIC, NORMAL INSPECTION, NORMOCEPHALIC - Eye Exam Eye Exam: EOMI, Normal appearance, PERRL Pupil Exam: NORMAL ACCOMODATION, PERRL - ENT Exam ENT Exam: Mucous Membranes Moist, Normal Exam - Neck Exam Neck Exam: Full ROM, Normal Inspection. absent: Lymphadenopathy - Respiratory Exam Respiratory Exam: Decreased Breath Sounds, Prolonged Expiratory Phase, Rhonchi - Cardiovascular Exam Cardiovascular Exam: REGULAR RHYTHM, +S1, +S2. absent: Murmur - GI/Abdominal Exam GI & Abdominal Exam: Soft, Normal Bowel Sounds. absent: Tenderness - Rectal Exam Rectal Exam: Deferred - Extremities Exam Extremities Exam: Full ROM, Normal Capillary Refill, Normal Inspection. absent: Joint Swelling, Pedal Edema - Back Exam Back Exam: NORMAL INSPECTION - Neurological Exam Neurological Exam: Alert, Awake, CN II-XII Intact, Normal Gait, Oriented x3 - Psychiatric Exam Psychiatric exam: Normal Affect, Normal Mood - Skin Skin Exam: Dry, Intact, Normal Color, Warm Assessment and Plan (1) Abdominal pain Status: Acute (2) Generalized weakness Status: Acute (3) Chr obstructive pulmonary disease w/ acute lower respiratory infxn Status: Acute (4) Constipation by delayed colonic transit Status: Acute (5) CAD (coronary artery disease) Status: Chronic (6) Diabetes Status: Chronic (7) Diabetic retinopathy associated with controlled type 2 diabetes mellitus Status: Chronic (8) Old cerebrovascular accident without late effect Status: Chronic (9) Vitreomacular traction syndrome of left eye Status: Chronic (10) CKD (chronic kidney disease) Status: Acute - Assessment and Plan (Free Text) Assessment: cont rx for now Pulm on board r/lo TB/ MAC vs malignancy 'await AFB smears
[2019-03-24] MEDS: Piperacill/Tazo 2.25gm in Dex 2.25 GM/50 ML BAG IVPB SCH ×3 (06:50→21:36)
[2019-03-24 07:32] LABS: SQUAMOUS EPITHIAL 1 /hpf (0-5); URINE BILIRUBIN NEGATIVE (NEGATIVE); URINE BLOOD 1+ (NEGATIVE); URINE CLARITY Hazy (Clear); URINE COLOR Yellow (YELLOW); URINE GLUCOSE (UA) 1+ mg/dL (Normal); URINE LEUKOCYTE ESTERASE 3+ Leu/uL (Negative); URINE PROTEIN 3+ mg/dL (NEGATIVE); URINE UROBILINOGEN NORMAL mg/dL (0.2-1.0)
[2019-03-24] MEDS: (Novolin R) Insulin Human Regular 100 units/ml vial SC SCH ×4 (08:35→21:37)
[2019-03-24] MEDS: Calcium-Vit D 500 mg-200 Units Tab UD PO SCH ×2 (10:06→17:57)
[2019-03-24] MEDS: Metoprolol Succinate 50 mg XL Tab PO SCH (10:06)
[2019-03-24] MEDS: Hydrocortisone 2.5% Oint (20 gm) TOP SCH ×2 (10:07→17:57)
[2019-03-24] MEDS: Nystatin 100,000 Units/gm Cream(15 gm) TOP SCH ×3 (10:07→17:57)
--- NOTE | 2019-03-24 16:31 | CP.PCM.PN ---
Subjective - Date & Time of Evaluation Date of Evaluation: 03/24/19 Time of Evaluation: 11:00 - Subjective Subjective: Patient seen and examined Slight cough but denies any shortness of breath Afebrile Objective - Vital Signs/Intake and Output Vital Signs (last 24 hours): Temp Pulse Resp BP Pulse Ox 97.4 F L 62 20 131/77 96 03/24/19 15:58 03/24/19 15:58 03/24/19 15:58 03/24/19 15:58 03/24/19 15:58 Intake and Output: 03/24/19 03/24/19 06:59 18:59 Intake Total 250 Output Total 650 500 Balance -400 -500 - Medications Medications: Current Medications Amlodipine Besylate (Norvasc) 5 mg PO DAILY [facility] Last Admin: 03/24/19 10:06 Dose: 5 mg Calcium/Vitamin D (Oyster Shell Calcium/Vitamin D 500 Mg-200 Iu) 1 tab PO BID [facility] Last Admin: 03/24/19 10:06 Dose: 1 tab Clopidogrel Bisulfate (Plavix) 75 mg PO DAILY [facility] Last Admin: 03/24/19 10:06 Dose: 75 mg Gabapentin (Neurontin) 100 mg PO BID [facility] Last Admin: 03/24/19 10:06 Dose: 100 mg Glimepiride (Amaryl) 2 mg PO DAILY [facility] [place] Last Admin: 03/24/19 10:06 Dose: 2 mg Hydrocortisone (Cortizone 2.5%) 0 gm TOP BID [facility] Last Admin: 03/24/19 10:07 Dose: 1 applic Piperacillin Sod/Tazobactam Sod (Zosyn 2.25 Gm Iv Premix) 2.25 gm in 50 mls @ 100 mls/hr IVPB Q8 [facility] [place]; Protocol Last Admin: 03/24/19 13:25 Dose: 100 mls/hr Insulin Human Regular (Novolin R) 0 unit SC ACHS [facility]; Protocol Last Admin: 03/24/19 11:59 Dose: 8 units Metoprolol Succinate (Toprol Xl) 50 mg PO DAILY [facility] Last Admin: 03/24/19 10:06 Dose: 50 mg Nystatin (Mycostatin Cream) 0 ea TOP TID [facility] Last Admin: 03/24/19 14:32 Dose: 1 applic Rosuvastatin Calcium (Crestor) 10 mg PO HS [facility] Last Admin: 03/23/19 21:43 Dose: 10 mg - Labs Labs: 03/22/19 07:45 03/22/19 07:45 - Head Exam Head Exam: ATRAUMATIC, NORMOCEPHALIC - ENT Exam ENT Exam: Mucous Membranes Moist - Neck Exam Neck Exam: Normal Inspection - Respiratory Exam Respiratory Exam: Clear to Ausculation Bilateral - Cardiovascular Exam Cardiovascular Exam: REGULAR RHYTHM - GI/Abdominal Exam GI & Abdominal Exam: Soft, Normal Bowel Sounds Assessment and Plan (1) Pulmonary cavitary lesion Assessment & Plan: CT-guided biopsy Continue isolation one AFB negative On antibiotics Status: Acute (2) Abdominal pain Status: Acute (3) CKD (chronic kidney disease) Status: Acute
--- NOTE | 2019-03-24 18:14 | CP.PCM.PN ---
Subjective - Date & Time of Evaluation Date of Evaluation: 03/24/19 Time of Evaluation: 18:12 - Subjective Subjective: S: Feels weak. No fever. Objective - Vital Signs/Intake and Output Vital Signs (last 24 hours): Temp Pulse Resp BP Pulse Ox 97.4 F L 62 20 131/77 96 03/24/19 15:58 03/24/19 15:58 03/24/19 15:58 03/24/19 15:58 03/24/19 15:58 Intake and Output: 03/24/19 03/24/19 06:59 18:59 Intake Total 250 Output Total 650 500 Balance -400 -500 - Medications Medications: Current Medications Amlodipine Besylate (Norvasc) 5 mg PO DAILY [facility] Last Admin: 03/24/19 10:06 Dose: 5 mg Calcium/Vitamin D (Oyster Shell Calcium/Vitamin D 500 Mg-200 Iu) 1 tab PO BID [facility] Last Admin: 03/24/19 17:57 Dose: 1 tab Clopidogrel Bisulfate (Plavix) 75 mg PO DAILY [facility] Last Admin: 03/24/19 10:06 Dose: 75 mg Gabapentin (Neurontin) 100 mg PO BID [facility] Last Admin: 03/24/19 17:57 Dose: 100 mg Glimepiride (Amaryl) 2 mg PO DAILY [facility] Last Admin: 03/24/19 10:06 Dose: 2 mg Hydrocortisone (Cortizone 2.5%) 0 gm TOP BID [facility] Last Admin: 03/24/19 17:57 Dose: 1 applic Piperacillin Sod/Tazobactam Sod (Zosyn 2.25 Gm Iv Premix) 2.25 gm in 50 mls @ 100 mls/hr IVPB Q8 [facility]; Protocol Last Admin: 03/24/19 13:25 Dose: 100 mls/hr Insulin Human Regular (Novolin R) 0 unit SC ACHS [facility]; Protocol Last Admin: 03/24/19 17:58 Dose: 2 units Metoprolol Succinate (Toprol Xl) 50 mg PO DAILY [facility] Last Admin: 03/24/19 10:06 Dose: 50 mg Nystatin (Mycostatin Cream) 0 ea TOP TID [facility] Last Admin: 03/24/19 17:57 Dose: 1 applic Rosuvastatin Calcium (Crestor) 10 mg PO HS [facility] Last Admin: 03/23/19 21:43 Dose: 10 mg - Labs Labs: 03/22/19 07:45 03/22/19 07:45 - Constitutional Appears: Chronically Ill - Head Exam Head Exam: NORMAL INSPECTION - Eye Exam Eye Exam: Normal appearance - ENT Exam ENT Exam: Normal Exam - Neck Exam Neck Exam: Normal Inspection - Respiratory Exam Respiratory Exam: NORMAL BREATHING PATTERN - Cardiovascular Exam Cardiovascular Exam: REGULAR RHYTHM - Rectal Exam Rectal Exam: Deferred - Extremities Exam Extremities Exam: absent: Pedal Edema - Neurological Exam Neurological Exam: Alert Assessment and Plan (1) Abdominal pain Status: Acute (2) CAD (coronary artery disease) Status: Chronic (3) Diabetes Status: Chronic (4) Cavitary lesion of lung Status: Acute - Assessment and Plan (Free Text) Assessment: A? P: Continue medications. Appreciate Dr Sheri Monteiro notes
--- NOTE | 2019-03-24 18:56 | CP.PCM.PN ---
Subjective - Date & Time of Evaluation Date of Evaluation: 03/24/19 Time of Evaluation: 08:00 - Subjective Subjective: seen on rounds ROS completed events noted labs and xrays reviewed orders signed Objective - Vital Signs/Intake and Output Vital Signs (last 24 hours): Temp Pulse Resp BP Pulse Ox 97.4 F L 62 20 131/77 96 03/24/19 15:58 03/24/19 15:58 03/24/19 15:58 03/24/19 15:58 03/24/19 15:58 Intake and Output: 03/24/19 03/24/19 06:59 18:59 Intake Total 250 Output Total 650 500 Balance -400 -500 - Medications Medications: Current Medications Amlodipine Besylate (Norvasc) 5 mg PO DAILY [facility] Last Admin: 03/24/19 10:06 Dose: 5 mg Calcium/Vitamin D (Oyster Shell Calcium/Vitamin D 500 Mg-200 Iu) 1 tab PO BID [facility] Last Admin: 03/24/19 17:57 Dose: 1 tab Clopidogrel Bisulfate (Plavix) 75 mg PO DAILY [facility] Last Admin: 03/24/19 10:06 Dose: 75 mg Gabapentin (Neurontin) 100 mg PO BID [facility] Last Admin: 03/24/19 17:57 Dose: 100 mg Glimepiride (Amaryl) 2 mg PO DAILY [facility] Last Admin: 03/24/19 10:06 Dose: 2 mg Hydrocortisone (Cortizone 2.5%) 0 gm TOP BID [facility] Last Admin: 03/24/19 17:57 Dose: 1 applic Piperacillin Sod/Tazobactam Sod (Zosyn 2.25 Gm Iv Premix) 2.25 gm in 50 mls @ 100 mls/hr IVPB Q8 [facility]; Protocol Last Admin: 03/24/19 13:25 Dose: 100 mls/hr Insulin Human Regular (Novolin R) 0 unit SC ACHS [facility]; Protocol Last Admin: 03/24/19 17:58 Dose: 2 units Metoprolol Succinate (Toprol Xl) 50 mg PO DAILY [facility] Last Admin: 03/24/19 10:06 Dose: 50 mg Nystatin (Mycostatin Cream) 0 ea TOP TID [facility] Last Admin: 03/24/19 17:57 Dose: 1 applic Rosuvastatin Calcium (Crestor) 10 mg PO HS [facility] Last Admin: 03/23/19 21:43 Dose: 10 mg - Labs Labs: 03/22/19 07:45 03/22/19 07:45 - Constitutional Appears: Non-toxic, Chronically Ill - Head Exam Head Exam: NORMOCEPHALIC - Eye Exam Eye Exam: EOMI, Normal appearance, PERRL Pupil Exam: NORMAL ACCOMODATION, PERRL - ENT Exam ENT Exam: Mucous Membranes Moist, Normal Exam - Neck Exam Neck Exam: Full ROM, Normal Inspection. absent: Lymphadenopathy - Respiratory Exam Respiratory Exam: Clear to Ausculation Bilateral, NORMAL BREATHING PATTERN - Cardiovascular Exam Cardiovascular Exam: REGULAR RHYTHM, +S1, +S2. absent: Murmur - GI/Abdominal Exam GI & Abdominal Exam: Soft, Normal Bowel Sounds. absent: Tenderness - Rectal Exam Rectal Exam: Deferred - Extremities Exam Extremities Exam: Full ROM, Normal Capillary Refill, Normal Inspection. absent: Joint Swelling, Pedal Edema - Back Exam Back Exam: NORMAL INSPECTION - Neurological Exam Neurological Exam: Alert, Awake, CN II-XII Intact, Normal Gait, Oriented x3 - Psychiatric Exam Psychiatric exam: Normal Affect, Normal Mood - Skin Skin Exam: Dry, Intact, Normal Color, Warm Assessment and Plan (1) Abdominal pain Status: Acute (2) Generalized weakness Status: Acute (3) Chr obstructive pulmonary disease w/ acute lower respiratory infxn Status: Acute (4) Constipation by delayed colonic transit Status: Acute (5) CAD (coronary artery disease) Status: Chronic (6) Diabetes Status: Chronic (7) Diabetic retinopathy associated with controlled type 2 diabetes mellitus Status: Chronic (8) Old cerebrovascular accident without late effect Status: Chronic (9) 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
[2019-03-25] MEDS: Piperacill/Tazo 2.25gm in Dex 2.25 GM/50 ML BAG IVPB SCH ×3 (05:46→21:51)
--- NOTE | 2019-03-25 08:14 | CP.PCM.PN ---
Subjective - Date & Time of Evaluation Date of Evaluation: 03/25/19 Time of Evaluation: 08:05 - Subjective Subjective: Pt no complain; last bowel movement 2 days ago but got diarrhea prior. No CP, no SOB, no n/v, no dysuria, (+) very min cough, min abd bloating "gas'. Objective - Vital Signs/Intake and Output Vital Signs (last 24 hours): Temp Pulse Resp BP Pulse Ox 97.4 F L 63 20 157/75 H 99 03/24/19 23:35 03/24/19 23:35 03/24/19 23:35 03/24/19 23:35 03/24/19 23:35 Intake and Output: 03/25/19 03/25/19 06:59 18:59 Intake Total 550 Output Total 800 Balance -250 - Medications Medications: Current Medications Amlodipine Besylate (Norvasc) 5 mg PO DAILY [facility] Last Admin: 03/24/19 10:06 Dose: 5 mg Calcium/Vitamin D (Oyster Shell Calcium/Vitamin D 500 Mg-200 Iu) 1 tab PO BID [facility] Last Admin: 03/24/19 17:57 Dose: 1 tab Clopidogrel Bisulfate (Plavix) 75 mg PO DAILY [facility] Last Admin: 03/24/19 10:06 Dose: 75 mg Gabapentin (Neurontin) 100 mg PO BID [facility] Last Admin: 03/24/19 17:57 Dose: 100 mg Glimepiride (Amaryl) 2 mg PO DAILY [facility] Last Admin: 03/24/19 10:06 Dose: 2 mg Hydrocortisone (Cortizone 2.5%) 0 gm TOP BID [facility] Last Admin: 03/24/19 17:57 Dose: 1 applic Piperacillin Sod/Tazobactam Sod (Zosyn 2.25 Gm Iv Premix) 2.25 gm in 50 mls @ 100 mls/hr IVPB Q8 [facility]; Protocol Last Admin: 03/25/19 05:46 Dose: 100 mls/hr Insulin Human Regular (Novolin R) 0 unit SC ACHS [facility]; Protocol Last Admin: 03/24/19 21:37 Dose: Not Given Metoprolol Succinate (Toprol Xl) 50 mg PO DAILY [facility] Last Admin: 03/24/19 10:06 Dose: 50 mg Nystatin (Mycostatin Cream) 0 ea TOP TID [facility] Last Admin: 03/24/19 17:57 Dose: 1 applic Polyethylene Glycol (Miralax) 17 gm PO DAILY [facility] Rosuvastatin Calcium (Crestor) 10 mg PO HS [facility] Last Admin: 03/24/19 21:36 Dose: 10 mg - Labs Labs: 03/22/19 07:45 03/22/19 07:45 - Constitutional Appears: No Acute Distress - Eye Exam Eye Exam: Normal appearance - ENT Exam ENT Exam: Mucous Membranes Moist - Neck Exam Neck Exam: Full ROM. absent: Normal Inspection, Thyromegaly - Respiratory Exam Respiratory Exam: Decreased Breath Sounds. absent: Rales, Rhonchi, Wheezes - GI/Abdominal Exam GI & Abdominal Exam: Soft, Normal Bowel Sounds. absent: Tenderness - Extremities Exam Extremities Exam: Full ROM, Normal Capillary Refill. absent: Calf Tenderness, Joint Swelling, Pedal Edema Assessment and Plan - Assessment and Plan (Free Text) Assessment: Abn CXR - TB vs mass NIDDM, HTN, hyperlipidemia w/ CKD AFB negative x 1 only; 2nd collective Cont meds/supportive care
[2019-03-25] MEDS: (Novolin R) Insulin Human Regular 100 units/ml vial SC SCH ×4 (08:30→22:13)
[2019-03-25] MEDS: Nystatin 100,000 Units/gm Cream(15 gm) TOP SCH ×3 (10:12→17:52)
[2019-03-25] MEDS: Hydrocortisone 2.5% Oint (20 gm) TOP SCH ×2 (10:12→17:53)
[2019-03-25] MEDS: Metoprolol Succinate 50 mg XL Tab PO SCH (10:14)
[2019-03-25] MEDS: POLYETHYLENE GLYCOL 3350 17 GM/Dose PACKET PO SCH (10:14)
[2019-03-25] MEDS: Calcium-Vit D 500 mg-200 Units Tab UD PO SCH ×2 (10:15→17:48)
--- NOTE | 2019-03-25 12:15 | CP.PCM.PN ---
Subjective - Date & Time of Evaluation Date of Evaluation: 03/25/19 Time of Evaluation: 10:00 - Subjective Subjective: Patient seen and examined Slight cough Afebrile Awaiting for lung biopsy Remains in isolation Discontinue isolation when 3 sputum AFB negative Continue antibiotics Objective - Vital Signs/Intake and Output Vital Signs (last 24 hours): Temp Pulse Resp BP Pulse Ox 98 F 96 H 20 170/79 H 98 03/25/19 08:00 03/25/19 08:00 03/25/19 08:00 03/25/19 08:00 03/25/19 08:00 Intake and Output: 03/25/19 03/25/19 06:59 18:59 Intake Total 550 Output Total 800 Balance -250 - Medications Medications: Current Medications Amlodipine Besylate (Norvasc) 5 mg PO DAILY [facility] Last Admin: 03/25/19 10:15 Dose: 5 mg Calcium/Vitamin D (Oyster Shell Calcium/Vitamin D 500 Mg-200 Iu) 1 tab PO BID [facility] Last Admin: 03/25/19 10:15 Dose: 1 tab Clopidogrel Bisulfate (Plavix) 75 mg PO DAILY [facility] Last Admin: 03/25/19 10:14 Dose: 75 mg Gabapentin (Neurontin) 100 mg PO BID [facility] Last Admin: 03/25/19 10:14 Dose: 100 mg Glimepiride (Amaryl) 2 mg PO DAILY [facility] Last Admin: 03/25/19 10:15 Dose: 2 mg Hydrocortisone (Cortizone 2.5%) 0 gm TOP BID [facility] Last Admin: 03/25/19 10:12 Dose: 1 applic Piperacillin Sod/Tazobactam Sod (Zosyn 2.25 Gm Iv Premix) 2.25 gm in 50 mls @ 100 mls/hr IVPB Q8 [facility]; Protocol Last Admin: 03/25/19 05:46 Dose: 100 mls/hr Insulin Human Regular (Novolin R) 0 unit SC ACHS [facility]; Protocol Last Admin: 03/25/19 12:09 Dose: 3 units Metoprolol Succinate (Toprol Xl) 50 mg PO DAILY [facility] Last Admin: 03/25/19 10:14 Dose: 50 mg Nystatin (Mycostatin Cream) 0 ea TOP TID [facility] Last Admin: 03/25/19 10:12 Dose: 1 applic Polyethylene Glycol (Miralax) 17 gm PO DAILY [facility] Last Admin: 03/25/19 10:14 Dose: 17 gm Rosuvastatin Calcium (Crestor) 10 mg PO HS [facility] Last Admin: 03/24/19 21:36 Dose: 10 mg - Labs Labs: 03/22/19 07:45 03/22/19 07:45 - Head Exam Head Exam: ATRAUMATIC, NORMOCEPHALIC - ENT Exam ENT Exam: Mucous Membranes Moist - Neck Exam Neck Exam: Normal Inspection - Respiratory Exam Respiratory Exam: Decreased Breath Sounds - Cardiovascular Exam Cardiovascular Exam: REGULAR RHYTHM - GI/Abdominal Exam GI & Abdominal Exam: Soft, Normal Bowel Sounds - Extremities Exam Extremities Exam: Normal Inspection - Neurological Exam Neurological Exam: Alert Assessment and Plan (1) Pulmonary cavitary lesion Status: Acute (2) Abdominal pain Status: Acute (3) CKD (chronic kidney disease) Status: Acute
--- NOTE | 2019-03-25 17:19 | CP.PCM.PN ---
Subjective - Date & Time of Evaluation Date of Evaluation: 03/25/19 Time of Evaluation: 08:00 - Subjective Subjective: weak bedridden NAD no fever AFB pending then FOB Dr Monteiro on board Objective - Vital Signs/Intake and Output Vital Signs (last 24 hours): Temp Pulse Resp BP Pulse Ox 97.9 F 66 20 138/75 96 03/25/19 16:00 03/25/19 16:00 03/25/19 16:00 03/25/19 16:00 03/25/19 16:00 Intake and Output: 03/25/19 03/25/19 06:59 18:59 Intake Total 550 530 Output Total 800 600 Balance -250 -70 - Medications Medications: Current Medications Amlodipine Besylate (Norvasc) 5 mg PO DAILY [facility] Last Admin: 03/25/19 10:15 Dose: 5 mg Calcium/Vitamin D (Oyster Shell Calcium/Vitamin D 500 Mg-200 Iu) 1 tab PO BID [facility] Last Admin: 03/25/19 10:15 Dose: 1 tab Clopidogrel Bisulfate (Plavix) 75 mg PO DAILY [facility] Last Admin: 03/25/19 10:14 Dose: 75 mg Gabapentin (Neurontin) 100 mg PO BID [facility] Last Admin: 03/25/19 10:14 Dose: 100 mg Glimepiride (Amaryl) 2 mg PO DAILY [facility] Last Admin: 03/25/19 10:15 Dose: 2 mg Hydrocortisone (Cortizone 2.5%) 0 gm TOP BID [facility] Last Admin: 03/25/19 10:12 Dose: 1 applic Piperacillin Sod/Tazobactam Sod (Zosyn 2.25 Gm Iv Premix) 2.25 gm in 50 mls @ 100 mls/hr IVPB Q8 [facility]; Protocol Last Admin: 03/25/19 14:03 Dose: 100 mls/hr Insulin Human Regular (Novolin R) 0 unit SC ACHS [facility]; Protocol Last Admin: 03/25/19 12:09 Dose: 3 units Metoprolol Succinate (Toprol Xl) 50 mg PO DAILY [facility] Last Admin: 03/25/19 10:14 Dose: 50 mg Nystatin (Mycostatin Cream) 0 ea TOP TID [facility] Last Admin: 03/25/19 14:03 Dose: 1 applic Polyethylene Glycol (Miralax) 17 gm PO DAILY [facility] Last Admin: 03/25/19 10:14 Dose: 17 gm Rosuvastatin Calcium (Crestor) 10 mg PO HS [facility] Last Admin: 03/24/19 21:36 Dose: 10 mg - Labs Labs: 03/22/19 07:45 03/22/19 07:45 - Constitutional Appears: Non-toxic, Confused, Cachectic, Chronically Ill - Head Exam Head Exam: ATRAUMATIC, NORMAL INSPECTION, NORMOCEPHALIC - Eye Exam Eye Exam: EOMI, Normal appearance, PERRL Pupil Exam: NORMAL ACCOMODATION, PERRL - ENT Exam ENT Exam: Mucous Membranes Moist, Normal Exam - Neck Exam Neck Exam: Full ROM, Normal Inspection. absent: Lymphadenopathy - Respiratory Exam Respiratory Exam: Decreased Breath Sounds, Clear to Ausculation Bilateral, Prolonged Expiratory Phase - Cardiovascular Exam Cardiovascular Exam: REGULAR RHYTHM, +S1, +S2. absent: Murmur - GI/Abdominal Exam GI & Abdominal Exam: Soft, Normal Bowel Sounds. absent: Tenderness - Rectal Exam Rectal Exam: Deferred - Exam Exam: NORMAL INSPECTION - Extremities Exam Extremities Exam: Full ROM, Normal Capillary Refill, Normal Inspection. absent: Joint Swelling, Pedal Edema - Back Exam Back Exam: NORMAL INSPECTION - Neurological Exam Neurological Exam: Alert, Awake, CN II-XII Intact. absent: Normal Gait, Oriented x3 - Psychiatric Exam Psychiatric exam: Normal Affect, Normal Mood - Skin Skin Exam: Dry, Intact, Normal Color, Warm Assessment and Plan (1) Abdominal pain Status: Acute (2) Generalized weakness Status: Acute (3) Chr obstructive pulmonary disease w/ acute lower respiratory infxn Status: Acute (4) Constipation by delayed colonic transit Status: Acute (5) CAD (coronary artery disease) Status: Chronic (6) Diabetes Status: Chronic (7) Diabetic retinopathy associated with controlled type 2 diabetes mellitus Status: Chronic (8) Old cerebrovascular accident without late effect Status: Chronic (9) 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
[2019-03-26] MEDS: Piperacill/Tazo 2.25gm in Dex 2.25 GM/50 ML BAG IVPB SCH ×3 (05:14→22:40)
[2019-03-26 07:31] LABS: MEAN CELL VOLUME 86.3 fL (81.0-99.0); MEAN CORPUSCULAR HEMOGLOBIN 28.9 pg (27.0-31.0); MEAN CORPUSCULAR HGB CONC 33.5 g/dL (33.0-37.0); MEAN PLATELET VOLUME 7.2 fL (7.2-11.7); RBC 4.16 Mil/uL (3.80-5.20); RED CELL DISTRIBUTION WIDTH 13.2 % (11.5-14.5); WHITE BLOOD COUNT 8.6 K/uL (4.8-10.8)
[2019-03-26] MEDS: (Novolin R) Insulin Human Regular 100 units/ml vial SC SCH ×4 (07:41→22:28)
[2019-03-26 07:43] LABS: ALB/GLOB RATIO 0.9 (1.0-2.1); ALBUMIN 3.5 g/dL (3.5-5.0); ALT/SGPT < 6 U/L (9-52); AST/SGOT 20 U/L (14-36); BLOOD UREA NITROGEN 43 mg/dL (7-17); CALCIUM 10.5 mg/dl (8.6-10.4); GFR NON-AFRICAN AMERICAN 17
--- NOTE | 2019-03-26 07:54 | CP.PCM.PN ---
Subjective - Date & Time of Evaluation Date of Evaluation: 03/26/19 Time of Evaluation: 07:45 - Subjective Subjective: Pt constipated, no n/b, (+) good appetite Complain c/o PT stop showing up; (+) in bed No cough, o CP, no SOB, no edema, no palpitation, no dysuria, (+) freq/ nocturia No QUINTANILLA, no slurred speech, no dizziness Objective - Vital Signs/Intake and Output Vital Signs (last 24 hours): Temp Pulse Resp BP Pulse Ox 97.6 F 67 20 158/81 H 99 03/26/19 07:39 03/26/19 07:39 03/26/19 07:39 03/26/19 07:39 03/26/19 07:39 Intake and Output: 03/26/19 03/26/19 06:59 18:59 Intake Total 860 Output Total 300 Balance 560 - Medications Medications: Current Medications Amlodipine Besylate (Norvasc) 5 mg PO DAILY [facility] Last Admin: 03/25/19 10:15 Dose: 5 mg Calcium/Vitamin D (Oyster Shell Calcium/Vitamin D 500 Mg-200 Iu) 1 tab PO BID [facility] Last Admin: 03/25/19 17:48 Dose: 1 tab Clopidogrel Bisulfate (Plavix) 75 mg PO DAILY [facility] Last Admin: 03/25/19 10:14 Dose: 75 mg Gabapentin (Neurontin) 100 mg PO BID [facility] Last Admin: 03/25/19 17:48 Dose: 100 mg Glimepiride (Amaryl) 2 mg PO DAILY [facility] Last Admin: 03/25/19 10:15 Dose: 2 mg Hydrocortisone (Cortizone 2.5%) 0 gm TOP BID [facility] Last Admin: 03/25/19 17:53 Dose: 1 applic Piperacillin Sod/Tazobactam Sod (Zosyn 2.25 Gm Iv Premix) 2.25 gm in 50 mls @ 100 mls/hr IVPB Q8 [facility]; Protocol Last Admin: 03/26/19 05:14 Dose: 100 mls/hr Insulin Human Regular (Novolin R) 0 unit SC ACHS [facility]; Protocol Last Admin: 03/26/19 07:41 Dose: Not Given Metoprolol Succinate (Toprol Xl) 50 mg PO DAILY [facility] Last Admin: 03/25/19 10:14 Dose: 50 mg Nystatin (Mycostatin Cream) 0 ea TOP TID [facility] Last Admin: 03/25/19 17:52 Dose: 1 applic Polyethylene Glycol (Miralax) 17 gm PO DAILY [facility] Last Admin: 03/25/19 10:14 Dose: 17 gm Rosuvastatin Calcium (Crestor) 10 mg PO HS [facility] Last Admin: 03/25/19 21:49 Dose: 10 mg - Labs Labs: 03/26/19 07:09 03/26/19 07:09 - Constitutional Appears: No Acute Distress - Eye Exam Eye Exam: Normal appearance - ENT Exam ENT Exam: Mucous Membranes Moist - Neck Exam Neck Exam: Full ROM. absent: Lymphadenopathy - Respiratory Exam Respiratory Exam: Decreased Breath Sounds. absent: Rales, Rhonchi, Wheezes - Cardiovascular Exam Cardiovascular Exam: REGULAR RHYTHM, +S1, +S2. absent: Gallop, JVD - GI/Abdominal Exam GI & Abdominal Exam: Soft. absent: Tenderness - Extremities Exam Extremities Exam: Full ROM, Normal Capillary Refill, Pedal Edema. absent: Calf Tenderness, Joint Swelling Assessment and Plan - Assessment and Plan (Free Text) Assessment: Cavitary lesion (pleural base) HTN, NIDDM, CKD, Gen debility/ Unsteady gait For AFB - then IR for Bx Cont meds/ inc Norvasc
[2019-03-26] MEDS: POLYETHYLENE GLYCOL 3350 17 GM/Dose PACKET PO SCH (10:00)
[2019-03-26] MEDS: Hydrocortisone 2.5% Oint (20 gm) TOP SCH ×2 (10:00→17:22)
[2019-03-26] MEDS: Nystatin 100,000 Units/gm Cream(15 gm) TOP SCH ×3 (10:00→17:23)
[2019-03-26] MEDS: Calcium-Vit D 500 mg-200 Units Tab UD PO SCH ×2 (10:01→17:23)
[2019-03-26] MEDS: Metoprolol Succinate 50 mg XL Tab PO SCH (10:01)
--- NOTE | 2019-03-26 14:19 | CP.PCM.PN ---
Subjective - Date & Time of Evaluation Date of Evaluation: 03/26/19 Time of Evaluation: 09:00 - Subjective Subjective: Patient seen and examined Afebrile Continue isolation pending sputum AFB For biopsy of lung/pleural based cavitary lesion Continue antibiotics for now Objective - Vital Signs/Intake and Output Vital Signs (last 24 hours): Temp Pulse Resp BP Pulse Ox 97.6 F 67 20 158/81 H 99 03/26/19 07:39 03/26/19 07:39 03/26/19 07:39 03/26/19 07:39 03/26/19 07:39 Intake and Output: 03/26/19 03/26/19 06:59 18:59 Intake Total 860 Output Total 300 Balance 560 - Medications Medications: Current Medications Amlodipine Besylate (Norvasc) 10 mg PO DAILY [facility] Last Admin: 03/26/19 10:01 Dose: 10 mg Calcium/Vitamin D (Oyster Shell Calcium/Vitamin D 500 Mg-200 Iu) 1 tab PO BID [facility] Last Admin: 03/26/19 10:01 Dose: 1 tab Clopidogrel Bisulfate (Plavix) 75 mg PO DAILY [facility] Last Admin: 03/26/19 10:01 Dose: 75 mg Gabapentin (Neurontin) 100 mg PO BID [facility] Last Admin: 03/26/19 10:01 Dose: 100 mg Glimepiride (Amaryl) 2 mg PO DAILY [facility] Last Admin: 03/26/19 10:01 Dose: 2 mg Hydrocortisone (Cortizone 2.5%) 0 gm TOP BID [facility] Last Admin: 03/26/19 10:00 Dose: 1 applic Piperacillin Sod/Tazobactam Sod (Zosyn 2.25 Gm Iv Premix) 2.25 gm in 50 mls @ 100 mls/hr IVPB Q8 [facility]; Protocol Last Admin: 03/26/19 14:00 Dose: 100 mls/hr Insulin Human Regular (Novolin R) 0 unit SC ACHS [facility]; Protocol Last Admin: 03/26/19 13:08 Dose: 3 units Metoprolol Succinate (Toprol Xl) 50 mg PO DAILY [facility] Last Admin: 03/26/19 10:01 Dose: 50 mg Nystatin (Mycostatin Cream) 0 ea TOP TID [facility] Last Admin: 03/26/19 13:08 Dose: 1 applic Polyethylene Glycol (Miralax) 17 gm PO DAILY [facility] Last Admin: 03/26/19 10:00 Dose: 17 gm Rosuvastatin Calcium (Crestor) 10 mg PO HS [facility] Last Admin: 03/25/19 21:49 Dose: 10 mg - Labs Labs: 03/26/19 07:09 03/26/19 07:09 Assessment and Plan (1) Pulmonary cavitary lesion Status: Acute (2) Abdominal pain Status: Acute (3) CKD (chronic kidney disease) Status: Acute
[2019-03-27 04:36] LABS: ANCA SCREEN NEGATIVE (NEGATIVE)
[2019-03-27] MEDS: Piperacill/Tazo 2.25gm in Dex 2.25 GM/50 ML BAG IVPB SCH ×3 (05:15→21:15)
[2019-03-27 08:11] VITALS: RESP 20
[2019-03-27] MEDS: (Novolin R) Insulin Human Regular 100 units/ml vial SC SCH ×3 (08:13→17:37)
[2019-03-27] MEDS: Hydrocortisone 2.5% Oint (20 gm) TOP SCH ×2 (09:05→17:32)
[2019-03-27] MEDS: Nystatin 100,000 Units/gm Cream(15 gm) TOP SCH ×3 (09:05→17:32)
[2019-03-27] MEDS: Metoprolol Succinate 50 mg XL Tab PO SCH (09:06)
[2019-03-27] MEDS: Calcium-Vit D 500 mg-200 Units Tab UD PO SCH ×2 (09:06→17:33)
[2019-03-27] MEDS: POLYETHYLENE GLYCOL 3350 17 GM/Dose PACKET PO SCH (09:12)
--- NOTE | 2019-03-27 13:13 | CP.PCM.PN ---
Subjective - Date & Time of Evaluation Date of Evaluation: 03/27/19 Time of Evaluation: 13:07 - Subjective Subjective: Pulmonary follow up, Covering Dr Monteiro The Patient was seen and examined at the bedside, Medical records reviewed, and management issues were discussed and formulated with the house staff. Events reviewed Reason for consultation: Abnormal CT scan of chest Mrs Rankin is a 63 Years old Former smoker Female with PMHx of diabetes, COPD, pleural effusion in 2015 and coronary artery disease status post stent placement Who was admitted with abdominal pain and constipation. Also Patient admits having dry cough, sometimes productive with clear phlegm. Denies fever/chills, chest pain, night sweats or hemoptysis. Chest CT scan of the chest consistent with pleural-based cavity in the right upper lobe. Patient was placed in isolation to rule out TB Patient is comfortable, in no apparent distress Afebrile Continue isolation pending sputum AFB Continue antibiotics For biopsy of lung/pleural based cavitary lesion Objective - Vital Signs/Intake and Output Vital Signs (last 24 hours): Temp Pulse Resp BP Pulse Ox 98.2 F 64 20 145/72 96 03/27/19 07:57 03/27/19 07:57 03/27/19 07:57 03/27/19 07:57 03/27/19 07:57 Intake and Output: 03/27/19 03/27/19 06:59 18:59 Intake Total 450 Output Total 300 Balance 150 - Medications Medications: Current Medications Amlodipine Besylate (Norvasc) 10 mg PO DAILY [facility] Last Admin: 03/27/19 09:06 Dose: 10 mg Calcium/Vitamin D (Oyster Shell Calcium/Vitamin D 500 Mg-200 Iu) 1 tab PO BID [facility] Last Admin: 03/27/19 09:06 Dose: 1 tab Clopidogrel Bisulfate (Plavix) 75 mg PO DAILY [facility] Last Admin: 03/27/19 09:06 Dose: 75 mg Gabapentin (Neurontin) 100 mg PO BID [facility] Last Admin: 03/27/19 09:06 Dose: 100 mg Glimepiride (Amaryl) 2 mg PO DAILY [facility] Last Admin: 03/27/19 09:06 Dose: 2 mg Hydrocortisone (Cortizone 2.5%) 0 gm TOP BID [facility] Last Admin: 03/27/19 09:05 Dose: 1 applic Piperacillin Sod/Tazobactam Sod (Zosyn 2.25 Gm Iv Premix) 2.25 gm in 50 mls @ 100 mls/hr IVPB Q8 [facility]; Protocol Last Admin: 03/27/19 05:15 Dose: 100 mls/hr Insulin Human Regular (Novolin R) 0 unit SC ACHS [facility]; Protocol Last Admin: 03/27/19 12:03 Dose: 3 units Metoprolol Succinate (Toprol Xl) 50 mg PO DAILY [facility] Last Admin: 03/27/19 09:06 Dose: 50 mg Nystatin (Mycostatin Cream) 0 ea TOP TID [facility] Last Admin: 03/27/19 09:05 Dose: 1 applic Polyethylene Glycol (Miralax) 17 gm PO DAILY [facility] Last Admin: 03/27/19 09:12 Dose: 17 gm Rosuvastatin Calcium (Crestor) 10 mg PO HS [facility] Last Admin: 03/26/19 21:43 Dose: 10 mg - Labs Labs: 03/26/19 07:09 03/26/19 07:09 - Constitutional Appears: Well, Older Than Stated Age - Head Exam Head Exam: ATRAUMATIC, NORMAL INSPECTION, NORMOCEPHALIC - Eye Exam Eye Exam: EOMI, Normal appearance, PERRL Pupil Exam: NORMAL ACCOMODATION - ENT Exam ENT Exam: Mucous Membranes Moist, Normal Exam - Neck Exam Neck Exam: Full ROM - Respiratory Exam Respiratory Exam: Accessory Muscle Use, Chest Wall Tenderness, Decreased Breath Sounds, Prolonged Expiratory Phase, Rhonchi. absent: Rales, Wheezes - GI/Abdominal Exam GI & Abdominal Exam: Soft, Normal Bowel Sounds. absent: Tenderness Assessment and Plan (1) Pulmonary cavitary lesion Status: Acute (2) Chr obstructive pulmonary disease w/ acute lower respiratory infxn Status: Chronic (3) CKD (chronic kidney disease) Status: Chronic (4) Generalized weakness Status: Acute (5) Pneumonia Status: Acute
--- NOTE | 2019-03-27 18:44 | CP.PCM.PN ---
Subjective - Date & Time of Evaluation Date of Evaluation: 03/27/19 Time of Evaluation: 08:00 - Subjective Subjective: still has copious secretions AFB pending for FOB Objective - Vital Signs/Intake and Output Vital Signs (last 24 hours): Temp Pulse Resp BP Pulse Ox 98.1 F 67 20 128/63 93 L 03/27/19 17:51 03/27/19 17:51 03/27/19 17:51 03/27/19 17:51 03/27/19 17:51 Intake and Output: 03/27/19 03/27/19 06:59 18:59 Intake Total 450 530 Output Total 300 Balance 150 530 - Medications Medications: Current Medications Amlodipine Besylate (Norvasc) 10 mg PO DAILY [facility] Last Admin: 03/27/19 09:06 Dose: 10 mg Calcium/Vitamin D (Oyster Shell Calcium/Vitamin D 500 Mg-200 Iu) 1 tab PO BID [facility] Last Admin: 03/27/19 17:33 Dose: 1 tab Clopidogrel Bisulfate (Plavix) 75 mg PO DAILY [facility] Last Admin: 03/27/19 09:06 Dose: 75 mg Gabapentin (Neurontin) 100 mg PO BID [facility] Last Admin: 03/27/19 17:33 Dose: 100 mg Glimepiride (Amaryl) 2 mg PO DAILY [facility] Last Admin: 03/27/19 09:06 Dose: 2 mg Hydrocortisone (Cortizone 2.5%) 0 gm TOP BID [facility] Last Admin: 03/27/19 17:32 Dose: 1 applic Piperacillin Sod/Tazobactam Sod (Zosyn 2.25 Gm Iv Premix) 2.25 gm in 50 mls @ 100 mls/hr IVPB Q8 [facility]; Protocol Last Admin: 03/27/19 13:32 Dose: 100 mls/hr Insulin Human Regular (Novolin R) 0 unit SC ACHS [facility]; Protocol Last Admin: 03/27/19 17:37 Dose: 3 units Metoprolol Succinate (Toprol Xl) 50 mg PO DAILY [facility] Last Admin: 03/27/19 09:06 Dose: 50 mg Nystatin (Mycostatin Cream) 0 ea TOP TID [facility] Last Admin: 03/27/19 17:32 Dose: 1 applic Polyethylene Glycol (Miralax) 17 gm PO DAILY [facility] Last Admin: 03/27/19 09:12 Dose: 17 gm Rosuvastatin Calcium (Crestor) 10 mg PO HS [facility] Last Admin: 03/26/19 21:43 Dose: 10 mg - Labs Labs: 03/26/19 07:09 03/26/19 07:09 - Constitutional Appears: Non-toxic, Chronically Ill - Head Exam Head Exam: ATRAUMATIC, NORMAL INSPECTION, NORMOCEPHALIC - Eye Exam Eye Exam: EOMI, Normal appearance, PERRL Pupil Exam: NORMAL ACCOMODATION, PERRL - ENT Exam ENT Exam: Mucous Membranes Moist, Normal Exam - Neck Exam Neck Exam: Full ROM, Normal Inspection. absent: Lymphadenopathy - Respiratory Exam Respiratory Exam: Clear to Ausculation Bilateral, NORMAL BREATHING PATTERN - Cardiovascular Exam Cardiovascular Exam: REGULAR RHYTHM, +S1, +S2. absent: Murmur - GI/Abdominal Exam GI & Abdominal Exam: Soft, Normal Bowel Sounds. absent: Tenderness - Rectal Exam Rectal Exam: Deferred - Extremities Exam Extremities Exam: Full ROM, Normal Capillary Refill, Normal Inspection. absent: Joint Swelling, Pedal Edema - Back Exam Back Exam: NORMAL INSPECTION - Neurological Exam Neurological Exam: Alert, Awake, CN II-XII Intact. absent: Normal Gait, Oriented x3 - Psychiatric Exam Psychiatric exam: Normal Affect, Normal Mood - Skin Skin Exam: Dry, Intact, Normal Color, Warm Assessment and Plan (1) Abdominal pain Status: Acute (2) Generalized weakness Status: Acute (3) Chr obstructive pulmonary disease w/ acute lower respiratory infxn Status: Chronic (4) Constipation by delayed colonic transit Status: Acute (5) CAD (coronary artery disease) Status: Chronic (6) Diabetes Status: Chronic (7) Diabetic retinopathy associated with controlled type 2 diabetes mellitus Status: Chronic (8) Old cerebrovascular accident without late effect Status: Chronic (9) Vitreomacular traction syndrome of left eye Status: Chronic (10) CKD (chronic kidney disease) Status: Chronic - Assessment and Plan (Free Text) Assessment: awaiting AFB smears for FOB with Dr Monteiro
[2019-03-28] MEDS: Piperacill/Tazo 2.25gm in Dex 2.25 GM/50 ML BAG IVPB SCH ×3 (05:42→21:09)
[2019-03-28] MEDS: (Novolin R) Insulin Human Regular 100 units/ml vial SC SCH ×4 (08:30→22:43)
--- NOTE | 2019-03-28 08:31 | CP.PCM.PN ---
Subjective - Date & Time of Evaluation Date of Evaluation: 03/28/19 Time of Evaluation: 08:15 - Subjective Subjective: Pt no complain except constipated; no CP, no SOB, min cough. No n/v, (+) feels fatigue, no dysuria Objective - Vital Signs/Intake and Output Vital Signs (last 24 hours): Temp Pulse Resp BP Pulse Ox 98.1 F 68 20 129/69 96 03/28/19 07:51 03/28/19 07:51 03/28/19 07:51 03/28/19 07:51 03/28/19 07:51 Intake and Output: 03/28/19 03/28/19 06:59 18:59 Intake Total 590 Output Total 400 Balance 190 - Medications Medications: Current Medications Amlodipine Besylate (Norvasc) 10 mg PO DAILY [facility] Last Admin: 03/27/19 09:06 Dose: 10 mg Calcium/Vitamin D (Oyster Shell Calcium/Vitamin D 500 Mg-200 Iu) 1 tab PO BID [facility] Last Admin: 03/27/19 17:33 Dose: 1 tab Clopidogrel Bisulfate (Plavix) 75 mg PO DAILY [facility] Last Admin: 03/27/19 09:06 Dose: 75 mg Gabapentin (Neurontin) 100 mg PO BID [facility] Last Admin: 03/27/19 17:33 Dose: 100 mg Glimepiride (Amaryl) 2 mg PO DAILY [facility] Last Admin: 03/27/19 09:06 Dose: 2 mg Hydrocortisone (Cortizone 2.5%) 0 gm TOP BID [facility] Last Admin: 03/27/19 17:32 Dose: 1 applic Piperacillin Sod/Tazobactam Sod (Zosyn 2.25 Gm Iv Premix) 2.25 gm in 50 mls @ 100 mls/hr IVPB Q8 [facility]; Protocol Last Admin: 03/28/19 05:42 Dose: 100 mls/hr Insulin Human Regular (Novolin R) 0 unit SC ACHS [facility]; Protocol Last Admin: 03/27/19 17:37 Dose: 3 units Metoprolol Succinate (Toprol Xl) 50 mg PO DAILY [facility] Last Admin: 03/27/19 09:06 Dose: 50 mg Nystatin (Mycostatin Cream) 0 ea TOP TID [facility] Last Admin: 03/27/19 17:32 Dose: 1 applic Polyethylene Glycol (Miralax) 17 gm PO DAILY [facility] Last Admin: 03/27/19 09:12 Dose: 17 gm Rosuvastatin Calcium (Crestor) 10 mg PO HS [facility] Last Admin: 03/27/19 21:16 Dose: 10 mg - Labs Labs: 03/26/19 07:09 03/26/19 07:09 - Constitutional Appears: No Acute Distress - Eye Exam Eye Exam: Normal appearance - ENT Exam ENT Exam: Mucous Membranes Moist - Neck Exam Neck Exam: Full ROM. absent: Lymphadenopathy, Thyromegaly - Respiratory Exam Respiratory Exam: Decreased Breath Sounds. absent: Rales, Rhonchi, Wheezes - Cardiovascular Exam Cardiovascular Exam: REGULAR RHYTHM, +S1, +S2. absent: Gallop, JVD - GI/Abdominal Exam GI & Abdominal Exam: Soft, Normal Bowel Sounds. absent: Tenderness - Extremities Exam Extremities Exam: Full ROM, Normal Capillary Refill. absent: Calf Tenderness, Joint Swelling Assessment and Plan - Assessment and Plan (Free Text) Assessment: Pulm cavitary lesion; CAD s/p stent HTN, NIDDM, CKD & prev CVA Conr meds/ supportive care Still waitng for 3 AFB - talk to staff
[2019-03-28] MEDS: Calcium-Vit D 500 mg-200 Units Tab UD PO SCH ×2 (11:00→17:46)
[2019-03-28] MEDS: Metoprolol Succinate 50 mg XL Tab PO SCH (11:00)
[2019-03-28] MEDS: POLYETHYLENE GLYCOL 3350 17 GM/Dose PACKET PO SCH (11:00)
[2019-03-28] MEDS: Hydrocortisone 2.5% Oint (20 gm) TOP SCH ×2 (11:00→17:48)
[2019-03-28] MEDS: Nystatin 100,000 Units/gm Cream(15 gm) TOP SCH ×3 (11:00→17:52)
--- NOTE | 2019-03-28 11:46 | CP.PCM.PN ---
Subjective - Date & Time of Evaluation Date of Evaluation: 03/28/19 Time of Evaluation: 09:20 - Subjective Subjective: patient seen and examined Lying comfortably in no distress Denies cough Afebrile Sputum AFB x1 negative Objective - Vital Signs/Intake and Output Vital Signs (last 24 hours): Temp Pulse Resp BP Pulse Ox 98.1 F 68 20 129/69 96 03/28/19 07:51 03/28/19 07:51 03/28/19 07:51 03/28/19 07:51 03/28/19 07:51 Intake and Output: 03/28/19 03/28/19 06:59 18:59 Intake Total 590 Output Total 400 Balance 190 - Medications Medications: Current Medications Amlodipine Besylate (Norvasc) 10 mg PO DAILY [facility] Last Admin: 03/28/19 11:00 Dose: 10 mg Calcium/Vitamin D (Oyster Shell Calcium/Vitamin D 500 Mg-200 Iu) 1 tab PO BID [facility] Last Admin: 03/28/19 11:00 Dose: 1 tab Clopidogrel Bisulfate (Plavix) 75 mg PO DAILY [facility] Last Admin: 03/28/19 11:00 Dose: 75 mg Gabapentin (Neurontin) 100 mg PO BID [facility] Last Admin: 03/28/19 11:00 Dose: 100 mg Glimepiride (Amaryl) 2 mg PO DAILY [facility] Last Admin: 03/28/19 11:00 Dose: 2 mg Hydrocortisone (Cortizone 2.5%) 0 gm TOP BID [facility] Last Admin: 03/28/19 11:00 Dose: 1 applic Piperacillin Sod/Tazobactam Sod (Zosyn 2.25 Gm Iv Premix) 2.25 gm in 50 mls @ 100 mls/hr IVPB Q8 [facility]; Protocol Last Admin: 03/28/19 05:42 Dose: 100 mls/hr Insulin Human Regular (Novolin R) 0 unit SC ACHS [facility]; Protocol Last Admin: 03/28/19 08:30 Dose: 3 units Metoprolol Succinate (Toprol Xl) 50 mg PO DAILY [facility] Last Admin: 03/28/19 11:00 Dose: 50 mg Nystatin (Mycostatin Cream) 0 ea TOP TID [facility] Last Admin: 03/28/19 11:00 Dose: 1 applic Polyethylene Glycol (Miralax) 17 gm PO DAILY [facility] Last Admin: 03/28/19 11:00 Dose: 17 gm Rosuvastatin Calcium (Crestor) 10 mg PO HS [facility] Last Admin: 03/27/19 21:16 Dose: 10 mg - Labs Labs: 03/26/19 07:09 03/26/19 07:09 - Head Exam Head Exam: ATRAUMATIC, NORMOCEPHALIC - ENT Exam ENT Exam: Mucous Membranes Moist - Neck Exam Neck Exam: Normal Inspection - Respiratory Exam Respiratory Exam: Clear to Ausculation Bilateral - Cardiovascular Exam Cardiovascular Exam: REGULAR RHYTHM - GI/Abdominal Exam GI & Abdominal Exam: Soft, Normal Bowel Sounds Assessment and Plan (1) Pulmonary cavitary lesion Assessment & Plan: CT-guided biopsy tomorrow N.p.o. after midnight On antibiotics Status: Acute (2) Abdominal pain Status: Acute (3) CKD (chronic kidney disease) Status: Chronic
--- NOTE | 2019-03-28 20:56 | CP.PCM.PN ---
Subjective - Date & Time of Evaluation Date of Evaluation: 03/28/19 Time of Evaluation: 08:00 - Subjective Subjective: afebrile in NAD AFB neg x [address] Monteiro for CT bx Objective - Vital Signs/Intake and Output Vital Signs (last 24 hours): Temp Pulse Resp BP Pulse Ox 98.1 F 68 20 153/81 H 95 03/28/19 16:27 03/28/19 16:27 03/28/19 16:27 03/28/19 16:27 03/28/19 16:27 Intake and Output: 03/28/19 03/29/19 18:59 06:59 Intake Total 400 Output Total 600 Balance -200 - Medications Medications: Current Medications Amlodipine Besylate (Norvasc) 10 mg PO DAILY [facility] Last Admin: 03/28/19 11:00 Dose: 10 mg Calcium/Vitamin D (Oyster Shell Calcium/Vitamin D 500 Mg-200 Iu) 1 tab PO BID [facility] Last Admin: 03/28/19 17:46 Dose: 1 tab Clopidogrel Bisulfate (Plavix) 75 mg PO DAILY [facility] Last Admin: 03/28/19 11:00 Dose: 75 mg Gabapentin (Neurontin) 100 mg PO BID [facility] Last Admin: 03/28/19 17:46 Dose: 100 mg Glimepiride (Amaryl) 2 mg PO DAILY [facility] Last Admin: 03/28/19 11:00 Dose: 2 mg Hydrocortisone (Cortizone 2.5%) 0 gm TOP BID [facility] Last Admin: 03/28/19 17:48 Dose: 1 applic Piperacillin Sod/Tazobactam Sod (Zosyn 2.25 Gm Iv Premix) 2.25 gm in 50 mls @ 100 mls/hr IVPB Q8 [facility]; Protocol Last Admin: 03/28/19 14:46 Dose: 100 mls/hr Insulin Human Regular (Novolin R) 0 unit SC ACHS [facility]; Protocol Last Admin: 03/28/19 12:44 Dose: 8 units Metoprolol Succinate (Toprol Xl) 50 mg PO DAILY [facility] Last Admin: 03/28/19 11:00 Dose: 50 mg Nystatin (Mycostatin Cream) 0 ea TOP TID [facility] Last Admin: 03/28/19 17:52 Dose: 1 applic Polyethylene Glycol (Miralax) 17 gm PO DAILY [facility] Last Admin: 03/28/19 11:00 Dose: 17 gm Rosuvastatin Calcium (Crestor) 10 mg PO HS [facility] Last Admin: 03/27/19 21:16 Dose: 10 mg - Labs Labs: 03/26/19 07:09 03/26/19 07:09 - Constitutional Appears: Non-toxic, Cachectic - Head Exam Head Exam: ATRAUMATIC, NORMAL INSPECTION, NORMOCEPHALIC - Eye Exam Eye Exam: EOMI, Normal appearance, PERRL Pupil Exam: NORMAL ACCOMODATION, PERRL - ENT Exam ENT Exam: Mucous Membranes Moist, Normal Exam - Neck Exam Neck Exam: Full ROM, Normal Inspection. absent: Lymphadenopathy - Respiratory Exam Respiratory Exam: Clear to Ausculation Bilateral, NORMAL BREATHING PATTERN - Cardiovascular Exam Cardiovascular Exam: REGULAR RHYTHM, +S1, +S2. absent: Murmur - GI/Abdominal Exam GI & Abdominal Exam: Soft, Normal Bowel Sounds. absent: Tenderness - Rectal Exam Rectal Exam: Deferred - Extremities Exam Extremities Exam: Full ROM, Normal Capillary Refill, Normal Inspection. absent: Joint Swelling, Pedal Edema - Back Exam Back Exam: NORMAL INSPECTION - Neurological Exam Neurological Exam: Alert, Awake, CN II-XII Intact, Normal Gait, Oriented x3 - Psychiatric Exam Psychiatric exam: Normal Affect, Normal Mood - Skin Skin Exam: Dry, Intact, Normal Color, Warm Assessment and Plan (1) Abdominal pain Status: Acute (2) Generalized weakness Status: Acute (3) Chr obstructive pulmonary disease w/ acute lower respiratory infxn Status: Chronic (4) Constipation by delayed colonic transit Status: Acute (5) CAD (coronary artery disease) Status: Chronic (6) Diabetes Status: Chronic (7) Diabetic retinopathy associated with controlled type 2 diabetes mellitus Status: Chronic (8) Old cerebrovascular accident without late effect Status: Chronic (9) Vitreomacular traction syndrome of left eye Status: Chronic (10) CKD (chronic kidney disease) Status: Chronic - Assessment and Plan (Free Text) Assessment: cultures negative IV rx in progress for CT Bx in am
[2019-03-29] MEDS: Piperacill/Tazo 2.25gm in Dex 2.25 GM/50 ML BAG IVPB SCH ×3 (05:18→19:04)
--- NOTE | 2019-03-29 08:16 | CP.PCM.PN ---
Subjective - Date & Time of Evaluation Date of Evaluation: 06/29/19 Time of Evaluation: 08:00 - Subjective Subjective: Pt no complain; had bowel movement yesterday No CP, no SOB, no palpitation, no edema; no cough, no abd pain, good appetite Objective - Vital Signs/Intake and Output Vital Signs (last 24 hours): Temp Pulse Resp BP Pulse Ox 98 F 66 20 140/72 97 03/29/19 07:30 03/29/19 07:30 03/29/19 07:30 03/29/19 07:30 03/29/19 07:30 Intake and Output: 03/29/19 03/29/19 06:59 18:59 Intake Total 410 Output Total 600 Balance -190 - Medications Medications: Current Medications Amlodipine Besylate (Norvasc) 10 mg PO DAILY [facility] Last Admin: 03/28/19 11:00 Dose: 10 mg Calcium/Vitamin D (Oyster Shell Calcium/Vitamin D 500 Mg-200 Iu) 1 tab PO BID [facility] Last Admin: 03/28/19 17:46 Dose: 1 tab Clopidogrel Bisulfate (Plavix) 75 mg PO DAILY [facility] Last Admin: 03/28/19 11:00 Dose: 75 mg Gabapentin (Neurontin) 100 mg PO BID [facility] Last Admin: 03/28/19 17:46 Dose: 100 mg Glimepiride (Amaryl) 2 mg PO DAILY [facility] Last Admin: 03/28/19 11:00 Dose: 2 mg Hydrocortisone (Cortizone 2.5%) 0 gm TOP BID [facility] Last Admin: 03/28/19 17:48 Dose: 1 applic Piperacillin Sod/Tazobactam Sod (Zosyn 2.25 Gm Iv Premix) 2.25 gm in 50 mls @ 100 mls/hr IVPB Q8 [facility]; Protocol Last Admin: 03/29/19 05:18 Dose: 100 mls/hr Insulin Human Regular (Novolin R) 0 unit SC ACHS [facility]; Protocol Last Admin: 03/28/19 22:43 Dose: Not Given Metoprolol Succinate (Toprol Xl) 50 mg PO DAILY [facility] Last Admin: 03/28/19 11:00 Dose: 50 mg Nystatin (Mycostatin Cream) 0 ea TOP TID [facility] Last Admin: 03/28/19 17:52 Dose: 1 applic Polyethylene Glycol (Miralax) 17 gm PO DAILY [facility] Last Admin: 03/28/19 11:00 Dose: 17 gm Rosuvastatin Calcium (Crestor) 10 mg PO HS [facility] Last Admin: 03/28/19 21:08 Dose: 10 mg - Labs Labs: 03/26/19 07:09 03/26/19 07:09 - Constitutional Appears: No Acute Distress - Eye Exam Eye Exam: Normal appearance - ENT Exam ENT Exam: Mucous Membranes Moist - Neck Exam Neck Exam: Full ROM. absent: Lymphadenopathy, Tenderness - Respiratory Exam Respiratory Exam: Decreased Breath Sounds. absent: Rales, Rhonchi, Wheezes - Cardiovascular Exam Cardiovascular Exam: REGULAR RHYTHM, +S1. absent: Gallop, JVD - GI/Abdominal Exam GI & Abdominal Exam: Soft. absent: Tenderness, Mass - Extremities Exam Extremities Exam: Full ROM, Normal Capillary Refill. absent: Calf Tenderness, Joint Swelling, Pedal Edema Assessment and Plan - Assessment and Plan (Free Text) Assessment: Pneumonia; Cavitary lesion HTN, NIDD< COPD, CKD; General debility w/ unsteady gait For Bx; Await 3 AFB Cont meds For Bx today
[2019-03-29] MEDS: (Novolin R) Insulin Human Regular 100 units/ml vial SC SCH ×4 (09:10→22:23)
[2019-03-29] MEDS: Hydrocortisone 2.5% Oint (20 gm) TOP SCH ×2 (10:35→17:16)
[2019-03-29] MEDS: POLYETHYLENE GLYCOL 3350 17 GM/Dose PACKET PO SCH (10:35)
[2019-03-29] MEDS: Nystatin 100,000 Units/gm Cream(15 gm) TOP SCH ×2 (10:35→22:38)
[2019-03-29] MEDS: Metoprolol Succinate 50 mg XL Tab PO SCH (10:35)
[2019-03-29] MEDS: Calcium-Vit D 500 mg-200 Units Tab UD PO SCH ×2 (10:36→17:17)
[2019-03-29] MEDS ORDERED: Absorbable Gelatin Sponge Size 12-7 ONE (11:12)
[2019-03-29] MEDS ORDERED: Midazolam 2 MG/2 ML VIAL ONE (11:13)
[2019-03-29] MEDS ORDERED: Lidocaine Hydrochloride 5 ML INJ ONE (11:13)
--- NOTE | 2019-03-29 11:40 | PCM.SURG1 ---
Surgeon's Initial Post Op Note - Surgeon's Notes Surgeon: Chuck Merino MD Letter Of Credit Document Examiner: NONE Type of Anesthesia: Moderate Sedation{RN} Pre-Operative Diagnosis: Right lung mass Operative Findings: CT showed multiple right upper lobe subcentimeter lesions and a 17 mm cavitary lesion posterior right upper lobe. Post-Operative Diagnosis: Right lung mass Operation Performed: CT guided biopsy Specimen/Specimens Removed: 20 g core x 3 Estimated Blood Loss: EBL {In ML}: 1 Blood Products Given: N/A Drains Used: No Drains Post-Op Condition: Fair Date of Surgery/Procedure: 03/29/19 Time of Surgery/Procedure: 11:40
--- NOTE | 2019-03-29 13:37 | CT ---
PROCEDURE: Date of procedure: 03/29/2019 Procedure: 1. CT-guided lung mass biopsy, CPT [address] Guidance [place] biopsy, [address] Radiation: 488.71 MGy-cm Medications: The patient was sedated by anesthesiologist along with physiologic monitoring. HISTORY: Right upper lobe lung nodule TECHNIQUE: Following informed consent, the Pt's chest was marked. The Pt was placed prone on the CT table and procedure time out was performed. A noncontrast CT scan was performed. Noncontrast CT scan confirmed the presence of multiple sub centimeter nodules in the right upper lobe. A 17 millimeter partially cavitary lesion is seen in the posterior right upper lobe near the pleura. A skin localizer was placed on the patient's right back and a repeat CT scan was performed. The skin was marked, prepped, and draped in the usual sterile fashion. After the skin was anesthetized with lidocaine and the patient sedated by the anesthesiologist, a 20 gauge core needle was advanced percutaneously under direct CT guidance into the mass. Upon confirmation of needle position, three 20-gauge core specimens were obtained and sent for routine pathology along with culture. The needle was removed and a xeroform dressing was applied. A post biopsy CT scan showed no pneumothorax. IMPRESSION: CT guided core biopsy right lung nodule.
--- NOTE | 2019-03-29 14:56 | CP.PCM.PN ---
Subjective - Date & Time of Evaluation Date of Evaluation: 03/29/19 Time of Evaluation: 13:00 - Subjective Subjective: Patient seen and examined Status post lung biopsy Lying comfortably in no distress Afebrile Denies shortness of breath or cough Objective - Vital Signs/Intake and Output Vital Signs (last 24 hours): Temp Pulse Resp BP Pulse Ox 98 F 66 20 140/72 97 03/29/19 07:30 03/29/19 07:30 03/29/19 07:30 03/29/19 07:30 03/29/19 07:30 Intake and Output: 03/29/19 03/29/19 06:59 18:59 Intake Total 410 Output Total 600 Balance -190 - Medications Medications: Current Medications Amlodipine Besylate (Norvasc) 10 mg PO DAILY [facility] Last Admin: 03/29/19 10:35 Dose: 10 mg Calcium/Vitamin D (Oyster Shell Calcium/Vitamin D 500 Mg-200 Iu) 1 tab PO BID [facility] Last Admin: 03/29/19 10:36 Dose: Not Given Clopidogrel Bisulfate (Plavix) 75 mg PO DAILY [facility] Last Admin: 03/29/19 10:36 Dose: Not Given Gabapentin (Neurontin) 100 mg PO BID [facility] Last Admin: 03/29/19 10:36 Dose: Not Given Glimepiride (Amaryl) 2 mg PO DAILY [facility] Last Admin: 03/29/19 10:36 Dose: Not Given Hydrocortisone (Cortizone 2.5%) 0 gm TOP BID [facility] Last Admin: 03/29/19 10:35 Dose: 1 applic Piperacillin Sod/Tazobactam Sod (Zosyn 2.25 Gm Iv Premix) 2.25 gm in 50 mls @ 100 mls/hr IVPB Q6H [facility]; Protocol Last Admin: 03/29/19 13:33 Dose: 100 mls/hr Insulin Human Regular (Novolin R) 0 unit SC ACHS [facility]; Protocol Last Admin: 03/29/19 11:45 Dose: Not Given Metoprolol Succinate (Toprol Xl) 50 mg PO DAILY [facility] Last Admin: 03/29/19 10:35 Dose: 50 mg Nystatin (Mycostatin Cream) 0 ea TOP TID [facility] Last Admin: 03/29/19 10:35 Dose: 1 applic Polyethylene Glycol (Miralax) 17 gm PO DAILY [facility] Last Admin: 03/29/19 10:35 Dose: Not Given Rosuvastatin Calcium (Crestor) 10 mg PO HS [facility] Last Admin: 03/28/19 21:08 Dose: 10 mg - Labs Labs: 03/26/19 07:09 03/26/19 07:09 - Head Exam Head Exam: ATRAUMATIC, NORMOCEPHALIC - ENT Exam ENT Exam: Mucous Membranes Moist - Neck Exam Neck Exam: Normal Inspection - Respiratory Exam Respiratory Exam: Decreased Breath Sounds - Cardiovascular Exam Cardiovascular Exam: REGULAR RHYTHM - GI/Abdominal Exam GI & Abdominal Exam: Soft, Normal Bowel Sounds - Extremities Exam Extremities Exam: Normal Inspection Assessment and Plan (1) Pulmonary cavitary lesion Assessment & Plan: Status post lung biopsy Follow-up pathology report Discontinue isolation once 3 AFB negative Status: Acute (2) Abdominal pain Status: Acute (3) CKD (chronic kidney disease) Status: Chronic
--- NOTE | 2019-03-29 16:24 | RAD ---
Date of service: 03/29/2019 PROCEDURE: CHEST RADIOGRAPH, 1 VIEW HISTORY: right lung bx COMPARISON: 03/21/2019 FINDINGS: LUNGS: Small vaguely nodular opacities in right upper lobe. Consistent with upper lobe nodules identified on chest CT examination of 03/22/2019. linear scar versus atelectasis versus fluid trapped within fissure, at right base. PLEURA: Small right pleural effusion. No change. No left pleural effusion. CARDIOVASCULAR: No aortic atherosclerotic calcification present. Normal. OSSEOUS STRUCTURES: No significant abnormalities. VISUALIZED UPPER ABDOMEN: Normal. OTHER FINDINGS: None. IMPRESSION: No significant change from 03/21/2019. No pneumothorax status post percutaneous biopsy.
[2019-03-30] MEDS: Piperacill/Tazo 2.25gm in Dex 2.25 GM/50 ML BAG IVPB SCH ×4 (02:00→20:56)
--- NOTE | 2019-03-30 08:27 | CP.PCM.PN ---
Subjective - Date & Time of Evaluation Date of Evaluation: 03/30/19 Time of Evaluation: 08:15 - Subjective Subjective: Pt can not recall her Bx; no CP, no SOB, no edema, no diarrhea, no n/v Good appetite Objective - Vital Signs/Intake and Output Vital Signs (last 24 hours): Temp Pulse Resp BP Pulse Ox 97.5 F L 66 20 145/76 98 03/30/19 07:00 03/30/19 07:00 03/30/19 07:00 03/30/19 07:00 03/30/19 07:00 Intake and Output: 03/30/19 03/30/19 06:59 18:59 Intake Total 420 Output Total 550 Balance -130 - Medications Medications: Current Medications Amlodipine Besylate (Norvasc) 10 mg PO DAILY [facility] Last Admin: 03/29/19 10:35 Dose: 10 mg Calcium/Vitamin D (Oyster Shell Calcium/Vitamin D 500 Mg-200 Iu) 1 tab PO BID [facility] Last Admin: 03/29/19 17:17 Dose: 1 tab Clopidogrel Bisulfate (Plavix) 75 mg PO DAILY [facility] Last Admin: 03/29/19 10:36 Dose: Not Given Gabapentin (Neurontin) 100 mg PO BID [facility] Last Admin: 03/29/19 17:16 Dose: 100 mg Glimepiride (Amaryl) 2 mg PO DAILY [facility] Last Admin: 03/29/19 10:36 Dose: Not Given Hydrocortisone (Cortizone 2.5%) 0 gm TOP BID [facility] Last Admin: 03/29/19 17:16 Dose: 1 applic Piperacillin Sod/Tazobactam Sod (Zosyn 2.25 Gm Iv Premix) 2.25 gm in 50 mls @ 100 mls/hr IVPB Q6H [facility]; Protocol Last Admin: 03/30/19 02:00 Dose: 100 mls/hr Insulin Human Regular (Novolin R) 0 unit SC ACHS [facility]; Protocol Last Admin: 03/29/19 22:23 Dose: 3 units Metoprolol Succinate (Toprol Xl) 50 mg PO DAILY [facility] Last Admin: 03/29/19 10:35 Dose: 50 mg Nystatin (Mycostatin Cream) 0 ea TOP TID [facility] Last Admin: 03/29/19 22:38 Dose: 1 applic Polyethylene Glycol (Miralax) 17 gm PO DAILY [facility] Last Admin: 03/29/19 10:35 Dose: Not Given Rosuvastatin Calcium (Crestor) 10 mg PO HS [facility] Last Admin: 03/29/19 22:23 Dose: 10 mg - Labs Labs: 03/26/19 07:09 03/26/19 07:09 - Constitutional Appears: No Acute Distress - Eye Exam Eye Exam: Normal appearance - ENT Exam ENT Exam: Mucous Membranes Moist - Neck Exam Neck Exam: Full ROM. absent: Thyromegaly - Respiratory Exam Respiratory Exam: absent: Rales, Rhonchi, Wheezes - Cardiovascular Exam Cardiovascular Exam: REGULAR RHYTHM, +S1, +S2. absent: Gallop - GI/Abdominal Exam GI & Abdominal Exam: Soft. absent: Tenderness - Extremities Exam Extremities Exam: Calf Tenderness, Joint Swelling. absent: Full ROM, Normal Capillary Refill Assessment and Plan - Assessment and Plan (Free Text) Assessment: Pleural mass ? TB vs malignancy NIDDM, HTN, CKD, s/p stent and prev CVA Gen debility;Gait disorder Cont meds/ AFB x3 to d/c isolation For phy therapy
[2019-03-30] MEDS: (Novolin R) Insulin Human Regular 100 units/ml vial SC SCH ×4 (08:31→21:39)
[2019-03-30 08:53] LABS: BASO # 0.2 K/uL (0.0-0.2); EOS # 0.4 K/uL (0.0-0.7); EOS % 5.1 % (0.0-4.0); HEMOGLOBIN 12.4 g/dL (11.0-16.0); LYMPH # 1.7 K/uL (1.0-4.3); LYMPH % 20.2 % (20.0-40.0); MEAN CELL VOLUME 86.2 fL (81.0-99.0); MEAN CORPUSCULAR HEMOGLOBIN 29.6 pg (27.0-31.0); MEAN CORPUSCULAR HGB CONC 34.4 g/dL (33.0-37.0); MEAN PLATELET VOLUME 7.3 fL (7.2-11.7); MONO # 0.5 K/uL (0.0-0.8); MONO % 5.9 % (0.0-10.0); NEUT # 5.5 K/uL (1.8-7.0); NEUT % 66.8 % (50.0-75.0); NRBC % 0.1 % (0.0-2.0); RBC 4.19 Mil/uL (3.80-5.20); WHITE BLOOD COUNT 8.2 K/uL (4.8-10.8)
[2019-03-30 09:08] LABS: ALB/GLOB RATIO 0.9 (1.0-2.1); ALBUMIN 3.7 g/dL (3.5-5.0); CALCIUM 10.2 mg/dl (8.6-10.4)
[2019-03-30] MEDS: Metoprolol Succinate 50 mg XL Tab PO SCH (10:48)
[2019-03-30] MEDS: Calcium-Vit D 500 mg-200 Units Tab UD PO SCH ×2 (10:48→17:45)
[2019-03-30] MEDS: POLYETHYLENE GLYCOL 3350 17 GM/Dose PACKET PO SCH (10:52)
[2019-03-30] MEDS: Hydrocortisone 2.5% Oint (20 gm) TOP SCH ×2 (10:52→17:45)
[2019-03-30] MEDS: Nystatin 100,000 Units/gm Cream(15 gm) TOP SCH ×3 (10:53→17:45)
--- NOTE | 2019-03-30 16:13 | CP.PCM.PN ---
Subjective - Date & Time of Evaluation Date of Evaluation: 03/30/19 Time of Evaluation: 11:00 - Subjective Subjective: Patient seen and examined Status post lung biopsy Pathology negative for malignancy AFB negative Objective - Vital Signs/Intake and Output Vital Signs (last 24 hours): Temp Pulse Resp BP Pulse Ox 97.5 F L 66 20 145/76 98 03/30/19 07:00 03/30/19 07:00 03/30/19 07:00 03/30/19 07:00 03/30/19 07:00 Intake and Output: 03/30/19 03/30/19 06:59 18:59 Intake Total 420 Output Total 550 Balance -130 - Medications Medications: Current Medications Amlodipine Besylate (Norvasc) 10 mg PO DAILY [facility] Last Admin: 03/30/19 10:47 Dose: 10 mg Calcium/Vitamin D (Oyster Shell Calcium/Vitamin D 500 Mg-200 Iu) 1 tab PO BID [facility] Last Admin: 03/30/19 10:48 Dose: 1 tab Clopidogrel Bisulfate (Plavix) 75 mg PO DAILY [facility] Last Admin: 03/30/19 10:47 Dose: 75 mg Gabapentin (Neurontin) 100 mg PO BID [facility] Last Admin: 03/30/19 10:47 Dose: 100 mg Glimepiride (Amaryl) 2 mg PO DAILY [facility] Last Admin: 03/30/19 10:48 Dose: 2 mg Hydrocortisone (Cortizone 2.5%) 0 gm TOP BID [facility] Last Admin: 03/30/19 10:52 Dose: 1 applic Piperacillin Sod/Tazobactam Sod (Zosyn 2.25 Gm Iv Premix) 2.25 gm in 50 mls @ 100 mls/hr IVPB Q6H [facility]; Protocol Last Admin: 03/30/19 14:52 Dose: 100 mls/hr Insulin Human Regular (Novolin R) 0 unit SC ACHS [facility]; Protocol Last Admin: 03/30/19 12:49 Dose: 4 units Metoprolol Succinate (Toprol Xl) 50 mg PO DAILY [facility] Last Admin: 03/30/19 10:48 Dose: 50 mg Nystatin (Mycostatin Cream) 0 ea TOP TID [facility] Last Admin: 03/30/19 14:52 Dose: 1 applic Polyethylene Glycol (Miralax) 17 gm PO DAILY [facility] Last Admin: 03/30/19 10:52 Dose: 17 gm Rosuvastatin Calcium (Crestor) 10 mg PO HS [facility] Last Admin: 03/29/19 22:23 Dose: 10 mg - Labs Labs: 03/30/19 08:39 03/30/19 08:39 - Head Exam Head Exam: ATRAUMATIC, NORMOCEPHALIC - ENT Exam ENT Exam: Mucous Membranes Moist - Neck Exam Neck Exam: Normal Inspection - Respiratory Exam Respiratory Exam: Clear to Ausculation Bilateral - Cardiovascular Exam Cardiovascular Exam: REGULAR RHYTHM Assessment and Plan (1) Pulmonary cavitary lesion Assessment & Plan: Biopsy negative for malignancy Not enough tissue Consider rebiopsy Discontinue isolation once AFB negative Status: Acute (2) Abdominal pain Status: Acute (3) CKD (chronic kidney disease) Status: Chronic
--- NOTE | 2019-03-30 21:17 | CP.PCM.PN ---
Subjective - Date & Time of Evaluation Date of Evaluation: 03/30/19 Time of Evaluation: 09:00 - Subjective Subjective: seen on rounds very depressed awaiting lung bx report Objective - Vital Signs/Intake and Output Vital Signs (last 24 hours): Temp Pulse Resp BP Pulse Ox 98.4 F 69 20 150/69 95 03/30/19 16:00 03/30/19 16:00 03/30/19 16:00 03/30/19 16:00 03/30/19 16:00 Intake and Output: 03/30/19 03/31/19 18:59 06:59 Intake Total 500 Output Total 300 Balance 200 - Medications Medications: Current Medications Amlodipine Besylate (Norvasc) 10 mg PO DAILY [facility] Last Admin: 03/30/19 10:47 Dose: 10 mg Calcium/Vitamin D (Oyster Shell Calcium/Vitamin D 500 Mg-200 Iu) 1 tab PO BID [facility] Last Admin: 03/30/19 17:45 Dose: 1 tab Clopidogrel Bisulfate (Plavix) 75 mg PO DAILY [facility] Last Admin: 03/30/19 10:47 Dose: 75 mg Gabapentin (Neurontin) 100 mg PO BID [facility] Last Admin: 03/30/19 17:45 Dose: 100 mg Glimepiride (Amaryl) 2 mg PO DAILY [facility] Last Admin: 03/30/19 10:48 Dose: 2 mg Hydrocortisone (Cortizone 2.5%) 0 gm TOP BID [facility] Last Admin: 03/30/19 17:45 Dose: 1 applic Piperacillin Sod/Tazobactam Sod (Zosyn 2.25 Gm Iv Premix) 2.25 gm in 50 mls @ 100 mls/hr IVPB Q6H [facility]; Protocol Last Admin: 03/30/19 20:56 Dose: 100 mls/hr Insulin Human Regular (Novolin R) 0 unit SC ACHS [facility]; Protocol Last Admin: 03/30/19 17:30 Dose: 4 units Metoprolol Succinate (Toprol Xl) 50 mg PO DAILY [facility] Last Admin: 03/30/19 10:48 Dose: 50 mg Nystatin (Mycostatin Cream) 0 ea TOP TID [facility] Last Admin: 03/30/19 17:45 Dose: 1 applic Polyethylene Glycol (Miralax) 17 gm PO DAILY [facility] Last Admin: 03/30/19 10:52 Dose: 17 gm Rosuvastatin Calcium (Crestor) 10 mg PO HS [facility] Last Admin: 03/29/19 22:23 Dose: 10 mg - Labs Labs: 03/30/19 08:39 03/30/19 08:39 - Constitutional Appears: Non-toxic, Chronically Ill - Head Exam Head Exam: ATRAUMATIC, NORMAL INSPECTION, NORMOCEPHALIC - Eye Exam Eye Exam: EOMI, Normal appearance, PERRL Pupil Exam: NORMAL ACCOMODATION, PERRL - ENT Exam ENT Exam: Mucous Membranes Moist, Normal Exam - Neck Exam Neck Exam: Full ROM, Normal Inspection. absent: Lymphadenopathy - Respiratory Exam Respiratory Exam: Decreased Breath Sounds, Prolonged Expiratory Phase, Rhonchi - Cardiovascular Exam Cardiovascular Exam: REGULAR RHYTHM, +S1, +S2. absent: Murmur - GI/Abdominal Exam GI & Abdominal Exam: Soft, Normal Bowel Sounds. absent: Tenderness - Rectal Exam Rectal Exam: Deferred - Exam Exam: NORMAL INSPECTION - Extremities Exam Extremities Exam: Full ROM, Normal Capillary Refill, Normal Inspection. absent: Joint Swelling, Pedal Edema - Back Exam Back Exam: NORMAL INSPECTION - Neurological Exam Neurological Exam: Alert, Awake, CN II-XII Intact, Normal Gait, Oriented x3 - Psychiatric Exam Psychiatric exam: Normal Affect, Normal Mood - Skin Skin Exam: Dry, Intact, Normal Color, Warm Assessment and Plan (1) Abdominal pain Status: Acute (2) Generalized weakness Status: Acute (3) Chr obstructive pulmonary disease w/ acute lower respiratory infxn Status: Chronic (4) Constipation by delayed colonic transit Status: Acute (5) CAD (coronary artery disease) Status: Chronic (6) Diabetes Status: Chronic (7) Diabetic retinopathy associated with controlled type 2 diabetes mellitus Status: Chronic (8) Old cerebrovascular accident without late effect Status: Chronic (9) 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
[2019-03-31] MEDS: Piperacill/Tazo 2.25gm in Dex 2.25 GM/50 ML BAG IVPB SCH ×4 (01:35→20:47)
[2019-03-31] MEDS: (Novolin R) Insulin Human Regular 100 units/ml vial SC SCH ×4 (08:30→21:21)
[2019-03-31] MEDS: Nystatin 100,000 Units/gm Cream(15 gm) TOP SCH ×3 (11:00→17:49)
[2019-03-31] MEDS: Metoprolol Succinate 50 mg XL Tab PO SCH (11:00)
[2019-03-31] MEDS: Calcium-Vit D 500 mg-200 Units Tab UD PO SCH ×2 (11:00→17:49)
[2019-03-31] MEDS: Hydrocortisone 2.5% Oint (20 gm) TOP SCH ×2 (11:00→17:49)
[2019-03-31] MEDS: POLYETHYLENE GLYCOL 3350 17 GM/Dose PACKET PO SCH (11:00)
--- NOTE | 2019-03-31 18:10 | CP.PCM.PN ---
Subjective - Date & Time of Evaluation Date of Evaluation: 03/31/19 Time of Evaluation: 18:09 - Subjective Subjective: S: c/o weakness. No fever Objective - Vital Signs/Intake and Output Vital Signs (last 24 hours): Temp Pulse Resp BP Pulse Ox 98.0 F 65 20 130/68 97 03/31/19 16:42 03/31/19 16:42 03/31/19 16:42 03/31/19 16:42 03/31/19 16:42 Intake and Output: 03/31/19 03/31/19 06:59 18:59 Intake Total 590 550 Output Total 750 500 Balance -160 50 - Medications Medications: Current Medications Amlodipine Besylate (Norvasc) 10 mg PO DAILY [facility] Last Admin: 03/31/19 11:00 Dose: 10 mg Calcium/Vitamin D (Oyster Shell Calcium/Vitamin D 500 Mg-200 Iu) 1 tab PO BID [facility] Last Admin: 03/31/19 17:49 Dose: 1 tab Clopidogrel Bisulfate (Plavix) 75 mg PO DAILY [facility] Last Admin: 03/31/19 11:00 Dose: 75 mg Gabapentin (Neurontin) 100 mg PO BID [facility] Last Admin: 03/31/19 17:49 Dose: 100 mg Glimepiride (Amaryl) 2 mg PO DAILY [facility] Last Admin: 03/31/19 11:00 Dose: 2 mg Hydrocortisone (Cortizone 2.5%) 0 gm TOP BID [facility] Last Admin: 03/31/19 17:49 Dose: 1 applic Piperacillin Sod/Tazobactam Sod (Zosyn 2.25 Gm Iv Premix) 2.25 gm in 50 mls @ 100 mls/hr IVPB Q6H [facility]; Protocol Last Admin: 03/31/19 15:00 Dose: 100 mls/hr Insulin Human Regular (Novolin R) 0 unit SC ACHS [facility]; Protocol Last Admin: 03/31/19 17:50 Dose: 2 units Metoprolol Succinate (Toprol Xl) 50 mg PO DAILY [facility] Last Admin: 03/31/19 11:00 Dose: 50 mg Nystatin (Mycostatin Cream) 0 ea TOP TID [facility] Last Admin: 03/31/19 17:49 Dose: 1 applic Polyethylene Glycol (Miralax) 17 gm PO DAILY [facility] Last Admin: 03/31/19 11:00 Dose: 17 gm Rosuvastatin Calcium (Crestor) 10 mg PO HS [facility] Last Admin: 03/30/19 21:18 Dose: 10 mg - Labs Labs: 03/30/19 08:39 03/30/19 08:39 - Constitutional Appears: Chronically Ill - Head Exam Head Exam: NORMAL INSPECTION - Eye Exam Eye Exam: Normal appearance - ENT Exam ENT Exam: Normal Exam - Neck Exam Neck Exam: Normal Inspection - Respiratory Exam Respiratory Exam: NORMAL BREATHING PATTERN - Cardiovascular Exam Cardiovascular Exam: REGULAR RHYTHM - GI/Abdominal Exam GI & Abdominal Exam: Soft - Rectal Exam Rectal Exam: Deferred - Extremities Exam Extremities Exam: Calf Tenderness Assessment and Plan (1) Abdominal pain Status: Acute (2) CAD (coronary artery disease) Status: Chronic (3) Diabetes Status: Chronic (4) Cavitary lesion of lung Status: Acute - Assessment and Plan (Free Text) Assessment: A/P: Continue medications
--- NOTE | 2019-03-31 18:20 | CP.PCM.PN ---
Subjective - Date & Time of Evaluation Date of Evaluation: 03/31/19 Time of Evaluation: 11:40 - Subjective Subjective: Lung biopsy negative for malignancy and AFB Consider to DC isolation Re-biopsy as outpatient Objective - Vital Signs/Intake and Output Vital Signs (last 24 hours): Temp Pulse Resp BP Pulse Ox 98.0 F 65 20 130/68 97 03/31/19 16:42 03/31/19 16:42 03/31/19 16:42 03/31/19 16:42 03/31/19 16:42 Intake and Output: 03/31/19 03/31/19 06:59 18:59 Intake Total 590 550 Output Total 750 500 Balance -160 50 - Medications Medications: Current Medications Amlodipine Besylate (Norvasc) 10 mg PO DAILY [facility] Last Admin: 03/31/19 11:00 Dose: 10 mg Calcium/Vitamin D (Oyster Shell Calcium/Vitamin D 500 Mg-200 Iu) 1 tab PO BID [facility] Last Admin: 03/31/19 17:49 Dose: 1 tab Clopidogrel Bisulfate (Plavix) 75 mg PO DAILY [facility] Last Admin: 03/31/19 11:00 Dose: 75 mg Gabapentin (Neurontin) 100 mg PO BID [facility] Last Admin: 03/31/19 17:49 Dose: 100 mg Glimepiride (Amaryl) 2 mg PO DAILY [facility] Last Admin: 03/31/19 11:00 Dose: 2 mg Hydrocortisone (Cortizone 2.5%) 0 gm TOP BID [facility] Last Admin: 03/31/19 17:49 Dose: 1 applic Piperacillin Sod/Tazobactam Sod (Zosyn 2.25 Gm Iv Premix) 2.25 gm in 50 mls @ 100 mls/hr IVPB Q6H [facility]; Protocol Last Admin: 03/31/19 15:00 Dose: 100 mls/hr Insulin Human Regular (Novolin R) 0 unit SC ACHS [facility]; Protocol Last Admin: 03/31/19 17:50 Dose: 2 units Metoprolol Succinate (Toprol Xl) 50 mg PO DAILY [facility] Last Admin: 03/31/19 11:00 Dose: 50 mg Nystatin (Mycostatin Cream) 0 ea TOP TID [facility] Last Admin: 03/31/19 17:49 Dose: 1 applic Polyethylene Glycol (Miralax) 17 gm PO DAILY [facility] Last Admin: 03/31/19 11:00 Dose: 17 gm Rosuvastatin Calcium (Crestor) 10 mg PO HS [facility] Last Admin: 03/30/19 21:18 Dose: 10 mg - Labs Labs: 03/30/19 08:39 03/30/19 08:39 Assessment and Plan (1) Pulmonary cavitary lesion Status: Acute (2) Abdominal pain Status: Acute (3) CKD (chronic kidney disease) Status: Chronic
--- NOTE | 2019-03-31 21:55 | CP.PCM.PN ---
Subjective - Date & Time of Evaluation Date of Evaluation: 03/31/19 Time of Evaluation: 08:00 - Subjective Subjective: biopsy inconclusive AFB neg thus far as well as malignancy needs pulmonary follow up with Dr Monteiro and re-imaging and possible open lung biopsy Objective - Vital Signs/Intake and Output Vital Signs (last 24 hours): Temp Pulse Resp BP Pulse Ox 98.0 F 65 20 130/68 97 03/31/19 16:42 03/31/19 16:42 03/31/19 16:42 03/31/19 16:42 03/31/19 16:42 Intake and Output: 03/31/19 04/01/19 18:59 06:59 Intake Total 550 Output Total 500 Balance 50 - Medications Medications: Current Medications Amlodipine Besylate (Norvasc) 10 mg PO DAILY [facility] Last Admin: 03/31/19 11:00 Dose: 10 mg Calcium/Vitamin D (Oyster Shell Calcium/Vitamin D 500 Mg-200 Iu) 1 tab PO BID [facility] Last Admin: 03/31/19 17:49 Dose: 1 tab Clopidogrel Bisulfate (Plavix) 75 mg PO DAILY [facility] Last Admin: 03/31/19 11:00 Dose: 75 mg Gabapentin (Neurontin) 100 mg PO BID [facility] Last Admin: 03/31/19 17:49 Dose: 100 mg Glimepiride (Amaryl) 2 mg PO DAILY [facility] Last Admin: 03/31/19 11:00 Dose: 2 mg Hydrocortisone (Cortizone 2.5%) 0 gm TOP BID [facility] Last Admin: 03/31/19 17:49 Dose: 1 applic Piperacillin Sod/Tazobactam Sod (Zosyn 2.25 Gm Iv Premix) 2.25 gm in 50 mls @ 100 mls/hr IVPB Q6H [facility]; Protocol Last Admin: 03/31/19 20:47 Dose: 100 mls/hr Insulin Human Regular (Novolin R) 0 unit SC ACHS [facility]; Protocol Last Admin: 03/31/19 21:21 Dose: Not Given Metoprolol Succinate (Toprol Xl) 50 mg PO DAILY [facility] Last Admin: 03/31/19 11:00 Dose: 50 mg Nystatin (Mycostatin Cream) 0 ea TOP TID [facility] Last Admin: 03/31/19 17:49 Dose: 1 applic Polyethylene Glycol (Miralax) 17 gm PO DAILY [facility] Last Admin: 03/31/19 11:00 Dose: 17 gm Rosuvastatin Calcium (Crestor) 10 mg PO HS [facility] Last Admin: 03/31/19 21:02 Dose: 10 mg - Labs Labs: 03/30/19 08:39 03/30/19 08:39 - Constitutional Appears: Non-toxic, Confused, Cachectic, Chronically Ill - Head Exam Head Exam: ATRAUMATIC, NORMAL INSPECTION, NORMOCEPHALIC - Eye Exam Eye Exam: EOMI, Normal appearance, PERRL Pupil Exam: NORMAL ACCOMODATION, PERRL - ENT Exam ENT Exam: Mucous Membranes Moist, Normal Exam - Neck Exam Neck Exam: Full ROM, Normal Inspection. absent: Lymphadenopathy - Respiratory Exam Respiratory Exam: Decreased Breath Sounds, Clear to Ausculation Bilateral - Cardiovascular Exam Cardiovascular Exam: REGULAR RHYTHM, +S1, +S2. absent: Murmur - GI/Abdominal Exam GI & Abdominal Exam: Soft, Normal Bowel Sounds. absent: Tenderness - Rectal Exam Rectal Exam: Deferred - Extremities Exam Extremities Exam: Full ROM, Normal Capillary Refill, Normal Inspection. absent: Joint Swelling, Pedal Edema - Back Exam Back Exam: NORMAL INSPECTION - Neurological Exam Neurological Exam: Alert, Awake, CN II-XII Intact. absent: Normal Gait, Oriented x3 - Psychiatric Exam Psychiatric exam: Depressed - Skin Skin Exam: Dry, Intact, Normal Color, Warm Assessment and Plan (1) Abdominal pain Status: Acute (2) Generalized weakness Status: Acute (3) Chr obstructive pulmonary disease w/ acute lower respiratory infxn Status: Chronic (4) Constipation by delayed colonic transit Status: Acute (5) CAD (coronary artery disease) Status: Chronic (6) Diabetes Status: Chronic (7) Diabetic retinopathy associated with controlled type 2 diabetes mellitus Status: Chronic (8) Old cerebrovascular accident without late effect Status: Chronic (9) Vitreomacular traction syndrome of left eye Status: Chronic (10) CKD (chronic kidney disease) Status: Chronic - Assessment and Plan (Free Text) Assessment: s/p pneumonia lung nodules Bx neg for malignancy AFB' follow up with Dr Monteiro
[2019-04-01] MEDS: Piperacill/Tazo 2.25gm in Dex 2.25 GM/50 ML BAG IVPB SCH ×3 (01:03→15:00)
[2019-04-01] MEDS: (Novolin R) Insulin Human Regular 100 units/ml vial SC SCH ×4 (07:57→21:27)
--- NOTE | 2019-04-01 08:00 | CP.PCM.PN ---
Subjective - Date & Time of Evaluation Date of Evaluation: 04/01/19 Time of Evaluation: 07:52 - Subjective Subjective: Pt no complain; doing Pt and bowel movement is "good". Events noted; inconclusive Bx but (+) quantiferon No CP, no SOB, no palpitation, no edema, Objective - Vital Signs/Intake and Output Vital Signs (last 24 hours): Temp Pulse Resp BP Pulse Ox 98.3 F 70 20 149/77 99 03/31/19 23:30 03/31/19 23:30 03/31/19 23:30 03/31/19 23:30 03/31/19 23:30 Intake and Output: 04/01/19 04/01/19 06:59 18:59 Intake Total 290 Output Total 100 Balance 190 - Medications Medications: Current Medications Amlodipine Besylate (Norvasc) 10 mg PO DAILY [facility] Last Admin: 03/31/19 11:00 Dose: 10 mg Calcium/Vitamin D (Oyster Shell Calcium/Vitamin D 500 Mg-200 Iu) 1 tab PO BID [facility] Last Admin: 03/31/19 17:49 Dose: 1 tab Clopidogrel Bisulfate (Plavix) 75 mg PO DAILY [facility] Last Admin: 03/31/19 11:00 Dose: 75 mg Ethambutol HCl (Myambutol) 800 mg PO DAILY [facility]; Protocol Gabapentin (Neurontin) 100 mg PO BID [facility] Last Admin: 03/31/19 17:49 Dose: 100 mg Glimepiride (Amaryl) 2 mg PO DAILY [facility] Last Admin: 03/31/19 11:00 Dose: 2 mg Hydrocortisone (Cortizone 2.5%) 0 gm TOP BID [facility] Last Admin: 03/31/19 17:49 Dose: 1 applic Piperacillin Sod/Tazobactam Sod (Zosyn 2.25 Gm Iv Premix) 2.25 gm in 50 mls @ 100 mls/hr IVPB Q6H [facility]; Protocol Last Admin: 04/01/19 01:03 Dose: 100 mls/hr Insulin Human Regular (Novolin R) 0 unit SC ACHS [facility]; Protocol Last Admin: 03/31/19 21:21 Dose: Not Given Isoniazid (Niazid) 300 mg PO DAILY [facility]; Protocol Metoprolol Succinate (Toprol Xl) 50 mg PO DAILY [facility] Last Admin: 03/31/19 11:00 Dose: 50 mg Nystatin (Mycostatin Cream) 0 ea TOP TID [facility] Last Admin: 03/31/19 17:49 Dose: 1 applic Polyethylene Glycol (Miralax) 17 gm PO DAILY [facility] Last Admin: 03/31/19 11:00 Dose: 17 gm Pyrazinamide (Pyrazinamide) 1,000 mg PO DAILY [facility]; Protocol Pyridoxine HCl (Vitamin B6) 100 mg PO DAILY [facility] Rifampin (Rifampin Cap) 600 mg PO DAILY [facility]; Protocol Rosuvastatin Calcium (Crestor) 10 mg PO HS [facility] Last Admin: 03/31/19 21:02 Dose: 10 mg - Labs Labs: 03/30/19 08:39 03/30/19 08:39 - Constitutional Appears: No Acute Distress - Eye Exam Eye Exam: Normal appearance - ENT Exam ENT Exam: Mucous Membranes Moist - Neck Exam Neck Exam: Full ROM. absent: Lymphadenopathy, Thyromegaly - Respiratory Exam Respiratory Exam: Decreased Breath Sounds. absent: Rales, Rhonchi, Wheezes - Cardiovascular Exam Cardiovascular Exam: REGULAR RHYTHM, +S1, +S2. absent: JVD - GI/Abdominal Exam GI & Abdominal Exam: Soft. absent: Tenderness - Extremities Exam Extremities Exam: Calf Tenderness. absent: Full ROM, Normal Capillary Refill, Pedal Edema Assessment and Plan - Assessment and Plan (Free Text) Assessment: Lung Cavitary lesion ? etio but has high suspesion for TB NIDDM, HTN, CKD s/p stent and prev CVA Agree to Tx as PTB pending C/S and open lung Bx Pt non compliant in OPD f/up - consider in pt open lung Bx Conr meds/ supportive care
[2019-04-01] MEDS: POLYETHYLENE GLYCOL 3350 17 GM/Dose PACKET PO SCH (11:00)
[2019-04-01] MEDS: Pyridoxine 100 mg Tab PO SCH (11:00)
[2019-04-01] MEDS: Nystatin 100,000 Units/gm Cream(15 gm) TOP SCH ×3 (11:00→17:28)
[2019-04-01] MEDS: Calcium-Vit D 500 mg-200 Units Tab UD PO SCH ×2 (11:00→17:26)
[2019-04-01] MEDS: Metoprolol Succinate 50 mg XL Tab PO SCH (11:00)
[2019-04-01] MEDS: Hydrocortisone 2.5% Oint (20 gm) TOP SCH ×2 (11:00→17:28)
--- NOTE | 2019-04-01 16:20 | CP.PCM.PN ---
Subjective - Date & Time of Evaluation Date of Evaluation: 04/01/19 Time of Evaluation: 11:00 - Subjective Subjective: Patient with right upper lobe cavitary mass, status post CT-guided biopsy negative for malignancy and AFB Patient with long history of smoking Cardiothoracic evaluation Continue present treatment for now DC isolation Objective - Vital Signs/Intake and Output Vital Signs (last 24 hours): Temp Pulse Resp BP Pulse Ox 98.1 F 64 20 109/64 97 04/01/19 16:00 04/01/19 16:00 04/01/19 16:00 04/01/19 16:00 04/01/19 16:00 Intake and Output: 04/01/19 04/01/19 06:59 18:59 Intake Total 290 500 Output Total 100 300 Balance 190 200 - Medications Medications: Current Medications Amlodipine Besylate (Norvasc) 10 mg PO DAILY [facility] Last Admin: 04/01/19 11:00 Dose: 10 mg Calcium/Vitamin D (Oyster Shell Calcium/Vitamin D 500 Mg-200 Iu) 1 tab PO BID [facility] Last Admin: 04/01/19 11:00 Dose: 1 tab Clopidogrel Bisulfate (Plavix) 75 mg PO DAILY [facility] Last Admin: 04/01/19 11:00 Dose: 75 mg Ethambutol HCl (Myambutol) 800 mg PO DAILY [facility]; Protocol Last Admin: 04/01/19 11:00 Dose: 800 mg Gabapentin (Neurontin) 100 mg PO BID [facility] Last Admin: 04/01/19 11:00 Dose: 100 mg Glimepiride (Amaryl) 2 mg PO DAILY [facility] Last Admin: 04/01/19 11:00 Dose: 2 mg Hydrocortisone (Cortizone 2.5%) 0 gm TOP BID [facility] Last Admin: 04/01/19 11:00 Dose: 1 applic Piperacillin Sod/Tazobactam Sod (Zosyn 2.25 Gm Iv Premix) 2.25 gm in 50 mls @ 100 mls/hr IVPB Q6H [facility]; Protocol Last Admin: 04/01/19 15:00 Dose: 100 mls/hr Insulin Human Regular (Novolin R) 0 unit SC ACHS [facility]; Protocol Last Admin: 04/01/19 12:30 Dose: 4 units Isoniazid (Niazid) 300 mg PO DAILY [facility]; Protocol Last Admin: 04/01/19 11:00 Dose: 300 mg Metoprolol Succinate (Toprol Xl) 50 mg PO DAILY [facility] Last Admin: 04/01/19 11:00 Dose: 50 mg Nystatin (Mycostatin Cream) 0 ea TOP TID [facility] Last Admin: 04/01/19 14:53 Dose: 1 applic Polyethylene Glycol (Miralax) 17 gm PO DAILY [facility] Last Admin: 04/01/19 11:00 Dose: Not Given Pyrazinamide (Pyrazinamide) 1,000 mg PO MWF [facility]; Protocol Pyridoxine HCl (Vitamin B6) 100 mg PO DAILY [facility] Last Admin: 04/01/19 11:00 Dose: 100 mg Rifampin (Rifampin Cap) 600 mg PO DAILY [facility]; Protocol Last Admin: 04/01/19 11:00 Dose: 600 mg Rosuvastatin Calcium (Crestor) 10 mg PO HS [facility] Last Admin: 03/31/19 21:02 Dose: 10 mg - Labs Labs: 03/30/19 08:39 03/30/19 08:39 Assessment and Plan (1) Pulmonary cavitary lesion Status: Acute (2) Abdominal pain Status: Acute (3) CKD (chronic kidney disease) Status: Chronic
--- NOTE | 2019-04-01 18:44 | CP.PCM.PN ---
Subjective - Date & Time of Evaluation Date of Evaluation: 04/01/19 Time of Evaluation: 08:00 - Subjective Subjective: awaiting open lung bx started afb meds- quantiferon + smears Neg Objective - Vital Signs/Intake and Output Vital Signs (last 24 hours): Temp Pulse Resp BP Pulse Ox 98.1 F 64 20 109/64 97 04/01/19 16:00 04/01/19 16:00 04/01/19 16:00 04/01/19 16:00 04/01/19 16:00 Intake and Output: 04/01/19 04/01/19 06:59 18:59 Intake Total 290 500 Output Total 100 300 Balance 190 200 - Medications Medications: Current Medications Amlodipine Besylate (Norvasc) 10 mg PO DAILY [facility] Last Admin: 04/01/19 11:00 Dose: 10 mg Calcium/Vitamin D (Oyster Shell Calcium/Vitamin D 500 Mg-200 Iu) 1 tab PO BID [facility] Last Admin: 04/01/19 17:26 Dose: 1 tab Clopidogrel Bisulfate (Plavix) 75 mg PO DAILY [facility] Last Admin: 04/01/19 11:00 Dose: 75 mg Ethambutol HCl (Myambutol) 800 mg PO DAILY [facility]; Protocol Last Admin: 04/01/19 11:00 Dose: 800 mg Gabapentin (Neurontin) 100 mg PO BID [facility] Last Admin: 04/01/19 17:26 Dose: 100 mg Glimepiride (Amaryl) 2 mg PO DAILY [facility] Last Admin: 04/01/19 11:00 Dose: 2 mg Hydrocortisone (Cortizone 2.5%) 0 gm TOP BID [facility] Last Admin: 04/01/19 17:28 Dose: 1 applic Piperacillin Sod/Tazobactam Sod (Zosyn 2.25 Gm Iv Premix) 2.25 gm in 50 mls @ 100 mls/hr IVPB Q6H [facility]; Protocol Last Admin: 04/01/19 15:00 Dose: 100 mls/hr Insulin Human Regular (Novolin R) 0 unit SC ACHS [facility]; Protocol Last Admin: 04/01/19 17:27 Dose: 3 units Isoniazid (Niazid) 300 mg PO DAILY [facility]; Protocol Last Admin: 04/01/19 11:00 Dose: 300 mg Metoprolol Succinate (Toprol Xl) 50 mg PO DAILY [facility] Last Admin: 04/01/19 11:00 Dose: 50 mg Nystatin (Mycostatin Cream) 0 ea TOP TID [facility] Last Admin: 04/01/19 17:28 Dose: 1 applic Polyethylene Glycol (Miralax) 17 gm PO DAILY [facility] Last Admin: 04/01/19 11:00 Dose: Not Given Pyrazinamide (Pyrazinamide) 1,000 mg PO MWF [facility]; Protocol Pyridoxine HCl (Vitamin B6) 100 mg PO DAILY [facility] Last Admin: 04/01/19 11:00 Dose: 100 mg Rifampin (Rifampin Cap) 600 mg PO DAILY [facility]; Protocol Last Admin: 04/01/19 11:00 Dose: 600 mg Rosuvastatin Calcium (Crestor) 10 mg PO HS [facility] Last Admin: 03/31/19 21:02 Dose: 10 mg - Labs Labs: 03/30/19 08:39 03/30/19 08:39 - Constitutional Appears: Cachectic, Chronically Ill - Head Exam Head Exam: ATRAUMATIC, NORMAL INSPECTION, NORMOCEPHALIC - Eye Exam Eye Exam: EOMI, Normal appearance, PERRL Pupil Exam: NORMAL ACCOMODATION, PERRL - ENT Exam ENT Exam: Mucous Membranes Moist, Normal Exam - Neck Exam Neck Exam: Full ROM, Normal Inspection. absent: Lymphadenopathy - Respiratory Exam Respiratory Exam: Clear to Ausculation Bilateral, NORMAL BREATHING PATTERN - Cardiovascular Exam Cardiovascular Exam: REGULAR RHYTHM, +S1, +S2. absent: Murmur - GI/Abdominal Exam GI & Abdominal Exam: Soft, Normal Bowel Sounds. absent: Tenderness - Rectal Exam Rectal Exam: Deferred - Extremities Exam Extremities Exam: Full ROM, Normal Capillary Refill, Normal Inspection. absent: Joint Swelling, Pedal Edema - Back Exam Back Exam: NORMAL INSPECTION - Neurological Exam Neurological Exam: Alert, Awake, CN II-XII Intact, Normal Gait, Oriented x3 - Psychiatric Exam Psychiatric exam: Normal Affect, Normal Mood - Skin Skin Exam: Dry, Intact, Normal Color, Warm Assessment and Plan (1) Abdominal pain Status: Acute (2) Generalized weakness Status: Acute (3) Chr obstructive pulmonary disease w/ acute lower respiratory infxn Status: Chronic (4) Constipation by delayed colonic transit Status: Acute (5) CAD (coronary artery disease) Status: Chronic (6) Diabetes Status: Chronic (7) Diabetic retinopathy associated with controlled type 2 diabetes mellitus Status: Chronic (8) Old cerebrovascular accident without late effect Status: Chronic (9) Vitreomacular traction syndrome of left eye Status: Chronic (10) CKD (chronic kidney disease) Status: Chronic - Assessment and Plan (Free Text) Assessment: await open lung bx
--- NOTE | 2019-04-01 19:05 | CP.PCM.CON ---
History of Present Illness - History of Present Illness History of Present Illness: Cardiothoracic Surgery Consult note. Dr. Palafox 63yo F with PMHx of DM, COPD, CAD on Plavix, mild Dementia, Constipation and hx of heavy tobacco use. She was initially admitted due to abdominal pain and constipation which has since resolved. She also had complaints of a semi- productive cough. CT Chest obtained with evidence of a RUL cavitary lesion. Active TB was ruled out with negative AFB cultures and hx. On 03/29/19: Patient obtained a CT-guided biopsy of the lesion which was insufficient for a definitive diagnosis (necrotic tissue with fragments of compressed lung and fibrosis) [see full path report]. A repeat biopsy was required and Cardiothoracic surgery was consulted. At this present time, patient denies any CP or shortness of breath. Denies any fevers or chills. No N/V/D. No recent weight loss. No night sweats. No urinary complaints. No Abdominal pain. PMHx: DM, COPD, CAD on Plavix, mild Dementia, Constipation PSHx: Uterine fibroids Social Hx: Former heavy tobacco use, unable to quantify as patient has mild dementia and forgetfullness. Denies ETOH, Denies illicit drugs Family Hx: Unknown [place] - brother Allergy: Iodine, Latex, Natural Rubber, Pentazocine Review of Systems - Review of Systems All systems: reviewed and no additional remarkable complaints except - Constitutional Constitutional: As Per HPI Past Patient History - Infectious Disease Hx of Infectious Diseases: None - Past Medical History & Family History Past Medical History?: Yes Past Family History: Reviewed and not pertinent - Past Social History Smoking Status: Former Smoker Alcohol: None Drugs: Denies - CARDIAC Hx Cardiac Disorders: Yes (CAD,Corornary stent) Hx Hypertension: Yes - PULMONARY Hx Chronic Obstructive Pulmonary Disease (COPD): Yes - NEUROLOGICAL Hx Neurological Disorder: No Hx Paralysis: No - HEENT Hx HEENT Problems: No - RENAL Hx Chronic Kidney Disease: No - ENDOCRINE/METABOLIC Hx Diabetes Mellitus Type 2: Yes - HEMATOLOGICAL/ONCOLOGICAL Hx Blood Disorders: No Hx Blood Transfusions: No Hx Blood Transfusion Reaction: No - INTEGUMENTARY Hx Dermatological Problems: No - MUSCULOSKELETAL/RHEUMATOLOGICAL Hx Falls: Yes Hx Fractures: Yes - GASTROINTESTINAL Hx Gall Bladder Disease: Yes - GENITOURINARY/GYNECOLOGICAL Hx Genitourinary Disorders: Yes Hx Incontinence: Yes - PSYCHIATRIC Hx Substance Use: No - SURGICAL HISTORY Hx Coronary Stent: Yes (2012) - ANESTHESIA Hx Anesthesia: Yes Hx Anesthesia Reactions: No Hx Malignant Hyperthermia: No Meds Allergies/Adverse Reactions: Allergies Allergy/AdvReac Type Severity Reaction Status Date / Time iodine Allergy Verified 12/05/18 00:47 Latex, Natural Rubber Allergy Verified 12/05/18 00:47 pentazocine [From Talwin] Allergy Verified 12/05/18 00:47 - Medications Medications: Current Medications Amlodipine Besylate (Norvasc) 10 mg PO DAILY [facility] Last Admin: 04/01/19 11:00 Dose: 10 mg Calcium/Vitamin D (Oyster Shell Calcium/Vitamin D 500 Mg-200 Iu) 1 tab PO BID [facility] Last Admin: 04/01/19 17:26 Dose: 1 tab Clopidogrel Bisulfate (Plavix) 75 mg PO DAILY [facility] Last Admin: 04/01/19 11:00 Dose: 75 mg Ethambutol HCl (Myambutol) 800 mg PO DAILY [facility]; Protocol Last Admin: 04/01/19 11:00 Dose: 800 mg Gabapentin (Neurontin) 100 mg PO BID [facility] Last Admin: 04/01/19 17:26 Dose: 100 mg Glimepiride (Amaryl) 2 mg PO DAILY [facility] Last Admin: 04/01/19 11:00 Dose: 2 mg Hydrocortisone (Cortizone 2.5%) 0 gm TOP BID [facility] Last Admin: 04/01/19 17:28 Dose: 1 applic Insulin Human Regular (Novolin R) 0 unit SC ACHS [facility]; Protocol Last Admin: 04/01/19 17:27 Dose: 3 units Isoniazid (Niazid) 300 mg PO DAILY [facility]; Protocol Last Admin: 04/01/19 11:00 Dose: 300 mg Metoprolol Succinate (Toprol Xl) 50 mg PO DAILY [facility] Last Admin: 04/01/19 11:00 Dose: 50 mg Nystatin (Mycostatin Cream) 0 ea TOP TID [facility] Last Admin: 04/01/19 17:28 Dose: 1 applic Polyethylene Glycol (Miralax) 17 gm PO DAILY [facility] Last Admin: 04/01/19 11:00 Dose: Not Given Pyrazinamide (Pyrazinamide) 1,000 mg PO MWF [facility]; Protocol Pyridoxine HCl (Vitamin B6) 100 mg PO DAILY [facility] Last Admin: 04/01/19 11:00 Dose: 100 mg Rifampin (Rifampin Cap) 600 mg PO DAILY [facility]; Protocol Last Admin: 04/01/19 11:00 Dose: 600 mg Rosuvastatin Calcium (Crestor) 10 mg PO HS [facility] Last Admin: 03/31/19 21:02 Dose: 10 mg Physical Exam - Constitutional Appears: Non-toxic, No Acute Distress - Head Exam Head Exam: ATRAUMATIC, NORMAL INSPECTION, NORMOCEPHALIC - Eye Exam Eye Exam: EOMI, Normal appearance. absent: Scleral icterus - ENT Exam ENT Exam: Mucous Membranes Moist - Respiratory Exam Respiratory Exam: NORMAL BREATHING PATTERN. absent: Accessory Muscle Use, Respiratory Distress - Cardiovascular Exam Cardiovascular Exam: RRR. absent: JVD - GI/Abdominal Exam GI & Abdominal Exam: Soft. absent: Distended, Firm, Guarding, Rebound, Rigid, Tenderness - Extremities Exam Extremities exam: Positive for: normal inspection. Negative for: calf tenderness - Back Exam Back exam: NORMAL INSPECTION - Neurological Exam Neurological exam: Alert Additional comments: Able to respond appropriately to questions but has some forgetfullness - Skin Skin Exam: Dry, Intact, Normal Color, Warm Results - Vital Signs Recent Vital Signs: Last Vital Signs Temp 98.1 F 04/01/19 16:00 Pulse 64 04/01/19 16:00 Resp 20 04/01/19 16:00 BP 109/64 04/01/19 16:00 Pulse Ox 97 04/01/19 16:00 - Labs Result Diagrams: 03/30/19 08:39 03/30/19 08:39 Labs: Laboratory Results - last 24 hr 03/31/19 04/01/19 04/01/19 21:17 06:42 07:27 POC Glucose (mg/dL) 146 H 133 H HIV 1&2 Antibody Screen Negative 04/01/19 04/01/19 11:48 16:21 POC Glucose (mg/dL) 277 H 225 H HIV 1&2 Antibody Screen Assessment & Plan - Assessment and Plan (Free Text) Assessment: 63yo F with RUL cavitary lesion. s/p IR biopsy with insufficient tissue for diagnosis. - CT Chest noted. RUL small cavitary lesion noted. 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 Tigre West PGY2 surgery
--- NOTE | 2019-04-02 05:50 | CON ---
DATE: 04/01/2019 CHIEF COMPLAINT/REASON FOR CONSULTATION: The patient is referred by Dr. Arambula for evaluation of possible depression. The patient has poor motivation to do PT or do any activities. HISTORY OF PRESENT ILLNESS: This is a case of a 63-year-old female of [place] descent, who was admitted here for possible pneumonia, also constipation. The patient is currently in isolation as the patient has some pulmonary nodule and also currently being treated for possible TB. The patient had a CT-guided biopsy done. The patient was referred for evaluation as the patient has been feeling depressed. The patient has been in isolation. The patient also states that she has been feeling depressed secondary to medical problems. Multiple consults have been called to assist the patient in this case. The patient wants to go for rehab, but still in hospital, the patient is not medically cleared yet. The patient is currently taking multiple drugs for tuberculosis. She states that she sleeps fairly well. Appetite is variable, feels depressed being in the hospital. The patient has been followed by Dr. Monteiro, customer technical services manager. PAST PSYCHIATRY HISTORY: Denies any. ALLERGIES: ALLERGIC TO IODINE, LASIX, TALWIN. PSYCHOSOCIAL HISTORY: The patient lives with her . 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 She used to work in [employer] and at [employer]. MEDICATIONS: List of current medications is Amaryl, cortisone, Crestor, Avelox, Myambutol 800 mg daily, Neurontin, INH 300 mg daily, Norvasc, Novolin, PZA 1000 mg 2 times a week, rifampin, Toprol, B12 and also Zosyn. LABORATORY DATA: Review of her labs: Her last glucose is 227. The patient's liver function test, AST is 31, ALT is 17, alkaline phosphatase is 72, TSH third generation is 3.61. PHYSICAL EXAMINATION: VITAL SIGNS: Temperature is 97.9, pulse 65, blood pressure 149/75, respirations 20, oxygen saturation is 95%. GENERAL: The patient is alert and oriented x3, conversing in Tagalog. SKIN: No diaphoresis. HEENT: No headache. No dizziness. NECK: Supple. RESPIRATORY: No dyspnea. CARDIOVASCULAR: No chest pain. GASTROINTESTINAL: Appetite is variable. EXTREMITIES: Moving extremities, but feels weak. MUSCULOSKELETAL: Generalized weakness. NEUROLOGIC: Alert and oriented x3. GENITOURINARY: No dysuria. MENTAL STATUS EXAMINATION: Adult female of [place] descent, oriented x3. Mood is dysphoric. Affect is reactive. Speech is spontaneous. Thought process, coherent. Thought content, the patient wants to go to the rehab and also wants to be discharged from the hospital, but the patient is not medically cleared at this time. The patient is currently being treated for TB. Attention and memory seem to be fair. Insight and judgment, fair. Impulse control is fair. 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 PLAN AND RECOMMENDATION: The patient is seen. Meds reviewed. Continue present management. The patient is taking multiple medications for TB. I advised not to give any antidepressant at this time as these medicines will cross react and may even induce chemical-induced hepatitis. The patient is depressed secondary to medical problems. The patient states that she wants to go for rehab, but for now, we will hold off any psych medication to avoid drug-drug interaction and may cause hepatic toxicity as the patient is on multiple anti-TB medications. I prefer not to give any antidepressants at this time to limit drug-drug interaction. Continue treatment as outlined. Once the patient is medically cleared, the patient is amenable to go for subacute rehab. Also, we will try to monitor her liver function tests as the patient is on quadruple anti TB medication. Erik Hernández MD [facility]
[2019-04-02] MEDS: (Novolin R) Insulin Human Regular 100 units/ml vial SC SCH ×4 (08:20→21:21)
--- NOTE | 2019-04-02 09:29 | CP.PCM.PN ---
Subjective - Date & Time of Evaluation Date of Evaluation: 04/02/19 Time of Evaluation: 08:45 - Subjective Subjective: CT surgery Progress note. Dr. Palafox Pt seen and examined at bedside. No acute events overnight. No N/V/D. No F/C. No new complaints. Denies any night sweats. Objective - Vital Signs/Intake and Output Vital Signs (last 24 hours): Temp Pulse Resp BP Pulse Ox 97.9 F 66 20 136/70 97 04/02/19 07:40 04/02/19 07:40 04/02/19 07:40 04/02/19 07:40 04/02/19 07:40 Intake and Output: 04/02/19 04/02/19 06:59 18:59 Intake Total 550 Output Total 800 Balance -250 - Medications Medications: Current Medications Amlodipine Besylate (Norvasc) 10 mg PO DAILY [facility] Last Admin: 04/01/19 11:00 Dose: 10 mg Calcium/Vitamin D (Oyster Shell Calcium/Vitamin D 500 Mg-200 Iu) 1 tab PO BID [facility] Last Admin: 04/01/19 17:26 Dose: 1 tab Clopidogrel Bisulfate (Plavix) 75 mg PO DAILY [facility] Last Admin: 04/01/19 11:00 Dose: 75 mg Ethambutol HCl (Myambutol) 800 mg PO DAILY [facility]; Protocol Last Admin: 04/01/19 11:00 Dose: 800 mg Gabapentin (Neurontin) 100 mg PO BID [facility] Last Admin: 04/01/19 17:26 Dose: 100 mg Glimepiride (Amaryl) 2 mg PO DAILY [facility] Last Admin: 04/01/19 11:00 Dose: 2 mg Hydrocortisone (Cortizone 2.5%) 0 gm TOP BID [facility] Last Admin: 04/01/19 17:28 Dose: 1 applic Insulin Human Regular (Novolin R) 0 unit SC ACHS [facility]; Protocol Last Admin: 04/02/19 08:20 Dose: Not Given Isoniazid (Niazid) 300 mg PO DAILY [facility]; Protocol Last Admin: 04/01/19 11:00 Dose: 300 mg Metoprolol Succinate (Toprol Xl) 50 mg PO DAILY [facility] Last Admin: 04/01/19 11:00 Dose: 50 mg Nystatin (Mycostatin Cream) 0 ea TOP TID [facility] Last Admin: 04/01/19 17:28 Dose: 1 applic Polyethylene Glycol (Miralax) 17 gm PO DAILY [facility] Last Admin: 04/01/19 11:00 Dose: Not Given Pyrazinamide (Pyrazinamide) 1,000 mg PO [facility]; Protocol Pyridoxine HCl (Vitamin B6) 100 mg PO DAILY [facility] Last Admin: 04/01/19 11:00 Dose: 100 mg Rifampin (Rifampin Cap) 600 mg PO DAILY [facility]; Protocol Last Admin: 04/01/19 11:00 Dose: 600 mg Rosuvastatin Calcium (Crestor) 10 mg PO HS [facility] Last Admin: 04/01/19 21:55 Dose: 10 mg - Labs Labs: 03/30/19 08:39 03/30/19 08:39 - Constitutional Appears: Non-toxic, No Acute Distress - Head Exam Head Exam: ATRAUMATIC, NORMAL INSPECTION, NORMOCEPHALIC - Eye Exam Eye Exam: EOMI, Normal appearance. absent: Scleral icterus - ENT Exam ENT Exam: Mucous Membranes Moist - Respiratory Exam Respiratory Exam: absent: Accessory Muscle Use, Respiratory Distress - Cardiovascular Exam Cardiovascular Exam: RRR. absent: Tachycardia - GI/Abdominal Exam GI & Abdominal Exam: Soft. absent: Distended, Guarding, Tenderness, Rebound - Neurological Exam Neurological Exam: Awake Additional comments: Responds to questions appropriately - Skin Skin Exam: Dry, Intact, Normal Color, Warm Assessment and Plan - Assessment and Plan (Free Text) Assessment: 63yo F with RUL cavitary lesion and non-diagnositic IR biopsy Plan: - Patient will benefit from outpatient workup by ID regarding TB. - Recommend outpatient PET scan +/- surveillance - No immediate CT surgery warranted at this time - Follow up with Dr. Palafox as outpatient. Further recs as per Dr. Janell West PGY2 surgery
[2019-04-02] MEDS: Calcium-Vit D 500 mg-200 Units Tab UD PO SCH ×2 (09:57→17:42)
[2019-04-02] MEDS: Metoprolol Succinate 50 mg XL Tab PO SCH (09:57)
[2019-04-02] MEDS: Pyridoxine 100 mg Tab PO SCH (10:02)
[2019-04-02] MEDS: Nystatin 100,000 Units/gm Cream(15 gm) TOP SCH ×4 (10:03→17:41)
[2019-04-02] MEDS: Hydrocortisone 2.5% Oint (20 gm) TOP SCH ×2 (10:03→17:41)
[2019-04-02] MEDS: POLYETHYLENE GLYCOL 3350 17 GM/Dose PACKET PO SCH (10:13)
--- NOTE | 2019-04-02 15:00 | CP.PCM.PN ---
Subjective - Date & Time of Evaluation Date of Evaluation: 04/02/19 Time of Evaluation: 14:58 - Subjective Subjective: S: Bedridden. No fever Objective - Vital Signs/Intake and Output Vital Signs (last 24 hours): Temp Pulse Resp BP Pulse Ox 97.9 F 66 20 136/70 97 04/02/19 07:40 04/02/19 07:40 04/02/19 07:40 04/02/19 07:40 04/02/19 07:40 Intake and Output: 04/02/19 04/02/19 06:59 18:59 Intake Total 550 300 Output Total 800 600 Balance -250 -300 - Medications Medications: Current Medications Amlodipine Besylate (Norvasc) 10 mg PO DAILY [facility] Last Admin: 04/02/19 09:57 Dose: 10 mg Calcium/Vitamin D (Oyster Shell Calcium/Vitamin D 500 Mg-200 Iu) 1 tab PO BID [facility] Last Admin: 04/02/19 09:57 Dose: 1 tab Clopidogrel Bisulfate (Plavix) 75 mg PO DAILY [facility] Last Admin: 04/02/19 09:57 Dose: 75 mg Ethambutol HCl (Myambutol) 800 mg PO DAILY [facility]; Protocol Last Admin: 04/02/19 10:02 Dose: 800 mg Gabapentin (Neurontin) 100 mg PO BID [facility] Last Admin: 04/02/19 09:58 Dose: 100 mg Glimepiride (Amaryl) 2 mg PO DAILY [facility] Last Admin: 04/02/19 10:01 Dose: 2 mg Hydrocortisone (Cortizone 2.5%) 0 gm TOP BID [facility] Last Admin: 04/02/19 10:03 Dose: 1 applic Insulin Human Regular (Novolin R) 0 unit SC ACHS [facility]; Protocol Last Admin: 04/02/19 12:11 Dose: 3 units Isoniazid (Niazid) 300 mg PO DAILY [facility]; Protocol Last Admin: 04/02/19 10:02 Dose: 300 mg Metoprolol Succinate (Toprol Xl) 50 mg PO DAILY [facility] Last Admin: 04/02/19 09:57 Dose: 50 mg Nystatin (Mycostatin Cream) 0 ea TOP TID [facility] Last Admin: 04/02/19 14:28 Dose: 1 applic Polyethylene Glycol (Miralax) 17 gm PO DAILY [facility] Last Admin: 04/02/19 10:13 Dose: 17 gm Pyrazinamide (Pyrazinamide) 1,000 mg PO [facility]; Protocol Pyridoxine HCl (Vitamin B6) 100 mg PO DAILY [facility] Last Admin: 04/02/19 10:02 Dose: 100 mg Rifampin (Rifampin Cap) 600 mg PO DAILY [facility]; Protocol Last Admin: 04/02/19 10:01 Dose: 600 mg Rosuvastatin Calcium (Crestor) 10 mg PO HS [facility] Last Admin: 04/01/19 21:55 Dose: 10 mg - Labs Labs: 03/30/19 08:39 03/30/19 08:39 - Constitutional Appears: Chronically Ill - Head Exam Head Exam: NORMAL INSPECTION - Eye Exam Eye Exam: Normal appearance - Neck Exam Neck Exam: Normal Inspection - Respiratory Exam Respiratory Exam: NORMAL BREATHING PATTERN - Cardiovascular Exam Cardiovascular Exam: REGULAR RHYTHM - GI/Abdominal Exam GI & Abdominal Exam: Soft - Rectal Exam Rectal Exam: Deferred Assessment and Plan (1) Abdominal pain Status: Acute (2) CAD (coronary artery disease) Status: Chronic (3) Diabetes Status: Chronic (4) Cavitary lesion of lung Status: Acute - Assessment and Plan (Free Text) Assessment: A/p: Need in patient phsical therapy. Discharge planning. Continue medications
--- NOTE | 2019-04-02 16:36 | CP.PCM.PN ---
Subjective - Date & Time of Evaluation Date of Evaluation: 04/02/19 Time of Evaluation: 13:00 - Subjective Subjective: Patient seen and examined Lying comfortably in no distress Off respiratory isolation Afebrile Denies cough, denies chest pain, denies night sweats Okay to discharge home Work-up as outpatient Objective - Vital Signs/Intake and Output Vital Signs (last 24 hours): Temp Pulse Resp BP Pulse Ox 98.1 F 69 20 147/77 97 04/02/19 15:00 04/02/19 15:00 04/02/19 15:00 04/02/19 15:00 04/02/19 15:00 Intake and Output: 04/02/19 04/02/19 06:59 18:59 Intake Total 550 300 Output Total 800 600 Balance -250 -300 - Medications Medications: Current Medications Amlodipine Besylate (Norvasc) 10 mg PO DAILY [facility] Last Admin: 04/02/19 09:57 Dose: 10 mg Calcium/Vitamin D (Oyster Shell Calcium/Vitamin D 500 Mg-200 Iu) 1 tab PO BID [facility] Last Admin: 04/02/19 09:57 Dose: 1 tab Clopidogrel Bisulfate (Plavix) 75 mg PO DAILY [facility] Last Admin: 04/02/19 09:57 Dose: 75 mg Ethambutol HCl (Myambutol) 800 mg PO DAILY [facility]; Protocol Last Admin: 04/02/19 10:02 Dose: 800 mg Gabapentin (Neurontin) 100 mg PO BID [facility] Last Admin: 04/02/19 09:58 Dose: 100 mg Glimepiride (Amaryl) 2 mg PO DAILY [facility] Last Admin: 04/02/19 10:01 Dose: 2 mg Hydrocortisone (Cortizone 2.5%) 0 gm TOP BID [facility] Last Admin: 04/02/19 10:03 Dose: 1 applic Insulin Human Regular (Novolin R) 0 unit SC ACHS [facility]; Protocol Last Admin: 04/02/19 12:11 Dose: 3 units Isoniazid (Niazid) 300 mg PO DAILY [facility]; Protocol Last Admin: 04/02/19 10:02 Dose: 300 mg Metoprolol Succinate (Toprol Xl) 50 mg PO DAILY [facility] Last Admin: 04/02/19 09:57 Dose: 50 mg Nystatin (Mycostatin Cream) 0 ea TOP TID [facility] Last Admin: 04/02/19 14:28 Dose: 1 applic Polyethylene Glycol (Miralax) 17 gm PO DAILY [facility] Last Admin: 04/02/19 10:13 Dose: 17 gm Pyrazinamide (Pyrazinamide) 1,000 mg PO [facility]; Protocol Pyridoxine HCl (Vitamin B6) 100 mg PO DAILY [facility] Last Admin: 04/02/19 10:02 Dose: 100 mg Rifampin (Rifampin Cap) 600 mg PO DAILY [facility]; Protocol Last Admin: 04/02/19 10:01 Dose: 600 mg Rosuvastatin Calcium (Crestor) 10 mg PO [facility] Last Admin: 04/01/19 21:55 Dose: 10 mg - Labs Labs: 03/30/19 08:39 03/30/19 08:39 Assessment and Plan (1) Pulmonary cavitary lesion Status: Acute (2) Abdominal pain Status: Acute (3) CKD (chronic kidney disease) Status: Chronic
--- NOTE | 2019-04-02 22:57 | PN ---
DATE: 04/02/2019 SUBJECTIVE: The patient is still feeling weak and states she cannot walk. The patient is depressed secondary to medical problems, but she is interested to go for subacute rehab for her conditioning. Case discussed with Dr. Arambula. The patient is on quadruple anti-TB meds. She is depressed secondary to medical problems, but will hold any addition of antidepressant to avoid the patient having drug-drug interaction and developing chemical-induced hepatitis from the interaction of antidepressant and the anti-TB meds. PHYSICAL EXAMINATION: VITAL SIGNS: Temperature is 97.9, pulse 66, blood pressure 136/70, respirations 20, O2 saturation is 97%. Note, the patient is currently on respiratory isolation. GENERAL: The patient is alert and oriented x3, conversing in Tagalog, still looks depressed. SKIN: No diaphoresis. HEENT: No headache. No dizziness. NECK: Supple. RESPIRATORY: No dyspnea. CARDIOVASCULAR: No chest pain. GASTROINTESTINAL: No nausea, no vomiting. EXTREMITIES: Unable to walk, stating that her gait is very unsteady. MUSCULOSKELETAL: She feels weak. NEUROLOGIC: Alert and oriented x3. GENITOURINARY: Not complaining of urinary problems. MENTAL STATUS EXAMINATION: Elderly female of Citizen Of [place] descent, conversing in Tagalog, oriented x3. Mood is still depressed. Affect is reactive. Speech is spontaneous. Thought process is coherent. Thought content, no overt psychosis. No suicidal or homicidal ideation. Attention and memory seem to be fair. Insight and judgment fair. Impulse control is fair. IMPRESSION: Mood disorder as well as adjustment disorder as well as history of urinary tract infection, pneumonia, pulmonary mass as well as cavitary lesion of the lung. PLAN AND RECOMMENDATIONS: The patient is seen. Continue present management. Supportive therapy provided. We will hold off any antidepressant for now. Once the patient is medically cleared, the patient will be going for subacute rehab per her insurance coverage as the patient has private insurance. Erik Hernández MD
[2019-04-03] MEDS: (Novolin R) Insulin Human Regular 100 units/ml vial SC SCH ×4 (07:35→21:26)
[2019-04-03] MEDS: Calcium-Vit D 500 mg-200 Units Tab UD PO SCH ×2 (09:04→17:44)
[2019-04-03] MEDS: Metoprolol Succinate 50 mg XL Tab PO SCH (09:04)
[2019-04-03] MEDS: Pyridoxine 100 mg Tab PO SCH (09:05)
[2019-04-03] MEDS: Nystatin 100,000 Units/gm Cream(15 gm) TOP SCH ×2 (09:05→17:40)
[2019-04-03] MEDS: Hydrocortisone 2.5% Oint (20 gm) TOP SCH ×2 (09:05→17:39)
[2019-04-03] MEDS: POLYETHYLENE GLYCOL 3350 17 GM/Dose PACKET PO SCH (09:30)
--- NOTE | 2019-04-03 14:22 | CP.PCM.PN ---
Subjective - Date & Time of Evaluation Date of Evaluation: 04/03/19 Time of Evaluation: 08:00 - Subjective Subjective: awaiting open lung bx started TB meds- quantiferon + smears Neg Objective - Vital Signs/Intake and Output Vital Signs (last 24 hours): Temp Pulse Resp BP Pulse Ox 98.0 F 73 20 163/76 H 98 04/03/19 08:19 04/03/19 08:19 04/03/19 08:19 04/03/19 08:19 04/03/19 08:19 Intake and Output: 04/03/19 04/03/19 06:59 18:59 Intake Total 500 Output Total 500 Balance 0 - Medications Medications: Current Medications Amlodipine Besylate (Norvasc) 10 mg PO DAILY [facility] Last Admin: 04/03/19 09:04 Dose: 10 mg Calcium/Vitamin D (Oyster Shell Calcium/Vitamin D 500 Mg-200 Iu) 1 tab PO BID [facility] Last Admin: 04/03/19 09:04 Dose: 1 tab Clopidogrel Bisulfate (Plavix) 75 mg PO DAILY [facility] Last Admin: 04/03/19 09:04 Dose: 75 mg Ethambutol HCl (Myambutol) 800 mg PO DAILY [facility]; Protocol Last Admin: 04/03/19 09:05 Dose: 800 mg Gabapentin (Neurontin) 100 mg PO BID [facility] Last Admin: 04/03/19 09:04 Dose: 100 mg Glimepiride (Amaryl) 2 mg PO DAILY [facility] Last Admin: 04/03/19 09:04 Dose: 2 mg Hydrocortisone (Cortizone 2.5%) 0 gm TOP BID [facility] Last Admin: 04/03/19 09:05 Dose: 1 applic Insulin Human Regular (Novolin R) 0 unit SC [facility]; Protocol Last Admin: 04/03/19 11:57 Dose: 3 units Isoniazid (Niazid) 300 mg PO DAILY [facility]; Protocol Last Admin: 04/03/19 09:05 Dose: 300 mg Metoprolol Succinate (Toprol Xl) 50 mg PO DAILY [facility] Last Admin: 04/03/19 09:04 Dose: 50 mg Nystatin (Mycostatin Cream) 0 ea TOP TID [facility] Last Admin: 04/03/19 09:05 Dose: 1 applic Polyethylene Glycol (Miralax) 17 gm PO DAILY [facility] Last Admin: 04/03/19 09:30 Dose: 17 gm Pyrazinamide (Pyrazinamide) 1,000 mg PO MWF [facility]; Protocol Pyridoxine HCl (Vitamin B6) 100 mg PO DAILY [facility] Last Admin: 04/03/19 09:05 Dose: 100 mg Rifampin (Rifampin Cap) 600 mg PO DAILY [facility]; Protocol Last Admin: 04/03/19 09:05 Dose: 600 mg Rosuvastatin Calcium (Crestor) 10 mg PO HS [facility] Last Admin: 04/02/19 21:21 Dose: 10 mg - Labs Labs: 03/30/19 08:39 03/30/19 08:39 - Constitutional Appears: No Acute Distress, Cachectic, Chronically Ill - Head Exam Head Exam: ATRAUMATIC, NORMAL INSPECTION, NORMOCEPHALIC - Eye Exam Eye Exam: EOMI, Normal appearance, PERRL Pupil Exam: NORMAL ACCOMODATION, PERRL - ENT Exam ENT Exam: Mucous Membranes Moist, Normal Exam - Neck Exam Neck Exam: Full ROM, Normal Inspection. absent: Lymphadenopathy - Respiratory Exam Respiratory Exam: Clear to Ausculation Bilateral, NORMAL BREATHING PATTERN - Cardiovascular Exam Cardiovascular Exam: REGULAR RHYTHM, +S1, +S2. absent: Murmur - GI/Abdominal Exam GI & Abdominal Exam: Soft, Normal Bowel Sounds. absent: Tenderness - Rectal Exam Rectal Exam: Deferred - Exam Exam: NORMAL INSPECTION - Extremities Exam Extremities Exam: Full ROM, Normal Capillary Refill, Normal Inspection. absent: Joint Swelling, Pedal Edema - Back Exam Back Exam: NORMAL INSPECTION - Neurological Exam Neurological Exam: Alert, Awake, CN II-XII Intact, Oriented x3. absent: Normal Gait - Psychiatric Exam Psychiatric exam: Normal Affect, Normal Mood - Skin Skin Exam: Dry, Intact, Normal Color, Warm Assessment and Plan (1) Abdominal pain Status: Acute (2) Generalized weakness Status: Acute (3) Chr obstructive pulmonary disease w/ acute lower respiratory infxn Status: Chronic (4) Constipation by delayed colonic transit Status: Acute (5) CAD (coronary artery disease) Status: Chronic (6) Diabetes Status: Chronic (7) Diabetic retinopathy associated with controlled type 2 diabetes mellitus Status: Chronic (8) Old cerebrovascular accident without late effect Status: Chronic (9) Vitreomacular traction syndrome of left eye Status: Chronic (10) CKD (chronic kidney disease) Status: Chronic - Assessment and Plan (Free Text) Assessment: AFB neg x 3 for open lung Bx cont TB meds
[2019-04-04] MEDS: (Novolin R) Insulin Human Regular 100 units/ml vial SC SCH ×4 (07:46→21:16)
--- NOTE | 2019-04-04 08:31 | CP.PCM.PN ---
Subjective - Date & Time of Evaluation Date of Evaluation: 04/04/19 Time of Evaluation: 08:15 - Subjective Subjective: pt no complain; No CP, no SOB, no wt loss No abd pain, no n/v, no dysuria, no diarrhea, (+) urin & do not want Bxary incontinent Express wish to go to subacute; State do not want open lung Bx - see what meds will do Objective - Vital Signs/Intake and Output Vital Signs (last 24 hours): Temp Pulse Resp BP Pulse Ox 97.9 F 75 20 134/72 96 04/04/19 07:00 04/04/19 07:00 04/04/19 07:00 04/04/19 07:00 04/04/19 07:00 Intake and Output: 04/04/19 04/04/19 06:59 18:59 Intake Total 540 Output Total 800 Balance -260 - Medications Medications: Current Medications Amlodipine Besylate (Norvasc) 10 mg PO DAILY [facility] Last Admin: 04/03/19 09:04 Dose: 10 mg Calcium/Vitamin D (Oyster Shell Calcium/Vitamin D 500 Mg-200 Iu) 1 tab PO BID [facility] Last Admin: 04/03/19 17:44 Dose: 1 tab Clopidogrel Bisulfate (Plavix) 75 mg PO DAILY [facility] Last Admin: 04/03/19 09:04 Dose: 75 mg Ethambutol HCl (Myambutol) 800 mg PO DAILY [facility]; Protocol Last Admin: 04/03/19 09:05 Dose: 800 mg Gabapentin (Neurontin) 100 mg PO BID [facility] Last Admin: 04/03/19 17:40 Dose: 100 mg Glimepiride (Amaryl) 2 mg PO DAILY [facility] Last Admin: 04/03/19 09:04 Dose: 2 mg Insulin Human Regular (Novolin R) 0 unit SC [facility]; Protocol Last Admin: 04/04/19 07:46 Dose: Not Given Isoniazid (Niazid) 300 mg PO DAILY [facility]; Protocol Last Admin: 04/03/19 09:05 Dose: 300 mg Metoprolol Succinate (Toprol Xl) 50 mg PO DAILY [facility] Last Admin: 04/03/19 09:04 Dose: 50 mg Nystatin (Mycostatin Cream) 0 ea TOP TID [facility] Last Admin: 04/03/19 17:40 Dose: 1 applic Polyethylene Glycol (Miralax) 17 gm PO DAILY [facility] Last Admin: 04/03/19 09:30 Dose: 17 gm Pyrazinamide (Pyrazinamide) 1,000 mg PO [facility] Protocol Pyridoxine HCl (Vitamin B6) 100 mg PO DAILY [facility] Last Admin: 04/03/19 09:05 Dose: 100 mg Rifampin (Rifampin Cap) 600 mg PO DAILY [facility]; Protocol Last Admin: 04/03/19 09:05 Dose: 600 mg - Labs Labs: 03/30/19 08:39 03/30/19 08:39 - Constitutional Appears: No Acute Distress - Eye Exam Eye Exam: Normal appearance - ENT Exam ENT Exam: Mucous Membranes Moist - Neck Exam Neck Exam: Full ROM. absent: Lymphadenopathy, Thyromegaly - Respiratory Exam Respiratory Exam: Decreased Breath Sounds. absent: Rales, Rhonchi, Wheezes - Cardiovascular Exam Cardiovascular Exam: REGULAR RHYTHM, +S1, +S2. absent: Gallop, JVD - GI/Abdominal Exam GI & Abdominal Exam: Soft. absent: Tenderness, Normal Bowel Sounds - Extremities Exam Extremities Exam: Full ROM, Normal Capillary Refill. absent: Calf Tenderness, Joint Swelling, Pedal Edema Assessment and Plan - Assessment and Plan (Free Text) Assessment: Cavitary lung lesion; NIDDM, HTN, CAD s/p stent; CKD, Gen debility, dementia, s/p prev CVA For [facility] but need to inform state c/o TB monitoring Pr want to wait for open lung Bx Cont Tx for PTB pending all C/S Supportive care
[2019-04-04] MEDS: Metoprolol Succinate 50 mg XL Tab PO SCH (09:03)
[2019-04-04] MEDS: Calcium-Vit D 500 mg-200 Units Tab UD PO SCH ×2 (09:03→17:52)
[2019-04-04] MEDS: POLYETHYLENE GLYCOL 3350 17 GM/Dose PACKET PO SCH (09:03)
[2019-04-04] MEDS: Pyridoxine 100 mg Tab PO SCH (09:04)
[2019-04-04] MEDS: Nystatin 100,000 Units/gm Cream(15 gm) TOP SCH ×3 (09:05→17:52)
--- NOTE | 2019-04-04 10:52 | CP.PCM.PN ---
Subjective - Date & Time of Evaluation Date of Evaluation: 04/04/19 Time of Evaluation: 09:00 - Subjective Subjective: for possible d/c home on tb meds Objective - Vital Signs/Intake and Output Vital Signs (last 24 hours): Temp Pulse Resp BP Pulse Ox 97.9 F 75 20 134/72 96 04/04/19 07:00 04/04/19 07:00 04/04/19 07:00 04/04/19 07:00 04/04/19 07:00 Intake and Output: 04/04/19 04/04/19 06:59 18:59 Intake Total 540 Output Total 800 Balance -260 - Medications Medications: Current Medications Amlodipine Besylate (Norvasc) 10 mg PO DAILY [facility] Last Admin: 04/04/19 09:04 Dose: 10 mg Calcium/Vitamin D (Oyster Shell Calcium/Vitamin D 500 Mg-200 Iu) 1 tab PO BID [facility] Last Admin: 04/04/19 09:03 Dose: 1 tab Clopidogrel Bisulfate (Plavix) 75 mg PO DAILY [facility] Last Admin: 04/04/19 09:03 Dose: 75 mg Ethambutol HCl (Myambutol) 800 mg PO DAILY [facility]; Protocol Last Admin: 04/04/19 09:05 Dose: 800 mg Gabapentin (Neurontin) 100 mg PO BID [facility] Last Admin: 04/04/19 09:04 Dose: 100 mg Glimepiride (Amaryl) 2 mg PO DAILY [facility] Last Admin: 04/04/19 09:04 Dose: 2 mg Insulin Human Regular (Novolin R) 0 unit SC [facility]; Protocol Last Admin: 04/04/19 07:46 Dose: Not Given Isoniazid (Niazid) 300 mg PO DAILY [facility]; Protocol Last Admin: 04/04/19 09:04 Dose: 300 mg Metoprolol Succinate (Toprol Xl) 50 mg PO DAILY [facility] Last Admin: 04/04/19 09:03 Dose: 50 mg Nystatin (Mycostatin Cream) 0 ea TOP TID [facility] Last Admin: 04/04/19 09:05 Dose: 1 applic Polyethylene Glycol (Miralax) 17 gm PO DAILY [facility] Last Admin: 04/04/19 09:03 Dose: 17 gm Pyrazinamide (Pyrazinamide) 1,000 mg PO F [facility]; Protocol Last Admin: 04/04/19 09:05 Dose: 1,000 mg Pyridoxine HCl (Vitamin B6) 100 mg PO DAILY [facility] Last Admin: 04/04/19 09:04 Dose: 100 mg Rifampin (Rifampin Cap) 600 mg PO DAILY [facility]; Protocol Last Admin: 04/04/19 09:04 Dose: 600 mg - Labs Labs: 03/30/19 08:39 03/30/19 08:39 - Constitutional Appears: Non-toxic, No Acute Distress, Cachectic, Chronically Ill - Head Exam Head Exam: ATRAUMATIC, NORMAL INSPECTION, NORMOCEPHALIC - Eye Exam Eye Exam: EOMI, Normal appearance, PERRL Pupil Exam: NORMAL ACCOMODATION, PERRL - ENT Exam ENT Exam: Mucous Membranes Moist, Normal Exam - Neck Exam Neck Exam: Full ROM, Normal Inspection. absent: Lymphadenopathy - Respiratory Exam Respiratory Exam: Clear to Ausculation Bilateral, NORMAL BREATHING PATTERN - Cardiovascular Exam Cardiovascular Exam: REGULAR RHYTHM, +S1, +S2. absent: Murmur - GI/Abdominal Exam GI & Abdominal Exam: Soft, Normal Bowel Sounds. absent: Tenderness - Rectal Exam Rectal Exam: Deferred - Extremities Exam Extremities Exam: Full ROM, Normal Capillary Refill, Normal Inspection. absent: Joint Swelling, Pedal Edema - Back Exam Back Exam: NORMAL INSPECTION - Neurological Exam Neurological Exam: Alert, Awake, CN II-XII Intact, Oriented x3. absent: Normal Gait - Psychiatric Exam Psychiatric exam: Normal Affect, Normal Mood - Skin Skin Exam: Dry, Intact, Normal Color, Warm Assessment and Plan (1) Abdominal pain Status: Acute (2) Generalized weakness Status: Acute (3) Chr obstructive pulmonary disease w/ acute lower respiratory infxn Status: Chronic (4) Constipation by delayed colonic transit Status: Acute (5) CAD (coronary artery disease) Status: Chronic (6) Diabetes Status: Chronic (7) Diabetic retinopathy associated with controlled type 2 diabetes mellitus Status: Chronic (8) Old cerebrovascular accident without late effect Status: Chronic (9) Vitreomacular traction syndrome of left eye Status: Chronic (10) CKD (chronic kidney disease) Status: Chronic - Assessment and Plan (Free Text) Assessment: d/c on TB meds' follow up with dr Monteiro
--- NOTE | 2019-04-04 16:32 | PN ---
DATE: 04/04/2019 SUBJECTIVE: The patient is seen. The patient felt depressed. Yesterday was Mother's Day and the patient had very limited visitors. [place] and her visits her occasionally. The patient has been feeling depressed over her medical problems and being isolated. The patient currently is in respiratory isolation and is currently treated for TB. The patient is hoping she will be medically cleared so she can go to subacute rehab. The patient has refused to have any music in her room, stating that it makes her more depressed. PHYSICAL EXAMINATION: VITAL SIGNS: Temperature 97.9, pulse 75, blood pressure 134/70, respirations 20, oxygen saturation is 96%. GENERAL: The patient is alert and oriented x3. Seen in her room, feeling depressed over her being on isolation. SKIN: No diaphoresis. HEENT: No headache. No dizziness. NECK: Supple. RESPIRATORY: No dyspnea. CARDIOVASCULAR: No chest pain. GASTROINTESTINAL: Appetite is variable. EXTREMITIES: Moves extremities. MUSCULOSKELETAL: Feels weak. NEURO: Alert and oriented x2. GENITOURINARY: No urinary problems. MENTAL STATUS EXAMINATION: Elderly female of [place] descent, oriented x3, conversing in [place]. Mood is depressed, anxious. The patient wants to leave the hospital. The patient also wants to be off respiratory isolation. Thought process is coherent. Thought content, no overt psychosis. No suicidal or homicidal ideation. Attention and memory seemed to be fair. Insight and judgment fair. Impulse control is fair. IMPRESSION: Mood disorder as well as adjustment disorder. PLAN AND RECOMMENDATIONS: The patient is seen. Meds reviewed. Continue present management. Supportive therapy provided. We will hold off any psych meds for now. The patient is awaiting clearance respiratory silverio before going into subacute rehab. The patient states she may go to [facility] [employer] where she worked before. She said she is familiar with the [facility]. Continue treatment plan as outlined. Also, we will start to monitor her liver enzyme accordingly as the patient is on quadruple anti-TB medication. Erik Hernández MD
[2019-04-05] MEDS: (Novolin R) Insulin Human Regular 100 units/ml vial SC SCH ×4 (08:01→21:10)
--- NOTE | 2019-04-05 08:39 | CP.PCM.PN ---
Subjective - Date & Time of Evaluation Date of Evaluation: 04/05/19 Time of Evaluation: 08:20 - Subjective Subjective: Pt no complain; 2 soft stool last night No CP, no SOB, no edema, no more cough, no n/v, no dysuria, (+) freq No joint pains. Still doing pT c/o unsteady Objective - Vital Signs/Intake and Output Vital Signs (last 24 hours): Temp Pulse Resp BP Pulse Ox 97.3 F L 61 20 156/83 H 95 04/05/19 07:00 04/05/19 07:00 04/05/19 07:00 04/05/19 07:00 04/05/19 07:00 Intake and Output: 04/05/19 04/05/19 06:59 18:59 Intake Total 550 Output Total 700 Balance -150 - Medications Medications: Current Medications Amlodipine Besylate (Norvasc) 10 mg PO DAILY [facility] Last Admin: 04/04/19 09:04 Dose: 10 mg Calcium/Vitamin D (Oyster Shell Calcium/Vitamin D 500 Mg-200 Iu) 1 tab PO BID [facility] Last Admin: 04/04/19 17:52 Dose: 1 tab Clopidogrel Bisulfate (Plavix) 75 mg PO DAILY [facility] Last Admin: 04/04/19 09:03 Dose: 75 mg Ethambutol HCl (Myambutol) 800 mg PO DAILY [facility]; Protocol Last Admin: 04/04/19 09:05 Dose: 800 mg Gabapentin (Neurontin) 100 mg PO BID [facility] Last Admin: 04/04/19 17:52 Dose: 100 mg Glimepiride (Amaryl) 2 mg PO DAILY [facility] Last Admin: 04/04/19 09:04 Dose: 2 mg Insulin Human Regular (Novolin R) 0 unit SC [facility]; Protocol Last Admin: 04/05/19 08:01 Dose: Not Given Isoniazid (Niazid) 300 mg PO DAILY [facility]; Protocol Last Admin: 04/04/19 09:04 Dose: 300 mg Metoprolol Succinate (Toprol Xl) 50 mg PO DAILY [facility] Last Admin: 04/04/19 09:03 Dose: 50 mg Nystatin (Mycostatin Cream) 0 ea TOP TID [facility] Last Admin: 04/04/19 17:52 Dose: 1 applic Polyethylene Glycol (Miralax) 17 gm PO DAILY [facility] Last Admin: 04/04/19 09:03 Dose: 17 gm Pyrazinamide (Pyrazinamide) 1,000 mg PO [facility] [place]; Protocol Last Admin: 04/04/19 09:05 Dose: 1,000 mg Pyridoxine HCl (Vitamin B6) 100 mg PO DAILY [facility] Last Admin: 04/04/19 09:04 Dose: 100 mg Rifampin (Rifampin Cap) 600 mg PO DAILY [facility]; Protocol Last Admin: 04/04/19 09:04 Dose: 600 mg - Labs Labs: 03/30/19 08:39 03/30/19 08:39 - Constitutional Appears: No Acute Distress - Eye Exam Eye Exam: Normal appearance - ENT Exam ENT Exam: Mucous Membranes Moist - Neck Exam Neck Exam: Full ROM. absent: Lymphadenopathy, Tenderness - Respiratory Exam Respiratory Exam: Decreased Breath Sounds. absent: Rales, Rhonchi, Wheezes - Cardiovascular Exam Cardiovascular Exam: REGULAR RHYTHM, +S1, +S2. absent: Gallop, JVD, Murmur - GI/Abdominal Exam GI & Abdominal Exam: Soft, Normal Bowel Sounds. absent: Tenderness - Extremities Exam Extremities Exam: Full ROM, Normal Capillary Refill. absent: Calf Tenderness, Joint Swelling, Pedal Edema Assessment and Plan - Assessment and Plan (Free Text) Assessment: Cavitary lung lesion; HTN, NIDDM, CKD For discharge if clear c/o TB clinic Cont meds For Subacute
[2019-04-05] MEDS: Metoprolol Succinate 50 mg XL Tab PO SCH (10:55)
[2019-04-05] MEDS: Calcium-Vit D 500 mg-200 Units Tab UD PO SCH ×2 (10:56→18:21)
[2019-04-05] MEDS: Pyridoxine 100 mg Tab PO SCH (10:56)
[2019-04-05] MEDS: POLYETHYLENE GLYCOL 3350 17 GM/Dose PACKET PO SCH ×2 (11:03→11:11)
[2019-04-05] MEDS: Nystatin 100,000 Units/gm Cream(15 gm) TOP SCH ×3 (11:06→17:56)
[2019-04-05 11:21] LABS: ALB/GLOB RATIO 0.9 (1.0-2.1); ALBUMIN 3.3 g/dL (3.5-5.0); ALT/SGPT < 6 U/L (9-52); AST/SGOT 22 U/L (14-36); BLOOD UREA NITROGEN 52 mg/dL (7-17); CALCIUM 10.4 mg/dl (8.6-10.4); GFR NON-AFRICAN AMERICAN 19
--- NOTE | 2019-04-05 11:28 | CP.PCM.PN ---
Subjective - Date & Time of Evaluation Date of Evaluation: 04/05/19 Time of Evaluation: 07:00 - Subjective Subjective: no new complaints meds reviewed Objective - Vital Signs/Intake and Output Vital Signs (last 24 hours): Temp Pulse Resp BP Pulse Ox 97.3 F L 61 20 156/83 H 95 04/05/19 07:00 04/05/19 07:00 04/05/19 07:00 04/05/19 07:00 04/05/19 07:00 Intake and Output: 04/05/19 04/05/19 06:59 18:59 Intake Total 550 Output Total 700 Balance -150 - Medications Medications: Current Medications Amlodipine Besylate (Norvasc) 10 mg PO DAILY [facility] Last Admin: 04/05/19 10:56 Dose: 10 mg Calcium/Vitamin D (Oyster Shell Calcium/Vitamin D 500 Mg-200 Iu) 1 tab PO BID [facility] Last Admin: 04/05/19 10:56 Dose: 1 tab Clopidogrel Bisulfate (Plavix) 75 mg PO DAILY [facility] Last Admin: 04/05/19 10:56 Dose: 75 mg Ethambutol HCl (Myambutol) 800 mg PO DAILY [facility]; Protocol Last Admin: 04/05/19 10:57 Dose: 800 mg Gabapentin (Neurontin) 100 mg PO BID [facility] Last Admin: 04/05/19 10:55 Dose: 100 mg Glimepiride (Amaryl) 2 mg PO DAILY [facility] Last Admin: 04/05/19 11:04 Dose: 2 mg Insulin Human Regular (Novolin R) 0 unit SC [facility]; Protocol Last Admin: 04/05/19 08:01 Dose: Not Given Isoniazid (Niazid) 300 mg PO DAILY [facility]; Protocol Last Admin: 04/05/19 10:57 Dose: 300 mg Metoprolol Succinate (Toprol Xl) 50 mg PO DAILY [facility] Last Admin: 04/05/19 10:55 Dose: 50 mg Nystatin (Mycostatin Cream) 0 ea TOP TID [facility] Last Admin: 04/05/19 11:06 Dose: 1 applic Polyethylene Glycol (Miralax) 17 gm PO DAILY [facility] Last Admin: 04/05/19 11:11 Dose: Not Given Pyrazinamide (Pyrazinamide) 1,000 mg PO MWF [facility]; Protocol Last Admin: 04/04/19 09:05 Dose: 1,000 mg Pyridoxine HCl (Vitamin B6) 100 mg PO DAILY [facility] Last Admin: 04/05/19 10:56 Dose: 100 mg Rifampin (Rifampin Cap) 600 mg PO DAILY [facility]; Protocol Last Admin: 04/05/19 10:57 Dose: 600 mg - Labs Labs: 03/30/19 08:39 04/05/19 10:47 - Constitutional Appears: Well - Head Exam Head Exam: ATRAUMATIC, NORMAL INSPECTION, NORMOCEPHALIC - Eye Exam Eye Exam: EOMI, Normal appearance, PERRL Pupil Exam: NORMAL ACCOMODATION, PERRL - ENT Exam ENT Exam: Mucous Membranes Moist, Normal Exam - Neck Exam Neck Exam: Full ROM, Normal Inspection. absent: Lymphadenopathy - Respiratory Exam Respiratory Exam: Clear to Ausculation Bilateral, NORMAL BREATHING PATTERN - Cardiovascular Exam Cardiovascular Exam: REGULAR RHYTHM, +S1, +S2. absent: Murmur - GI/Abdominal Exam GI & Abdominal Exam: Soft, Normal Bowel Sounds. absent: Tenderness - Rectal Exam Rectal Exam: Deferred - Exam Exam: NORMAL INSPECTION - Extremities Exam Extremities Exam: Full ROM, Normal Capillary Refill, Normal Inspection. absent: Joint Swelling, Pedal Edema - Back Exam Back Exam: NORMAL INSPECTION - Neurological Exam Neurological Exam: Alert, Awake, CN II-XII Intact, Oriented x3. absent: Normal Gait - Psychiatric Exam Psychiatric exam: Normal Affect, Normal Mood - Skin Skin Exam: Dry, Intact, Normal Color, Warm Assessment and Plan (1) Abdominal pain Status: Acute (2) Generalized weakness Status: Acute (3) Chr obstructive pulmonary disease w/ acute lower respiratory infxn Status: Chronic (4) Constipation by delayed colonic transit Status: Acute (5) CAD (coronary artery disease) Status: Chronic (6) Diabetes Status: Chronic (7) Diabetic retinopathy associated with controlled type 2 diabetes mellitus Status: Chronic (8) Old cerebrovascular accident without late effect Status: Chronic (9) Vitreomacular traction syndrome of left eye Status: Chronic (10) CKD (chronic kidney disease) Status: Chronic - Assessment and Plan (Free Text) Assessment: cont rx as ordered pending afb cultures
[2019-04-06 06:41] LABS: HEMOGLOBIN 11.2 g/dL (11.0-16.0); MEAN CELL VOLUME 85.7 fL (81.0-99.0); MEAN CORPUSCULAR HEMOGLOBIN 28.9 pg (27.0-31.0); MEAN CORPUSCULAR HGB CONC 33.7 g/dL (33.0-37.0); MEAN PLATELET VOLUME 7.1 fL (7.2-11.7); RBC 3.88 Mil/uL (3.80-5.20); RED CELL DISTRIBUTION WIDTH 13.2 % (11.5-14.5); WHITE BLOOD COUNT 8.7 K/uL (4.8-10.8)
[2019-04-06 07:35] LABS: ALB/GLOB RATIO 0.9 (1.0-2.1); ALBUMIN 3.3 g/dL (3.5-5.0); BILIRUBIN,DIRECT 0.2 mg/dL (0.0-0.4)
[2019-04-06] MEDS: (Novolin R) Insulin Human Regular 100 units/ml vial SC SCH ×3 (08:03→16:27)
--- NOTE | 2019-04-06 08:36 | CP.PCM.PN ---
Subjective - Date & Time of Evaluation Date of Evaluation: 04/06/19 Time of Evaluation: 08:25 - Subjective Subjective: Pt feeels well; no complain Upset c/o state did not let her go to [facility]. Do not believe she has TB. No CP, no more cough, no SOB, no n/v, no diarrhea, no dysuria, Objective - Vital Signs/Intake and Output Vital Signs (last 24 hours): Temp Pulse Resp BP Pulse Ox 98.1 F 65 20 157/70 H 96 04/06/19 08:28 04/06/19 08:28 04/06/19 08:28 04/06/19 08:28 04/06/19 08:28 Intake and Output: 04/06/19 04/06/19 06:59 18:59 Intake Total 370 Output Total 200 Balance 170 - Medications Medications: Current Medications Amlodipine Besylate (Norvasc) 10 mg PO DAILY [facility] Last Admin: 04/05/19 10:56 Dose: 10 mg Calcium/Vitamin D (Oyster Shell Calcium/Vitamin D 500 Mg-200 Iu) 1 tab PO BID [facility] Last Admin: 04/05/19 18:21 Dose: 1 tab Clopidogrel Bisulfate (Plavix) 75 mg PO DAILY [facility] Last Admin: 04/05/19 10:56 Dose: 75 mg Ethambutol HCl (Myambutol) 800 mg PO DAILY [facility]; Protocol Last Admin: 04/05/19 10:57 Dose: 800 mg Gabapentin (Neurontin) 100 mg PO BID [facility] Last Admin: 04/05/19 17:57 Dose: 100 mg Glimepiride (Amaryl) 2 mg PO DAILY [facility] Last Admin: 04/05/19 11:04 Dose: 2 mg Insulin Human Regular (Novolin R) 0 unit SC [facility]; Protocol Last Admin: 04/06/19 08:03 Dose: Not Given Isoniazid (Niazid) 300 mg PO DAILY [facility]; Protocol Last Admin: 04/05/19 10:57 Dose: 300 mg Metoprolol Succinate (Toprol Xl) 50 mg PO DAILY [facility] Last Admin: 04/05/19 10:55 Dose: 50 mg Nystatin (Mycostatin Cream) 0 ea TOP TID [facility] Last Admin: 04/05/19 17:56 Dose: 1 applic Polyethylene Glycol (Miralax) 17 gm PO DAILY [facility] Last Admin: 04/05/19 11:11 Dose: Not Given Pyrazinamide (Pyrazinamide) 1,000 mg PO MWF [facility]; Protocol Last Admin: 04/04/19 09:05 Dose: 1,000 mg Pyridoxine HCl (Vitamin B6) 100 mg PO DAILY [facility] Last Admin: 04/05/19 10:56 Dose: 100 mg Rifampin (Rifampin Cap) 600 mg PO DAILY [facility]; Protocol Last Admin: 04/05/19 10:57 Dose: 600 mg - Labs Labs: 04/06/19 06:35 04/05/19 10:47 - Constitutional Appears: No Acute Distress - Eye Exam Eye Exam: Normal appearance - ENT Exam ENT Exam: Mucous Membranes Moist - Neck Exam Neck Exam: Full ROM. absent: Lymphadenopathy, Thyromegaly - Respiratory Exam Respiratory Exam: Decreased Breath Sounds. absent: Chest Wall Tenderness, Rales, Wheezes - Cardiovascular Exam Cardiovascular Exam: +S1, +S2. absent: Gallop, REGULAR RHYTHM, JVD - GI/Abdominal Exam GI & Abdominal Exam: Soft. absent: Tenderness, Mass - Extremities Exam Extremities Exam: Full ROM. absent: Calf Tenderness, Joint Swelling, Normal Capillary Refill, Pedal Edema Assessment and Plan - Assessment and Plan (Free Text) Assessment: Cavitary lung disease ? - inconclusive Bx NIDDM, HTN, Dementia; CKD Cont meds/ For [facility]
[2019-04-06] MEDS: Pyridoxine 100 mg Tab PO SCH (09:08)
[2019-04-06] MEDS: POLYETHYLENE GLYCOL 3350 17 GM/Dose PACKET PO SCH (09:08)
[2019-04-06] MEDS: Metoprolol Succinate 50 mg XL Tab PO SCH (09:09)
[2019-04-06] MEDS: Calcium-Vit D 500 mg-200 Units Tab UD PO SCH ×2 (09:11→17:51)
[2019-04-06] MEDS: Nystatin 100,000 Units/gm Cream(15 gm) TOP SCH ×2 (11:43→15:33)
--- NOTE | 2019-04-06 12:19 | CP.PCM.PN ---
Subjective - Date & Time of Evaluation Date of Evaluation: 04/06/19 Time of Evaluation: 07:00 - Subjective Subjective: EVENTS NOTED Objective - Vital Signs/Intake and Output Vital Signs (last 24 hours): Temp Pulse Resp BP Pulse Ox 98.1 F 65 20 157/70 H 96 04/06/19 08:28 04/06/19 08:28 04/06/19 08:28 04/06/19 08:28 04/06/19 08:28 Intake and Output: 04/06/19 04/06/19 06:59 18:59 Intake Total 370 Output Total 200 Balance 170 - Medications Medications: Current Medications Amlodipine Besylate (Norvasc) 10 mg PO DAILY [facility] Last Admin: 04/06/19 09:10 Dose: 10 mg Calcium/Vitamin D (Oyster Shell Calcium/Vitamin D 500 Mg-200 Iu) 1 tab PO BID [facility] Last Admin: 04/06/19 09:11 Dose: 1 tab Clopidogrel Bisulfate (Plavix) 75 mg PO DAILY [facility] Last Admin: 04/06/19 09:10 Dose: 75 mg Ethambutol HCl (Myambutol) 800 mg PO DAILY [facility]; Protocol Last Admin: 04/06/19 09:09 Dose: 800 mg Gabapentin (Neurontin) 100 mg PO BID [facility] Last Admin: 04/06/19 09:10 Dose: 100 mg Glimepiride (Amaryl) 2 mg PO DAILY [facility] Last Admin: 04/06/19 09:09 Dose: 2 mg Insulin Human Regular (Novolin R) 0 unit SC [facility]; Protocol Last Admin: 04/06/19 11:40 Dose: 3 units Isoniazid (Niazid) 300 mg PO DAILY [facility]; Protocol Last Admin: 04/06/19 09:09 Dose: 300 mg Metoprolol Succinate (Toprol Xl) 50 mg PO DAILY [facility] Last Admin: 04/06/19 09:09 Dose: 50 mg Nystatin (Mycostatin Cream) 0 ea TOP TID [facility] Last Admin: 04/06/19 11:43 Dose: 1 applic Polyethylene Glycol (Miralax) 17 gm PO DAILY [facility] Last Admin: 04/06/19 09:08 Dose: 17 gm Pyrazinamide (Pyrazinamide) 1,000 mg PO F [facility]; Protocol Last Admin: 04/06/19 09:10 Dose: 1,000 mg Pyridoxine HCl (Vitamin B6) 100 mg PO DAILY [facility] Last Admin: 04/06/19 09:08 Dose: 100 mg Rifampin (Rifampin Cap) 600 mg PO DAILY [facility]; Protocol Last Admin: 04/06/19 09:08 Dose: 600 mg - Labs Labs: 04/06/19 06:35 04/05/19 10:47 Assessment and Plan (1) Abdominal pain Status: Acute (2) Generalized weakness Status: Acute (3) Chr obstructive pulmonary disease w/ acute lower respiratory infxn Status: Chronic (4) Constipation by delayed colonic transit Status: Acute (5) CAD (coronary artery disease) Status: Chronic (6) Diabetes Status: Chronic (7) Diabetic retinopathy associated with controlled type 2 diabetes mellitus Status: Chronic (8) Old cerebrovascular accident without late effect Status: Chronic (9) Vitreomacular traction syndrome of left eye Status: Chronic (10) CKD (chronic kidney disease) Status: Chronic
[2019-04-06 15:54] VITALS: BP 134/74; TEMP 98; O2SAT 97
[2019-04-06 16:23] VITALS: PULSE 95
--- NOTE | 2019-04-06 17:04 | PN ---
DATE: 04/06/2019 SUBJECTIVE: The patient is seen. The patient is eager to go for subacute rehab. She believes she does not have TB. The patient is not coughing. She is tolerating the anti-TB meds given to her, but the patient reports that she is feeling much better. She is sleeping much better, less depressed, and eager to go for subacute rehab. The patient is on quadruple anti-TB meds. We will repeat her labs. Her liver function tests are still within normal limits. REVIEW OF SYSTEMS: The patient is seen in her room. According to nurse, she is off respiratory isolation. PHYSICAL EXAMINATION: VITAL SIGNS: Temperature is 98.1, pulse 65, blood pressure 157/70, respirations 20, oxygen saturation is 98%. GENERAL: Alert and oriented x3. Conversing in Tagalog. SKIN: No diaphoresis. HEENT: No headache. No dizziness. NECK: Supple. RESPIRATORY: No dyspnea. CARDIOVASCULAR: No chest pain. GASTROINTESTINAL: The patient is eating well. EXTREMITIES: Moves extremities, but gait is unsteady. MUSCULOSKELETAL: Feels weak. NEURO: Alert and oriented x3. GENITOURINARY: No urinary problems. MENTAL STATUS EXAMINATION: Elderly female of [place] descent, oriented x3. Mood is brighter. Affect is reactive. Speech is spontaneous. Thought process is coherent. Thought content, the patient wants to go for subacute rehab. No psychosis. No suicidal or homicidal ideation. Attention and memory seemed to be fair. Insight and judgment fair. Impulse control is fair. IMPRESSION: Mood disorder, adjustment disorder as well as history of coronary artery disease,urinary tract infection, lung mass, pulmonary tuberculosis. PLAN AND RECOMMENDATIONS: The patient is seen. Meds reviewed. We will keep the patient off psych meds. We will continue to monitor her liver enzymes. Psych-silverio, the patient is stable to go for subacute rehab for her conditioning. The patient at this time still does not need any anti-depressant. Supportive therapy provided. Erik Hernández MD
== END 2019-04-06 19:44 | DRG 194 ==
LOC: C.ER 03:09 → C.9E 06:33 → C.3T 07:05
PROVIDERS: ADMIT Internal Medicine; ATTEND Internal Medicine
PROC: 0BBC3ZX Excision of Right Upper Lung Lobe, Percutaneous Approach, Diagnostic (ICD-10-PCS; principal; 2019-03-29)
DX: J18.1 Lobar pneumonia, unspecified organism (principal); J44.0 Chronic obstructive pulmonary disease with (acute) lower respiratory infection; N17.9 Acute kidney failure, unspecified; R91.1 Solitary pulmonary nodule; K59.09 Other constipation; K59.01 Slow transit constipation; K52.9 Noninfective gastroenteritis and colitis, unspecified; I25.10 Atherosclerotic heart disease of native coronary artery without angina pectoris; F32.9 Major depressive disorder, single episode, unspecified; E86.0 Dehydration; N18.9 Chronic kidney disease, unspecified; E11.22 Type 2 diabetes mellitus with diabetic chronic kidney disease; I12.9 Hypertensive chronic kidney disease with stage 1 through stage 4 chronic kidney disease, or unspecified chronic kidney disease; H43.822 Vitreomacular adhesion, left eye; E11.319 Type 2 diabetes mellitus with unspecified diabetic retinopathy without macular edema; W19.XXXA Unspecified fall, initial encounter; F43.23 Adjustment disorder with mixed anxiety and depressed mood; F03.90 Unspecified dementia, unspecified severity, without behavioral disturbance, psychotic disturbance, mood disturbance, and anxiety; E78.5 Hyperlipidemia, unspecified; Z86.73 Personal history of transient ischemic attack (TIA), and cerebral infarction without residual deficits; Y92.009 Unspecified place in unspecified non-institutional (private) residence as the place of occurrence of the external cause; Z86.11 Personal history of tuberculosis; Z79.84 Long term (current) use of oral hypoglycemic drugs; Z87.891 Personal history of nicotine dependence; Z80.9 Family history of malignant neoplasm, unspecified; Z74.01 Bed confinement status; Z87.01 Personal history of pneumonia (recurrent); Z87.440 Personal history of urinary (tract) infections; Z90.49 Acquired absence of other specified parts of digestive tract; Z91.19 Patient's noncompliance with other medical treatment and regimen; Z95.5 Presence of coronary angioplasty implant and graft

== ENCOUNTER 2019-04-14 09:17 | Inpatient (IN) | payer OTHER, MEDICARE ==
[2019-04-14 09:18] VITALS: BMI 22.1
--- NOTE | 2019-04-14 09:52 | C.PDOC ---
History Of Present Illness Patient is a 63 year old female, with a PMHx of arthritis, who presents to the ED who was sent in by her detention for evaluation of possible TB. Patient reports that she had a test done yesterday and was getting treatment at the detention for TB. She reports having neck pain, but denies any night sweats, hemoptysis, cough, fever, chills, SOB, nausea, vomiting, diarrhea, or abdominal pain. <Vidhi Sandoval - Last Filed: 04/14/19 11:37> <Deonna Ledezma - Last Filed: 04/14/19 11:10> History Per: Patient History/Exam Limitations: no limitations Recent travel outside of the [place]: No Additional History Per: Patient <Vidhi Sandoval - Last Filed: 04/14/19 11:37> Time Seen by Provider: 04/14/19 09:51 Chief Complaint (Nursing): Medical Clearance Past Medical History Vital Signs: Last Vital Signs Temp 97.7 F 04/14/19 09:22 Pulse 99 H 04/14/19 09:22 Resp 20 04/14/19 09:22 BP 140/81 04/14/19 09:22 Pulse Ox 98 04/14/19 09:51 - [facility] Procedures CORONAR ARTERIOGR-2 CATH (09/16/13) EXCISION OF RIGHT UPPER LUNG LOBE, PERC APPROACH, DIAGN (03/19/19) FLUOROSCOPY OF BLADDER USING LOW OSMOLAR CONTRAST (05/25/17) INJECT ANTICOAGULANT (09/28/13) INSERTION OF ONE VASCULAR STENT (09/28/13) INSRT OF DRUG-ELUTING CORON ARTERY STENTS(S) (09/28/13) LEFT HEART CARDIAC CATH (09/16/13) LT HEART ANGIOCARDIOGRAM (09/16/13) MEASUREMENT OF URINARY PRESSURE, VIA OPENING (05/25/17) PERCUTANEOUS TRANSLUMINAL CORONARY ANGIOPLASTY [PTCA] (09/28/13) PROCEDURE ON SINGLE VESSEL (09/28/13) THORACENTESIS (07/23/15) <Deonna Ledezma - Last Filed: 04/14/19 11:10> Reviewed: Historical Data, Nursing Documentation, Vital Signs Vital Signs: Last Vital Signs Temp 97.7 F 04/14/19 09:22 Pulse 99 H 05/23/19 09:22 Resp 20 04/14/19 09:22 BP 140/81 04/14/19 09:22 Pulse Ox 98 04/14/19 09:22 Primary Care Provider: Francis Solis - Medical History PMH: Asthma, COPD, Fractures, Gall Bladder Disease, HTN, Hyperlipidemia Denies: Chronic Kidney Disease Surgical History: Coronary Stent (2012) Denies: Pacemaker - [facility] Procedures CORONAR ARTERIOGR-2 CATH (09/16/13) EXCISION OF RIGHT UPPER LUNG LOBE, PERC APPROACH, DIAGN (03/19/19) FLUOROSCOPY OF BLADDER USING LOW OSMOLAR CONTRAST (05/25/17) INJECT ANTICOAGULANT (09/28/13) INSERTION OF ONE VASCULAR STENT (09/28/13) INSRT OF DRUG-ELUTING CORON ARTERY STENTS(S) (09/28/13) LEFT HEART CARDIAC CATH (09/16/13) LT HEART ANGIOCARDIOGRAM (09/16/13) MEASUREMENT OF URINARY PRESSURE, VIA OPENING (05/25/17) PERCUTANEOUS TRANSLUMINAL CORONARY ANGIOPLASTY [PTCA] (09/28/13) PROCEDURE ON SINGLE VESSEL (09/28/13) THORACENTESIS (07/23/15) Family History: States: Unknown Family Hx - Social History Hx Alcohol Use: No Hx Substance Use: No - Immunization History Hx Tetanus Toxoid Vaccination: No Hx Influenza Vaccination: No Hx Pneumococcal Vaccination: No <Vidhi Sandoval - Last Filed: 04/14/19 11:37> Review Of Systems Constitutional: Negative for: Fever, Chills, Sweats Cardiovascular: Negative for: Chest Pain Respiratory: Negative for: Cough, Shortness of Breath, Hemoptysis Gastrointestinal: Negative for: Nausea, Vomiting, Abdominal Pain, Diarrhea Musculoskeletal: Positive for: Neck Pain <Vidhi Sandoval - Last Filed: 04/14/19 11:37> Physical Exam - Physical Exam Appears: Non-toxic, No Acute Distress Skin: Warm, Dry Head: Atraumatic, Normacephalic Eye(s): bilateral: Normal Inspection Oral Mucosa: Moist Neck: Normal ROM, Supple Chest: Symmetrical, No Deformity Cardiovascular: Rhythm Regular, No Murmur Respiratory: Normal Breath Sounds, No Rales, No Rhonchi, No Wheezing Gastrointestinal/Abdominal: Soft, No Tenderness, No Distention, No Guarding, No Rebound Neurological/Psych: Oriented x3, Normal Speech, Normal Cognition, Other (spea mariangel in full sentences) <Vidhi Sandoval - Last Filed: 04/14/19 11:37> ED Course And Treatment - Laboratory Results Result Diagrams: 04/14/19 10:45 04/14/19 10:45 <Deonna Ledezma - Last Filed: 04/14/19 11:10> - Laboratory Results Result Diagrams: 04/14/19 10:45 04/14/19 10:45 O2 Sat by Pulse Oximetry: 98 (on RA) Pulse Ox Interpretation: Normal - Other Rad CHEST XRAY X-Ray: Interpreted by Me, Viewed By Me, Read By Radiologist Interpretation: Accession No. : [id number]. Patient Name / ID : KASSANDRA FLORES / [id number]. Exam Date : 04/14/2019 10:16:31 ( Approved ). Study Comment : Sex / Age : F / 63Y. Creator : Jackelyn Rebollar. Dictator : Jackelyn Rebollar. Final Inspector : Residential Team Leader : Jackelyn Stuart. Approver2 : Report Date : 04/14/2019 10:51:56. My Comment : . Date of service: 04/14/2019. PROCEDURE: CHEST RADIOGRAPH, 1 VIEW. HISTORY: SOB. COMPARISON: Chest x-ray 03/29/2019; CT chest 03/22/2019. FINDINGS: LUNGS: There is an interval spiculation to the patchy density in the right upper lobe in an area where patient had a CT referenced a pleural pare nchymal cavitary appearing lesion. In the interval the patient has undergone a CT-guided lung biopsy of it. There is fluid level perceived the right lung base with asymmetrical elevation the right hemidiaphragm. Patient is noted to have right pleural effusion-some focal collecting air-fluid level here and complex right pleural effusion collection here needs to be considered. Thread-like discoid atelectasis at the lateral left lung base noted. No left lung consolidation appreciated. Many of the prior CT referenced right pulmonary nodules are less clearly depicted on this right chest x-ray. In that regard consider follow-up right CT chest imaging as mentioned before following therapy completion. PLEURA: No pneumothorax appreciated. Right pleural effusion probably similar to 03/29/2019. Some air-fluid level here is suggested as referenced above. Continued follow-up is advised. CARDIOVASCULAR: There is presence of aortic atherosclerotic calcification on x-ray. Normal heart size.No significant appearing pulmonary venous congestion. OSSEOUS STRUCTURES: Right shoulder arthrosis. VISUALIZED UPPER ABDOMEN: Normal. OTHER FINDINGS: None. IMPRESSION: The interval changes in the patchy spiculated appearing lesion in the right upper lobe just below the right medial clavicle compatible with interval biopsy here. No gross pneumothorax appreciated. Right lung base air-fluid level suggested along with right pleural effusion developing complex right pleural fluid collection here and/or at this time thinly septated developing abscess are some considerations. Close continued follow-up here advised. <Vidhi Sandoval - Last Filed: 04/14/19 11:37> Medical Decision Making Medical Decision Making: Plan: Labs CXR UA Blood Culture Attempted to call Dr.Emad Solis. <Vidhi Sandoval - Last Filed: 04/14/19 11:37> Disposition <Deonna Ledezma - Last Filed: 04/14/19 11:10> <Vidhi Sandoval - Last Filed: 04/14/19 11:37> - Disposition Forms: [employer] (Welsh) - PA / MANAGER CONTACT / Resident Statement MD/DO has reviewed & agrees with the documentation as recorded. - Scribe Statement The provider has reviewed the documentation as recorded by the Dajuan Christensen All medical record entries made by the Trungibakilah were at my direction and personally dictated by me. I have reviewed the chart and agree that the record accurately reflects my personal performance of the history, physical exam, medical decision making, and the department course for this patient. I have also personally directed, reviewed, and agree with the discharge instructions and disposition. <Vidhi Sandoval - Last Filed: 04/14/19 11:37>
[2019-04-14 10:52] LABS: BASO # 0.1 K/uL (0.0-0.2); BASO % 0.7 % (0.0-2.0); EOS # 0.5 K/uL (0.0-0.7); EOS % 5.8 % (0.0-4.0); HEMOGLOBIN 11.7 g/dL (11.0-16.0); LYMPH # 1.1 K/uL (1.0-4.3); LYMPH % 12.8 % (20.0-40.0); MEAN CELL VOLUME 85.5 fL (81.0-99.0); MEAN CORPUSCULAR HEMOGLOBIN 29.2 pg (27.0-31.0); MEAN CORPUSCULAR HGB CONC 34.2 g/dL (33.0-37.0); MEAN PLATELET VOLUME 7.6 fL (7.2-11.7); MONO # 0.7 K/uL (0.0-0.8); MONO % 7.7 % (0.0-10.0); NEUT # 6.4 K/uL (1.8-7.0); NRBC % 0.1 % (0.0-2.0); RED CELL DISTRIBUTION WIDTH 13.2 % (11.5-14.5); WHITE BLOOD COUNT 8.8 K/uL (4.8-10.8)
--- NOTE | 2019-04-14 10:55 | RAD ---
Date of service: 04/14/2019 PROCEDURE: CHEST RADIOGRAPH, 1 VIEW HISTORY: SOB COMPARISON: Chest x-ray 03/29/2019; CT chest 03/22/2019 FINDINGS: LUNGS: There is an interval spiculation to the patchy density in the right upper lobe in an area where patient had a CT referenced a pleural parenchymal cavitary appearing lesion. In the interval the patient has undergone a CT-guided lung biopsy of it. There is fluid level perceived the right lung base with asymmetrical elevation the right hemidiaphragm. Patient is noted to have right pleural effusion-some focal collecting air-fluid level here and complex right pleural effusion collection here needs to be considered. Thread-like discoid atelectasis at the lateral left lung base noted. No left lung consolidation appreciated. Many of the prior CT referenced right pulmonary nodules are less clearly depicted on this right chest x-ray. In that regard consider follow-up right CT chest imaging as mentioned before following therapy completion. PLEURA: No pneumothorax appreciated. Right pleural effusion probably similar to 03/29/2019. Some air-fluid level here is suggested as referenced above. Continued follow-up is advised. CARDIOVASCULAR: There is presence of aortic atherosclerotic calcification on x-ray. Normal heart size.No significant appearing pulmonary venous congestion. OSSEOUS STRUCTURES: Right shoulder arthrosis. VISUALIZED UPPER ABDOMEN: Normal. OTHER FINDINGS: None. IMPRESSION: The interval changes in the patchy spiculated appearing lesion in the right upper lobe just below the right medial clavicle compatible with interval biopsy here. No gross pneumothorax appreciated. Right lung base air-fluid level suggested along with right pleural effusion developing complex right pleural fluid collection here and/or at this time thinly septated developing abscess are some considerations. Close continued follow-up here advised.
[2019-04-14 11:08] LABS: ALB/GLOB RATIO 0.8 (1.0-2.1); ALBUMIN 3.4 g/dL (3.5-5.0); CALCIUM 11.7 mg/dl (8.6-10.4)
--- NOTE | 2019-04-14 11:36 | C.PDOC ---
History Of Present Illness Patient is a 63 year old female who was sent in by her [facility] for evaluation. Patient reports that she had is getting treated for possible TB and had "a test done yesterday" and was told she had to come to the hospital today to get more treatment. Patient is unsure what test she had or the outcome of the study. She reports having neck pain due to her baseline history of arthritis but denies any current complaints. Patient denies any night sweats, hemoptysis, cough, fever, chills, chest pain, SOB, nausea, vomiting, diarrhea, urinary symptoms, or abdominal pain. Time Seen by Provider: 04/14/19 09:51 Chief Complaint (Nursing): Medical Clearance History Per: Patient History/Exam Limitations: no limitations Current Symptoms Are (Timing): Still Present Recent travel outside of the [place]: No Additional History Per: Patient Past Medical History Reviewed: Historical Data, Nursing Documentation, Vital Signs Vital Signs: Last Vital Signs Temp 97.7 F 04/14/19 09:22 Pulse 99 H 04/14/19 09:22 Resp 20 04/14/19 09:22 BP 140/81 04/14/19 09:22 Pulse Ox 98 04/14/19 11:33 Primary Care Provider: Francis Solis - Medical History PMH: Asthma, COPD, Fractures, Gall Bladder Disease, HTN, Hyperlipidemia Denies: Chronic Kidney Disease Surgical History: Coronary Stent (2012) Denies: Pacemaker - [facility] Procedures CORONAR ARTERIOGR-2 CATH (09/16/13) EXCISION OF RIGHT UPPER LUNG LOBE, PERC APPROACH, DIAGN (03/19/19) FLUOROSCOPY OF BLADDER USING LOW OSMOLAR CONTRAST (05/25/17) INJECT ANTICOAGULANT (09/28/13) INSERTION OF ONE VASCULAR STENT (09/28/13) INSRT OF DRUG-ELUTING CORON ARTERY STENTS(S) (09/28/13) LEFT HEART CARDIAC CATH (09/16/13) LT HEART ANGIOCARDIOGRAM (09/16/13) MEASUREMENT OF URINARY PRESSURE, VIA OPENING (05/25/17) PERCUTANEOUS TRANSLUMINAL CORONARY ANGIOPLASTY [PTCA] (09/28/13) PROCEDURE ON SINGLE VESSEL (09/28/13) THORACENTESIS (07/23/15) Family History: States: Unknown Family Hx - Social History Hx Alcohol Use: No Hx Substance Use: No - Immunization History Hx Tetanus Toxoid Vaccination: No Hx Influenza Vaccination: No Hx Pneumococcal Vaccination: No Review Of Systems Except As Marked, All Systems Reviewed And Found Negative. Constitutional: Negative for: Fever, Chills, Sweats Cardiovascular: Negative for: Chest Pain Respiratory: Negative for: Cough, Shortness of Breath, Hemoptysis Gastrointestinal: Negative for: Nausea, Vomiting, Abdominal Pain, Diarrhea Musculoskeletal: Positive for: Neck Pain Physical Exam - Physical Exam Appears: Well, Non-toxic, No Acute Distress, Other (Patient on TB precautions) Skin: Normal Color, Dry Head: Atraumatic Eye(s): bilateral: Normal Inspection Nose: Normal Oral Mucosa: Moist Neck: Normal, Supple Chest: Symmetrical Cardiovascular: Rhythm Regular Respiratory: Normal Breath Sounds Gastrointestinal/Abdominal: Normal Exam, Bowel Sounds, Soft, No Tenderness Back: Normal Inspection, No CVA Tenderness, No Decreased ROM Extremity: Normal ROM, No Tenderness, No Swelling Extremity: Bilateral: Atraumatic Neurological/Psych: Oriented x3, Normal Speech, Normal Cognition, Normal Motor, Normal Sensation Additional Physical Exam Comments: Appears: Non-toxic, No Acute Distress Skin: Warm, Dry Head: Atraumatic, Normacephalic Eye(s): bilateral: Normal Inspection Oral Mucosa: Moist Neck: Normal ROM, Supple Chest: Symmetrical, No Deformity Cardiovascular: Rhythm Regular, No Murmur Respiratory: Normal Breath Sounds, No Rales, No Rhonchi, No Wheezing Gastrointestinal/Abdominal: Soft, No Tenderness, No Distention, No Guarding, No Rebound Neurological/Psych: Oriented x3, Normal Speech, Normal Cognition, Other (speaking in full sentences) ED Course And Treatment - Laboratory Results Result Diagrams: 04/14/19 10:45 04/14/19 10:45 Lab Results: Total Bilirubin 0.4 mg/dL (0.2-1.3) 04/14/19 10:45 AST 34 U/L (14-36) 04/14/19 10:45 ALT 11 U/L (9-52) 04/14/19 10:45 Alkaline Phosphatase 77 U/L (38-126) 04/14/19 10:45 Total Protein 7.4 g/dL (6.3-8.3) 04/14/19 10:45 Albumin 3.4 g/dL (3.5-5.0) L 04/14/19 10:45 Globulin 4.0 gm/dL (2.2-3.9) H 04/14/19 10:45 Albumin/Globulin Ratio 0.8 (1.0-2.1) L 04/14/19 10:45 O2 Sat by Pulse Oximetry: 98 (on RA) - Other Rad CHEST XRAY X-Ray: Interpreted by Me, Viewed By Me, Read By Radiologist Interpretation: Accession No. : [id number]. Patient Name / ID : KASSANDRA FLORES / [id number]. Exam Date : 04/14/2019 10:16:31 ( Approved ). Study Comment : Sex / Age : F / 63Y. Creator : Jackelyn Rebollar. Dictator : Jackelyn Rebollar. Customer Service Analyst : Cytogenetic Technician : Jackelyn Stuart. Approver2 : Report Date : 04/14/2019 10:51:56. My Comment : . Date of service: 04/14/2019. PROCEDURE: CHEST RADIOGRAPH, 1 VIEW. HISTORY: SOB. COMPARISON: Chest x-ray 03/29/2019; CT chest 03/22/2019. FINDINGS: LUNGS: There is an interval spiculation to the patchy density in the right upper lobe in an area where patient had a CT referenced a pleural parenchymal cavitary appearing lesion. In the interval the patient has undergone a CT-guided lung biopsy of it. There is fluid level perceived the right lung base with asymmetrical elevation the right hemidiaphragm. Patient is noted to have right pleural effusion-some focal collecting air-fluid level here and complex right pleural effusion collection here needs to be considered. Thread-like discoid atelectasis at the lateral left lung base noted. No left lung consolidation appreciated. Many of the prior CT referenced right pulmonary nodules are less clearly depicted on this right chest x-ray. In that regard consider follow-up right CT chest imaging as mentioned before following therapy completion. PLEURA: No pneumothorax appreciated. Right pleural effusion probably similar to 03/29/2019. Some air-fluid level here is suggested as referenced above. Continued follow-up is advised. CARDIOVASCULAR: There is presence of aortic atherosclerotic calcification on x-ray. Normal heart size.No significant appearing pulmonary venous congestion. OSSEOUS STRUCTURES: Right shoulder arthrosis. VISUALIZED UPPER ABDOMEN: Normal. OTHER FINDINGS: None. IMPRESSION: The interval changes in the patchy spiculated appearing lesion in the right upper lobe just below the right medial clavicle compatible with interval biopsy here. No gross pneumothorax appreciated. Right lung base air- fluid level suggested along with right pleural effusion developing complex right pleural fluid collection here and/or at this time thinly septated developing abscess are some considerations. Close continued follow-up here advised. - Physician Consult Information Time Consulting Physician Contacted: 14:10 Physician Contacted: Carlin yWnn Outcome Of Conversation: will admit patient. Medical Decision Making Medical Decision Making: Plan: Labs CXR UA Blood Culture Attempted to call Dr.Emad Solis. 12304/14/[address] back from Dr Navarrete. 123104/14/19 Spoke with [facility]. States pulmonology is Dr Friend. They are unable to provide information as to why patient was sent to the ED. Spoke with REGINA Hearn, from Dr Friend's office and states they did not send patient to the ED. States they did see patient in the office 1 day ago. States to call Dr Diallo, Therapy Assistant, from [facility] who Dr Friend spoke with 1 day ago. I spoke with Dr Downey who states he did not send patient to the ED. States that patient was hospitalized in 03/11 for 2-3 weeks with work up for TB. 1328 04/14/19 3 calls placed to KATHY Hendrix, without call back. 1400 04/14/19, Call received from Herman Gutierrez PMD who was made aware of the patient and states he sent the patient for admission. Abnormal CXR findings ?abscess and +UTI. States he will be away this weekend and to call the hospitalists. 14004/14/[address] Carias, Hospitalist, states she is unsure if she covers Dr Arambula and will call back. 14004/14/19 Hospitalist called back and states they do not and will not cover Dr Arambula. Will call medicine on-call. Disposition - Disposition Disposition: HOSPITALIZED Disposition Time: 14:20 Condition: GOOD - Clinical Impression Clinical Impression: UTI (urinary tract infection), Lung abscess - PA / FUTURES TRADER / Resident Statement MD/DO has reviewed & agrees with the documentation as recorded. - Scribe Statement The provider has reviewed the documentation as recorded by the Trungibakilah Christensen All medical record entries made by the Dajuan were at my direction and personally dictated by me. I have reviewed the chart and agree that the record accurately reflects my personal performance of the history, physical exam, medical decision making, and the department course for this patient. I have also personally directed, reviewed, and agree with the discharge instructions and disposition.
[2019-04-14 11:42] LABS: SQUAMOUS EPITHIAL 3 /hpf (0-5); URINE BACTERIA RARE (<OCC); URINE BILIRUBIN NEGATIVE (NEGATIVE); URINE BLOOD 2+ (NEGATIVE); URINE CLARITY Turbid (Clear); URINE COLOR Amber (YELLOW); URINE GLUCOSE (UA) 3+ mg/dL (Normal); URINE LEUKOCYTE ESTERASE 3+ Leu/uL (Negative); URINE PROTEIN 3+ mg/dL (NEGATIVE); URINE UROBILINOGEN NORMAL mg/dL (0.2-1.0); WBC CLUMPS MOD /hpf
[2019-04-14] MEDS ORDERED: Pyridoxine 100 mg Tab PO SCH (16:30)
[2019-04-14] MEDS: Lactated Ringer's 1,000 ML IV SCH (22:19)
--- NOTE | 2019-04-14 23:36 | CP.PCM.HP ---
Present on Admission - Present on Admission Any Indicators Present on Admission: No Past Patient History - Infectious Disease Hx of Infectious Diseases: None - Past Medical History & Family History Past Medical History?: Yes - Past Social History Smoking Status: Never Smoked - CARDIAC Hx Cardiac Disorders: Yes Hx Hypertension: Yes Hx Pacemaker: No - PULMONARY Hx Respiratory Disorders: Yes Hx Asthma: Yes Hx Chronic Obstructive Pulmonary Disease (COPD): Yes - NEUROLOGICAL Hx Neurological Disorder: No Hx Paralysis: No Other/Comment: Muscle weakness. Hx Falls - HEENT Hx HEENT Problems: No - RENAL Hx Chronic Kidney Disease: No - ENDOCRINE/METABOLIC Hx Endocrine Disorders: Yes Hx Diabetes Mellitus Type 2: Yes - HEMATOLOGICAL/ONCOLOGICAL Hx Blood Disorders: No Hx Blood Transfusions: No Hx Blood Transfusion Reaction: No - INTEGUMENTARY Hx Dermatological Problems: No - MUSCULOSKELETAL/RHEUMATOLOGICAL Hx Musculoskeletal Disorders: Yes Hx Falls: Yes Hx Fractures: Yes - GASTROINTESTINAL Hx Gastrointestinal Disorders: Yes Hx Gall Bladder Disease: Yes - GENITOURINARY/GYNECOLOGICAL Hx Genitourinary Disorders: Yes Hx Incontinence: Yes - PSYCHIATRIC Hx Psychophysiologic Disorder: No Hx Substance Use: No - SURGICAL HISTORY Hx Surgeries: Yes Hx Coronary Stent: Yes (2012) - ANESTHESIA Hx Anesthesia: Yes Hx Anesthesia Reactions: No Hx Malignant Hyperthermia: No Has any member of the family had a problem w/ anesthesia?: No Meds Allergies/Adverse Reactions: Allergies Allergy/AdvReac Type Severity Reaction Status Date / Time iodine Allergy Verified 04/14/19 09:42 Latex, Natural Rubber Allergy Verified 04/14/19 09:42 pentazocine [From Talwin] Allergy Verified 04/14/19 09:42 Results - Vital Signs Recent Vital Signs: Last Vital Signs Temp 99.8 F H 04/14/19 18:27 Pulse 97 H 04/14/19 18:27 Resp 20 04/14/19 18:27 BP 172/84 H 04/14/19 18:27 Pulse Ox 98 04/14/19 18:27 - Labs Result Diagrams: 04/14/19 10:45 04/14/19 10:45 Labs: Laboratory Results - last 24 hr 04/14/19 04/14/19 04/14/19 10:45 10:45 10:45 WBC 8.8 RBC 4.00 Hgb 11.7 Hct 34.2 MCV 85.5 MCH 29.2 MCHC 34.2 RDW 13.2 Plt Count 336 MPV 7.6 Neut % (Auto) 73.0 Lymph % (Auto) 12.8 L [place] % (Auto) 7.7 Eos % (Auto) 5.8 H Baso % (Auto) 0.7 Neut # (Auto) 6.4 Lymph # (Auto) 1.1 [place] # (Auto) 0.7 Eos # (Auto) 0.5 Baso # (Auto) 0.1 Sodium 132 Potassium 4.1 Chloride 101 Carbon Dioxide 20 L Anion Gap 15 BUN 43 H Creatinine 2.6 H Est GFR ( Amer) 22 Est GFR (Non-Af Amer) 19 POC Glucose (mg/dL) Random Glucose 239 H Lactic Acid 0.8 Calcium 11.7 H Total Bilirubin 0.4 AST 34 ALT 11 Alkaline Phosphatase 77 Total Protein 7.4 Albumin 3.4 L Globulin 4.0 H Albumin/Globulin Ratio 0.8 L Urine Color Urine Clarity Urine pH Ur Specific [place] Urine Protein Urine Glucose (UA) Urine Ketones Urine Blood Urine Nitrate Urine Bilirubin Urine Urobilinogen Ur Leukocyte Esterase Urine WBC (Auto) Urine RBC (Auto) Urine WBC Clumps (Auto) Ur Squamous Epith Cells Urine Bacteria Urine Yeast (Budding) 04/14/19 04/14/19 11:23 21:27 WBC RBC Hgb Hct MCV MCH MCHC RDW Plt Count MPV Neut % (Auto) Lymph % (Auto) [place] % (Auto) Eos % (Auto) Baso % (Auto) Neut # (Auto) Lymph # (Auto) [place] # (Auto) Eos # (Auto) Baso # (Auto) Sodium Potassium Chloride Carbon Dioxide Anion Gap BUN Creatinine Est GFR ( Amer) Est GFR (Non-Af Amer) POC Glucose (mg/dL) 258 H Random Glucose Lactic Acid Calcium Total Bilirubin AST ALT Alkaline Phosphatase Total Protein Albumin Globulin Albumin/Globulin Ratio Urine Color [place] Urine Clarity Turbid Urine pH 5.0 Ur Specific [place] 1.012 Urine Protein 3+ H Urine Glucose (UA) 3+ H Urine Ketones Trace Urine Blood 2+ H Urine Nitrate Negative Urine Bilirubin Negative Urine Urobilinogen Normal Ur Leukocyte Esterase 3+ H Urine WBC (Auto) 2987 H Urine RBC (Auto) 56 H Urine WBC Clumps (Auto) Mod H Ur Squamous Epith Cells 3 Urine Bacteria Rare Urine Yeast (Budding) Few H
--- NOTE | 2019-04-15 06:33 | HP ---
CHIEF COMPLAINT: Fever. HISTORY OF PRESENT ILLNESS: This is a 63-year-old [place] female who has history of hypertension, hyperlipidemia, and type 2 diabetes. She is compliant with diet, medication, and followup. The patient is being followed by TB and chest clinic in [facility], and according to the patient, she had some tests done yesterday and she was reported to the emergency room by the treating physician at TB Clinic. The patient has no clue about her further details about her history. She is weak, tired. According to the patient, she has poor appetite, low-grade fever, chills, rigors. She denies any nausea, vomiting, or diarrhea. She denies any history of dyspnea on exertion, orthopnea, PND. She denies any history of abdominal pain. She denies any history of polyuria, polydipsia, polyphagia. She denies any history of hematuria or pyuria. She denies any history of sneezing, itchy eyes, itchy nose. She has cough. She has no sputum production. She has headache. No dizziness. No vertigo. She denies any history of skin rash. She denies any history of bruises. She denies any history of trauma, fall, or loss of consciousness. There is no history of seizure-like activities. CURRENT MEDICATIONS: At home, she is on milk of magnesia, Tylenol, rifampin, Norvasc, Crestor, pyridoxine, pyrazinamide, Toprol-XL, isoniazid, Amaryl, Neurontin, Myambutol, Colace, Plavix. SOCIAL HISTORY: Nonsmoker. Non-EtOH user. FAMILY HISTORY: Negative for premature coronary artery disease. REVIEW OF SYSTEMS: The patient has joint pain. She has dysuria. She has lower abdominal pain, generalized weakness and overall she is a poor historian. ALLERGIC: SHE IS ALLERGIC TO LATEX, IODINE, . PHYSICAL EXAMINATION: GENERAL: An elderly female who looks weak, tired. She is a poor historian. She is vague about her symptomatology. VITAL SIGNS: Blood pressure 172/84, pulse 97, respiratory rate 20, and temperature 99.8. SKIN: Senile turgor. No bruises. No purpura. No petechia. No ecchymosis. HEENT: Atraumatic, normocephalic. Positive pallor. Negative jaundice. Extraocular movements are intact. NECK: Supple. No accessory muscle use. No thyromegaly. No carotid bruit. CHEST WALL: Bilateral symmetrical expansion. BREASTS: No masses. LUNGS: Bilateral scattered rales and rhonchi. Decreased air entry. There is no bronchial breath sound. ABDOMEN: Soft and nontender. Bowel sounds are positive. RECTAL: Deferred. PELVIC: Deferred. EXTREMITIES: No clubbing, cyanosis, or edema. CENTRAL NERVOUS SYSTEM: Awake, alert, oriented x3. Cranial nerves II-XII are normal. Power 5/5 x4. Plantars are downgoing. ASSESSMENT: 1. 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 It could be pleural effusion. It could be a bacterial abscess. It could be malignancy. 2. Poorly controlled hypertension. 3. Poorly controlled diabetes. 4. Urinary tract infection. PLAN: Admit. Detailed orders are written. Seen and examined. Carlin Wynn MD
[2019-04-15 08:08] LABS: HEMOGLOBIN 11.1 g/dL (11.0-16.0); MEAN CELL VOLUME 85.4 fL (81.0-99.0); MEAN CORPUSCULAR HEMOGLOBIN 29.5 pg (27.0-31.0); MEAN CORPUSCULAR HGB CONC 34.5 g/dL (33.0-37.0); MEAN PLATELET VOLUME 7.3 fL (7.2-11.7); RBC 3.76 Mil/uL (3.80-5.20); RED CELL DISTRIBUTION WIDTH 13.1 % (11.5-14.5); WHITE BLOOD COUNT 10.4 K/uL (4.8-10.8)
[2019-04-15 08:20] LABS: INR 1.2; PARTIAL THROMBOPLASTIN TIME 32.6 SECONDS (21-34); PROTHROMBIN TIME 12.6 SECONDS (9.7-12.2)
[2019-04-15 08:39] LABS: ALB/GLOB RATIO 0.8 (1.0-2.1); ALBUMIN 3.1 g/dL (3.5-5.0); CALCIUM 10.8 mg/dl (8.6-10.4)
[2019-04-15] MEDS ORDERED: Enoxaparin 40 mg Syringe SC SCH ×2 (10:00)
--- NOTE | 2019-04-15 10:31 | CP.PCM.CON ---
History of Present Illness - History of Present Illness History of Present Illness: Reason for consultation: Right upper lung infiltrate 63-year-old female was sent from long-term for admission and after she went to TB clinic. Patient was recently admitted for right upper lobe cavitary nodule status post CT-guided biopsy which was negative for malignancy and AFB. Also sputum AFB x3 was negative and patient was discharged on anti-TB medication to be followed up in the TB clinic. She reports having neck pain due to her baseline history of arthritis but denies any current complaints. Patient denies any night sweats, hemoptysis, cough, fever, chills, chest pain, SOB, nausea, vomiting, diarrhea, urinary symptoms, or abdominal pain. Review of Systems - Review of Systems All systems: reviewed and no additional remarkable complaints except (Neck pain) Past Patient History - Infectious Disease Hx of Infectious Diseases: None - Past Medical History & Family History Past Medical History?: Yes - Past Social History Smoking Status: Former Smoker - CARDIAC Hx Cardiac Disorders: Yes Hx Hypertension: Yes Hx Pacemaker: No - PULMONARY Hx Respiratory Disorders: Yes Hx Asthma: Yes Hx Chronic Obstructive Pulmonary Disease (COPD): Yes - NEUROLOGICAL Hx Neurological Disorder: No Hx Paralysis: No Other/Comment: Muscle weakness. Hx Falls - HEENT Hx HEENT Problems: No - RENAL Hx Chronic Kidney Disease: No - ENDOCRINE/METABOLIC Hx Endocrine Disorders: Yes Hx Diabetes Mellitus Type 2: Yes - HEMATOLOGICAL/ONCOLOGICAL Hx Blood Disorders: No Hx Blood Transfusions: No Hx Blood Transfusion Reaction: No - INTEGUMENTARY Hx Dermatological Problems: No - MUSCULOSKELETAL/RHEUMATOLOGICAL Hx Musculoskeletal Disorders: Yes Hx Falls: Yes Hx Fractures: Yes - GASTROINTESTINAL Hx Gastrointestinal Disorders: Yes Hx Gall Bladder Disease: Yes - GENITOURINARY/GYNECOLOGICAL Hx Genitourinary Disorders: Yes Hx Incontinence: Yes - PSYCHIATRIC Hx Psychophysiologic Disorder: No Hx Substance Use: No - SURGICAL HISTORY Hx Surgeries: Yes Hx Coronary Stent: Yes (2012) - ANESTHESIA Hx Anesthesia: Yes Hx Anesthesia Reactions: No Hx Malignant Hyperthermia: No Has any member of the family had a problem w/ anesthesia?: No Meds Allergies/Adverse Reactions: Allergies Allergy/AdvReac Type Severity Reaction Status Date / Time iodine Allergy Verified 04/14/19 09:42 Latex, Natural Rubber Allergy Verified 04/14/19 09:42 pentazocine [From Talwin] Allergy Verified 04/14/19 09:42 - Medications Medications: Current Medications Acetaminophen (Tylenol 325mg Tab) 650 mg PO Q4H PRN PRN Reason: Fever >100.4 F Last Admin: 04/15/19 00:43 Dose: 650 mg Amlodipine Besylate (Norvasc) 10 mg PO DAILY [facility] Clopidogrel Bisulfate (Plavix) 75 mg PO DAILY [facility] Docusate Sodium (Colace) 100 mg PO DAILY [facility] Enoxaparin Sodium (Lovenox) 30 mg SC DAILY [facility] Gabapentin (Neurontin) 100 mg PO BID [facility] Last Admin: 04/14/19 18:37 Dose: 100 mg Glimepiride (Amaryl) 2 mg PO DAILY [facility] Ceftriaxone Sodium 1 gm/ (Sodium Chloride) 100 mls @ 100 mls/hr IVPB DAILY [facility]; Protocol Lactated Ringer's (Lactated Ringer's) 1,000 mls @ 90 mls/hr IV .[id number] [facility] Last Admin: 04/14/19 22:19 Dose: 90 mls/hr Insulin Human Regular (Novolin R) 0 unit SC ACHS [facility]; Protocol Metoprolol Succinate (Toprol Xl) 50 mg PO DAILY [facility] Rosuvastatin Calcium (Crestor) 10 mg PO HS [facility] Last Admin: 04/14/19 21:10 Dose: 10 mg Physical Exam - Head Exam Head Exam: ATRAUMATIC, NORMOCEPHALIC - ENT Exam ENT Exam: Mucous Membranes Moist - Neck Exam Neck exam: Positive for: Normal Inspection - Respiratory Exam Respiratory Exam: Clear to Auscultation Bilateral - Cardiovascular Exam Cardiovascular Exam: REGULAR RHYTHM - GI/Abdominal Exam GI & Abdominal Exam: Normal Bowel Sounds, Soft Results - Vital Signs Recent Vital Signs: Last Vital Signs Temp 98.5 F 04/15/19 08:02 Pulse 103 H 04/15/19 08:02 Resp 18 04/15/19 08:02 BP 177/76 H 04/15/19 08:02 Pulse Ox 96 04/15/19 08:02 - Labs Result Diagrams: 04/15/19 07:59 04/15/19 07:59 Labs: Laboratory Results - last 24 hr 04/14/19 04/14/19 04/14/19 10:45 10:45 10:45 WBC 8.8 RBC 4.00 Hgb 11.7 Hct 34.2 MCV 85.5 MCH 29.2 MCHC 34.2 RDW 13.2 Plt Count 336 MPV 7.6 Neut % (Auto) 73.0 Lymph % (Auto) 12.8 L [place] % (Auto) 7.7 Eos % (Auto) 5.8 H Baso % (Auto) 0.7 Neut # (Auto) 6.4 Lymph # (Auto) 1.1 [place] # (Auto) 0.7 Eos # (Auto) 0.5 Baso # (Auto) 0.1 ESR PT INR APTT Sodium 132 Potassium 4.1 Chloride 101 Carbon Dioxide 20 L Anion Gap 15 BUN 43 H Creatinine 2.6 H Est GFR ( Amer) 22 Est GFR (Non-Af Amer) 19 POC Glucose (mg/dL) Random Glucose 239 H Lactic Acid 0.8 Calcium 11.7 H Total Bilirubin 0.4 AST 34 ALT 11 Alkaline Phosphatase 77 Total Protein 7.4 Albumin 3.4 L Globulin 4.0 H Albumin/Globulin Ratio 0.8 L Urine Color Urine Clarity Urine pH Ur Specific [place] Urine Protein Urine Glucose (UA) Urine Ketones Urine Blood Urine Nitrate Urine Bilirubin Urine Urobilinogen Ur Leukocyte Esterase Urine WBC (Auto) Urine RBC (Auto) Urine WBC Clumps (Auto) Ur Squamous Epith Cells Urine Bacteria Urine Yeast (Budding) 04/14/19 04/14/19 04/15/19 11:23 21:27 06:27 WBC RBC Hgb Hct MCV MCH MCHC RDW Plt Count MPV Neut % (Auto) Lymph % (Auto) [place] % (Auto) Eos % (Auto) Baso % (Auto) Neut # (Auto) Lymph # (Auto) [place] # (Auto) Eos # (Auto) Baso # (Auto) ESR PT INR APTT Sodium Potassium Chloride Carbon Dioxide Anion Gap BUN Creatinine Est GFR ( Amer) Est GFR (Non-Af Amer) POC Glucose (mg/dL) 258 H 162 H Random Glucose Lactic Acid Calcium Total Bilirubin AST ALT Alkaline Phosphatase Total Protein Albumin Globulin Albumin/Globulin Ratio Urine Color [place] Urine Clarity Turbid Urine pH 5.0 Ur Specific [place] 1.012 Urine Protein 3+ H Urine Glucose (UA) 3+ H Urine Ketones Trace Urine Blood 2+ H Urine Nitrate Negative Urine Bilirubin Negative Urine Urobilinogen Normal Ur Leukocyte Esterase 3+ H Urine WBC (Auto) 2987 H Urine RBC (Auto) 56 H Urine WBC Clumps (Auto) Mod H Ur Squamous Epith Cells 3 Urine Bacteria Rare Urine Yeast (Budding) Few H 04/15/19 04/15/19 04/15/19 07:59 07:59 07:59 WBC 10.4 RBC 3.76 L Hgb 11.1 Hct 32.1 L MCV 85.4 MCH 29.5 MCHC 34.5 RDW 13.1 Plt Count 320 MPV 7.3 Neut % (Auto) Lymph % (Auto) [place] % (Auto) Eos % (Auto) Baso % (Auto) Neut # (Auto) Lymph # (Auto) [place] # (Auto) Eos # (Auto) Baso # (Auto) ESR 121 H PT 12.6 H INR 1.2 APTT 32.6 Sodium 134 Potassium 3.9 Chloride 102 Carbon Dioxide 23 Anion Gap 13 BUN 34 H Creatinine 2.3 H Est GFR ( Amer) 26 Est GFR (Non-Af Amer) 21 POC Glucose (mg/dL) Random Glucose 161 H D Lactic Acid Calcium 10.8 H Total Bilirubin 0.3 AST 22 ALT 13 Alkaline Phosphatase 74 Total Protein 6.9 Albumin 3.1 L Globulin 3.7 Albumin/Globulin Ratio 0.8 L Urine Color Urine Clarity Urine pH Ur Specific [place] Urine Protein Urine Glucose (UA) Urine Ketones Urine Blood Urine Nitrate Urine Bilirubin Urine Urobilinogen Ur Leukocyte Esterase Urine WBC (Auto) Urine RBC (Auto) Urine WBC Clumps (Auto) Ur Squamous Epith Cells Urine Bacteria Urine Yeast (Budding) Assessment & Plan (1) Cavitary lesion of lung Status: Acute Comment: CAT scan of chest reviewed. anti-TB medication, discussed with infectious disease. Nephrology evaluation
[2019-04-15] MEDS: Metoprolol Succinate 50 mg XL Tab PO SCH (10:34)
[2019-04-15] MEDS: (Novolin R) Insulin Human Regular 100 units/ml vial SC SCH ×4 (10:35→22:27)
[2019-04-15] MEDS: Lactated Ringer's 1,000 ML IV SCH ×2 (10:35→21:42)
--- NOTE | 2019-04-15 11:52 | CT ---
Date of service: 04/15/2019 PROCEDURE: CT Chest without contrast HISTORY: evaluation of lung abscess COMPARISON: 03/22/2019 CT chest TECHNIQUE: Contiguous axial images were obtained through the chest without intravenous contrast enhancement. Sagittal and coronal reconstructions were performed. Radiation dose: Total exam DLP = 426.02 mGy-cm. This CT exam was performed using one or more of the following dose reduction techniques: Automated exposure control, adjustment of the mA and/or kV according to patient size, and/or use of iterative reconstruction technique. FINDINGS: LUNGS: No significant change a subpleural infiltrate in the right upper lobe with small focus of cavitation in association with numerous right upper lobe nodules. Redemonstration of a right lower lobe infiltrate with stable right pleural effusion. MEDIASTINUM: Unremarkable thoracic aorta. No aneurysm. Normal sized heart. Main pulmonary artery unremarkable. No vascular congestion. No lymphadenopathy. No aortic atherosclerotic calcification. PLEURA: No left pleural fluid. No pneumothorax. BONES: No fracture. No destructive lesion. UPPER ABDOMEN: Cholecystectomy. OTHER FINDINGS: Hiatal hernia. IMPRESSION: No significant interval change.
[2019-04-15] MEDS: Enoxaparin 30 mg Syringe SC SCH (12:38)
--- NOTE | 2019-04-15 13:02 | CP.PCM.CON ---
History of Present Illness - History of Present Illness History of Present Illness: called by Dr Monteiro to resume TB meds 63 year old female with history of DM, COPD, CAD s/p stent, dementia, chronic constipation was recently worked up for cavitary lung nodule believed to be malignancy vs TB smears were negative but PCR cam back + for AFB The doctors on her case were not informed till to She was referred to TB Clinic and had been started on TB meds empirically from last admission The TB clinic also was not informed of AFB PCR results as of Thursday She has now been placed on isolation and TB meds resumed Social history: former smoker, no ETOH use Family history: brother (unknown cancer) awake and alert no new complaints interim events noted patient examined entries reviewed labs reviewed orders signed Review of Systems - Review of Systems All systems: reviewed and no additional remarkable complaints except - Constitutional Constitutional: As Per HPI - EENT Eyes: absent: As Per HPI, Blind Spots, Blurred Vision, Change in Vision, Decreased Night Vision, Diplopia, Discharge, Dry Eye, Exophthalmos, Floaters, Irritation, Itchy Eyes, Loss of Peripheral Vision, Pain, Photophobia, Requires Corrective Lenses, Sees Flashes, Spots in Vision, Tunnel Vision, Other Visual Disturbances, Loss of Vision, Other Ears: absent: As Per HPI, Decreased Hearing, Ear Discharge, Ear Pain, Tinnitus, Abnormal Hearing, Disequilibrium, Dizziness, Other Nose/Mouth/Throat: absent: As Per HPI, Epistaxis, Nasal Congestion, Nasal Discharge, Nasal Obstruction, Nasal Trauma, Nose Pain, Post Nasal Drip, Sinus Pain, Sinus Pressure, Bleeding Gums, Change in Voice, Dental Pain, Dry Mouth, Dysphagia, Halitosis, Hoarsness, Lip Swelling, Mouth Lesions, Mouth Pain, Odynophagia, Sore Throat, Throat Swelling, Tongue Swelling, Facial Pain, Neck Pain, Neck Mass, Other - Breasts Breasts: absent: As Per HPI, Change in Shape, Mass, Pain, Nipple Discharge, Nipple Inversion, Skin Changes, Swelling, Other - Cardiovascular Cardiovascular: As Per HPI - Respiratory Respiratory: As Per HPI, Cough, Dyspnea. absent: Hemoptysis - Gastrointestinal Gastrointestinal: As Per HPI, Abdominal Pain, Constipation, Cramping - Genitourinary Genitourinary: absent: As Per HPI, Change in Urinary Stream, Difficulty Urinating, Dysuria, Flank Pain, Hematuria, Pyuria, Nocturia, Urinary Incontinence, Urinary Frequency, Urinary Hesitance, Urinary Urgency, Voiding Freq/Small Amts, Freq UTI, Hx Renal/Bladder Calculi, Hx /Renal Surgery, Bladder Distension, Other - Reproductive: Female Reproductive:Female: absent: As Per HPI, Amenorrhea, Amenorrhea/ Control, Currently Menstual, Cycle <21 Days, Cycle >35 Days, Cycle Variable, Menses 1-7 Days, Menses >/= 8 Days, Menses Variable, Cycle > 4 Weeks Between, No Menses for 6 Months, Heavy Menses, Light Menses, Normal Menses, Spotting Between Cycles, S/P Hysterectomy, Menopausal, Post Menopausal, Premenarche, Abnormal Vaginal Bleeding, Dysmenorrhea, Dyspareunia, Genital Lesions, Genital Pruritis, Pelvic Pain, Prolapse Symptoms, Sexual Dysfunction, Vaginal Discharge, Vaginal Dryness, Vaginal Odor, Vaginal Pruritis, Other - Menstruation Menstruation: absent: As Per HPI, Amenorrhea, Amenorrhea/ Control, Currently Menstual, Cycle <21 Days, Cycle >35 Days, Cycle Variable, Menses 1-7 Days, Menses >/= 8 Days, Menses Variable, Cycle > 4 Weeks Between, No Menses for 6 Months, Heavy Menses, Light Menses, Normal Menses, Spotting Between Cycles, S/P Hysterectomy, Menopausal, Post Menopausal, Premenarche, Abnormal Vaginal Bleeding, Dysmenorrhea, Other - Musculoskeletal Musculoskeletal: absent: As Per HPI, Abnormal Gait, Arthralgias, Atrophy, Back Pain, Deformity, Joint Swelling, Limited Range of Motion, Loss of Height, Muscle Cramps, Muscle Weakness, Myalgias, Neck Pain, Numbness, Radiating Pain into Limb, Stiffness, Tingling, Other - Integumentary Integumentary: As Per HPI, Pruritus, Rash - Neurological Neurological: absent: As Per HPI, Abnormal Gait, Abnormal Hearing, Abnormal Movements, Abnormal Speech, Behavioral Changes, Burning Sensations, Confusion, Convulsions, Disequilibrium, Dizziness, Numbness, Focal Weakness, Frequent Falls, Headaches, Lack of Coordination, Loss of Vision, Memory Loss, Paresthesias, Radicular Pain, Restless Legs, Sensory Deficit, Syncope, Tingling, Tremor, Vertigo, Weakness, Other Visual Disturbances, Other - Psychiatric Psychiatric: absent: As Per HPI, Abnormal Sleep Pattern, Anhedonia, Anxiety, Auditory Hallucinations, Behavioral Changes, Change in Appetite, Change in Maria Luisa arpan, Confusion, Depression, Difficulty Concentrating, Hallucinations, Homicidal Ideation, Hopelessness, Irritability, Memory Loss, Mood Swings, Panic Attacks, Paranoia, Suicidal Ideation, Visual Hallucinations, Tactile Hallucinations, Other Past Patient History - Infectious Disease Hx of Infectious Diseases: None - Past Medical History & Family History Past Medical History?: Yes - Past Social History Smoking Status: Former Smoker - CARDIAC Hx Cardiac Disorders: Yes Hx Hypertension: Yes Hx Pacemaker: No - PULMONARY Hx Respiratory Disorders: Yes Hx Asthma: Yes Hx Chronic Obstructive Pulmonary Disease (COPD): Yes - NEUROLOGICAL Hx Neurological Disorder: No Hx Paralysis: No Other/Comment: Muscle weakness. Hx Falls - HEENT Hx HEENT Problems: No - RENAL Hx Chronic Kidney Disease: No - ENDOCRINE/METABOLIC Hx Endocrine Disorders: Yes Hx Diabetes Mellitus Type 2: Yes - HEMATOLOGICAL/ONCOLOGICAL Hx Blood Disorders: No Hx Blood Transfusions: No Hx Blood Transfusion Reaction: No - INTEGUMENTARY Hx Dermatological Problems: No - MUSCULOSKELETAL/RHEUMATOLOGICAL Hx Musculoskeletal Disorders: Yes Hx Falls: Yes Hx Fractures: Yes - GASTROINTESTINAL Hx Gastrointestinal Disorders: Yes Hx Gall Bladder Disease: Yes - GENITOURINARY/GYNECOLOGICAL Hx Genitourinary Disorders: Yes Hx Incontinence: Yes - PSYCHIATRIC Hx Psychophysiologic Disorder: No Hx Substance Use: No - SURGICAL HISTORY Hx Surgeries: Yes Hx Coronary Stent: Yes (2012) - ANESTHESIA Hx Anesthesia: Yes Hx Anesthesia Reactions: No Hx Malignant Hyperthermia: No Has any member of the family had a problem w/ anesthesia?: No Meds Allergies/Adverse Reactions: Allergies Allergy/AdvReac Type Severity Reaction Status Date / Time iodine Allergy Verified 04/14/19 09:42 Latex, Natural Rubber Allergy Verified 04/14/19 09:42 pentazocine [From Talwin] Allergy Verified 04/14/19 09:42 - Medications Medications: Current Medications Acetaminophen (Tylenol 325mg Tab) 650 mg PO Q4H PRN PRN Reason: Fever >100.4 F Last Admin: 04/15/19 00:43 Dose: 650 mg Amlodipine Besylate (Norvasc) 10 mg PO DAILY [facility] Last Admin: 04/15/19 10:34 Dose: 10 mg Clopidogrel Bisulfate (Plavix) 75 mg PO DAILY [facility] Last Admin: 04/15/19 10:34 Dose: 75 mg Docusate Sodium (Colace) 100 mg PO DAILY [facility] Last Admin: 04/15/19 10:34 Dose: 100 mg Enoxaparin Sodium (Lovenox) 30 mg SC DAILY [facility] Last Admin: 04/15/19 12:38 Dose: 30 mg Ethambutol HCl (Myambutol) 800 mg PO DAILY [facility]; Protocol Last Admin: 04/15/19 12:24 Dose: 800 mg Gabapentin (Neurontin) 100 mg PO BID [facility] Last Admin: 04/15/19 10:33 Dose: 100 mg Glimepiride (Amaryl) 2 mg PO DAILY [facility] Last Admin: 04/15/19 10:33 Dose: 2 mg Ceftriaxone Sodium 1 gm/ (Sodium Chloride) 100 mls @ 100 mls/hr IVPB DAILY [facility]; Protocol Last Admin: 04/15/19 10:33 Dose: 100 mls/hr Lactated Ringer's (Lactated Ringer's) 1,000 mls @ 90 mls/hr IV .[id number] [facility] Last Admin: 04/15/19 10:35 Dose: 90 mls/hr Insulin Human Regular (Novolin R) 0 unit SC ACHS [facility]; Protocol Last Admin: 04/15/19 12:37 Dose: 3 u Isoniazid (Niazid) 300 mg PO DAILY [facility]; Protocol Last Admin: 04/15/19 12:21 Dose: 300 mg Metoprolol Succinate (Toprol Xl) 50 mg PO DAILY [facility] Last Admin: 04/15/19 10:34 Dose: 50 mg Pyrazinamide (Pyrazinamide) 1,000 mg PO DAILY [facility]; Protocol Last Admin: 04/15/19 12:21 Dose: 1,000 mg Pyridoxine HCl (Vitamin B6 50 Mg Tab) 50 mg PO DAILY [facility] Last Admin: 04/15/19 12:37 Dose: 50 mg Rifampin (Rifampin Cap) 600 mg PO DAILY [facility]; Protocol Last Admin: 04/15/19 12:21 Dose: 600 mg Rosuvastatin Calcium (Crestor) 10 mg PO HS [facility] Last Admin: 04/14/19 21:10 Dose: 10 mg Physical Exam - Constitutional Appears: Confused, Cachectic, Chronically Ill - Head Exam Head Exam: ATRAUMATIC, NORMAL INSPECTION, NORMOCEPHALIC - Eye Exam Eye Exam: EOMI, Normal appearance, PERRL Pupil Exam: NORMAL ACCOMODATION, PERRL - ENT Exam ENT Exam: Mucous Membranes Moist, Normal Exam - Neck Exam Neck exam: Positive for: Normal Inspection - Respiratory Exam Respiratory Exam: Clear to Auscultation Bilateral, NORMAL BREATHING PATTERN - Cardiovascular Exam Cardiovascular Exam: REGULAR RHYTHM - GI/Abdominal Exam GI & Abdominal Exam: Normal Bowel Sounds, Soft. absent: Tenderness - Rectal Exam Rectal Exam: Deferred - Extremities Exam Extremities exam: Positive for: normal inspection - Back Exam Back exam: NORMAL INSPECTION - Neurological Exam Neurological exam: Alert, CN II-XII Intact, Motor Sensory Deficit - Psychiatric Exam Psychiatric exam: Normal Affect, Normal Mood - Skin Skin Exam: Dry, Intact, Normal Color, Warm Results - Vital Signs Recent Vital Signs: Last Vital Signs Temp 98.5 F 04/15/19 08:02 Pulse 103 H 04/15/19 08:02 Resp 18 04/15/19 08:02 BP 181/96 H 04/15/19 10:43 Pulse Ox 96 04/15/19 08:02 - Labs Result Diagrams: 04/16/19 07:55 04/16/19 07:55 Labs: Laboratory Results - last 24 hr 04/14/19 04/15/19 04/15/19 21:27 06:27 07:59 WBC 10.4 RBC 3.76 L Hgb 11.1 Hct 32.1 L MCV 85.4 MCH 29.5 MCHC 34.5 RDW 13.1 Plt Count 320 MPV 7.3 ESR 121 H PT INR APTT Sodium Potassium Chloride Carbon Dioxide Anion Gap BUN Creatinine Est GFR ( Amer) Est GFR (Non-Af Amer) POC Glucose (mg/dL) 258 H 162 H Random Glucose Calcium Total Bilirubin AST ALT Alkaline Phosphatase Total Protein Albumin Globulin Albumin/Globulin Ratio 04/15/19 04/15/19 04/15/19 07:59 07:59 11:01 WBC RBC Hgb Hct MCV MCH MCHC RDW Plt Count MPV ESR PT 12.6 H INR 1.2 APTT 32.6 Sodium 134 Potassium 3.9 Chloride 102 Carbon Dioxide 23 Anion Gap 13 BUN 34 H Creatinine 2.3 H Est GFR ( Amer) 26 Est GFR (Non-Af Amer) 21 POC Glucose (mg/dL) 265 H Random Glucose 161 H D Calcium 10.8 H Total Bilirubin 0.3 AST 22 ALT 13 Alkaline Phosphatase 74 Total Protein 6.9 Albumin 3.1 L Globulin 3.7 Albumin/Globulin Ratio 0.8 L Assessment & Plan (1) Tuberculosis Status: Acute (2) Lung abscess Status: Acute (3) Cavitary lesion of lung Status: Acute - Assessment and Plan (Free Text) Assessment: cont rx as ordered
[2019-04-15] MEDS: Cefepime IV 1 gm in Dextrose 1 GM/50 ML BAG IVPB SCH (21:00)
--- NOTE | 2019-04-15 22:44 | CP.PCM.PN ---
Subjective - Date & Time of Evaluation Date of Evaluation: 04/15/19 Time of Evaluation: 08:00 - Subjective Subjective: dict Objective - Vital Signs/Intake and Output Vital Signs (last 24 hours): Temp Pulse Resp BP Pulse Ox 99.3 F 71 18 120/59 L 97 04/15/19 19:53 04/15/19 19:54 04/15/19 19:54 04/15/19 19:54 04/15/19 19:54 - Medications Medications: Current Medications Acetaminophen (Tylenol 325mg Tab) 650 mg PO Q4H PRN PRN Reason: Fever >100.4 F Last Admin: 04/15/19 18:02 Dose: 650 mg Amlodipine Besylate (Norvasc) 10 mg PO DAILY [facility] Last Admin: 04/15/19 10:34 Dose: 10 mg Clopidogrel Bisulfate (Plavix) 75 mg PO DAILY [facility] Last Admin: 04/15/19 10:34 Dose: 75 mg Docusate Sodium (Colace) 100 mg PO DAILY [facility] Last Admin: 04/15/19 10:34 Dose: 100 mg Enoxaparin Sodium (Lovenox) 30 mg SC DAILY [facility] Last Admin: 04/15/19 12:38 Dose: 30 mg Ethambutol HCl (Myambutol) 800 mg PO DAILY [facility]; Protocol Last Admin: 04/15/19 12:24 Dose: 800 mg Gabapentin (Neurontin) 100 mg PO BID [facility] Last Admin: 04/15/19 17:58 Dose: 100 mg Cefepime HCl (Maxipime Iv 1 Gm Premix) 1 gm in 50 mls @ 100 mls/hr IVPB Q24H [facility]; Protocol Last Admin: 04/15/19 21:00 Dose: 100 mls/hr Dextrose (Dextrose 5% In Water 1000 Ml) 1,000 mls @ 60 mls/hr IV .[id number] [facility] Insulin Human Regular (Novolin R) 0 unit SC ACHS [facility]; Protocol Last Admin: 04/15/19 22:27 Dose: Not Given Isoniazid (Niazid) 300 mg PO DAILY [facility]; Protocol Last Admin: 04/15/19 12:21 Dose: 300 mg Metoprolol Succinate (Toprol Xl) 50 mg PO DAILY [facility] Last Admin: 04/15/19 10:34 Dose: 50 mg Pyrazinamide (Pyrazinamide) 1,000 mg PO DAILY [facility]; Protocol Last Admin: 04/15/19 12:21 Dose: 1,000 mg Pyridoxine HCl (Vitamin B6 50 Mg Tab) 50 mg PO DAILY [facility] Last Admin: 04/15/19 12:37 Dose: 50 mg Rifampin (Rifampin Cap) 600 mg PO DAILY [facility]; Protocol Last Admin: 04/15/19 12:21 Dose: 600 mg Rosuvastatin Calcium (Crestor) 10 mg PO HS [facility] Last Admin: 04/15/19 21:42 Dose: 10 mg - Labs Labs: 04/15/19 07:59 04/15/19 07:59 PT 12.6 SECONDS (9.7-12.2) H 04/15/19 07:59 INR 1.2 04/15/19 07:59 APTT 32.6 SECONDS (21-34) 04/15/19 07:59
--- NOTE | 2019-04-16 01:44 | PN ---
DATE: 04/15/2019 SUBJECTIVE: The patient febrile. T-max of 101.2 with poor oral intake, generalized weakness. She is on respiratory isolation. The patient is being seen by Pulmonary ID. She denies any nausea or vomiting. PHYSICAL EXAMINATION: VITAL SIGNS: Blood pressure 120/59, pulse 71, respiratory rate 18, temperature 101.2. LUNGS: Bilateral rales. CARDIOVASCULAR SYSTEM: S1 and S2, regular. ABDOMEN: Soft. ASSESSMENT: 1. 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 2. Dehydration. 3. Type 2 diabetes with poor oral intake. 4. Electrolyte imbalance. PLAN: Continue IV antibiotics. Respiratory isolation. Monitor the patient. Carlin Wynn MD
--- NOTE | 2019-04-16 07:08 | CP.PCM.CON ---
History of Present Illness - History of Present Illness History of Present Illness: CC: Dyspnea Patient is a 63 year old female who [facility]. Patient reports that she had is getting treated for possible TB and had "a test done yesterday" and was told she had to come to the hospital today to get more treatment. Patient is unsure what test she had or the outcome of the study. She reports having neck pain due to her baseline history of arthritis but denies any current complaints. Patient denies any night sweats, hemoptysis, cough, fever, chills, chest pain, SOB, nausea, vomiting, diarrhea, urinary symptoms, or abdominal pain. Chief Complaint (Nursing): Dyspnea History Per: Patient History/Exam Limitations: no limitations Current Symptoms Are (Timing): Still Present Recent travel outside of the [place]: No Additional History Per: Patient Past Medical History Reviewed: Historical Data, Nursing Documentation, Vital Signs Vital Signs: Last Vital Signs Temp 97.7 F 04/14/19 09:22 Pulse 99 H 04/14/19 09:22 Resp 20 04/14/19 09:22 BP 140/81 04/14/19 09:22 Pulse Ox 98 04/14/19 11:33 Primary Care Provider: Francis Solis - Medical History PMH: Asthma, COPD, Fractures, Gall Bladder Disease, HTN, Hyperlipidemia Denies: Chronic Kidney Disease Surgical History: Coronary Stent (2012) Denies: Pacemaker - [facility] Procedures CORONAR ARTERIOGR-2 CATH (09/16/13) EXCISION OF RIGHT UPPER LUNG LOBE, PERC APPROACH, DIAGN (03/19/19) FLUOROSCOPY OF BLADDER USING LOW OSMOLAR CONTRAST (05/25/17) INJECT ANTICOAGULANT (09/28/13) INSERTION OF ONE VASCULAR STENT (09/28/13) INSRT OF DRUG-ELUTING CORON ARTERY STENTS(S) (09/28/13) LEFT HEART CARDIAC CATH (09/16/13) LT HEART ANGIOCARDIOGRAM (09/16/13) MEASUREMENT OF URINARY PRESSURE, VIA OPENING (05/25/17) PERCUTANEOUS TRANSLUMINAL CORONARY ANGIOPLASTY [PTCA] (09/28/13) PROCEDURE ON SINGLE VESSEL (09/28/13) THORACENTESIS (07/23/15) Family History: States: Unknown Family Hx - Social History Hx Alcohol Use: No Hx Substance Use: No - Immunization History Hx Tetanus Toxoid Vaccination: No Hx Influenza Vaccination: No Hx Pneumococcal Vaccination: No Review Of Systems Except As Marked, All Systems Reviewed And Found Negative. Constitutional: Negative for: Fever, Chills, Sweats Cardiovascular: Negative for: Chest Pain Respiratory: Negative for: Cough, Shortness of Breath, Hemoptysis Gastrointestinal: Negative for: Nausea, Vomiting, Abdominal Pain, Diarrhea Musculoskeletal: Positive for: Neck Pain Physical Exam - Physical Exam Appears: Well, Non-toxic, No Acute Distress, Other (Patient on TB precautions) Skin: Normal Color, Dry Head: Atraumatic Eye(s): bilateral: Normal Inspection Nose: Normal Oral Mucosa: Moist Neck: Normal, Supple Chest: Symmetrical Cardiovascular: Rhythm Regular Respiratory: Normal Breath Sounds Gastrointestinal/Abdominal: Normal Exam, Bowel Sounds, Soft, No Tenderness Back: Normal Inspection, No CVA Tenderness, No Decreased ROM Extremity: Normal ROM, No Tenderness, No Swelling Extremity: Bilateral: Atraumatic Neurological/Psych: Oriented x3, Normal Speech, Normal Cognition, Normal Motor, Normal Sensation Additional Physical Exam Comments: Appears: Non-toxic, No Acute Distress Skin: Warm, Dry Head: Atraumatic, Normacephalic Eye(s): bilateral: Normal Inspection Oral Mucosa: Moist Neck: Normal ROM, Supple Chest: Symmetrical, No Deformity Cardiovascular: Rhythm Regular, No Murmur Respiratory: Normal Breath Sounds, No Rales, No Rhonchi, No Wheezing Gastrointestinal/Abdominal: Soft, No Tenderness, No Distention, No Guarding, No Rebound Neurological/Psych: Oriented x3, Normal Speech, Normal Cognition, Other (speaking in full sentences) Past Patient History - Infectious Disease Hx of Infectious Diseases: None - Past Medical History & Family History Past Medical History?: Yes - Past Social History Smoking Status: Former Smoker - CARDIAC Hx Cardiac Disorders: Yes Hx Hypertension: Yes Hx Pacemaker: No - PULMONARY Hx Respiratory Disorders: Yes Hx Asthma: Yes Hx Chronic Obstructive Pulmonary Disease (COPD): Yes - NEUROLOGICAL Hx Neurological Disorder: No Hx Paralysis: No Other/Comment: Muscle weakness. Hx Falls - HEENT Hx HEENT Problems: No - RENAL Hx Chronic Kidney Disease: No - ENDOCRINE/METABOLIC Hx Endocrine Disorders: Yes Hx Diabetes Mellitus Type 2: Yes - HEMATOLOGICAL/ONCOLOGICAL Hx Blood Disorders: No Hx Blood Transfusions: No Hx Blood Transfusion Reaction: No - INTEGUMENTARY Hx Dermatological Problems: No - MUSCULOSKELETAL/RHEUMATOLOGICAL Hx Musculoskeletal Disorders: Yes Hx Falls: Yes Hx Fractures: Yes - GASTROINTESTINAL Hx Gastrointestinal Disorders: Yes Hx Gall Bladder Disease: Yes - GENITOURINARY/GYNECOLOGICAL Hx Genitourinary Disorders: Yes Hx Incontinence: Yes - PSYCHIATRIC Hx Psychophysiologic Disorder: No Hx Substance Use: No - SURGICAL HISTORY Hx Surgeries: Yes Hx Coronary Stent: Yes (2012) - ANESTHESIA Hx Anesthesia: Yes Hx Anesthesia Reactions: No Hx Malignant Hyperthermia: No Has any member of the family had a problem w/ anesthesia?: No Meds Allergies/Adverse Reactions: Allergies Allergy/AdvReac Type Severity Reaction Status Date / Time iodine Allergy Verified 04/14/19 09:42 Latex, Natural Rubber Allergy Verified 04/14/19 09:42 pentazocine [From [facility]win] Allergy Verified 04/14/19 09:42 - Medications Medications: Current Medications Acetaminophen (Tylenol 325mg Tab) 650 mg PO Q4H PRN PRN Reason: Fever >100.4 F Last Admin: 04/15/19 18:02 Dose: 650 mg Clopidogrel Bisulfate (Plavix) 75 mg PO DAILY [facility] Last Admin: 04/15/19 10:34 Dose: 75 mg Docusate Sodium (Colace) 100 mg PO DAILY [facility] Last Admin: 04/15/19 10:34 Dose: 100 mg Enoxaparin Sodium (Lovenox) 30 mg SC DAILY [facility] Last Admin: 04/15/19 12:38 Dose: 30 mg Ethambutol HCl (Myambutol) 800 mg PO DAILY [facility]; Protocol Last Admin: 04/15/19 12:24 Dose: 800 mg Gabapentin (Neurontin) 100 mg PO BID [facility] Last Admin: 04/15/19 17:58 Dose: 100 mg Cefepime HCl (Maxipime Iv 1 Gm Premix) 1 gm in 50 mls @ 100 mls/hr IVPB Q24H [facility]; Protocol Last Admin: 04/15/19 21:00 Dose: 100 mls/hr Dextrose (Dextrose 5% In Water 1000 Ml) 1,000 mls @ 60 mls/hr IV .[id number] [facility] Last Admin: 04/15/19 22:54 Dose: 60 mls/hr Insulin Human Regular (Novolin R) 0 unit SC ACHS [facility]; Protocol Last Admin: 04/15/19 22:27 Dose: Not Given Isoniazid (Niazid) 300 mg PO DAILY [facility]; Protocol Last Admin: 04/15/19 12:21 Dose: 300 mg Metoprolol Succinate (Toprol Xl) 50 mg PO DAILY [facility] Last Admin: 04/15/19 10:34 Dose: 50 mg Pyrazinamide (Pyrazinamide) 1,000 mg PO DAILY [facility]; Protocol Last Admin: 04/15/19 12:21 Dose: 1,000 mg Pyridoxine HCl (Vitamin B6 50 Mg Tab) 50 mg PO DAILY [facility] Last Admin: 04/15/19 12:37 Dose: 50 mg Rifampin (Rifampin Cap) 600 mg PO DAILY [facility]; Protocol Last Admin: 04/15/19 12:21 Dose: 600 mg Rosuvastatin Calcium (Crestor) 10 mg PO [facility] Last Admin: 04/15/19 21:42 Dose: 10 mg Results - Vital Signs Recent Vital Signs: Last Vital Signs Temp 97.8 F 04/15/19 23:00 Pulse 72 04/15/19 23:00 Resp 20 04/15/19 23:00 BP 154/69 H 04/15/19 23:00 Pulse Ox 98 04/15/19 23:00 - Labs Result Diagrams: 04/15/19 07:59 04/15/19 07:59 Labs: Laboratory Results - last 24 hr 04/15/19 04/15/19 04/15/19 07:59 07:59 07:59 WBC 10.4 RBC 3.76 L Hgb 11.1 Hct 32.1 L MCV 85.4 MCH 29.5 MCHC 34.5 RDW 13.1 Plt Count 320 MPV 7.3 ESR 121 H PT 12.6 H INR 1.2 APTT 32.6 Sodium 134 Potassium 3.9 Chloride 102 Carbon Dioxide 23 Anion Gap 13 BUN 34 H Creatinine 2.3 H Est GFR ( Amer) 26 Est GFR (Non-Af Amer) 21 POC Glucose (mg/dL) Random Glucose 161 H D Calcium 10.8 H Total Bilirubin 0.3 AST 22 ALT 13 Alkaline Phosphatase 74 Total Protein 6.9 Albumin 3.1 L Globulin 3.7 Albumin/Globulin Ratio 0.8 L 04/15/19 04/15/19 04/15/19 11:01 16:15 21:41 WBC RBC Hgb Hct MCV MCH MCHC RDW Plt Count MPV ESR PT INR APTT Sodium Potassium Chloride Carbon Dioxide Anion Gap BUN Creatinine Est GFR ( Amer) Est GFR (Non-Af Amer) POC Glucose (mg/dL) 265 H 162 H 51 L Random Glucose Calcium Total Bilirubin AST ALT Alkaline Phosphatase Total Protein Albumin Globulin Albumin/Globulin Ratio 04/15/19 04/15/19 04/16/19 21:43 22:18 06:28 WBC RBC Hgb Hct MCV MCH MCHC RDW Plt Count MPV ESR PT INR APTT Sodium Potassium Chloride Carbon Dioxide Anion Gap BUN Creatinine Est GFR ( Amer) Est GFR (Non-Af Amer) POC Glucose (mg/dL) 56 L 123 H 167 H Random Glucose Calcium Total Bilirubin AST ALT Alkaline Phosphatase Total Protein Albumin Globulin Albumin/Globulin Ratio Assessment & Plan - Assessment and Plan (Free Text) Assessment: Pneumonia CAD T2dm Plan: Cont Pulm treatment
[2019-04-16 08:17] LABS: BASO # 0.1 K/uL (0.0-0.2); BASO % 0.8 % (0.0-2.0); EOS # 0.2 K/uL (0.0-0.7); EOS % 2.9 % (0.0-4.0); HEMOGLOBIN 9.9 g/dL (11.0-16.0); LYMPH # 1.1 K/uL (1.0-4.3); LYMPH % 12.5 % (20.0-40.0); MEAN CELL VOLUME 84.2 fL (81.0-99.0); MEAN CORPUSCULAR HEMOGLOBIN 29.4 pg (27.0-31.0); MEAN PLATELET VOLUME 7.5 fL (7.2-11.7); MONO # 0.4 K/uL (0.0-0.8); MONO % 4.5 % (0.0-10.0); NEUT # 6.7 K/uL (1.8-7.0); NEUT % 79.3 % (50.0-75.0); NRBC % 0.1 % (0.0-2.0); RBC 3.36 Mil/uL (3.80-5.20); RED CELL DISTRIBUTION WIDTH 13.4 % (11.5-14.5); WHITE BLOOD COUNT 8.5 K/uL (4.8-10.8)
[2019-04-16 08:28] LABS: CALCIUM 9.8 mg/dl (8.6-10.4)
[2019-04-16] MEDS: (Novolin R) Insulin Human Regular 100 units/ml vial SC SCH ×4 (09:04→21:14)
[2019-04-16] MEDS: Enoxaparin 30 mg Syringe SC SCH (09:05)
[2019-04-16] MEDS: Metoprolol Succinate 50 mg XL Tab PO SCH (09:05)
--- NOTE | 2019-04-16 16:54 | CP.PCM.PN ---
Subjective - Date & Time of Evaluation Date of Evaluation: 04/16/19 Time of Evaluation: 16:20 - Subjective Subjective: Patient seen and examined Being treated for pulmonary tuberculosis Had 3 AFB negative in the last admission No shortness of breath cough, fever chills Objective - Vital Signs/Intake and Output Vital Signs (last 24 hours): Temp Pulse Resp BP Pulse Ox 100.6 F H 84 20 178/86 H 97 04/16/19 16:00 04/16/19 16:00 04/16/19 16:00 04/16/19 16:00 04/16/19 16:00 Intake and Output: 04/16/19 04/16/19 06:59 18:59 Intake Total 1140 Output Total 700 500 Balance 440 -500 - Medications Medications: Current Medications Acetaminophen (Tylenol 325mg Tab) 650 mg PO Q4H PRN PRN Reason: Fever >100.4 F Last Admin: 04/16/19 15:59 Dose: 650 mg Clopidogrel Bisulfate (Plavix) 75 mg PO DAILY [facility] Last Admin: 04/16/19 09:04 Dose: 75 mg Docusate Sodium (Colace) 100 mg PO DAILY [facility] Last Admin: 04/16/19 09:04 Dose: 100 mg Enoxaparin Sodium (Lovenox) 30 mg SC DAILY [facility] Last Admin: 04/16/19 09:05 Dose: 30 mg Ethambutol HCl (Myambutol) 800 mg PO DAILY [facility]; Protocol Last Admin: 04/16/19 09:04 Dose: 800 mg Gabapentin (Neurontin) 100 mg PO BID [facility] Last Admin: 04/16/19 09:04 Dose: 100 mg Cefepime HCl (Maxipime Iv 1 Gm Premix) 1 gm in 50 mls @ 100 mls/hr IVPB Q24H [facility]; Protocol Last Admin: 04/15/19 21:00 Dose: 100 mls/hr Dextrose (Dextrose 5% In Water 1000 Ml) 1,000 mls @ 60 mls/hr IV .[id number] [facility] Last Admin: 04/16/19 09:02 Dose: 60 mls/hr Insulin Human Regular (Novolin R) 0 unit SC ACHS [facility]; Protocol Last Admin: 04/16/19 12:28 Dose: 1 u Isoniazid (Niazid) 300 mg PO DAILY [facility]; Protocol Last Admin: 04/16/19 09:04 Dose: 300 mg Metoprolol Succinate (Toprol Xl) 50 mg PO DAILY [facility] Last Admin: 04/16/19 09:05 Dose: 50 mg Pyrazinamide (Pyrazinamide) 1,000 mg PO DAILY [facility]; Protocol Last Admin: 04/16/19 09:05 Dose: 1,000 mg Pyridoxine HCl (Vitamin B6 50 Mg Tab) 50 mg PO DAILY [facility] Last Admin: 04/16/19 09:04 Dose: 50 mg Rifampin (Rifampin Cap) 600 mg PO DAILY [facility]; Protocol Last Admin: 04/16/19 09:04 Dose: 600 mg Rosuvastatin Calcium (Crestor) 10 mg PO HS [facility] Last Admin: 04/15/19 21:42 Dose: 10 mg - Labs Labs: 04/16/19 07:55 04/16/19 07:55 PT 12.6 SECONDS (9.7-12.2) H 04/15/19 07:59 INR 1.2 04/15/19 07:59 APTT 32.6 SECONDS (21-34) 04/15/19 07:59 - Head Exam Head Exam: ATRAUMATIC, NORMOCEPHALIC - Eye Exam Eye Exam: Normal appearance - ENT Exam ENT Exam: Mucous Membranes Moist - Neck Exam Neck Exam: Normal Inspection - Respiratory Exam Respiratory Exam: Clear to Ausculation Bilateral - Cardiovascular Exam Cardiovascular Exam: REGULAR RHYTHM - GI/Abdominal Exam GI & Abdominal Exam: Soft, Normal Bowel Sounds - Extremities Exam Extremities Exam: Full ROM - Neurological Exam Neurological Exam: Awake Assessment and Plan (1) Cavitary lesion of lung Assessment & Plan: Secondary to pulmonary tuberculosis Continue anti-TB medication At 3 sputum AFB negative Status: Acute
[2019-04-16] MEDS: Cefepime IV 1 gm in Dextrose 1 GM/50 ML BAG IVPB SCH (20:55)
--- NOTE | 2019-04-16 22:11 | CP.PCM.PN ---
Subjective - Date & Time of Evaluation Date of Evaluation: 04/16/19 Time of Evaluation: 09:10 - Subjective Subjective: Patient seen and evaluated No cardiac events noted Review Of Systems Except As Marked, All Systems Reviewed And Found Negative. Constitutional: Negative for: Fever, Chills, Sweats Cardiovascular: Negative for: Chest Pain Respiratory: Negative for: Cough, Shortness of Breath, Hemoptysis Gastrointestinal: Negative for: Nausea, Vomiting, Abdominal Pain, Diarrhea Musculoskeletal: Positive for: Neck Pain Physical Exam - Physical Exam Appears: Well, Non-toxic, No Acute Distress, Other (Patient on TB precautions) Skin: Normal Color, Dry Head: Atraumatic Eye(s): bilateral: Normal Inspection Nose: Normal Oral Mucosa: Moist Neck: Normal, Supple Chest: Symmetrical Cardiovascular: Rhythm Regular Respiratory: Normal Breath Sounds Gastrointestinal/Abdominal: Normal Exam, Bowel Sounds, Soft, No Tenderness Back: Normal Inspection, No CVA Tenderness, No Decreased ROM Extremity: Normal ROM, No Tenderness, No Swelling Extremity: Bilateral: Atraumatic Neurological/Psych: Oriented x3, Normal Speech, Normal Cognition, Normal Motor, Normal Sensation Additional Physical Exam Comments: Appears: Non-toxic, No Acute Distress Skin: Warm, Dry Head: Atraumatic, Normacephalic Eye(s): bilateral: Normal Inspection Oral Mucosa: Moist Neck: Normal ROM, Supple Chest: Symmetrical, No Deformity Cardiovascular: Rhythm Regular, No Murmur Respiratory: Normal Breath Sounds, No Rales, No Rhonchi, No Wheezing Gastrointestinal/Abdominal: Soft, No Tenderness, No Distention, No Guarding, No Rebound Neurological/Psych: Oriented x3, Normal Speech, Normal Cognition, Other (speaking in full sentences) Assessment & Plan - Assessment and Plan (Free Text) Assessment: Pneumonia CAD T2dm Plan: Cont Pulm treatment Objective - Vital Signs/Intake and Output Vital Signs (last 24 hours): Temp Pulse Resp BP Pulse Ox 99.3 F 84 20 178/86 H 97 04/16/19 16:59 04/16/19 16:00 04/16/19 16:00 04/16/19 16:00 04/16/19 16:00 Intake and Output: 04/16/19 04/17/19 18:59 06:59 Output Total 500 Balance -500 - Medications Medications: Current Medications Acetaminophen (Tylenol 325mg Tab) 650 mg PO Q4H PRN PRN Reason: Fever >100.4 F Last Admin: 04/16/19 15:59 Dose: 650 mg Clopidogrel Bisulfate (Plavix) 75 mg PO DAILY [facility] Last Admin: 04/16/19 09:04 Dose: 75 mg Docusate Sodium (Colace) 100 mg PO DAILY [facility] Last Admin: 04/16/19 09:04 Dose: 100 mg Enoxaparin Sodium (Lovenox) 30 mg SC DAILY [facility] Last Admin: 04/16/19 09:05 Dose: 30 mg Ethambutol HCl (Myambutol) 800 mg PO DAILY [facility]; Protocol Last Admin: 04/16/19 09:04 Dose: 800 mg Gabapentin (Neurontin) 100 mg PO BID [facility] Last Admin: 04/16/19 17:47 Dose: 100 mg Cefepime HCl (Maxipime Iv 1 Gm Premix) 1 gm in 50 mls @ 100 mls/hr IVPB Q24H [facility]; Protocol Last Admin: 04/16/19 20:55 Dose: 100 mls/hr Dextrose (Dextrose 5% In Water 1000 Ml) 1,000 mls @ 60 mls/hr IV .[id number] [facility] Last Admin: 04/16/19 16:14 Dose: Not Given Insulin Human Regular (Novolin R) 0 unit SC ACHS [facility]; Protocol Last Admin: 04/16/19 21:14 Dose: Not Given Isoniazid (Niazid) 300 mg PO DAILY [facility]; Protocol Last Admin: 04/16/19 09:04 Dose: 300 mg Metoprolol Succinate (Toprol Xl) 50 mg PO DAILY [facility] Last Admin: 04/16/19 09:05 Dose: 50 mg Pyrazinamide (Pyrazinamide) 1,000 mg PO DAILY [facility]; Protocol Last Admin: 04/16/19 09:05 Dose: 1,000 mg Pyridoxine HCl (Vitamin B6 50 Mg Tab) 50 mg PO DAILY [facility] Last Admin: 04/16/19 09:04 Dose: 50 mg Rifampin (Rifampin Cap) 600 mg PO DAILY [facility]; Protocol Last Admin: 04/16/19 09:04 Dose: 600 mg Rosuvastatin Calcium (Crestor) 10 mg PO HS [facility] Last Admin: 04/16/19 21:12 Dose: 10 mg - Labs Labs: 04/16/19 07:55 04/16/19 07:55 PT 12.6 SECONDS (9.7-12.2) H 05/24/19 07:59 INR 1.2 04/15/19 07:59 APTT 32.6 SECONDS (21-34) 04/15/19 07:59
--- NOTE | 2019-04-16 22:48 | PN ---
DATE: 04/16/2019 SUBJECTIVE: The patient is with poor oral intake, weakness, dehydration and low-grade fever. She is being seen by ID and Pulmonary. She is on respiratory isolation. She is on anti-TB therapy. Nausea. No vomiting. Generalized weakness. PHYSICAL EXAMINATION: VITAL SIGNS: Blood pressure is 112/70, pulse 78, respiratory rate 20, temperature 99. LUNGS: Clear. No rales. No rhonchi. CARDIOVASCULAR SYSTEM: S1, S2. Regular. ABDOMEN: Soft, nontender. Bowel sounds are positive. CENTRAL NERVOUS SYSTEM: Awake, alert, oriented x3. ASSESSMENT: 1. Pulmonary tuberculosis, rule out pulmonary abscess. 2. Diabetes. 3. Hypotension. 4. Malnutrition. PLAN: Anti-TB therapy. Antibiotics. Pulmonary and Infectious Disease input. Monitor the patient. Carlin Wynn MD
[2019-04-17] MEDS: (Novolin R) Insulin Human Regular 100 units/ml vial SC SCH ×4 (08:29→21:52)
[2019-04-17] MEDS: Metoprolol Succinate 50 mg XL Tab PO SCH (09:17)
[2019-04-17] MEDS: Enoxaparin 30 mg Syringe SC SCH (09:18)
--- NOTE | 2019-04-17 11:43 | CP.PCM.PN ---
Subjective - Date & Time of Evaluation Date of Evaluation: 04/17/19 Time of Evaluation: 11:42 - Subjective Subjective: Pulmonary Follow Up, Covering Dr. Monteiro The patient was Seen/interviewed and examined by me at the bedside, Medical records reviewed and Management issues were discussed and formulated with the house staff. Events reviewed. Objective - Vital Signs/Intake and Output Vital Signs (last 24 hours): Temp Pulse Resp BP Pulse Ox 97.3 F L 69 20 141/65 98 04/17/19 08:29 04/17/19 09:22 04/17/19 08:29 04/17/19 09:22 04/17/19 08:29 Intake and Output: 04/17/19 04/17/19 06:59 18:59 Output Total 150 Balance -150 - Medications Medications: Current Medications Acetaminophen (Tylenol 325mg Tab) 650 mg PO Q4H PRN PRN Reason: Fever >100.4 F Last Admin: 04/17/19 00:10 Dose: 650 mg Clopidogrel Bisulfate (Plavix) 75 mg PO DAILY [facility] Last Admin: 04/17/19 09:18 Dose: 75 mg Docusate Sodium (Colace) 100 mg PO DAILY [facility] Last Admin: 04/17/19 09:18 Dose: 100 mg Enoxaparin Sodium (Lovenox) 30 mg SC DAILY [facility] Last Admin: 04/17/19 09:18 Dose: 30 mg Ethambutol HCl (Myambutol) 800 mg PO DAILY [facility]; Protocol Last Admin: 04/17/19 09:18 Dose: 800 mg Gabapentin (Neurontin) 100 mg PO BID [facility] Last Admin: 04/17/19 09:18 Dose: 100 mg Cefepime HCl (Maxipime Iv 1 Gm Premix) 1 gm in 50 mls @ 100 mls/hr IVPB Q24H [facility]; Protocol Last Admin: 04/16/19 20:55 Dose: 100 mls/hr Dextrose (Dextrose 5% In Water 1000 Ml) 1,000 mls @ 60 mls/hr IV .[id number] [facility] Last Admin: 04/17/19 07:50 Dose: Not Given Insulin Human Regular (Novolin R) 0 unit SC ACHS [facility]; Protocol Last Admin: 04/17/19 08:29 Dose: 1 u Isoniazid (Niazid) 300 mg PO DAILY [facility]; Protocol Last Admin: 04/17/19 09:18 Dose: 300 mg Metoprolol Succinate (Toprol Xl) 50 mg PO DAILY [facility] Last Admin: 04/17/19 09:17 Dose: 50 mg Pyrazinamide (Pyrazinamide) 1,000 mg PO DAILY [facility]; Protocol Last Admin: 04/17/19 09:18 Dose: 1,000 mg Pyridoxine HCl (Vitamin B6 50 Mg Tab) 50 mg PO DAILY [facility] Last Admin: 04/17/19 09:18 Dose: 50 mg Rifampin (Rifampin Cap) 600 mg PO DAILY [facility]; Protocol Last Admin: 04/17/19 09:18 Dose: 600 mg Rosuvastatin Calcium (Crestor) 10 mg PO HS [facility] Last Admin: 04/16/19 21:12 Dose: 10 mg - Labs Labs: 04/16/19 07:55 04/16/19 07:55 PT 12.6 SECONDS (9.7-12.2) H 04/15/19 07:59 INR 1.2 04/15/19 07:59 APTT 32.6 SECONDS (21-34) 04/15/19 07:59
[2019-04-17] MEDS: Cefepime IV 1 gm in Dextrose 1 GM/50 ML BAG IVPB SCH (21:00)
--- NOTE | 2019-04-17 23:49 | CP.PCM.PN ---
Subjective - Date & Time of Evaluation Date of Evaluation: 04/17/19 Time of Evaluation: 09:00 - Subjective Subjective: events noted IV rx in progress Objective - Vital Signs/Intake and Output Vital Signs (last 24 hours): Temp Pulse Resp BP Pulse Ox 98.2 F 66 20 138/77 96 04/17/19 16:00 04/17/19 16:00 04/17/19 16:00 04/17/19 16:00 04/17/19 16:00 Intake and Output: 04/17/19 04/17/19 06:59 18:59 Output Total 150 Balance -150 - Medications Medications: Current Medications Acetaminophen (Tylenol 325mg Tab) 650 mg PO Q4H PRN PRN Reason: Fever >100.4 F Last Admin: 04/17/19 00:10 Dose: 650 mg Clopidogrel Bisulfate (Plavix) 75 mg PO DAILY [facility] Last Admin: 04/17/19 09:18 Dose: 75 mg Docusate Sodium (Colace) 100 mg PO DAILY [facility] Last Admin: 04/17/19 09:18 Dose: 100 mg Enoxaparin Sodium (Lovenox) 30 mg SC DAILY [facility] Last Admin: 04/17/19 09:18 Dose: 30 mg Ethambutol HCl (Myambutol) 800 mg PO DAILY [facility]; Protocol Last Admin: 04/17/19 09:18 Dose: 800 mg Gabapentin (Neurontin) 100 mg PO BID [facility] Last Admin: 04/17/19 09:18 Dose: 100 mg Cefepime HCl (Maxipime Iv 1 Gm Premix) 1 gm in 50 mls @ 100 mls/hr IVPB Q24H [facility]; Protocol Last Admin: 04/16/19 20:55 Dose: 100 mls/hr Dextrose (Dextrose 5% In Water 1000 Ml) 1,000 mls @ 60 mls/hr IV .[id number] [facility] Last Admin: 04/17/19 07:50 Dose: Not Given Insulin Human Regular (Novolin R) 0 unit SC ACHS [facility]; Protocol Last Admin: 04/17/19 12:24 Dose: 3 u Isoniazid (Niazid) 300 mg PO DAILY [facility]; Protocol Last Admin: 04/17/19 09:18 Dose: 300 mg Metoprolol Succinate (Toprol Xl) 50 mg PO DAILY [facility] Last Admin: 04/17/19 09:17 Dose: 50 mg Pyrazinamide (Pyrazinamide) 1,000 mg PO DAILY [facility]; Protocol Last Admin: 04/17/19 09:18 Dose: 1,000 mg Pyridoxine HCl (Vitamin B6 50 Mg Tab) 50 mg PO DAILY [facility] Last Admin: 04/17/19 09:18 Dose: 50 mg Rifampin (Rifampin Cap) 600 mg PO DAILY [facility]; Protocol Last Admin: 04/17/19 09:18 Dose: 600 mg Rosuvastatin Calcium (Crestor) 10 mg PO HS [facility] Last Admin: 04/16/19 21:12 Dose: 10 mg - Labs Labs: 04/16/19 07:55 04/16/19 07:55 PT 12.6 SECONDS (9.7-12.2) H 04/15/19 07:59 INR 1.2 04/15/19 07:59 APTT 32.6 SECONDS (21-34) 04/15/19 07:59 - Constitutional Appears: Non-toxic, Cachectic, Chronically Ill - Head Exam Head Exam: NORMOCEPHALIC (x) - Eye Exam Eye Exam: absent: Scleral icterus Pupil Exam: NORMAL ACCOMODATION - ENT Exam ENT Exam: Mucous Membranes Dry - Neck Exam Neck Exam: absent: Lymphadenopathy - Respiratory Exam Respiratory Exam: Decreased Breath Sounds - Cardiovascular Exam Cardiovascular Exam: REGULAR RHYTHM - GI/Abdominal Exam GI & Abdominal Exam: Distended, Soft - Rectal Exam Rectal Exam: Deferred - Exam Exam: NORMAL INSPECTION - Extremities Exam Extremities Exam: absent: Pedal Edema - Back Exam Back Exam: absent: CVA tenderness (L), CVA tenderness (R) - Neurological Exam Neurological Exam: Alert, Awake - Psychiatric Exam Psychiatric exam: Depressed - Skin Skin Exam: Dry Assessment and Plan (1) Tuberculosis Status: Acute (2) Lung abscess Status: Acute (3) Cavitary lesion of lung Status: Acute - Assessment and Plan (Free Text) Assessment: cont rx as ordered
--- NOTE | 2019-04-18 07:43 | CP.PCM.PN ---
Subjective - Date & Time of Evaluation Date of Evaluation: 04/17/19 Time of Evaluation: 18:35 - Subjective Subjective: Patient seen and evaluated No cardiac events noted Review Of Systems Except As Marked, All Systems Reviewed And Found Negative. Constitutional: Negative for: Fever, Chills, Sweats Cardiovascular: Negative for: Chest Pain Respiratory: Negative for: Cough, Shortness of Breath, Hemoptysis Gastrointestinal: Negative for: Nausea, Vomiting, Abdominal Pain, Diarrhea Musculoskeletal: Positive for: Neck Pain Physical Exam - Physical Exam Appears: Well, Non-toxic, No Acute Distress, Other (Patient on TB precautions) Skin: Normal Color, Dry Head: Atraumatic Eye(s): bilateral: Normal Inspection Nose: Normal Oral Mucosa: Moist Neck: Normal, Supple Chest: Symmetrical Cardiovascular: Rhythm Regular Respiratory: Normal Breath Sounds Gastrointestinal/Abdominal: Normal Exam, Bowel Sounds, Soft, No Tenderness Back: Normal Inspection, No CVA Tenderness, No Decreased ROM Extremity: Normal ROM, No Tenderness, No Swelling Extremity: Bilateral: Atraumatic Neurological/Psych: Oriented x3, Normal Speech, Normal Cognition, Normal Motor, Normal Sensation Additional Physical Exam Comments: Appears: Non-toxic, No Acute Distress Skin: Warm, Dry Head: Atraumatic, Normacephalic Eye(s): bilateral: Normal Inspection Oral Mucosa: Moist Neck: Normal ROM, Supple Chest: Symmetrical, No Deformity Cardiovascular: Rhythm Regular, No Murmur Respiratory: Normal Breath Sounds, No Rales, No Rhonchi, No Wheezing Gastrointestinal/Abdominal: Soft, No Tenderness, No Distention, No Guarding, No Rebound Neurological/Psych: Oriented x3, Normal Speech, Normal Cognition, Other (speaking in full sentences) Assessment & Plan - Assessment and Plan (Free Text) Assessment: Pneumonia CAD T2dm Plan: Cont Pulm treatment Objective - Vital Signs/Intake and Output Vital Signs (last 24 hours): Temp Pulse Resp BP Pulse Ox 99.4 F 72 20 100/55 L 97 04/17/19 23:00 04/17/19 23:00 04/17/19 23:00 04/17/19 23:00 04/17/19 23:00 Intake and Output: 04/18/19 04/18/19 06:59 18:59 Intake Total 258 Output Total 300 Balance -42 - Medications Medications: Current Medications Acetaminophen (Tylenol 325mg Tab) 650 mg PO Q4H PRN PRN Reason: Fever >100.4 F Last Admin: 04/17/19 00:10 Dose: 650 mg Clopidogrel Bisulfate (Plavix) 75 mg PO DAILY [facility] Last Admin: 04/17/19 09:18 Dose: 75 mg Docusate Sodium (Colace) 100 mg PO DAILY [facility] Last Admin: 04/17/19 09:18 Dose: 100 mg Enoxaparin Sodium (Lovenox) 30 mg SC DAILY [facility] Last Admin: 04/17/19 09:18 Dose: 30 mg Ethambutol HCl (Myambutol) 800 mg PO DAILY [facility]; Protocol Last Admin: 04/17/19 09:18 Dose: 800 mg Gabapentin (Neurontin) 100 mg PO BID [facility] Last Admin: 04/17/19 17:44 Dose: 100 mg Cefepime HCl (Maxipime Iv 1 Gm Premix) 1 gm in 50 mls @ 100 mls/hr IVPB Q24H [facility]; Protocol Last Admin: 04/17/19 21:00 Dose: 100 mls/hr Dextrose (Dextrose 5% In Water 1000 Ml) 1,000 mls @ 60 mls/hr IV .[id number] [facility] Last Admin: 04/18/19 05:21 Dose: 60 mls/hr Insulin Human Regular (Novolin R) 0 unit SC ACHS [facility]; Protocol Last Admin: 04/17/19 21:52 Dose: Not Given Isoniazid (Niazid) 300 mg PO DAILY [facility]; Protocol Last Admin: 04/17/19 09:18 Dose: 300 mg Metoprolol Succinate (Toprol Xl) 50 mg PO DAILY [facility] Last Admin: 04/17/19 09:17 Dose: 50 mg Pyrazinamide (Pyrazinamide) 1,000 mg PO DAILY [facility]; Protocol Last Admin: 04/17/19 09:18 Dose: 1,000 mg Pyridoxine HCl (Vitamin B6 50 Mg Tab) 50 mg PO DAILY [facility] Last Admin: 04/17/19 09:18 Dose: 50 mg Rifampin (Rifampin Cap) 600 mg PO DAILY [facility]; Protocol Last Admin: 04/17/19 09:18 Dose: 600 mg Rosuvastatin Calcium (Crestor) 10 mg PO HS [facility] Last Admin: 04/17/19 22:07 Dose: 10 mg - Labs Labs: 04/16/19 07:55 04/16/19 07:55 PT 12.6 SECONDS (9.7-12.2) H 04/15/19 07:59 INR 1.2 04/15/19 07:59 APTT 32.6 SECONDS (21-34) 04/15/19 07:59
[2019-04-18] MEDS: (Novolin R) Insulin Human Regular 100 units/ml vial SC SCH ×4 (08:26→21:36)
[2019-04-18] MEDS: Metoprolol Succinate 50 mg XL Tab PO SCH (09:46)
[2019-04-18] MEDS: Enoxaparin 30 mg Syringe SC SCH (09:51)
[2019-04-18 11:12] LABS: BASO # 0.1 K/uL (0.0-0.2); BASO % 1.8 % (0.0-2.0); EOS # 0.5 K/uL (0.0-0.7); EOS % 7.3 % (0.0-4.0); HEMOGLOBIN 10.2 g/dL (11.0-16.0); LYMPH # 1.2 K/uL (1.0-4.3); LYMPH % 18.2 % (20.0-40.0); MEAN CELL VOLUME 84.3 fL (81.0-99.0); MEAN CORPUSCULAR HEMOGLOBIN 29.1 pg (27.0-31.0); MEAN CORPUSCULAR HGB CONC 34.6 g/dL (33.0-37.0); MEAN PLATELET VOLUME 7.9 fL (7.2-11.7); MONO # 0.4 K/uL (0.0-0.8); MONO % 6.7 % (0.0-10.0); NEUT # 4.3 K/uL (1.8-7.0); NRBC % 0.1 % (0.0-2.0); RBC 3.51 Mil/uL (3.80-5.20); RED CELL DISTRIBUTION WIDTH 13.1 % (11.5-14.5); WHITE BLOOD COUNT 6.5 K/uL (4.8-10.8)
[2019-04-18 11:27] LABS: ALB/GLOB RATIO 0.8 (1.0-2.1); ALBUMIN 2.7 g/dL (3.5-5.0); CALCIUM 9.2 mg/dl (8.6-10.4)
[2019-04-18] MEDS ORDERED: Potassium Chloride 20 mEq/15 ml LIQ UD PO ONE ×3 (14:22→18:00)
[2019-04-18] MEDS: Sodium Chloride 0.9% 1,000 ML IV SCH (14:35)
--- NOTE | 2019-04-18 20:25 | CP.PCM.PN ---
Subjective - Date & Time of Evaluation Date of Evaluation: 04/18/19 Time of Evaluation: 10:05 - Subjective Subjective: Patient seen and evaluated No cardiac events noted Review Of Systems Except As Marked, All Systems Reviewed And Found Negative. Constitutional: Negative for: Fever, Chills, Sweats Cardiovascular: Negative for: Chest Pain Respiratory: Negative for: Cough, Shortness of Breath, Hemoptysis Gastrointestinal: Negative for: Nausea, Vomiting, Abdominal Pain, Diarrhea Musculoskeletal: Positive for: Neck Pain Physical Exam - Physical Exam Appears: Well, Non-toxic, No Acute Distress, Other (Patient on TB precautions) Skin: Normal Color, Dry Head: Atraumatic Eye(s): bilateral: Normal Inspection Nose: Normal Oral Mucosa: Moist Neck: Normal, Supple Chest: Symmetrical Cardiovascular: Rhythm Regular Respiratory: Normal Breath Sounds Gastrointestinal/Abdominal: Normal Exam, Bowel Sounds, Soft, No Tenderness Back: Normal Inspection, No CVA Tenderness, No Decreased ROM Extremity: Normal ROM, No Tenderness, No Swelling Extremity: Bilateral: Atraumatic Neurological/Psych: Oriented x3, Normal Speech, Normal Cognition, Normal Motor, Normal Sensation Additional Physical Exam Comments: Appears: Non-toxic, No Acute Distress Skin: Warm, Dry Head: Atraumatic, Normacephalic Eye(s): bilateral: Normal Inspection Oral Mucosa: Moist Neck: Normal ROM, Supple Chest: Symmetrical, No Deformity Cardiovascular: Rhythm Regular, No Murmur Respiratory: Normal Breath Sounds, No Rales, No Rhonchi, No Wheezing Gastrointestinal/Abdominal: Soft, No Tenderness, No Distention, No Guarding, No Rebound Neurological/Psych: Oriented x3, Normal Speech, Normal Cognition, Other (speaking in full sentences) Assessment & Plan - Assessment and Plan (Free Text) Assessment: Pneumonia CAD T2dm Plan: Cont Pulm treatment Objective - Vital Signs/Intake and Output Vital Signs (last 24 hours): Temp Pulse Resp BP Pulse Ox 98.5 F 59 L 20 119/70 98 04/18/19 15:00 04/18/19 15:00 04/18/19 15:00 04/18/19 15:00 04/18/19 15:00 Intake and Output: 04/18/19 04/19/19 18:59 06:59 Intake Total 500 Output Total 800 Balance -300 - Medications Medications: Current Medications Acetaminophen (Tylenol 325mg Tab) 650 mg PO Q4H PRN PRN Reason: Fever >100.4 F Last Admin: 04/17/19 00:10 Dose: 650 mg Clopidogrel Bisulfate (Plavix) 75 mg PO DAILY [facility] Last Admin: 04/18/19 09:46 Dose: 75 mg Docusate Sodium (Colace) 100 mg PO DAILY [facility] Last Admin: 04/18/19 09:47 Dose: 100 mg Enoxaparin Sodium (Lovenox) 30 mg SC DAILY [facility] Last Admin: 04/18/19 09:51 Dose: 30 mg Ethambutol HCl (Myambutol) 800 mg PO DAILY [facility]; Protocol Last Admin: 04/18/19 09:47 Dose: 800 mg Gabapentin (Neurontin) 100 mg PO BID [facility] Last Admin: 04/18/19 17:12 Dose: 100 mg Cefepime HCl (Maxipime Iv 1 Gm Premix) 1 gm in 50 mls @ 100 mls/hr IVPB Q24H [facility]; Protocol Last Admin: 04/17/19 21:00 Dose: 100 mls/hr Sodium Chloride (Sodium Chloride 0.9%) 1,000 mls @ 80 mls/hr IV .[id number] [facility] Last Admin: 04/18/19 14:35 Dose: 80 mls/hr Insulin Human Regular (Novolin R) 0 unit SC ACHS [facility]; Protocol Last Admin: 04/18/19 17:12 Dose: 1 u Isoniazid (Niazid) 300 mg PO DAILY [facility]; Protocol Last Admin: 04/18/19 09:46 Dose: 300 mg Megestrol Acetate (Megace) 400 mg PO DAILY [facility] Metoprolol Succinate (Toprol Xl) 50 mg PO DAILY [facility] Last Admin: 04/18/19 09:46 Dose: 50 mg Pyrazinamide (Pyrazinamide) 1,000 mg PO DAILY [facility]; Protocol Last Admin: 04/18/19 09:51 Dose: 1,000 mg Pyridoxine HCl (Vitamin B6 50 Mg Tab) 50 mg PO DAILY [facility] Last Admin: 04/18/19 09:51 Dose: 50 mg Rifampin (Rifampin Cap) 600 mg PO DAILY [facility]; Protocol Last Admin: 04/18/19 09:47 Dose: 600 mg Rosuvastatin Calcium (Crestor) 10 mg PO [facility] Last Admin: 04/17/19 22:07 Dose: 10 mg - Labs Labs: 04/18/19 11:04 04/18/19 11:04 PT 12.6 SECONDS (9.7-12.2) H 04/15/19 07:59 INR 1.2 04/15/19 07:59 APTT 32.6 SECONDS (21-34) 04/15/19 07:59
[2019-04-18] MEDS: Cefepime IV 1 gm in Dextrose 1 GM/50 ML BAG IVPB SCH (20:31)
--- NOTE | 2019-04-18 22:02 | CP.PCM.PN ---
Subjective - Date & Time of Evaluation Date of Evaluation: 04/16/19 Time of Evaluation: 08:00 - Subjective Subjective: dict Objective - Vital Signs/Intake and Output Vital Signs (last 24 hours): Temp Pulse Resp BP Pulse Ox 98.5 F 59 L 20 119/70 98 04/18/19 15:00 04/18/19 15:00 04/18/19 15:00 04/18/19 15:00 04/18/19 15:00 Intake and Output: 04/18/19 04/19/19 18:59 06:59 Intake Total 500 Output Total 800 Balance -300 - Medications Medications: Current Medications Acetaminophen (Tylenol 325mg Tab) 650 mg PO Q4H PRN PRN Reason: Fever >100.4 F Last Admin: 04/17/19 00:10 Dose: 650 mg Clopidogrel Bisulfate (Plavix) 75 mg PO DAILY [facility] Last Admin: 04/18/19 09:46 Dose: 75 mg Docusate Sodium (Colace) 100 mg PO DAILY [facility] Last Admin: 04/18/19 09:47 Dose: 100 mg Enoxaparin Sodium (Lovenox) 30 mg SC DAILY [facility] Last Admin: 04/18/19 09:51 Dose: 30 mg Ethambutol HCl (Myambutol) 800 mg PO DAILY [facility]; Protocol Last Admin: 04/18/19 09:47 Dose: 800 mg Gabapentin (Neurontin) 100 mg PO BID [facility] Last Admin: 04/18/19 17:12 Dose: 100 mg Cefepime HCl (Maxipime Iv 1 Gm Premix) 1 gm in 50 mls @ 100 mls/hr IVPB Q24H [facility]; Protocol Last Admin: 04/18/19 20:31 Dose: 100 mls/hr Sodium Chloride (Sodium Chloride 0.9%) 1,000 mls @ 80 mls/hr IV .[id number] [facility] Last Admin: 04/18/19 14:35 Dose: 80 mls/hr Insulin Human Regular (Novolin R) 0 unit SC ACHS [facility]; Protocol Last Admin: 04/18/19 21:36 Dose: Not Given Isoniazid (Niazid) 300 mg PO DAILY [facility]; Protocol Last Admin: 04/18/19 09:46 Dose: 300 mg Megestrol Acetate (Megace) 400 mg PO DAILY [facility] Metoprolol Succinate (Toprol Xl) 50 mg PO DAILY [facility] Last Admin: 04/18/19 09:46 Dose: 50 mg Pyrazinamide (Pyrazinamide) 1,000 mg PO DAILY [facility]; Protocol Last Admin: 04/18/19 09:51 Dose: 1,000 mg Pyridoxine HCl (Vitamin B6 50 Mg Tab) 50 mg PO DAILY [facility] Last Admin: 04/18/19 09:51 Dose: 50 mg Rifampin (Rifampin Cap) 600 mg PO DAILY [facility]; Protocol Last Admin: 04/18/19 09:47 Dose: 600 mg Rosuvastatin Calcium (Crestor) 10 mg PO HS [facility] Last Admin: 04/18/19 21:44 Dose: 10 mg - Labs Labs: 04/18/19 11:04 04/18/19 11:04 PT 12.6 SECONDS (9.7-12.2) H 04/15/19 07:59 INR 1.2 04/15/19 07:59 APTT 32.6 SECONDS (21-34) 04/15/19 07:59
--- NOTE | 2019-04-18 22:03 | CP.PCM.PN ---
Subjective - Date & Time of Evaluation Date of Evaluation: 04/16/19 Time of Evaluation: 08:00 - Subjective Subjective: dict Objective - Vital Signs/Intake and Output Vital Signs (last 24 hours): Temp Pulse Resp BP Pulse Ox 98.5 F 59 L 20 119/70 98 04/18/19 15:00 04/18/19 15:00 04/18/19 15:00 04/18/19 15:00 04/18/19 15:00 Intake and Output: 04/18/19 04/19/19 18:59 06:59 Intake Total 500 Output Total 800 Balance -300 - Medications Medications: Current Medications Acetaminophen (Tylenol 325mg Tab) 650 mg PO Q4H PRN PRN Reason: Fever >100.4 F Last Admin: 04/17/19 00:10 Dose: 650 mg Clopidogrel Bisulfate (Plavix) 75 mg PO DAILY [facility] Last Admin: 04/18/19 09:46 Dose: 75 mg Docusate Sodium (Colace) 100 mg PO DAILY [facility] Last Admin: 04/18/19 09:47 Dose: 100 mg Enoxaparin Sodium (Lovenox) 30 mg SC DAILY [facility] Last Admin: 04/18/19 09:51 Dose: 30 mg Ethambutol HCl (Myambutol) 800 mg PO DAILY [facility]; Protocol Last Admin: 04/18/19 09:47 Dose: 800 mg Gabapentin (Neurontin) 100 mg PO BID [facility] Last Admin: 04/18/19 17:12 Dose: 100 mg Cefepime HCl (Maxipime Iv 1 Gm Premix) 1 gm in 50 mls @ 100 mls/hr IVPB Q24H [facility]; Protocol Last Admin: 04/18/19 20:31 Dose: 100 mls/hr Sodium Chloride (Sodium Chloride 0.9%) 1,000 mls @ 80 mls/hr IV .[id number] [facility] Last Admin: 04/18/19 14:35 Dose: 80 mls/hr Insulin Human Regular (Novolin R) 0 unit SC ACHS [facility]; Protocol Last Admin: 04/18/19 21:36 Dose: Not Given Isoniazid (Niazid) 300 mg PO DAILY [facility]; Protocol Last Admin: 04/18/19 09:46 Dose: 300 mg Megestrol Acetate (Megace) 400 mg PO DAILY [facility] Metoprolol Succinate (Toprol Xl) 50 mg PO DAILY [facility] Last Admin: 04/18/19 09:46 Dose: 50 mg Pyrazinamide (Pyrazinamide) 1,000 mg PO DAILY [facility]; Protocol Last Admin: 04/18/19 09:51 Dose: 1,000 mg Pyridoxine HCl (Vitamin B6 50 Mg Tab) 50 mg PO DAILY [facility] Last Admin: 04/18/19 09:51 Dose: 50 mg Rifampin (Rifampin Cap) 600 mg PO DAILY [facility]; Protocol Last Admin: 04/18/19 09:47 Dose: 600 mg Rosuvastatin Calcium (Crestor) 10 mg PO HS [facility] Last Admin: 04/18/19 21:44 Dose: 10 mg - Labs Labs: 04/18/19 11:04 04/18/19 11:04 PT 12.6 SECONDS (9.7-12.2) H 04/15/19 07:59 INR 1.2 04/15/19 07:59 APTT 32.6 SECONDS (21-34) 04/15/19 07:59
--- NOTE | 2019-04-18 22:03 | CP.PCM.PN ---
Subjective - Date & Time of Evaluation Date of Evaluation: 04/18/19 Time of Evaluation: 08:00 - Subjective Subjective: dict Objective - Vital Signs/Intake and Output Vital Signs (last 24 hours): Temp Pulse Resp BP Pulse Ox 98.5 F 59 L 20 119/70 98 04/18/19 15:00 04/18/19 15:00 04/18/19 15:00 04/18/19 15:00 04/18/19 15:00 Intake and Output: 04/18/19 04/19/19 18:59 06:59 Intake Total 500 Output Total 800 Balance -300 - Medications Medications: Current Medications Acetaminophen (Tylenol 325mg Tab) 650 mg PO Q4H PRN PRN Reason: Fever >100.4 F Last Admin: 04/17/19 00:10 Dose: 650 mg Clopidogrel Bisulfate (Plavix) 75 mg PO DAILY [facility] Last Admin: 04/18/19 09:46 Dose: 75 mg Docusate Sodium (Colace) 100 mg PO DAILY [facility] Last Admin: 04/18/19 09:47 Dose: 100 mg Enoxaparin Sodium (Lovenox) 30 mg SC DAILY [facility] Last Admin: 04/18/19 09:51 Dose: 30 mg Ethambutol HCl (Myambutol) 800 mg PO DAILY [facility]; Protocol Last Admin: 04/18/19 09:47 Dose: 800 mg Gabapentin (Neurontin) 100 mg PO BID [facility] Last Admin: 04/18/19 17:12 Dose: 100 mg Cefepime HCl (Maxipime Iv 1 Gm Premix) 1 gm in 50 mls @ 100 mls/hr IVPB Q24H [facility]; Protocol Last Admin: 04/18/19 20:31 Dose: 100 mls/hr Sodium Chloride (Sodium Chloride 0.9%) 1,000 mls @ 80 mls/hr IV .[id number] [facility] Last Admin: 04/18/19 14:35 Dose: 80 mls/hr Insulin Human Regular (Novolin R) 0 unit SC ACHS [facility]; Protocol Last Admin: 04/18/19 21:36 Dose: Not Given Isoniazid (Niazid) 300 mg PO DAILY [facility]; Protocol Last Admin: 04/18/19 09:46 Dose: 300 mg Megestrol Acetate (Megace) 400 mg PO DAILY [facility] Metoprolol Succinate (Toprol Xl) 50 mg PO DAILY [facility] Last Admin: 04/18/19 09:46 Dose: 50 mg Pyrazinamide (Pyrazinamide) 1,000 mg PO DAILY [facility]; Protocol Last Admin: 04/18/19 09:51 Dose: 1,000 mg Pyridoxine HCl (Vitamin B6 50 Mg Tab) 50 mg PO DAILY [facility] Last Admin: 04/18/19 09:51 Dose: 50 mg Rifampin (Rifampin Cap) 600 mg PO DAILY [facility]; Protocol Last Admin: 04/18/19 09:47 Dose: 600 mg Rosuvastatin Calcium (Crestor) 10 mg PO HS [facility] Last Admin: 04/18/19 21:44 Dose: 10 mg - Labs Labs: 04/18/19 11:04 04/18/19 11:04 PT 12.6 SECONDS (9.7-12.2) H 04/15/19 07:59 INR 1.2 04/15/19 07:59 APTT 32.6 SECONDS (21-34) 04/15/19 07:59
--- NOTE | 2019-04-19 01:47 | PN ---
DATE: 04/18/2019 SUBJECTIVE: The patient is weak. The patient is anxious. She has poor oral intake. She is afebrile. Decreased cough. Decreased congestion. She is on isolation. PHYSICAL EXAMINATION: VITAL SIGNS: Blood pressure 119/70, pulse 79, respiratory rate 20, temperature 98.5. LUNGS: Bilateral scattered rales. CARDIOVASCULAR SYSTEM: S1 and S2, regular. ABDOMEN: Soft. ASSESSMENT: 1. Pulmonary tuberculosis, rule out abscess in the lung, rule out effusion. 2. Hypertension. 3. Anorexia. 4. Chronic kidney disease. PLAN: Appetite stimulant. Antibiotics. Anti-TB therapy. Monitor the patient. Carlin Wynn MD
[2019-04-19] MEDS: Sodium Chloride 0.9% 1,000 ML IV SCH ×4 (02:13→17:16)
[2019-04-19] MEDS: (Novolin R) Insulin Human Regular 100 units/ml vial SC SCH ×4 (07:07→22:17)
[2019-04-19 08:51] LABS: CALCIUM 9.1 mg/dl (8.6-10.4)
[2019-04-19] MEDS: Megestrol Acetate 40 mg/ml Cup PO SCH (10:50)
[2019-04-19] MEDS: Metoprolol Succinate 50 mg XL Tab PO SCH (10:50)
[2019-04-19] MEDS: Enoxaparin 30 mg Syringe SC SCH (10:50)
--- NOTE | 2019-04-19 12:14 | CP.PCM.PN ---
Subjective - Date & Time of Evaluation Date of Evaluation: 04/19/19 Time of Evaluation: 10:00 - Subjective Subjective: weak alert'NAD Objective - Vital Signs/Intake and Output Vital Signs (last 24 hours): Temp Pulse Resp BP Pulse Ox 98 F 65 20 137/70 98 04/19/19 08:00 04/19/19 10:56 04/19/19 08:00 04/19/19 08:00 04/19/19 10:56 Intake and Output: 04/19/19 04/19/19 06:59 18:59 Intake Total 2220 Output Total 1050 Balance 1170 - Medications Medications: Current Medications Acetaminophen (Tylenol 325mg Tab) 650 mg PO Q4H PRN PRN Reason: Fever >100.4 F Last Admin: 04/17/19 00:10 Dose: 650 mg Clopidogrel Bisulfate (Plavix) 75 mg PO DAILY [facility] Last Admin: 04/19/19 10:50 Dose: 75 mg Docusate Sodium (Colace) 100 mg PO DAILY [facility] Last Admin: 04/19/19 10:50 Dose: 100 mg Enoxaparin Sodium (Lovenox) 30 mg SC DAILY [facility] Last Admin: 04/19/19 10:50 Dose: 30 mg Ethambutol HCl (Myambutol) 800 mg PO DAILY [facility]; Protocol Last Admin: 04/19/19 10:51 Dose: 800 mg Gabapentin (Neurontin) 100 mg PO BID [facility] Last Admin: 04/19/19 10:51 Dose: 100 mg Cefepime HCl (Maxipime Iv 1 Gm Premix) 1 gm in 50 mls @ 100 mls/hr IVPB Q24H [facility]; Protocol Last Admin: 04/18/19 20:31 Dose: 100 mls/hr Sodium Chloride (Sodium Chloride 0.9%) 1,000 mls @ 80 mls/hr IV .[id number] [facility] Last Admin: 04/19/19 05:14 Dose: 80 mls/hr Insulin Human Regular (Novolin R) 0 unit SC ACHS [facility]; Protocol Last Admin: 04/19/19 07:07 Dose: Not Given Isoniazid (Niazid) 300 mg PO DAILY [facility]; Protocol Last Admin: 04/19/19 10:51 Dose: 300 mg Megestrol Acetate (Megace) 400 mg PO DAILY [facility] Last Admin: 04/19/19 10:50 Dose: 400 mg Metoprolol Succinate (Toprol Xl) 50 mg PO DAILY [facility] Last Admin: 04/19/19 10:50 Dose: 50 mg Pyrazinamide (Pyrazinamide) 1,000 mg PO DAILY [facility]; Protocol Last Admin: 04/19/19 10:51 Dose: 1,000 mg Pyridoxine HCl (Vitamin B6 50 Mg Tab) 50 mg PO DAILY [facility] Last Admin: 04/19/19 10:51 Dose: 50 mg Rifampin (Rifampin Cap) 600 mg PO DAILY [facility]; Protocol Last Admin: 04/19/19 10:50 Dose: 600 mg Rosuvastatin Calcium (Crestor) 10 mg PO HS [facility] Last Admin: 04/18/19 21:44 Dose: 10 mg - Labs Labs: 04/18/19 11:04 04/19/19 08:17 PT 12.6 SECONDS (9.7-12.2) H 04/15/19 07:59 INR 1.2 04/15/19 07:59 APTT 32.6 SECONDS (21-34) 04/15/19 07:59 - Constitutional Appears: Non-toxic, No Acute Distress, Chronically Ill - Head Exam Head Exam: ATRAUMATIC, NORMAL INSPECTION, NORMOCEPHALIC - Eye Exam Eye Exam: EOMI, Normal appearance, PERRL Pupil Exam: NORMAL ACCOMODATION, PERRL - ENT Exam ENT Exam: Mucous Membranes Moist, Normal Exam - Neck Exam Neck Exam: Full ROM, Normal Inspection. absent: Lymphadenopathy - Respiratory Exam Respiratory Exam: Clear to Ausculation Bilateral, NORMAL BREATHING PATTERN - Cardiovascular Exam Cardiovascular Exam: REGULAR RHYTHM, +S1, +S2. absent: Murmur - GI/Abdominal Exam GI & Abdominal Exam: Soft, Normal Bowel Sounds. absent: Tenderness - Rectal Exam Rectal Exam: Deferred - Extremities Exam Extremities Exam: Full ROM, Normal Capillary Refill, Normal Inspection. absent: Joint Swelling, Pedal Edema - Back Exam Back Exam: NORMAL INSPECTION - Neurological Exam Neurological Exam: Alert, Awake, CN II-XII Intact, Oriented x3. absent: Normal Gait - Psychiatric Exam Psychiatric exam: Normal Affect, Normal Mood - Skin Skin Exam: Dry, Intact, Normal Color, Warm Assessment and Plan (1) Tuberculosis Status: Acute (2) Lung abscess Status: Acute (3) Cavitary lesion of lung Status: Acute - Assessment and Plan (Free Text) Assessment: cont rx TB
--- NOTE | 2019-04-19 17:35 | CP.PCM.PN ---
Subjective - Date & Time of Evaluation Date of Evaluation: 04/19/19 Time of Evaluation: 16:00 - Subjective Subjective: Patient seen and examined Denies cough, denies fever chills, denies chest pain Awake and responsive Afebrile Being treated for pulmonary tuberculosis Objective - Vital Signs/Intake and Output Vital Signs (last 24 hours): Temp Pulse Resp BP Pulse Ox 97.8 F 66 20 124/57 L 96 04/19/19 16:00 04/19/19 16:00 04/19/19 16:00 04/19/19 16:00 04/19/19 16:00 Intake and Output: 04/19/19 04/19/19 06:59 18:59 Intake Total 2220 Output Total 1050 Balance 1170 - Medications Medications: Current Medications Acetaminophen (Tylenol 325mg Tab) 650 mg PO Q4H PRN PRN Reason: Fever >100.4 F Last Admin: 04/17/19 00:10 Dose: 650 mg Clopidogrel Bisulfate (Plavix) 75 mg PO DAILY [facility] Last Admin: 04/19/19 10:50 Dose: 75 mg Docusate Sodium (Colace) 100 mg PO DAILY [facility] Last Admin: 04/19/19 10:50 Dose: 100 mg Enoxaparin Sodium (Lovenox) 30 mg SC DAILY [facility] Last Admin: 04/19/19 10:50 Dose: 30 mg Ethambutol HCl (Myambutol) 800 mg PO DAILY [facility]; Protocol Last Admin: 04/19/19 10:51 Dose: 800 mg Gabapentin (Neurontin) 100 mg PO BID [facility] Last Admin: 04/19/19 17:11 Dose: 100 mg Cefepime HCl (Maxipime Iv 1 Gm Premix) 1 gm in 50 mls @ 100 mls/hr IVPB Q24H [facility]; Protocol Last Admin: 04/18/19 20:31 Dose: 100 mls/hr Sodium Chloride (Sodium Chloride 0.9%) 1,000 mls @ 80 mls/hr IV .[id number] [facility] Last Admin: 04/19/19 17:16 Dose: 80 mls/hr Insulin Human Regular (Novolin R) 0 unit SC ACHS [facility]; Protocol Last Admin: 04/19/19 17:11 Dose: 3 units Isoniazid (Niazid) 300 mg PO DAILY [facility]; Protocol Last Admin: 04/19/19 10:51 Dose: 300 mg Megestrol Acetate (Megace) 400 mg PO DAILY [facility] Last Admin: 04/19/19 10:50 Dose: 400 mg Metoprolol Succinate (Toprol Xl) 50 mg PO DAILY [facility] Last Admin: 04/19/19 10:50 Dose: 50 mg Pyrazinamide (Pyrazinamide) 1,000 mg PO MoWeFr [facility]; Protocol Pyridoxine HCl (Vitamin B6 50 Mg Tab) 50 mg PO DAILY [facility] Last Admin: 04/19/19 10:51 Dose: 50 mg Rifampin (Rifampin Cap) 600 mg PO DAILY [facility]; Protocol Last Admin: 04/19/19 10:50 Dose: 600 mg Rosuvastatin Calcium (Crestor) 10 mg PO HS [facility] Last Admin: 04/18/19 21:44 Dose: 10 mg - Labs Labs: 04/18/19 11:04 04/19/19 08:17 PT 12.6 SECONDS (9.7-12.2) H 04/15/19 07:59 INR 1.2 04/15/19 07:59 APTT 32.6 SECONDS (21-34) 04/15/19 07:59 - Head Exam Head Exam: ATRAUMATIC, NORMOCEPHALIC - ENT Exam ENT Exam: Mucous Membranes Moist - Neck Exam Neck Exam: Normal Inspection - Respiratory Exam Respiratory Exam: Clear to Ausculation Bilateral - Cardiovascular Exam Cardiovascular Exam: REGULAR RHYTHM - GI/Abdominal Exam GI & Abdominal Exam: Soft, Normal Bowel Sounds - Extremities Exam Extremities Exam: Normal Inspection - Neurological Exam Neurological Exam: Alert, Oriented x3 Assessment and Plan (1) Tuberculosis Assessment & Plan: Continue anti-TB medication Discontinue respiratory isolation as patient had 3 sputum AFB negative Status: Acute (2) Cavitary lesion of lung Status: Acute
--- NOTE | 2019-04-19 21:05 | CON ---
DATE: 04/19/2019 CHIEF COMPLAINT AND REASON FOR CONSULTATION: The patient was referred by Dr. Wynn for evaluation of possible depression, poor appetite. HISTORY OF PRESENT ILLNESS: This is a case of a 63-year-old female of [place] descent, who is well known to me from previous consult and her previous admission. The patient was admitted. She was sent from [facility] for evaluation for her TB problem. The patient was currently on four anti-TB medications. She was diagnosed earlier to have a lung lesion and this was treated. The patient referred for evaluation as the patient has very poor appetite and also feeling weak and cannot walk. The patient reports that she does not like the food in the hospital. She has no appetite. The patient states that she requested her to bring some [place] food, but her does not want to do this. It seems like the patient is having some marital issues with her . She said her children also live out of the [facility] and did not come to her. The patient also in isolation, although the patient noted in the chart that she is no longer contagious. The patient is seen today. States she has no appetite. She feels very weak, but the patient is on quadruple anti-TB medication. On review of her labs, the patient came in with markedly elevated calcium level. It was 11.7, but now within normal limits. The last level is 9.1. 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 Currently, on no meds. ALLERGIES: THE PATIENT IS ALLERGIC TO TALWIN, LASIX, AND IODINE. DRUG AND ALCOHOL HISTORY: The patient used cocaine. She used to smoke. The patient just quit smoking over seven years ago. She smoked up to four cigarettes a day. 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 LIST OF CURRENT MEDICATIONS: Includes Colace, Crestor, Lovenox, cefepime, Megace 400 mg daily, ethambutol 800 mg daily, Neurontin, INH 300 mg daily, Plavix, PZA 1000 mg daily, rifampin 600 mg daily, metoprolol, Tylenol, vitamin B6. PHYSICAL EXAMINATION: VITAL SIGNS: Temperature is 98, pulse rate is 65, blood pressure is 137/70, respirations 20, oxygen saturation is 98% on room air. IMAGING: The patient had a CAT scan of the chest done that showed no significant interval change. REVIEW OF SYSTEMS: GENERAL: The patient seems weak, alert and oriented x3, conversing in Tag[place]. Seen in her room. The patient still reports she has no appetite and she feels very weak. The patient is in isolation. SKIN: No diaphoresis. HEENT: No headache. No dizziness. NECK: Supple. RESPIRATORY: No dyspnea. CARDIOVASCULAR: No chest pain. GASTROINTESTINAL: Poor appetite. No nausea or vomiting. EXTREMITIES: Gait is steady. MUSCULOSKELETAL: Feels weak. NEUROLOGIC: Alert and oriented x3. GENITOURINARY: No urinary problems. MENTAL STATUS EXAMINATION: Elderly female of [place] descent. Oriented x3. Mood is depressed, dysphoric, somatic. Affect is reactive. Speech is spontaneous. Thought process, coherent. Thought content, the patient states she does not like the food in the hospital. She wants [place] food, but states her does not want to bring any [place] food from home. No psychosis. No suicidal or homicidal ideation. Attention and memory seemed to be fair. Insight and judgment fair. Impulse control is fair. IMPRESSION: Mood disorder secondary to medical problems; depressive disorder, not otherwise specified. PLAN AND RECOMMENDATIONS: The patient is seen, meds reviewed. Continue present management. We will hold off antidepressants for now as the patient is still on four anti-TB meds. Supportive therapy provided. The patient will try to contact the family and see the family can bring her some [place] food. Also, as the patient has episodes of hypercalcemia, to consider also possible occult pulmonary malignancy as the patient has history of smoking in the past. She just quit seven years ago. Continue treatment plan as outlined. Erik Hernández MD
[2019-04-19] MEDS: Cefepime IV 1 gm in Dextrose 1 GM/50 ML BAG IVPB SCH (21:12)
--- NOTE | 2019-04-19 22:17 | CP.PCM.PN ---
Subjective - Date & Time of Evaluation Date of Evaluation: 04/19/19 Time of Evaluation: 07:20 - Subjective Subjective: dict Objective - Vital Signs/Intake and Output Vital Signs (last 24 hours): Temp Pulse Resp BP Pulse Ox 97.8 F 66 20 124/57 L 96 04/19/19 16:00 04/19/19 16:00 04/19/19 16:00 04/19/19 16:00 04/19/19 16:00 - Medications Medications: Current Medications Acetaminophen (Tylenol 325mg Tab) 650 mg PO Q4H PRN PRN Reason: Fever >100.4 F Last Admin: 04/17/19 00:10 Dose: 650 mg Clopidogrel Bisulfate (Plavix) 75 mg PO DAILY [facility] Last Admin: 04/19/19 10:50 Dose: 75 mg Docusate Sodium (Colace) 100 mg PO DAILY [facility] Last Admin: 04/19/19 10:50 Dose: 100 mg Enoxaparin Sodium (Lovenox) 30 mg SC DAILY [facility] Last Admin: 04/19/19 10:50 Dose: 30 mg Ethambutol HCl (Myambutol) 800 mg PO DAILY [facility]; Protocol Last Admin: 04/19/19 10:51 Dose: 800 mg Gabapentin (Neurontin) 100 mg PO BID [facility] Last Admin: 04/19/19 17:11 Dose: 100 mg Cefepime HCl (Maxipime Iv 1 Gm Premix) 1 gm in 50 mls @ 100 mls/hr IVPB Q24H [facility]; Protocol Last Admin: 04/19/19 21:12 Dose: 100 mls/hr Sodium Chloride (Sodium Chloride 0.9%) 1,000 mls @ 80 mls/hr IV .[id number] [facility] Last Admin: 04/19/19 17:16 Dose: 80 mls/hr Insulin Human Regular (Novolin R) 0 unit SC ACHS [facility]; Protocol Last Admin: 04/19/19 17:11 Dose: 3 units Isoniazid (Niazid) 300 mg PO DAILY [facility]; Protocol Last Admin: 04/19/19 10:51 Dose: 300 mg Megestrol Acetate (Megace) 400 mg PO DAILY [facility] Last Admin: 04/19/19 10:50 Dose: 400 mg Metoprolol Succinate (Toprol Xl) 50 mg PO DAILY [facility] Last Admin: 04/19/19 10:50 Dose: 50 mg Pyrazinamide (Pyrazinamide) 1,000 mg PO [facility]; Protocol Pyridoxine HCl (Vitamin B6 50 Mg Tab) 50 mg PO DAILY [facility] Last Admin: 04/19/19 10:51 Dose: 50 mg Rifampin (Rifampin Cap) 600 mg PO DAILY [facility]; Protocol Last Admin: 04/19/19 10:50 Dose: 600 mg Rosuvastatin Calcium (Crestor) 10 mg PO HS [facility] Last Admin: 04/19/19 21:12 Dose: 10 mg - Labs Labs: 04/18/19 11:04 04/19/19 08:17 PT 12.6 SECONDS (9.7-12.2) H 04/15/19 07:59 INR 1.2 04/15/19 07:59 APTT 32.6 SECONDS (21-34) 04/15/19 07:59
--- NOTE | 2019-04-19 23:21 | CP.PCM.PN ---
Subjective - Date & Time of Evaluation Date of Evaluation: 04/19/19 Time of Evaluation: 13:05 - Subjective Subjective: Patient seen and evaluated No cardiac events noted Review Of Systems Except As Marked, All Systems Reviewed And Found Negative. Constitutional: Negative for: Fever, Chills, Sweats Cardiovascular: Negative for: Chest Pain Respiratory: Negative for: Cough, Shortness of Breath, Hemoptysis Gastrointestinal: Negative for: Nausea, Vomiting, Abdominal Pain, Diarrhea Musculoskeletal: Positive for: Neck Pain Physical Exam - Physical Exam Appears: Well, Non-toxic, No Acute Distress, Other (Patient on TB precautions) Skin: Normal Color, Dry Head: Atraumatic Eye(s): bilateral: Normal Inspection Nose: Normal Oral Mucosa: Moist Neck: Normal, Supple Chest: Symmetrical Cardiovascular: Rhythm Regular Respiratory: Normal Breath Sounds Gastrointestinal/Abdominal: Normal Exam, Bowel Sounds, Soft, No Tenderness Back: Normal Inspection, No CVA Tenderness, No Decreased ROM Extremity: Normal ROM, No Tenderness, No Swelling Extremity: Bilateral: Atraumatic Neurological/Psych: Oriented x3, Normal Speech, Normal Cognition, Normal Motor, Normal Sensation Additional Physical Exam Comments: Appears: Non-toxic, No Acute Distress Skin: Warm, Dry Head: Atraumatic, Normacephalic Eye(s): bilateral: Normal Inspection Oral Mucosa: Moist Neck: Normal ROM, Supple Chest: Symmetrical, No Deformity Cardiovascular: Rhythm Regular, No Murmur Respiratory: Normal Breath Sounds, No Rales, No Rhonchi, No Wheezing Gastrointestinal/Abdominal: Soft, No Tenderness, No Distention, No Guarding, No Rebound Neurological/Psych: Oriented x3, Normal Speech, Normal Cognition, Other (speaking in full sentences) Assessment & Plan - Assessment and Plan (Free Text) Assessment: Pneumonia CAD T2dm Plan: Cont Pulm treatment Objective - Vital Signs/Intake and Output Vital Signs (last 24 hours): Temp Pulse Resp BP Pulse Ox 97.8 F 66 20 124/57 L 96 04/19/19 16:00 04/19/19 16:00 04/19/19 16:00 04/19/19 16:00 04/19/19 16:00 Intake and Output: 04/19/19 04/20/19 18:59 06:59 Intake Total 790 Output Total 400 Balance 390 - Medications Medications: Current Medications Acetaminophen (Tylenol 325mg Tab) 650 mg PO Q4H PRN PRN Reason: Fever >100.4 F Last Admin: 04/17/19 00:10 Dose: 650 mg Clopidogrel Bisulfate (Plavix) 75 mg PO DAILY [facility] Last Admin: 04/19/19 10:50 Dose: 75 mg Docusate Sodium (Colace) 100 mg PO DAILY [facility] Last Admin: 04/19/19 10:50 Dose: 100 mg Enoxaparin Sodium (Lovenox) 30 mg SC DAILY [facility] Last Admin: 04/19/19 10:50 Dose: 30 mg Ethambutol HCl (Myambutol) 800 mg PO DAILY [facility]; Protocol Last Admin: 04/19/19 10:51 Dose: 800 mg Gabapentin (Neurontin) 100 mg PO BID [facility] Last Admin: 04/19/19 17:11 Dose: 100 mg Cefepime HCl (Maxipime Iv 1 Gm Premix) 1 gm in 50 mls @ 100 mls/hr IVPB Q24H [facility]; Protocol Last Admin: 04/19/19 21:12 Dose: 100 mls/hr Sodium Chloride (Sodium Chloride 0.9%) 1,000 mls @ 80 mls/hr IV .[id number] [facility] Last Admin: 04/19/19 17:16 Dose: 80 mls/hr Insulin Human Regular (Novolin R) 0 unit SC ACHS [facility]; Protocol Last Admin: 04/19/19 22:17 Dose: Not Given Isoniazid (Niazid) 300 mg PO DAILY [facility]; Protocol Last Admin: 04/19/19 10:51 Dose: 300 mg Megestrol Acetate (Megace) 400 mg PO DAILY [facility] Last Admin: 04/19/19 10:50 Dose: 400 mg Metoprolol Succinate (Toprol Xl) 50 mg PO DAILY [facility] Last Admin: 04/19/19 10:50 Dose: 50 mg Pyrazinamide (Pyrazinamide) 1,000 mg PO MoWeFr [facility]; Protocol Pyridoxine HCl (Vitamin B6 50 Mg Tab) 50 mg PO DAILY [facility] Last Admin: 04/19/19 10:51 Dose: 50 mg Rifampin (Rifampin Cap) 600 mg PO DAILY [facility]; Protocol Last Admin: 04/19/19 10:50 Dose: 600 mg Rosuvastatin Calcium (Crestor) 10 mg PO HS [facility] Last Admin: 04/19/19 21:12 Dose: 10 mg - Labs Labs: 04/18/19 11:04 04/19/19 08:17 PT 12.6 SECONDS (9.7-12.2) H 04/15/19 07:59 INR 1.2 04/15/19 07:59 APTT 32.6 SECONDS (21-34) 04/15/19 07:59
--- NOTE | 2019-04-20 05:26 | PN ---
DATE: 04/19/2019 SUBJECTIVE: The patient is weak, poor appetite. She is depressed. The patient is on IV fluids. Sodium has been corrected. Case discussed with Pulmonary. PHYSICAL EXAMINATION: VITAL SIGNS: Blood pressure 124/55, pulse 66, respiratory rate 20, temperature 97.8. LUNGS: Clear. Decreased air entry, rales. CARDIOVASCULAR SYSTEM: S1, S2. Regular. ABDOMEN: Soft. ASSESSMENT: 1. Pulmonary tuberculosis, rule out pleural effusion, rule out lung abscess. 2. Chronic kidney disease. 3. Anorexia, depression, inability to thrive. 4. Hypertension. PLAN: Continue Megace, continue antibiotic, continue respiratory isolation. Monitor the patient. Carlin Wynn MD
[2019-04-20 07:13] LABS: CALCIUM 8.8 mg/dl (8.6-10.4)
[2019-04-20 07:14] LABS: BASO # 0.1 K/uL (0.0-0.2); BASO % 1.2 % (0.0-2.0); EOS # 0.6 K/uL (0.0-0.7); EOS % 7.4 % (0.0-4.0); HEMOGLOBIN 9.9 g/dL (11.0-16.0); LYMPH # 1.3 K/uL (1.0-4.3); LYMPH % 15.8 % (20.0-40.0); MEAN CELL VOLUME 84.1 fL (81.0-99.0); MEAN CORPUSCULAR HEMOGLOBIN 29.2 pg (27.0-31.0); MEAN CORPUSCULAR HGB CONC 34.7 g/dL (33.0-37.0); MEAN PLATELET VOLUME 7.4 fL (7.2-11.7); MONO # 0.7 K/uL (0.0-0.8); MONO % 8.4 % (0.0-10.0); NEUT # 5.5 K/uL (1.8-7.0); NEUT % 67.2 % (50.0-75.0); RBC 3.4 Mil/uL (3.80-5.20); RED CELL DISTRIBUTION WIDTH 13.1 % (11.5-14.5); WHITE BLOOD COUNT 8.2 K/uL (4.8-10.8)
[2019-04-20] MEDS: (Novolin R) Insulin Human Regular 100 units/ml vial SC SCH ×4 (08:21→21:10)
[2019-04-20] MEDS: Metoprolol Succinate 50 mg XL Tab PO SCH (10:46)
[2019-04-20] MEDS: Megestrol Acetate 40 mg/ml Cup PO SCH (10:47)
[2019-04-20] MEDS: Enoxaparin 30 mg Syringe SC SCH (10:48)
[2019-04-20] MEDS: Sodium Chloride 0.9% 1,000 ML IV SCH (17:00)
--- NOTE | 2019-04-20 17:10 | PN ---
DATE: 04/20/2019 SUBJECTIVE: The patient is seen. The patient is off isolation, but still looks depressed. The patient seems to have lots of family issues. She claims that her family is not visiting here. The patient is feeling very weak, unable to stand, but willing to go for subacute rehab. She is also noted to have increasing periods of confusion and seems to be confabulating. First, she told the nurse that her is in [facility], and now she was telling me that her is going to one of the [facility] in the [facility], but she has been compliant with meds. The patient's calcium level is within normal limits. Case discussed with Dr. Monteiro, reports that hypercalcemia can occur in the patient with pulmonary tuberculosis. She is currently under treatment. PHYSICAL EXAMINATION: VITAL SIGNS: Temperature is 98.3, pulse 70, blood pressure 155/70, respirations 18, oxygen saturation is 98%. GENERAL: The patient is alert, verbal, seems to be forgetful, lying in bed, feeling weak, conversing in [place]. SKIN: No diaphoresis. HEENT: No headache. No dizziness. NECK: Supple. RESPIRATORY: No dyspnea. CARDIOVASCULAR: No chest pain. GASTROINTESTINAL: Reports poor appetite. The patient wants [place] food, but there is nobody to bring her. She was also hoping that she will get some visitors, as the patient has been in isolation for many days secondary to TB. MENTAL STATUS EXAMINATION: Thought content, no psychosis. No suicidal or homicidal ideation. Attention and memory seemed to be limited at times. Insight and judgment fair. Impulse control is fair. 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 PLAN AND RECOMMENDATIONS: The patient's meds reviewed. We will hold off any psych meds for now. Order have been given. The patient is for subacute rehab. We will try to contact the family and get the family to visit patient regularly in the hospital and also to bring some [place] food. The patient wants to eat [place] food in the hospital. Erik Hernández MD
--- NOTE | 2019-04-20 17:15 | CP.PCM.PN ---
Subjective - Date & Time of Evaluation Date of Evaluation: 04/20/19 Time of Evaluation: 08:00 - Subjective Subjective: improving slowly afeb meds renewed Objective - Vital Signs/Intake and Output Vital Signs (last 24 hours): Temp Pulse Resp BP Pulse Ox 98.4 F 68 20 137/70 98 04/20/19 16:33 04/20/19 16:33 04/20/19 16:33 04/20/19 16:33 04/20/19 16:33 Intake and Output: 04/20/19 04/20/19 06:59 18:59 Intake Total 1430 Output Total 1050 500 Balance 380 -500 - Medications Medications: Current Medications Acetaminophen (Tylenol 325mg Tab) 650 mg PO Q4H PRN PRN Reason: Fever >100.4 F Last Admin: 04/17/19 00:10 Dose: 650 mg Clopidogrel Bisulfate (Plavix) 75 mg PO DAILY [facility] Last Admin: 04/20/19 10:47 Dose: 75 mg Docusate Sodium (Colace) 100 mg PO DAILY [facility] Last Admin: 04/20/19 10:47 Dose: 100 mg Enoxaparin Sodium (Lovenox) 30 mg SC DAILY [facility] Last Admin: 04/20/19 10:48 Dose: 30 mg Gabapentin (Neurontin) 100 mg PO BID [facility] Last Admin: 04/20/19 10:47 Dose: 100 mg Cefepime HCl (Maxipime Iv 1 Gm Premix) 1 gm in 50 mls @ 100 mls/hr IVPB Q24H [facility]; Protocol Last Admin: 04/19/19 21:12 Dose: 100 mls/hr Sodium Chloride (Sodium Chloride 0.9%) 1,000 mls @ 80 mls/hr IV .[id number] [facility] Last Admin: 04/19/19 17:16 Dose: 80 mls/hr Insulin Human Regular (Novolin R) 0 unit SC ACHS [facility]; Protocol Last Admin: 04/20/19 12:42 Dose: 4 units Megestrol Acetate (Megace) 400 mg PO DAILY [facility] Last Admin: 04/20/19 10:47 Dose: 400 mg Metoprolol Succinate (Toprol Xl) 50 mg PO DAILY [facility] Last Admin: 04/20/19 10:46 Dose: 50 mg Pyrazinamide (Pyrazinamide) 1,000 mg PO MoWeFr [facility]; Protocol Last Admin: 04/20/19 10:48 Dose: 1,000 mg Pyridoxine HCl (Vitamin B6 50 Mg Tab) 50 mg PO DAILY [facility] Last Admin: 04/20/19 10:47 Dose: 50 mg Rosuvastatin Calcium (Crestor) 10 mg PO HS [facility] Last Admin: 04/19/19 21:12 Dose: 10 mg - Labs Labs: 04/20/19 06:49 04/20/19 06:49 PT 12.6 SECONDS (9.7-12.2) H 04/15/19 07:59 INR 1.2 04/15/19 07:59 APTT 32.6 SECONDS (21-34) 04/15/19 07:59 - Constitutional Appears: Non-toxic, No Acute Distress, Cachectic, Chronically Ill - Head Exam Head Exam: ATRAUMATIC, NORMAL INSPECTION, NORMOCEPHALIC - Eye Exam Eye Exam: EOMI, Normal appearance, PERRL Pupil Exam: NORMAL ACCOMODATION, PERRL - ENT Exam ENT Exam: Mucous Membranes Moist, Normal Exam - Neck Exam Neck Exam: Full ROM, Normal Inspection. absent: Lymphadenopathy - Respiratory Exam Respiratory Exam: Clear to Ausculation Bilateral, NORMAL BREATHING PATTERN - Cardiovascular Exam Cardiovascular Exam: REGULAR RHYTHM, +S1, +S2. absent: Murmur - GI/Abdominal Exam GI & Abdominal Exam: Soft, Normal Bowel Sounds. absent: Tenderness - Rectal Exam Rectal Exam: Deferred - Extremities Exam Extremities Exam: Full ROM, Normal Capillary Refill, Normal Inspection. absent: Joint Swelling, Pedal Edema - Back Exam Back Exam: NORMAL INSPECTION - Neurological Exam Neurological Exam: Alert, Awake, CN II-XII Intact, Oriented x3. absent: Normal Gait - Psychiatric Exam Psychiatric exam: Normal Affect, Normal Mood - Skin Skin Exam: Dry, Intact, Normal Color, Warm Assessment and Plan (1) Tuberculosis Status: Acute (2) Lung abscess Status: Acute (3) Cavitary lesion of lung Status: Acute - Assessment and Plan (Free Text) Assessment: cont TB Meds' d/c to [facility]
--- NOTE | 2019-04-20 17:39 | CP.PCM.PN ---
Subjective - Date & Time of Evaluation Date of Evaluation: 04/20/19 Time of Evaluation: 17:20 - Subjective Subjective: Patient seen and examined denies any complaints Off respiratory isolation Continue anti-TB meds Monitor liver function tests Follow-up if necessary Objective - Vital Signs/Intake and Output Vital Signs (last 24 hours): Temp Pulse Resp BP Pulse Ox 98.4 F 68 20 137/70 98 04/20/19 16:33 04/20/19 16:33 04/20/19 16:33 04/20/19 16:33 04/20/19 16:33 Intake and Output: 04/20/19 04/20/19 06:59 18:59 Intake Total 1430 Output Total 1050 500 Balance 380 -500 - Medications Medications: Current Medications Acetaminophen (Tylenol 325mg Tab) 650 mg PO Q4H PRN PRN Reason: Fever >100.4 F Last Admin: 04/17/19 00:10 Dose: 650 mg Clopidogrel Bisulfate (Plavix) 75 mg PO DAILY [facility] Last Admin: 04/20/19 10:47 Dose: 75 mg Docusate Sodium (Colace) 100 mg PO DAILY [facility] Last Admin: 04/20/19 10:47 Dose: 100 mg Enoxaparin Sodium (Lovenox) 30 mg SC DAILY [facility] Last Admin: 04/20/19 10:48 Dose: 30 mg Gabapentin (Neurontin) 100 mg PO BID [facility] Last Admin: 04/20/19 17:33 Dose: 100 mg Cefepime HCl (Maxipime Iv 1 Gm Premix) 1 gm in 50 mls @ 100 mls/hr IVPB Q24H [facility]; Protocol Last Admin: 04/19/19 21:12 Dose: 100 mls/hr Sodium Chloride (Sodium Chloride 0.9%) 1,000 mls @ 80 mls/hr IV .[id number] [facility] Last Admin: 04/19/19 17:16 Dose: 80 mls/hr Insulin Human Regular (Novolin R) 0 unit SC ACHS [facility]; Protocol Last Admin: 04/20/19 17:33 Dose: 3 units Megestrol Acetate (Megace) 400 mg PO DAILY [facility] Last Admin: 04/20/19 10:47 Dose: 400 mg Metoprolol Succinate (Toprol Xl) 50 mg PO DAILY [facility] Last Admin: 04/20/19 10:46 Dose: 50 mg Pyrazinamide (Pyrazinamide) 1,000 mg PO MoWeFr [facility]; Protocol Last Admin: 04/20/19 10:48 Dose: 1,000 mg Pyridoxine HCl (Vitamin B6 50 Mg Tab) 50 mg PO DAILY [facility] Last Admin: 04/20/19 10:47 Dose: 50 mg Rosuvastatin Calcium (Crestor) 10 mg PO HS [facility] Last Admin: 04/19/19 21:12 Dose: 10 mg - Labs Labs: 04/20/19 06:49 04/20/19 06:49 PT 12.6 SECONDS (9.7-12.2) H 04/15/19 07:59 INR 1.2 04/15/19 07:59 APTT 32.6 SECONDS (21-34) 04/15/19 07:59 Assessment and Plan (1) Tuberculosis Status: Acute (2) Cavitary lesion of lung Status: Acute
--- NOTE | 2019-04-20 18:11 | CP.PCM.PCO ---
Physician Communication Note - Physician Communication Note Physician Communication Note: patient can be discharged on keflex 500mg po BIDx7 days as per DR MEDARNO
[2019-04-20] MEDS: Cefepime IV 1 gm in Dextrose 1 GM/50 ML BAG IVPB SCH (21:09)
--- NOTE | 2019-04-20 22:29 | CP.PCM.PN ---
Subjective - Date & Time of Evaluation Date of Evaluation: 04/20/19 Time of Evaluation: 07:40 - Subjective Subjective: dict Objective - Vital Signs/Intake and Output Vital Signs (last 24 hours): Temp Pulse Resp BP Pulse Ox 98.4 F 68 20 137/70 98 04/20/19 16:33 04/20/19 16:33 04/20/19 16:33 04/20/19 16:33 04/20/19 16:33 Intake and Output: 04/20/19 04/21/19 18:59 06:59 Output Total 500 Balance -500 - Medications Medications: Current Medications Acetaminophen (Tylenol 325mg Tab) 650 mg PO Q4H PRN PRN Reason: Fever >100.4 F Last Admin: 04/17/19 00:10 Dose: 650 mg Clopidogrel Bisulfate (Plavix) 75 mg PO DAILY [facility] Last Admin: 04/20/19 10:47 Dose: 75 mg Docusate Sodium (Colace) 100 mg PO DAILY [facility] Last Admin: 04/20/19 10:47 Dose: 100 mg Enoxaparin Sodium (Lovenox) 30 mg SC DAILY [facility] Last Admin: 04/20/19 10:48 Dose: 30 mg Gabapentin (Neurontin) 100 mg PO BID [facility] Last Admin: 04/20/19 17:33 Dose: 100 mg Cefepime HCl (Maxipime Iv 1 Gm Premix) 1 gm in 50 mls @ 100 mls/hr IVPB Q24H [facility]; Protocol Last Admin: 04/20/19 21:09 Dose: 100 mls/hr Sodium Chloride (Sodium Chloride 0.9%) 1,000 mls @ 80 mls/hr IV .[id number] [facility] Last Admin: 04/20/19 17:00 Dose: Not Given Insulin Human Regular (Novolin R) 0 unit SC ACHS [facility]; Protocol Last Admin: 04/20/19 21:10 Dose: Not Given Lactulose (Enulose) 20 gm PO HS [facility] Last Admin: 04/20/19 21:09 Dose: 20 gm Megestrol Acetate (Megace) 400 mg PO DAILY [facility] Last Admin: 04/20/19 10:47 Dose: 400 mg Metoprolol Succinate (Toprol Xl) 50 mg PO DAILY [facility] Last Admin: 04/20/19 10:46 Dose: 50 mg Pyrazinamide (Pyrazinamide) 1,000 mg PO MoWeFr [facility]; Protocol Last Admin: 04/20/19 10:48 Dose: 1,000 mg Pyridoxine HCl (Vitamin B6 50 Mg Tab) 50 mg PO DAILY [facility] Last Admin: 04/20/19 10:47 Dose: 50 mg Rosuvastatin Calcium (Crestor) 10 mg PO HS [facility] Last Admin: 04/20/19 21:09 Dose: 10 mg - Labs Labs: 04/20/19 06:49 04/20/19 06:49 PT 12.6 SECONDS (9.7-12.2) H 04/15/19 07:59 INR 1.2 04/15/19 07:59 APTT 32.6 SECONDS (21-34) 04/15/19 07:59
--- NOTE | 2019-04-20 22:45 | CP.PCM.PN ---
Subjective - Date & Time of Evaluation Date of Evaluation: 04/20/19 Time of Evaluation: 14:10 - Subjective Subjective: Patient seen and evaluated No cardiac events noted Review Of Systems Except As Marked, All Systems Reviewed And Found Negative. Constitutional: Negative for: Fever, Chills, Sweats Cardiovascular: Negative for: Chest Pain Respiratory: Negative for: Cough, Shortness of Breath, Hemoptysis Gastrointestinal: Negative for: Nausea, Vomiting, Abdominal Pain, Diarrhea Musculoskeletal: Positive for: Neck Pain Physical Exam - Physical Exam Appears: Well, Non-toxic, No Acute Distress, Other (Patient on TB precautions) Skin: Normal Color, Dry Head: Atraumatic Eye(s): bilateral: Normal Inspection Nose: Normal Oral Mucosa: Moist Neck: Normal, Supple Chest: Symmetrical Cardiovascular: Rhythm Regular Respiratory: Normal Breath Sounds Gastrointestinal/Abdominal: Normal Exam, Bowel Sounds, Soft, No Tenderness Back: Normal Inspection, No CVA Tenderness, No Decreased ROM Extremity: Normal ROM, No Tenderness, No Swelling Extremity: Bilateral: Atraumatic Neurological/Psych: Oriented x3, Normal Speech, Normal Cognition, Normal Motor, Normal Sensation Additional Physical Exam Comments: Appears: Non-toxic, No Acute Distress Skin: Warm, Dry Head: Atraumatic, Normacephalic Eye(s): bilateral: Normal Inspection Oral Mucosa: Moist Neck: Normal ROM, Supple Chest: Symmetrical, No Deformity Cardiovascular: Rhythm Regular, No Murmur Respiratory: Normal Breath Sounds, No Rales, No Rhonchi, No Wheezing Gastrointestinal/Abdominal: Soft, No Tenderness, No Distention, No Guarding, No Rebound Neurological/Psych: Oriented x3, Normal Speech, Normal Cognition, Other (speaking in full sentences) Assessment & Plan - Assessment and Plan (Free Text) Assessment: Pneumonia CAD T2dm Plan: Cont Pulm treatment Objective - Vital Signs/Intake and Output Vital Signs (last 24 hours): Temp Pulse Resp BP Pulse Ox 98.4 F 68 20 137/70 98 04/20/19 16:33 04/20/19 16:33 04/20/19 16:33 04/20/19 16:33 04/20/19 16:33 Intake and Output: 04/20/19 04/21/19 18:59 06:59 Output Total 500 Balance -500 - Medications Medications: Current Medications Acetaminophen (Tylenol 325mg Tab) 650 mg PO Q4H PRN PRN Reason: Fever >100.4 F Last Admin: 04/17/19 00:10 Dose: 650 mg Clopidogrel Bisulfate (Plavix) 75 mg PO DAILY [facility] Last Admin: 04/20/19 10:47 Dose: 75 mg Docusate Sodium (Colace) 100 mg PO DAILY [facility] Last Admin: 04/20/19 10:47 Dose: 100 mg Enoxaparin Sodium (Lovenox) 30 mg SC DAILY [facility] Last Admin: 04/20/19 10:48 Dose: 30 mg Gabapentin (Neurontin) 100 mg PO BID [facility] Last Admin: 04/20/19 17:33 Dose: 100 mg Cefepime HCl (Maxipime Iv 1 Gm Premix) 1 gm in 50 mls @ 100 mls/hr IVPB Q24H [facility]; Protocol Last Admin: 04/20/19 21:09 Dose: 100 mls/hr Sodium Chloride (Sodium Chloride 0.9%) 1,000 mls @ 80 mls/hr IV .[id number] [facility] Last Admin: 04/20/19 17:00 Dose: Not Given Insulin Human Regular (Novolin R) 0 unit SC ACHS [facility]; Protocol Last Admin: 04/20/19 21:10 Dose: Not Given Lactulose (Enulose) 20 gm PO HS [facility] Last Admin: 04/20/19 21:09 Dose: 20 gm Megestrol Acetate (Megace) 400 mg PO DAILY [facility] Last Admin: 04/20/19 10:47 Dose: 400 mg Metoprolol Succinate (Toprol Xl) 50 mg PO DAILY [facility] Last Admin: 04/20/19 10:46 Dose: 50 mg Pyrazinamide (Pyrazinamide) 1,000 mg PO MoWeFr [facility]; Protocol Last Admin: 04/20/19 10:48 Dose: 1,000 mg Pyridoxine HCl (Vitamin B6 50 Mg Tab) 50 mg PO DAILY [facility] Last Admin: 04/20/19 10:47 Dose: 50 mg Rosuvastatin Calcium (Crestor) 10 mg PO HS [facility] Last Admin: 04/20/19 21:09 Dose: 10 mg - Labs Labs: 04/20/19 06:49 04/20/19 06:49 PT 12.6 SECONDS (9.7-12.2) H 04/15/19 07:59 INR 1.2 04/15/19 07:59 APTT 32.6 SECONDS (21-34) 04/15/19 07:59
--- NOTE | 2019-04-20 23:06 | CP.PCM.PN ---
Subjective - Date & Time of Evaluation Date of Evaluation: 04/20/19 Time of Evaluation: 10:35 - Subjective Subjective: Patient seen and evaluated No cardiac events noted Review Of Systems Except As Marked, All Systems Reviewed And Found Negative. Constitutional: Negative for: Fever, Chills, Sweats Cardiovascular: Negative for: Chest Pain Respiratory: Negative for: Cough, Shortness of Breath, Hemoptysis Gastrointestinal: Negative for: Nausea, Vomiting, Abdominal Pain, Diarrhea Musculoskeletal: Positive for: Neck Pain Physical Exam - Physical Exam Appears: Well, Non-toxic, No Acute Distress, Other (Patient on TB precautions) Skin: Normal Color, Dry Head: Atraumatic Eye(s): bilateral: Normal Inspection Nose: Normal Oral Mucosa: Moist Neck: Normal, Supple Chest: Symmetrical Cardiovascular: Rhythm Regular Respiratory: Normal Breath Sounds Gastrointestinal/Abdominal: Normal Exam, Bowel Sounds, Soft, No Tenderness Back: Normal Inspection, No CVA Tenderness, No Decreased ROM Extremity: Normal ROM, No Tenderness, No Swelling Extremity: Bilateral: Atraumatic Neurological/Psych: Oriented x3, Normal Speech, Normal Cognition, Normal Motor, Normal Sensation Additional Physical Exam Comments: Appears: Non-toxic, No Acute Distress Skin: Warm, Dry Head: Atraumatic, Normacephalic Eye(s): bilateral: Normal Inspection Oral Mucosa: Moist Neck: Normal ROM, Supple Chest: Symmetrical, No Deformity Cardiovascular: Rhythm Regular, No Murmur Respiratory: Normal Breath Sounds, No Rales, No Rhonchi, No Wheezing Gastrointestinal/Abdominal: Soft, No Tenderness, No Distention, No Guarding, No Rebound Neurological/Psych: Oriented x3, Normal Speech, Normal Cognition, Other (speaking in full sentences) Assessment & Plan - Assessment and Plan (Free Text) Assessment: Pneumonia CAD T2dm Plan: Cont Pulm treatment Objective - Vital Signs/Intake and Output Vital Signs (last 24 hours): Temp Pulse Resp BP Pulse Ox 98.4 F 68 20 137/70 98 04/20/19 16:33 04/20/19 16:33 04/20/19 16:33 04/20/19 16:33 04/20/19 16:33 Intake and Output: 04/20/19 04/21/19 18:59 06:59 Output Total 500 Balance -500 - Medications Medications: Current Medications Acetaminophen (Tylenol 325mg Tab) 650 mg PO Q4H PRN PRN Reason: Fever >100.4 F Last Admin: 04/17/19 00:10 Dose: 650 mg Clopidogrel Bisulfate (Plavix) 75 mg PO DAILY [facility] Last Admin: 04/20/19 10:47 Dose: 75 mg Docusate Sodium (Colace) 100 mg PO DAILY [facility] Last Admin: 04/20/19 10:47 Dose: 100 mg Enoxaparin Sodium (Lovenox) 30 mg SC DAILY [facility] Last Admin: 04/20/19 10:48 Dose: 30 mg Gabapentin (Neurontin) 100 mg PO BID [facility] Last Admin: 04/20/19 17:33 Dose: 100 mg Cefepime HCl (Maxipime Iv 1 Gm Premix) 1 gm in 50 mls @ 100 mls/hr IVPB Q24H [facility]; Protocol Last Admin: 04/20/19 21:09 Dose: 100 mls/hr Sodium Chloride (Sodium Chloride 0.9%) 1,000 mls @ 80 mls/hr IV .[id number] [facility] Last Admin: 04/20/19 17:00 Dose: Not Given Insulin Human Regular (Novolin R) 0 unit SC ACHS [facility]; Protocol Last Admin: 04/20/19 21:10 Dose: Not Given Lactulose (Enulose) 20 gm PO HS [facility] Last Admin: 04/20/19 21:09 Dose: 20 gm Megestrol Acetate (Megace) 400 mg PO DAILY [facility] Last Admin: 04/20/19 10:47 Dose: 400 mg Metoprolol Succinate (Toprol Xl) 50 mg PO DAILY [facility] Last Admin: 04/20/19 10:46 Dose: 50 mg Pyrazinamide (Pyrazinamide) 1,000 mg PO MoWeFr [facility]; Protocol Last Admin: 04/20/19 10:48 Dose: 1,000 mg Pyridoxine HCl (Vitamin B6 50 Mg Tab) 50 mg PO DAILY [facility] Last Admin: 04/20/19 10:47 Dose: 50 mg Rosuvastatin Calcium (Crestor) 10 mg PO HS [facility] Last Admin: 04/20/19 21:09 Dose: 10 mg - Labs Labs: 04/20/19 06:49 04/20/19 06:49 PT 12.6 SECONDS (9.7-12.2) H 04/15/19 07:59 INR 1.2 04/15/19 07:59 APTT 32.6 SECONDS (21-34) 04/15/19 07:59
--- NOTE | 2019-04-21 03:24 | PN ---
DATE: 04/20/2019 SUBJECTIVE: The patient is complaining of constipation. She feels weak. She is calm. She is not in distress, no shortness of breath. No fever. She is off respiratory isolation. PHYSICAL EXAMINATION: VITAL SIGNS: Blood pressure 137/70, pulse 58, respiratory rate 20, temperature 98.4. LUNGS: Clear. No rales, no rhonchi. CARDIOVASCULAR SYSTEM: S1, S2. Regular. ABDOMEN: Soft, nontender. Bowel sound are positive. ASSESSMENT: 1. Dehydration, hypernatremia. 2. Pulmonary tuberculosis. 3. Anemia of chronic disease. 4. Chronic kidney disease. PLAN: Lactulose for constipation. Monitor the patient. Possible discharge. Carlin Wynn MD
[2019-04-21] MEDS: Sodium Chloride 0.9% 1,000 ML IV SCH (03:33)
[2019-04-21 09:49] VITALS: RESP 20
[2019-04-21] MEDS: Megestrol Acetate 40 mg/ml Cup PO SCH (09:51)
[2019-04-21] MEDS: Enoxaparin 30 mg Syringe SC SCH (09:52)
[2019-04-21] MEDS: Metoprolol Succinate 50 mg XL Tab PO SCH (09:52)
[2019-04-21] MEDS: (Novolin R) Insulin Human Regular 100 units/ml vial SC SCH ×4 (09:54→21:51)
--- NOTE | 2019-04-21 14:15 | PN ---
DATE: 04/21/2019 SUBJECTIVE: The patient is seen. The patient for possible discharge back to the subacute rehab at [facility]. The patient still feels depressed of her lack of visitors. She states her family is unable to visit her. Other than that, the patient seems motivated to go for subacute rehab. She has been compliant with meds. Noted to have off and on periods of confusion, but no major behavioral problems. PHYSICAL EXAMINATION: VITAL SIGNS: Temperature 98.9, pulse 70, blood pressure 138/76, respirations 18, and oxygen saturation is 98%. GENERAL: The patient is alert, verbal, forgetful, seen in her room. She states she has no appetite. The patient conversing in [employer]. The patient states she wanted [place] food. SKIN: No diaphoresis. HEENT: No headache. No dizziness. NECK: Supple. RESPIRATORY: No dyspnea. CARDIOVASCULAR: No chest pain. GASTROINTESTINAL: Appetite is very poor. EXTREMITIES: Gait is unsteady. MUSCULOSKELETAL: Feels weak. NEUROLOGIC: Alert with periods of forgetfulness. GENITOURINARY: No complaining of any urinary problems. MENTAL STATUS EXAMINATION: Elderly female of [place] descent. Oriented x3 but she is forgetful. Speech is spontaneous. Affect is reactive. Mood is dysphoric. Thought process, forgetful. Thought content, the patient wants to be discharged. She is also hoping her family would visit her. No psychosis. No suicidal or homicidal ideation. Attention and memory seemed to be limited at times. Insight and judgment fair. Impulse control is fair. IMPRESSION: Mood disorder secondary to medical problems, pulmonary tuberculosis and adjustment disorder. PLAN AND RECOMMENDATIONS: The patient is seen. Meds reviewed. Continue present management. The patient psychwise is stable to go back for the subacute rehab at [facility]. Erik Hernández MD
[2019-04-21 16:45] VITALS: BP 149/69; PULSE 74; TEMP 99.1; O2SAT 97
--- NOTE | 2019-04-21 17:13 | CP.PCM.PN ---
Subjective - Date & Time of Evaluation Date of Evaluation: 04/21/19 Time of Evaluation: 10:00 - Subjective Subjective: Patient seen and examined Lying comfortably in no distress Continue anti-TB medication Stable from pulmonary standpoint Repeat chest x-ray in 2 weeks Objective - Vital Signs/Intake and Output Vital Signs (last 24 hours): Temp Pulse Resp BP Pulse Ox 99.1 F 74 20 149/69 97 04/21/19 15:00 04/21/19 15:00 04/21/19 15:00 04/21/19 15:00 04/21/19 15:00 Intake and Output: 04/21/19 04/21/19 06:59 18:59 Intake Total 80 Output Total 300 Balance -220 - Medications Medications: Current Medications Acetaminophen (Tylenol 325mg Tab) 650 mg PO Q4H PRN PRN Reason: Fever >100.4 F Last Admin: 04/17/19 00:10 Dose: 650 mg Clopidogrel Bisulfate (Plavix) 75 mg PO DAILY [facility] Last Admin: 04/21/19 09:52 Dose: 75 mg Docusate Sodium (Colace) 100 mg PO DAILY [facility] Last Admin: 04/21/19 09:52 Dose: 100 mg Enoxaparin Sodium (Lovenox) 30 mg SC DAILY [facility] Last Admin: 04/21/19 09:52 Dose: 30 mg Ethambutol HCl (Myambutol) 800 mg PO DAILY [facility]; Protocol Last Admin: 04/21/19 12:54 Dose: 800 mg Gabapentin (Neurontin) 100 mg PO BID [facility] Last Admin: 04/21/19 09:51 Dose: 100 mg Cefepime HCl (Maxipime Iv 1 Gm Premix) 1 gm in 50 mls @ 100 mls/hr IVPB Q24H [facility]; Protocol Last Admin: 04/20/19 21:09 Dose: 100 mls/hr Insulin Human Regular (Novolin R) 0 unit SC ACHS [facility]; Protocol Last Admin: 04/21/19 12:49 Dose: 3 units Isoniazid (Niazid) 300 mg PO DAILY [facility]; Protocol Last Admin: 04/21/19 12:48 Dose: 300 mg Lactulose (Enulose) 20 gm PO HS [facility] Last Admin: 04/20/19 21:09 Dose: 20 gm Megestrol Acetate (Megace) 400 mg PO DAILY [facility] Last Admin: 04/21/19 09:51 Dose: 400 mg Metoprolol Succinate (Toprol Xl) 50 mg PO DAILY [facility] Last Admin: 04/21/19 09:52 Dose: 50 mg Pyrazinamide (Pyrazinamide) 1,000 mg PO MoWeFr [facility]; Protocol Last Admin: 04/20/19 10:48 Dose: 1,000 mg Pyridoxine HCl (Vitamin B6 50 Mg Tab) 50 mg PO DAILY [facility] Last Admin: 04/21/19 09:52 Dose: 50 mg Rifampin (Rifampin Cap) 600 mg PO DAILY [facility]; Protocol Last Admin: 04/21/19 12:53 Dose: 600 mg Rosuvastatin Calcium (Crestor) 10 mg PO HS [facility] Last Admin: 04/20/19 21:09 Dose: 10 mg - Labs Labs: 04/20/19 06:49 04/20/19 06:49 PT 12.6 SECONDS (9.7-12.2) H 04/15/19 07:59 INR 1.2 04/15/19 07:59 APTT 32.6 SECONDS (21-34) 04/15/19 07:59 Assessment and Plan (1) Cavitary lesion of lung Status: Acute
--- NOTE | 2019-04-21 18:04 | CP.PCM.PN ---
Subjective - Date & Time of Evaluation Date of Evaluation: 04/21/19 Time of Evaluation: 09:00 - Subjective Subjective: no major complaints awake alert confused Objective - Vital Signs/Intake and Output Vital Signs (last 24 hours): Temp Pulse Resp BP Pulse Ox 99.1 F 74 20 149/69 97 04/21/19 15:00 04/21/19 15:00 04/21/19 15:00 04/21/19 15:00 04/21/19 15:00 Intake and Output: 04/21/19 04/21/19 06:59 18:59 Intake Total 80 Output Total 300 Balance -220 - Medications Medications: Current Medications Acetaminophen (Tylenol 325mg Tab) 650 mg PO Q4H PRN PRN Reason: Fever >100.4 F Last Admin: 04/17/19 00:10 Dose: 650 mg Clopidogrel Bisulfate (Plavix) 75 mg PO DAILY [facility] Last Admin: 04/21/19 09:52 Dose: 75 mg Docusate Sodium (Colace) 100 mg PO DAILY [facility] Last Admin: 04/21/19 09:52 Dose: 100 mg Enoxaparin Sodium (Lovenox) 30 mg SC DAILY [facility] Last Admin: 04/21/19 09:52 Dose: 30 mg Ethambutol HCl (Myambutol) 800 mg PO DAILY [facility]; Protocol Last Admin: 04/21/19 12:54 Dose: 800 mg Gabapentin (Neurontin) 100 mg PO BID [facility] Last Admin: 04/21/19 17:50 Dose: 100 mg Cefepime HCl (Maxipime Iv 1 Gm Premix) 1 gm in 50 mls @ 100 mls/hr IVPB Q24H [facility]; Protocol Last Admin: 04/20/19 21:09 Dose: 100 mls/hr Insulin Human Regular (Novolin R) 0 unit SC ACHS [facility]; Protocol Last Admin: 04/21/19 17:50 Dose: 5 units Isoniazid (Niazid) 300 mg PO DAILY [facility]; Protocol Last Admin: 04/21/19 12:48 Dose: 300 mg Lactulose (Enulose) 20 gm PO HS [facility] Last Admin: 04/20/19 21:09 Dose: 20 gm Megestrol Acetate (Megace) 400 mg PO DAILY [facility] Last Admin: 04/21/19 09:51 Dose: 400 mg Metoprolol Succinate (Toprol Xl) 50 mg PO DAILY [facility] Last Admin: 04/21/19 09:52 Dose: 50 mg Pyrazinamide (Pyrazinamide) 1,000 mg PO MoWeFr [facility]; Protocol Last Admin: 04/20/19 10:48 Dose: 1,000 mg Pyridoxine HCl (Vitamin B6 50 Mg Tab) 50 mg PO DAILY [facility] Last Admin: 04/21/19 09:52 Dose: 50 mg Rifampin (Rifampin Cap) 600 mg PO DAILY [facility]; Protocol Last Admin: 04/21/19 12:53 Dose: 600 mg Rosuvastatin Calcium (Crestor) 10 mg PO HS [facility] Last Admin: 04/20/19 21:09 Dose: 10 mg - Labs Labs: 04/20/19 06:49 04/20/19 06:49 PT 12.6 SECONDS (9.7-12.2) H 04/15/19 07:59 INR 1.2 04/15/19 07:59 APTT 32.6 SECONDS (21-34) 04/15/19 07:59 - Constitutional Appears: Well, Cachectic, Chronically Ill - Head Exam Head Exam: ATRAUMATIC, NORMAL INSPECTION, NORMOCEPHALIC - Eye Exam Eye Exam: EOMI, Normal appearance, PERRL Pupil Exam: NORMAL ACCOMODATION, PERRL - ENT Exam ENT Exam: Mucous Membranes Moist, Normal Exam - Neck Exam Neck Exam: Full ROM, Normal Inspection. absent: Lymphadenopathy - Respiratory Exam Respiratory Exam: Clear to Ausculation Bilateral, NORMAL BREATHING PATTERN - Cardiovascular Exam Cardiovascular Exam: REGULAR RHYTHM, +S1, +S2. absent: Murmur - GI/Abdominal Exam GI & Abdominal Exam: Soft, Normal Bowel Sounds. absent: Tenderness - Rectal Exam Rectal Exam: Deferred - Exam Exam: NORMAL INSPECTION - Extremities Exam Extremities Exam: Full ROM, Normal Capillary Refill, Normal Inspection. absent: Joint Swelling, Pedal Edema - Back Exam Back Exam: NORMAL INSPECTION - Neurological Exam Neurological Exam: Alert, Awake, CN II-XII Intact. absent: Normal Gait - Psychiatric Exam Psychiatric exam: Normal Affect, Normal Mood - Skin Skin Exam: Dry, Intact, Normal Color, Warm Assessment and Plan (1) Tuberculosis Status: Acute (2) Lung abscess Status: Acute (3) Cavitary lesion of lung Status: Acute - Assessment and Plan (Free Text) Assessment: d/c to rehab cont TB meds
[2019-04-21] MEDS: Cefepime IV 1 gm in Dextrose 1 GM/50 ML BAG IVPB SCH (21:01)
--- NOTE | 2019-04-21 22:20 | CP.PCM.PN ---
Subjective - Date & Time of Evaluation Date of Evaluation: 04/21/19 Time of Evaluation: 17:25 - Subjective Subjective: Patient seen and evaluated No cardiac events noted Review Of Systems Except As Marked, All Systems Reviewed And Found Negative. Constitutional: Negative for: Fever, Chills, Sweats Cardiovascular: Negative for: Chest Pain Respiratory: Negative for: Cough, Shortness of Breath, Hemoptysis Gastrointestinal: Negative for: Nausea, Vomiting, Abdominal Pain, Diarrhea Musculoskeletal: Positive for: Neck Pain Physical Exam - Physical Exam Appears: Well, Non-toxic, No Acute Distress, Other (Patient on TB precautions) Skin: Normal Color, Dry Head: Atraumatic Eye(s): bilateral: Normal Inspection Nose: Normal Oral Mucosa: Moist Neck: Normal, Supple Chest: Symmetrical Cardiovascular: Rhythm Regular Respiratory: Normal Breath Sounds Gastrointestinal/Abdominal: Normal Exam, Bowel Sounds, Soft, No Tenderness Back: Normal Inspection, No CVA Tenderness, No Decreased ROM Extremity: Normal ROM, No Tenderness, No Swelling Extremity: Bilateral: Atraumatic Neurological/Psych: Oriented x3, Normal Speech, Normal Cognition, Normal Motor, Normal Sensation Additional Physical Exam Comments: Appears: Non-toxic, No Acute Distress Skin: Warm, Dry Head: Atraumatic, Normacephalic Eye(s): bilateral: Normal Inspection Oral Mucosa: Moist Neck: Normal ROM, Supple Chest: Symmetrical, No Deformity Cardiovascular: Rhythm Regular, No Murmur Respiratory: Normal Breath Sounds, No Rales, No Rhonchi, No Wheezing Gastrointestinal/Abdominal: Soft, No Tenderness, No Distention, No Guarding, No Rebound Neurological/Psych: Oriented x3, Normal Speech, Normal Cognition, Other (speaking in full sentences) Assessment & Plan - Assessment and Plan (Free Text) Assessment: Pneumonia CAD T2dm Plan: Cont Pulm treatment Objective - Vital Signs/Intake and Output Vital Signs (last 24 hours): Temp Pulse Resp BP Pulse Ox 99.1 F 74 20 149/69 97 04/21/19 15:00 04/21/19 15:00 04/21/19 15:00 04/21/19 15:00 04/21/19 15:00 - Medications Medications: Current Medications Acetaminophen (Tylenol 325mg Tab) 650 mg PO Q4H PRN PRN Reason: Fever >100.4 F Last Admin: 04/17/19 00:10 Dose: 650 mg Clopidogrel Bisulfate (Plavix) 75 mg PO DAILY [facility] Last Admin: 04/21/19 09:52 Dose: 75 mg Docusate Sodium (Colace) 100 mg PO DAILY [facility] Last Admin: 04/21/19 09:52 Dose: 100 mg Enoxaparin Sodium (Lovenox) 30 mg SC DAILY [facility] Last Admin: 04/21/19 09:52 Dose: 30 mg Ethambutol HCl (Myambutol) 800 mg PO DAILY [facility]; Protocol Last Admin: 04/21/19 12:54 Dose: 800 mg Gabapentin (Neurontin) 100 mg PO BID [facility] Last Admin: 04/21/19 17:50 Dose: 100 mg Cefepime HCl (Maxipime Iv 1 Gm Premix) 1 gm in 50 mls @ 100 mls/hr IVPB Q24H [facility]; Protocol Last Admin: 04/21/19 21:01 Dose: Not Given Insulin Human Regular (Novolin R) 0 unit SC ACHS [facility]; Protocol Last Admin: 04/21/19 21:51 Dose: Not Given Isoniazid (Niazid) 300 mg PO DAILY [facility]; Protocol Last Admin: 04/21/19 12:48 Dose: 300 mg Lactulose (Enulose) 20 gm PO HS [facility] Last Admin: 04/21/19 21:53 Dose: Not Given Megestrol Acetate (Megace) 400 mg PO DAILY [facility] Last Admin: 04/21/19 09:51 Dose: 400 mg Metoprolol Succinate (Toprol Xl) 50 mg PO DAILY [facility] Last Admin: 04/21/19 09:52 Dose: 50 mg Pyrazinamide (Pyrazinamide) 1,000 mg PO MoWeFr [facility]; Protocol Last Admin: 04/20/19 10:48 Dose: 1,000 mg Pyridoxine HCl (Vitamin B6 50 Mg Tab) 50 mg PO DAILY [facility] Last Admin: 04/21/19 09:52 Dose: 50 mg Rifampin (Rifampin Cap) 600 mg PO DAILY [facility]; Protocol Last Admin: 04/21/19 12:53 Dose: 600 mg Rosuvastatin Calcium (Crestor) 10 mg PO HS [facility] Last Admin: 04/21/19 21:56 Dose: 10 mg - Labs Labs: 04/20/19 06:49 04/20/19 06:49 PT 12.6 SECONDS (9.7-12.2) H 04/15/19 07:59 INR 1.2 04/15/19 07:59 APTT 32.6 SECONDS (21-34) 04/15/19 07:59
--- NOTE | 2019-04-21 22:49 | CP.PCM.DIS ---
Provider - Provider Date of Admission: 04/14/19 14:16 Attending physician: Carlin Wynn MD Consults: 04/14/19 16:25 General Surgery Consult Routine Comment: Consulting Provider: Zakiya Abrams Consulting Physician: Zakiya Abrams Reason for Consult: abcess 04/14/19 18:35 Inpatient [facility] Referral Routine Comment: Physician Instructions: Reason For Exam: COPD Nursing Referral for Palliative Care Routine Comment: Physician Instructions: Reason For Exam: admit from [facility], COPD Nursing Referral for Wound Care Routine Comment: Physician Instructions: Reason For Exam: incontinence, limited mobility 04/14/19 20:14 Pulmonology Consult Routine Comment: r/o TB, hx of COPD Consulting Provider: Braydon Monteiro Consulting Physician: Braydon Monteiro Reason for Consult: r/o TB, hx of COPD 04/14/19 20:15 Cardiology Consult Routine Comment: hx of coronoary stent, HTN Consulting Provider: Hector Dyson Consulting Physician: Hector Dyson Reason for Consult: hx of coronoary stent, HTN 04/19/19 04:04 Psychiatry Consult Routine Comment: Consulting Provider: Erik Van Consulting Physician: Erik Van Reason for Consult: depression Time Spent in preparation of Discharge (in minutes): 45 Hospital Course - Lab Results Lab Results: Micro Results 04/14/19 10:45 Blood Blood Culture - Final NO GROWTH AFTER 5 DAYS 04/14/19 10:45 Blood Gram Stain - Final TEST NOT PERFORMED 04/14/19 10:45 Blood Blood Culture - Final NO GROWTH AFTER 5 DAYS 04/14/19 10:45 Blood Gram Stain - Final TEST NOT PERFORMED 04/14/19 15:02 Urine Random Urine Culture - Final <10,000 CFU/ML. MULTIPLE SPECIES. PROBABLE CONTAMINATION. Most Recent Lab Values WBC 8.2 K/uL (4.8-10.8) 04/20/19 06:49 RBC 3.40 Mil/uL (3.80-5.20) L 04/20/19 06:49 Hgb 9.9 g/dL (11.0-16.0) L 04/20/19 06:49 Hct 28.6 % (34.0-47.0) L 04/20/19 06:49 MCV 84.1 fL (81.0-99.0) 04/20/19 06:49 MCH 29.2 pg (27.0-31.0) 04/20/19 06:49 MCHC 34.7 g/dL (33.0-37.0) 04/20/19 06:49 RDW 13.1 % (11.5-14.5) 04/20/19 06:49 Plt Count 291 K/uL (130-400) 04/20/19 06:49 MPV 7.4 fL (7.2-11.7) 04/20/19 06:49 Neut % (Auto) 67.2 % (50.0-75.0) 04/20/19 06:49 Lymph % (Auto) 15.8 % (20.0-40.0) L 04/20/19 06:49 Ripley % (Auto) 8.4 % (0.0-10.0) 04/20/19 06:49 Eos % (Auto) 7.4 % (0.0-4.0) H 04/20/19 06:49 Baso % (Auto) 1.2 % (0.0-2.0) 04/20/19 06:49 Neut # (Auto) 5.5 K/uL (1.8-7.0) 04/20/19 06:49 Lymph # (Auto) 1.3 K/uL (1.0-4.3) 04/20/19 06:49 Ripley # (Auto) 0.7 K/uL (0.0-0.8) 04/20/19 06:49 Eos # (Auto) 0.6 K/uL (0.0-0.7) 04/20/19 06:49 Baso # (Auto) 0.1 K/uL (0.0-0.2) 04/20/19 06:49 ESR 121 mm/hr (0-20) H 04/15/19 07:59 PT 12.6 SECONDS (9.7-12.2) H 04/15/19 07:59 INR 1.2 04/15/19 07:59 APTT 32.6 SECONDS (21-34) 04/15/19 07:59 Sodium 133 mmol/L (132-148) 04/20/19 06:49 Potassium 3.7 mmol/L (3.6-5.2) 04/20/19 06:49 Chloride 108 mmol/L (98-107) H 04/20/19 06:49 Carbon Dioxide 19 mmol/L (22-30) L 04/20/19 06:49 Anion Gap 10 (10-20) 04/20/19 06:49 BUN 30 mg/dL (7-17) H 04/20/19 06:49 Creatinine 2.1 mg/dL (0.7-1.2) H 04/20/19 06:49 Est GFR ( Amer) 04/20/19 06:49 Est GFR (Non-Af Amer) 04/20/19 06:49 POC Glucose (mg/dL) 390 mg/dL (65-110) H 04/21/19 16:05 Random Glucose 148 mg/dL (65-105) H 04/20/19 06:49 Lactic Acid 0.8 mmol/L (0.7-2.1) 04/14/19 10:45 Calcium 8.8 mg/dl (8.6-10.4) 04/20/19 06:49 Phosphorus 2.7 mg/dL (2.5-4.5) 04/18/19 11:04 Magnesium 1.9 mg/dL (1.6-2.3) 04/19/19 08:17 Total Bilirubin 0.3 mg/dL (0.2-1.3) 04/18/19 11:04 AST 26 U/L (14-36) 04/18/19 11:04 ALT 13 U/L (9-52) 04/18/19 11:04 Alkaline Phosphatase 69 U/L (38-126) 04/18/19 11:04 Total Protein 6.2 g/dL (6.3-8.3) L 04/18/19 11:04 Albumin 2.7 g/dL (3.5-5.0) L 04/18/19 11:04 Globulin 3.5 gm/dL (2.2-3.9) 04/18/19 11:04 Albumin/Globulin Ratio 0.8 (1.0-2.1) L 04/18/19 11:04 Urine Color Toshia (YELLOW) 04/14/19 11:23 Urine Clarity Turbid (Clear) 04/14/19 11:23 Urine pH 5.0 (5.0-8.0) 04/14/19 11:23 Ur Specific [place] 1.012 (1.003-1.030) 04/14/19 11:23 Urine Protein 3+ mg/dL (NEGATIVE) H 04/14/19 11:23 Urine Glucose (UA) 3+ mg/dL (Normal) H 04/14/19 11:23 Urine Ketones Trace mg/dL (NEGATIVE) 04/14/19 11:23 Urine Blood 2+ (NEGATIVE) H 04/14/19 11:23 Urine Nitrate Negative (NEGATIVE) 04/14/19 11:23 Urine Bilirubin Negative (NEGATIVE) 04/14/19 11:23 Urine Urobilinogen Normal mg/dL (0.2-1.0) 04/14/19 11:23 Ur Leukocyte Esterase 3+ Ivette/uL (Negative) H 04/14/19 11:23 Urine WBC (Auto) 2987 /hpf (0-5) H 04/14/19 11:23 Urine RBC (Auto) 56 /hpf (0-3) H 04/14/19 11:23 Urine WBC Clumps (Auto) Mod /hpf (NONE) H 04/14/19 11:23 Ur Squamous Epith Cells 3 /hpf (0-5) 04/14/19 11:23 Urine Bacteria Rare (<OCC) 04/14/19 11:23 Urine Yeast (Budding) Few /hpf (NEGATIVE) H 04/14/19 11:23 Discharge Exam - Head Exam Head Exam: ATRAUMATIC, NORMAL INSPECTION, NORMOCEPHALIC Discharge Plan - Follow Up Plan Condition: GOOD Disposition: HOME/ ROUTINE Instructions: Urinary Tract Infection, Adult (DC), Tuberculosis (DC), Lung Abscess (DC) Additional Instructions: Continue Meds, Call MD for additional orders. Referrals: Braydon Monteiro MD [Staff Provider] - Hector Dyson MD [Staff Provider] - Erik Van MD [Staff Provider] - Carlin Wynn MD [Staff Provider] -
--- NOTE | 2019-04-22 06:01 | DS ---
DISCHARGE DIAGNOSES: 1. Pulmonary tuberculosis. 2. Hypertension. 3. Dehydration, hyponatremia. 4. Anorexia. HISTORY OF PRESENT ILLNESS AND HOSPITAL COURSE: This is a 63-year-old female with pulmonary tuberculosis. She was referred by TB clinic to the hospital for possibility of pulmonary abscess. The patient was admitted to the floor. The patient was placed on respiratory isolation, started on IV fluids. The patient had poor oral intake. She was given IV fluids and Accu-Cheks. The patient's condition started improving. The patient underwent a CT of the chest. The patient's isolation had been discontinued. Her antibiotics had been discontinued. She is being discharged back to subacute rehabilitation with anti-TB therapy with outpatient followup with TB and chest clinic. The patient is stable. PHYSICAL EXAMINATION: VITAL SIGNS: Blood pressure 149/69, pulse 74, respiratory rate 20, temperature 99.1. LUNGS: Clear. CARDIOVASCULAR SYSTEM: S1 and S2, regular. ABDOMEN: Soft and nontender. Bowel sounds are positive. ASSESSMENT: 1. Pulmonary tuberculosis, ruled out pulmonary abscess. 2. Hypertension. 3. Chronic kidney disease. 4. Dehydration. PLAN: Discharge. Carlin Wynn MD
--- NOTE | 2019-04-23 05:21 | CP.PCM.DIS ---
Provider - Provider Date of Admission: 04/14/19 14:16 Attending physician: Carlin Wynn MD Consults: 04/14/19 16:25 General Surgery Consult Routine Comment: Consulting Provider: Zakiya Abrams Consulting Physician: Zakiya Abrams Reason for Consult: abcess 04/14/19 18:35 Inpatient [employer] Measures Referral Routine Comment: Physician Instructions: Reason For Exam: COPD Nursing Referral for Palliative Care Routine Comment: Physician Instructions: Reason For Exam: admit from [facility], COPD Nursing Referral for Wound Care Routine Comment: Physician Instructions: Reason For Exam: incontinence, limited mobility 04/14/19 20:14 Pulmonology Consult Routine Comment: r/o TB, hx of COPD Consulting Provider: Braydon Monteiro Consulting Physician: Braydon Monteiro Reason for Consult: r/o TB, hx of COPD 04/14/19 20:15 Cardiology Consult Routine Comment: hx of coronoary stent, HTN Consulting Provider: Hector Dyson Consulting Physician: Hector Dyson Reason for Consult: hx of coronoary stent, HTN 04/19/19 04:04 Psychiatry Consult Routine Comment: Consulting Provider: Erik Van Consulting Physician: Erik Van Reason for Consult: depression Time Spent in preparation of Discharge (in minutes): 45 Hospital Course - Lab Results Lab Results: Micro Results 04/14/19 10:45 Blood Blood Culture - Final NO GROWTH AFTER 5 DAYS 04/14/19 10:45 Blood Gram Stain - Final TEST NOT PERFORMED 04/14/19 10:45 Blood Blood Culture - Final NO GROWTH AFTER 5 DAYS 04/14/19 10:45 Blood Gram Stain - Final TEST NOT PERFORMED 04/14/19 15:02 Urine Random Urine Culture - Final <10,000 CFU/ML. MULTIPLE SPECIES. PROBABLE CONTAMINATION. Most Recent Lab Values WBC 8.2 K/uL (4.8-10.8) 04/20/19 06:49 RBC 3.40 Mil/uL (3.80-5.20) L 04/20/19 06:49 Hgb 9.9 g/dL (11.0-16.0) L 04/20/19 06:49 Hct 28.6 % (34.0-47.0) L 04/20/19 06:49 MCV 84.1 fL (81.0-99.0) 04/20/19 06:49 MCH 29.2 pg (27.0-31.0) 04/20/19 06:49 MCHC 34.7 g/dL (33.0-37.0) 04/20/19 06:49 RDW 13.1 % (11.5-14.5) 04/20/19 06:49 Plt Count 291 K/uL (130-400) 04/20/19 06:49 MPV 7.4 fL (7.2-11.7) 04/20/19 06:49 Neut % (Auto) 67.2 % (50.0-75.0) 04/20/19 06:49 Lymph % (Auto) 15.8 % (20.0-40.0) L 04/20/19 06:49 Knott % (Auto) 8.4 % (0.0-10.0) 04/20/19 06:49 Eos % (Auto) 7.4 % (0.0-4.0) H 04/20/19 06:49 Baso % (Auto) 1.2 % (0.0-2.0) 04/20/19 06:49 Neut # (Auto) 5.5 K/uL (1.8-7.0) 04/20/19 06:49 Lymph # (Auto) 1.3 K/uL (1.0-4.3) 04/20/19 06:49 Knott # (Auto) 0.7 K/uL (0.0-0.8) 04/20/19 06:49 Eos # (Auto) 0.6 K/uL (0.0-0.7) 04/20/19 06:49 Baso # (Auto) 0.1 K/uL (0.0-0.2) 04/20/19 06:49 ESR 121 mm/hr (0-20) H 04/15/19 07:59 PT 12.6 SECONDS (9.7-12.2) H 04/15/19 07:59 INR 1.2 04/15/19 07:59 APTT 32.6 SECONDS (21-34) 04/15/19 07:59 Sodium 133 mmol/L (132-148) 04/20/19 06:49 Potassium 3.7 mmol/L (3.6-5.2) 04/20/19 06:49 Chloride 108 mmol/L (98-107) H 04/20/19 06:49 Carbon Dioxide 19 mmol/L (22-30) L 04/20/19 06:49 Anion Gap 10 (10-20) 04/20/19 06:49 BUN 30 mg/dL (7-17) H 04/20/19 06:49 Creatinine 2.1 mg/dL (0.7-1.2) H 04/20/19 06:49 Est GFR ( Amer) 04/20/19 06:49 Est GFR (Non-Af Amer) 04/20/19 06:49 POC Glucose (mg/dL) 390 mg/dL (65-110) H 04/21/19 16:05 Random Glucose 148 mg/dL (65-105) H 04/20/19 06:49 Lactic Acid 0.8 mmol/L (0.7-2.1) 04/14/19 10:45 Calcium 8.8 mg/dl (8.6-10.4) 04/20/19 06:49 Phosphorus 2.7 mg/dL (2.5-4.5) 04/18/19 11:04 Magnesium 1.9 mg/dL (1.6-2.3) 04/19/19 08:17 Total Bilirubin 0.3 mg/dL (0.2-1.3) 04/18/19 11:04 AST 26 U/L (14-36) 04/18/19 11:04 ALT 13 U/L (9-52) 04/18/19 11:04 Alkaline Phosphatase 69 U/L (38-126) 04/18/19 11:04 Total Protein 6.2 g/dL (6.3-8.3) L 04/18/19 11:04 Albumin 2.7 g/dL (3.5-5.0) L 04/18/19 11:04 Globulin 3.5 gm/dL (2.2-3.9) 04/18/19 11:04 Albumin/Globulin Ratio 0.8 (1.0-2.1) L 04/18/19 11:04 Urine Color Toshia (YELLOW) 04/14/19 11:23 Urine Clarity Turbid (Clear) 04/14/19 11:23 Urine pH 5.0 (5.0-8.0) 04/14/19 11:23 Ur Specific Rubicon 1.012 (1.003-1.030) 04/14/19 11:23 Urine Protein 3+ mg/dL (NEGATIVE) H 04/14/19 11:23 Urine Glucose (UA) 3+ mg/dL (Normal) H 04/14/19 11:23 Urine Ketones Trace mg/dL (NEGATIVE) 04/14/19 11:23 Urine Blood 2+ (NEGATIVE) H 04/14/19 11:23 Urine Nitrate Negative (NEGATIVE) 04/14/19 11:23 Urine Bilirubin Negative (NEGATIVE) 04/14/19 11:23 Urine Urobilinogen Normal mg/dL (0.2-1.0) 04/14/19 11:23 Ur Leukocyte Esterase 3+ Ivette/uL (Negative) H 04/14/19 11:23 Urine WBC (Auto) 2987 /hpf (0-5) H 04/14/19 11:23 Urine RBC (Auto) 56 /hpf (0-3) H 04/14/19 11:23 Urine WBC Clumps (Auto) Mod /hpf (NONE) H 04/14/19 11:23 Ur Squamous Epith Cells 3 /hpf (0-5) 04/14/19 11:23 Urine Bacteria Rare (<OCC) 04/14/19 11:23 Urine Yeast (Budding) Few /hpf (NEGATIVE) H 04/14/19 11:23 Discharge Exam - Head Exam Head Exam: ATRAUMATIC, NORMAL INSPECTION, NORMOCEPHALIC Discharge Plan - Discharge Medications Prescriptions: Ethambutol [Myambutol] 800 mg PO DAILY 30 Days tab Isoniazid [Niazid] 300 mg PO DAILY 30 Days tab Pyrazinamide 1,000 mg PO MoWeFr 30 Days tab rifAMPin [Rifampin Cap] 600 mg PO DAILY 30 Days cap Pyridoxine [Vitamin B6 50 mg Tab] 50 mg PO DAILY 30 Days tab - Follow Up Plan Condition: GOOD Disposition: HOME/ ROUTINE Instructions: Urinary Tract Infection, Adult (DC), Tuberculosis (DC), Lung Abscess (DC) Additional Instructions: Continue Meds, Call MD for additional orders. Referrals: Braydon Monteiro MD [Staff Provider] - Hector Dyson MD [Staff Provider] - Erik Van MD [Staff Provider] - Carlin Wynn MD [Staff Provider] -
--- NOTE | 2019-04-25 10:07 | DS ---
DISCHARGE DIAGNOSES: 1. Pulmonary tuberculosis. 2. Chronic kidney disease. 3. Inability to thrive. 4. Hypertension. 5. Diabetes. HOSPITAL COURSE: This is a 50-year-old [place] female with a history of multiple medical problems. She was being treated for pulmonary tuberculosis and she is compliant with her diet and medication; however, she was referred by [facility], came into the hospital to rule out a pulmonary abscess. She was placed on respiratory isolation and the patient was evaluated with a CT of the chest which showed a pleural effusion or infiltrate or an abscess; however, there was pulmonary scarring and she is on anti-TB therapy. She was held there and she was treated with anti-TB therapy, antibiotics, which were started initially, but were discontinued due to lack of any active bacterial infection. The patient did well. The patient has improved. She is for subacute rehab. PHYSICAL EXAMINATION: VITAL SIGNS: Her blood pressure is 149/69, pulse 74, respiratory rate 20, temperature 99.1. LUNGS: Clear. CARDIOVASCULAR: S1 and S2 regular. ASSESSMENT AND PLAN: Discharge the patient. Outpatient followup. Monitor the patient. Carlin Wynn MD
== END 2019-04-22 00:15 | DRG 178 ==
LOC: C.ER 09:17 → C.3T 14:16 → C.9E 15:01 → C.5S 16:52
PROVIDERS: ADMIT Internal Medicine; ATTEND Internal Medicine
DX: A15.0 Tuberculosis of lung (principal); E87.0 Hyperosmolality and hypernatremia; E87.1 Hypo-osmolality and hyponatremia; E46 Unspecified protein-calorie malnutrition; N39.0 Urinary tract infection, site not specified; Z68.1 Body mass index [BMI] 19.9 or less, adult; E11.22 Type 2 diabetes mellitus with diabetic chronic kidney disease; E11.65 Type 2 diabetes mellitus with hyperglycemia; E78.5 Hyperlipidemia, unspecified; E86.0 Dehydration; F03.90 Unspecified dementia, unspecified severity, without behavioral disturbance, psychotic disturbance, mood disturbance, and anxiety; F32.9 Major depressive disorder, single episode, unspecified; I12.9 Hypertensive chronic kidney disease with stage 1 through stage 4 chronic kidney disease, or unspecified chronic kidney disease; I25.10 Atherosclerotic heart disease of native coronary artery without angina pectoris; K59.00 Constipation, unspecified; N18.9 Chronic kidney disease, unspecified; Z87.891 Personal history of nicotine dependence; Z95.5 Presence of coronary angioplasty implant and graft; J90 Pleural effusion, not elsewhere classified; J18.9 Pneumonia, unspecified organism; J44.9 Chronic obstructive pulmonary disease, unspecified; F43.20 Adjustment disorder, unspecified; R62.7 Adult failure to thrive; L30.9 Dermatitis, unspecified